=== PATIENT | female | born 1985 | race Caucasian/White ===

== ENCOUNTER → 2017-07-28 11:42 | Outpatient (CLI) | payer BC, SELFPAY ==
[2017-07-28 12:48] LABS: Absolute Lymphocyte Count 1.28 X10^3/ul (0.83-4.51); Absolute Neutrophil Count 5.3 X10^3/uL (2.0-7.7); Basophil# 0.01 X10^3/uL; Basophil% 0.1 % (0-1); Eosinophil# 0.02 X10^3/uL; Eosinophils% 0.3 % (0-5); Lymphocyte # 1.28 X10^3/ul (4.0); Lymphocyte % 18.3 % (19-41); Mean Corp Hgb Conc 33.3 g/gl (32-36); Mean Corpuscular Volume 89.9 fL (81-99); Mean Platelet Vol. 10.3 fl (6.2-12.0); Monocyte# 0.35 X10^3/uL; Neutrophil # 5.32 X10^3/uL (2.7-7.7); Platelet Count 263 K/mm3 (150-450); RBC Distribution Width CV 14.4 % (11.6-14.6); RBC Distribution Width SD 46.5 fl (35.1-43.9); Red Blood Count 4.34 M/mm3 (4.2-5.4)
[2017-07-28 12:49] LABS: POSITIVE COUNT NO; POSITIVE DIFFERENTIAL NO; POSITIVE MORPHOLOGY NO
[2017-07-28 13:09] LABS: Glucose Challenge Gest 1H 50g 128 mg/dL (70-140)
[2017-07-29 03:11] LABS: Rapid Plasmin Reagin (RPR) NONREACTIVE (NONREACTIVE)
[2017-07-29 09:09] LABS: HEPATITIS B SURFACE AG Negative (Negative)
[2017-07-29 09:43] LABS: HIV - WCH Non-Reactive (Nonreactive); Rubella IgG 323.2 IU/mL
== END ==
PROVIDERS: Visit Provider Obstetrics & Gynecology
DX: Z34.00 Encounter for supervision of normal first pregnancy, unspecified trimester (principal)
CPT/HCPCS: 82950; 85025; 86592; 86703; 86762; 86850; 86900; 87340

== ENCOUNTER → 2017-07-28 17:50 | Outpatient (CLI) | payer BC, SELFPAY ==
[2017-07-28 21:06] LABS: Chlamydia Trachomatis by PCR Negative (Negative); Neisserai gonorrhoeae by PCR Negative (Negative); Probe Check PASS; Sample Adequacy Control PASS; Specimen Processing Control PASS
== END ==
PROVIDERS: Visit Provider Obstetrics & Gynecology
DX: Z34.00 Encounter for supervision of normal first pregnancy, unspecified trimester (principal)
CPT/HCPCS: 87086; 87088; 87491; 87591

== ENCOUNTER → 2017-10-21 14:00 | Outpatient (CLI) | payer BC, SELFPAY ==
--- NOTE | 2017-10-21 14:03 | US_ITS ---
STUDY: SECOND AND THIRD TRIMESTER OBSTETRICAL ULTRASOUND REASON FOR EXAM: Female, 32 years old. Anatomy LMP: June 04, 2017 TECHNIQUE: Transabdominal and Transvaginal PRIOR ULTRASOUND: None. FINDINGS: There is a single intrauterine fetus. The fetus is in an oblique presentation with the head on the maternal right side. There is demonstrated cardiac activity with a heart rate of 156 bpm. There is a normal amniotic fluid volume. The largest amniotic fluid pocket measures 7.4 cm. The amniotic fluid index (DARRELL) is within normal limits. The placenta is anterior in location and is not low lying. There are Grade 0 placental changes. The cervix measures 5.5 cm in length. The bilateral adnexal regions are normal. BIOMETRY: BPD: 5.9 cm: 20 weeks, 5 days HC: 18 cm: 20 weeks, 3 days AC: 15.6 cm: 20 weeks, 6 days FL: 3.2 cm: 19 weeks, 6 days CI: 78 FL/BPD: 65 FL/AC: 20 HC/AC: 1.15 age by current US: 20 weeks, 4 days. DONNA by current US: March 06, 2018. Estimated weight: 347 grams, +/- 51 grams, 73 %. Age by LMP: 19 weeks, 6 days. DONNA by LMP: March 11, 2018. ANATOMY: Cranium: Normal lateral ventricles. Normal choroid plexus. Normal cerebellum. Normal cisterna magna. Normal face, nose and lips. Chest: Normal 4-chamber heart. Abdomen/Pelvis: Normal diaphragm. Normal stomach. Normal abdominal wall. Normal cord insertion. Normal 3 vessel cord. Normal kidneys. Normal bladder. Spine: Normal cervical spine. Normal thoracic spine. Normal lumbar spine. Normal sacrum. Extremities: Normal bilateral upper extremities. Normal bilateral lower extremities. US/OB Anatomy Scan IMPRESSION: 20 weeks 4 days intrauterine Electronically Signed: Tarun James MD at 23:31 EDT , Service support ,
== END ==
PROVIDERS: Visit Provider Obstetrics & Gynecology
DX: Z34.00 Encounter for supervision of normal first pregnancy, unspecified trimester (principal)
CPT/HCPCS: 76805

== ENCOUNTER → 2017-12-21 10:08 | Outpatient (CLI) | payer BC, SELFPAY ==
[2017-12-21 12:35] LABS: Absolute Lymphocyte Count 1.13 X10^3/ul (0.83-4.51); Absolute Neutrophil Count 6.9 X10^3/uL (2.0-7.7); Basophil# 0.01 X10^3/uL; Basophil% 0.1 % (0-1); Eosinophil# 0.04 X10^3/uL; Eosinophils% 0.5 % (0-5); Hematocrit 36.1 % (37-47); Hemoglobin 11.5 g/dl (12.0-15.0); Lymphocyte # 1.13 X10^3/ul (4.0); Lymphocyte % 13.1 % (19-41); Mean Corp Hgb Conc 31.9 g/gl (32-36); Mean Corpuscular Hgb 30.3 pg (27.0-32.0); Mean Corpuscular Volume 95.3 fL (81-99); Mean Platelet Vol. 10.2 fl (6.2-12.0); Monocyte# 0.51 X10^3/uL; Monocyte% 5.9 % (0-10); Neutrophil # 6.93 X10^3/uL (2.7-7.7); Neutrophil % 80.1 % (47-70); Platelet Count 210 K/mm3 (150-450); RBC Distribution Width CV 14.9 % (11.6-14.6); RBC Distribution Width SD 51.2 fl (35.1-43.9); Red Blood Count 3.79 M/mm3 (4.2-5.4); White Blood Count 8.7 K/mm3 (4.4-11.0)
[2017-12-21 12:41] LABS: POSITIVE COUNT NO; POSITIVE DIFFERENTIAL NO; POSITIVE MORPHOLOGY NO
[2017-12-21 12:46] LABS: Glucose Challenge Gest 1H 50g 144 mg/dL (70-140)
== END ==
PROVIDERS: Nurse Practitioner Women's Health; Visit Provider Obstetrics & Gynecology
DX: O09.90 Supervision of high risk pregnancy, unspecified, unspecified trimester (principal); Z3A.00 Weeks of gestation of pregnancy not specified
CPT/HCPCS: 82950; 85025

== ENCOUNTER → 2017-12-30 09:49 | Outpatient (CLI) | payer BC, SELFPAY ==
[2017-12-30 11:34] LABS: Glucose GTT-Gestation. Fasting 92 mg/dL (<105)
[2017-12-30 11:34] LABS: Glucose GTT-Gestational 1 Hr 172 mg/dL (<190)
[2017-12-30 13:30] LABS: Glucose GTT-Gestational 2 Hr 144 mg/dL (<165)
[2017-12-30 14:44] LABS: Glucose GTT-Gestational 3 Hr 99 L (<145)
== END ==
PROVIDERS: Nurse Practitioner Women's Health; Visit Provider Obstetrics & Gynecology
DX: O99.810 Abnormal glucose complicating pregnancy (principal); Z3A.00 Weeks of gestation of pregnancy not specified
CPT/HCPCS: 36415; 82951; 82952

== ENCOUNTER 2018-01-18 11:46 | Observation (INO) | payer OTHER, SELFPAY ==
[2018-01-18 12:11] VITALS: BMI 44.6
[2018-01-18 13:17] LABS: Hematocrit 36.7 % (37-47); Mean Corp Hgb Conc 32.7 g/gl (32-36); Mean Corpuscular Hgb 30.5 pg (27.0-32.0); Mean Corpuscular Volume 93.4 fL (81-99); Mean Platelet Vol. 10.5 fl (6.2-12.0); Platelet Count 194 K/mm3 (150-450); RBC Distribution Width CV 14.5 % (11.6-14.6); RBC Distribution Width SD 49.3 fl (35.1-43.9); Red Blood Count 3.93 M/mm3 (4.2-5.4); Scan Indicated on CBC? Y/N NO; White Blood Count 9.4 K/mm3 (4.4-11.0)
[2018-01-18] MEDS: Betamethasone/Betamethasone 30 MG/5 ML Vial 12 MG IM (13:28)
[2018-01-18 14:46] LABS: Color, Urine Yellow (Yellow); Glucose, Dipstick Normal (Normal); Ketone-Dipstick 50 mg/dl (Negative); Leukocyte Esterase-Dipstick 100 /ul (Negative); Nitrite-Dipstick Negative (Negative); Occult Blood-Urine Negative /ul (Negative); Protein-Dipstick Negative (Negative); Urine Bilirubin Dipstick Negative (Negative); Urine Clarity Clear (Clear); Urine Urobilinogen Normal (Normal); Urine pH 6.5 (5.0 - 8.0)
--- NOTE | 2018-01-18 20:59 | PCM.HP.OB ---
- Problem List (1) Threatened labor Status: Acute (2) Status: Acute Qualifiers: Comment: : 4 Elective abortions: Hx Para: 1 Spontaneous abortions: 2 Hx # Term Pregnancies: Ectopic pregnancies: Hx # Pregnancies: Multiple births: : # of living children: Past Pregnancies Amilcar 37 live - full term 7lbs 1oz Female 12 hours epidural [facility] Dr. 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 she denies any persistent bleeding and denies LOF. she admits good fm. she was checked in the office today and was noted to be 3 cm dilated but no cervical change was noted. Medical History: Medical History (Last Reviewed 01/18/18 @ 10:54 by Ivania Tuttle) Abnormal Pap smear of cervix R87.619 Surgical History: Surgical History (Last Reviewed 01/18/18 @ 10:54 by Ivania Tuttle) S/P dilation and curettage Onset Date: ~11/2016 Z98.890 Allergies red dye Allergy (Mild, Verified 01/18/18 10:54) vomiting diazepam [From Valium] Adverse Reaction (Verified 01/18/18 10:54) Other hyperactivity Home Medications: Home Medications vitamin,calcium,yrzzmjol-dyfx-nruqv acid tablet 1 tab PO QDAY 07/28/17 Citalopram [Celexa] 10 mg PO QDAY 01/18/18 Smoking Status: Never smoker Alcohol: None Heart Tracin moderate variability reactive no decels cat I TOCO Analysis: no regular History Past Pregnancies: Past Pregnancies Delivery Date Name GA/Weeks Outcome Route Weight Infant Gender Labor Length Anesthesia Delivery Location Provider FOB Labs: Mom's Microbiology 01/18/18 14:35 Urine, Clean Catch Urine Culture - Pending Mom's Labs & Results 01/18/18 01/18/18 01/18/18 13:00 13:00 13:00 WBC 9.4 RBC 3.93 L Hgb 12.0 Hct 36.7 L MCV 93.4 MCH 30.5 MCHC 32.7 RDW 14.5 RDW Differential 49.3 H Plt Count 194 MPV 10.5 Urine Color Urine Clarity Urine pH Ur Specific [place] Urine Protein Urine Glucose (UA) Urine Ketones Urine Occult Blood Urine Nitrite Urine Bilirubin Urine Urobilinogen Ur Leukocyte Esterase Blood Type A NEGATIVE Antibody Screen TNP NEGATIVE 01/18/18 14:35 WBC RBC Hgb Hct MCV MCH MCHC RDW RDW Differential Plt Count MPV Urine Color Yellow Urine Clarity Clear Urine pH 6.5 Ur Specific [place] 1.010 Urine Protein Negative Urine Glucose (UA) Normal Urine Ketones 50 H Urine Occult Blood Negative Urine Nitrite Negative Urine Bilirubin Negative Urine Urobilinogen Normal Ur Leukocyte Esterase 100 H Blood Type Antibody Screen Social History Hx Smoking No Smoking Status Never smoker Expected Delivery Method: Spontaneous Vaginal Review of Systems Constitutional: Denies: Fever, Malaise Eyes: Denies: Blurred vision, Vision Change HEENT: Denies: Head Aches, Visual Changes Cardiovascular: Denies: Chest Pain, Palpitations Respiratory: Denies: Cough, Shortness of Breath, Wheezing Gastrointestinal: Denies: Abdominal Pain, Diarrhea, Nausea, Vomiting Genitourinary: Denies: Dysuria, Hematuria Musculoskeletal: Denies: Joint Pain, Muscle pain Skin: Denies: Lesions, Rash Neurological: Denies: Blurred vision, Focal weakness, Headaches Psychiatric: Denies: Anxiety, Depression Endocrine: Denies: Heat/ Cold Intolerance Hematologic/ Lymphatic: Denies: Easy Bruising, Easy Bleeding Physical Exam General: Alert, Cooperative, No apparent distress HEENT: Atraumatic, Normocephalic. Negative for: Thyromegaly, Lymphadenopathy Cardiovascular: Regular rate Lungs: Normal air movement Abdomen: Soft, Non Tender, Gravid Neurological: Deep Tendon Reflexes 2+/4 and Symmetrical, Neuro grossly intact. Negative for: Clonus PRECISION AGRICULTURE SPECIALIST: Normal external genitalia. 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 contractions- no cervical change. plan exp management, start tocolysis if regular ctx or cervical change 2. prematurity- BMZ given 3. ua and culture
--- NOTE | 2018-01-18 21:03 | HP.PCM_ITS ---
- Problem List (1) Threatened labor Status: Acute (2) Status: Acute Qualifiers: Comment: : 4 Elective abortions: Hx Para: 1 Spontaneous abortions: 2 Hx # Term Pregnancies: Ectopic pregnancies: Hx # Pregnancies: Multiple births: : # of living children: Past Pregnancies Amilcar 37 live - full term 7lbs 1oz Female 12 hours epidural [facility] Dr. 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 she denies any persistent bleeding and denies LOF. she admits good fm. she was checked in the office today and was noted to be 3 cm dilated but no cervical change was noted. Medical History: Medical History (Last Reviewed 01/18/18 @ 10:54 by Ivania Tuttle) Abnormal Pap smear of cervix R87.619 Surgical History: Surgical History (Last Reviewed 01/18/18 @ 10:54 by Ivania Tuttle) S/P dilation and curettage Onset Date: ~11/2016 Z98.890 Allergies red dye Allergy (Mild, Verified 01/18/18 10:54) vomiting diazepam [From Valium] Adverse Reaction (Verified 01/18/18 10:54) Other hyperactivity Home Medications: Home Medications vitamin,calcium,dirsinij-wzah-lwnve acid tablet 1 tab PO QDAY 07/28/17 Citalopram [Celexa] 10 mg PO QDAY 01/18/18 Smoking Status: Never smoker Alcohol: None Heart Tracin moderate variability reactive no decels cat I TOCO Analysis: no regular History Past Pregnancies: Past Pregnancies Delivery Date Name GA/Weeks Outcome Route Weight Infant Gender Labor Length Anesthesia Delivery Location Provider FOB Labs: Mom's Microbiology 01/18/18 14:35 Urine, Clean Catch Urine Culture - Pending Mom's Labs & Results 01/18/18 01/18/18 01/18/18 13:00 13:00 13:00 WBC 9.4 RBC 3.93 L Hgb 12.0 Hct 36.7 L MCV 93.4 MCH 30.5 MCHC 32.7 RDW 14.5 RDW Differential 49.3 H Plt Count 194 MPV 10.5 Urine Color Urine Clarity Urine pH Ur Specific [place] Urine Protein Urine Glucose (UA) Urine Ketones Urine Occult Blood Urine Nitrite Urine Bilirubin Urine Urobilinogen Ur Leukocyte Esterase Blood Type A NEGATIVE Antibody Screen TNP NEGATIVE 01/18/18 14:35 WBC RBC Hgb Hct MCV MCH MCHC RDW RDW Differential Plt Count MPV Urine Color Yellow Urine Clarity Clear Urine pH 6.5 Ur Specific [place] 1.010 Urine Protein Negative Urine Glucose (UA) Normal Urine Ketones 50 H Urine Occult Blood Negative Urine Nitrite Negative Urine Bilirubin Negative Urine Urobilinogen Normal Ur Leukocyte Esterase 100 H Blood Type Antibody Screen Social History Hx Smoking No Smoking Status Never smoker Expected Delivery Method: Spontaneous Vaginal Review of Systems Constitutional: Denies: Fever, Malaise Eyes: Denies: Blurred vision, Vision Change HEENT: Denies: Head Aches, Visual Changes Cardiovascular: Denies: Chest Pain, Palpitations Respiratory: Denies: Cough, Shortness of Breath, Wheezing Gastrointestinal: Denies: Abdominal Pain, Diarrhea, Nausea, Vomiting Genitourinary: Denies: Dysuria, Hematuria Musculoskeletal: Denies: Joint Pain, Muscle pain Skin: Denies: Lesions, Rash Neurological: Denies: Blurred vision, Focal weakness, Headaches Psychiatric: Denies: Anxiety, Depression Endocrine: Denies: Heat/ Cold Intolerance Hematologic/ Lymphatic: Denies: Easy Bruising, Easy Bleeding Physical Exam General: Alert, Cooperative, No apparent distress HEENT: Atraumatic, Normocephalic. Negative for: Thyromegaly, Lymphadenopathy Cardiovascular: Regular rate Lungs: Normal air movement Abdomen: Soft, Non Tender, Gravid Neurological: Deep Tendon Reflexes 2+/4 and Symmetrical, Neuro grossly intact. Negative for: Clonus LOAN COORDINATOR: Normal external genitalia. 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 contractions- no cervical change. plan exp management, start tocolysis if regular ctx or cervical change 2. prematurity- BMZ given 3. ua and culture
[2018-01-18] MEDS: 0.9% NaCl Peripheral Flush Adult/Peds IV (21:37)
[2018-01-18] MEDS: Citalopram 10 MG Tablet PO (21:37)
[2018-01-19] MEDS: Betamethasone/Betamethasone 30 MG/5 ML Vial 12 MG IM (13:43)
== END 2018-01-19 13:55 | disposition home or self-care (01) ==
LOC: WPOUT 11:46 → WP 11:47 → WPOUT 01-19 15:02 → WP 01-19 15:52
PROVIDERS: Admitting Provider Obstetrics & Gynecology; Visit Provider Obstetrics & Gynecology
DX: O60.03 Preterm labor without delivery, third trimester (principal); O99.343 Other mental disorders complicating pregnancy, third trimester; F41.9 Anxiety disorder, unspecified; O36.0130 Maternal care for anti-D [Rh] antibodies, third trimester, not applicable or unspecified; O09.523 Supervision of elderly multigravida, third trimester; O26.23 Pregnancy care for patient with recurrent pregnancy loss, third trimester; Z3A.32 32 weeks gestation of pregnancy
CPT/HCPCS: 36415; 59025; 59050; 81002; 85027; 86850; 86900; 87086; 87088; 96372; 99218; A4216; G0378; J0702

== ENCOUNTER 2018-01-20 01:30 | Outpatient (CLI) | payer BC, SELFPAY ==
[2018-01-20 02:00] VITALS: BMI 44.6
[2018-01-20 02:35] VITALS: RESP 18
--- NOTE | 2018-01-26 20:22 | OB.TRI.NOTE ---
- Problem List (1) Decreased movement Status: Acute (2) Threatened labor Status: Acute Qualifiers: History of Present Illness Date of Service: 01/20/18 Reason For Visit: R/O LABOR Date of Service: 01/20/18 Allergies red dye Allergy (Mild, Verified 01/23/18 11:47) vomiting diazepam [From Valium] Adverse Reaction (Verified 01/23/18 11:47) Other hyperactivity - Pertinent Past Medical History Medical History: Past Medical History (Last Reviewed 01/23/18 @ 11:47 by Elinor Hurtado) Abnormal Pap smear of cervix Surgical History: Past Surgical History (Last Reviewed 01/23/18 @ 11:47 by Elinor Hurtado) S/P dilation and curettage Onset Date: ~11/2016 Physical Exam Vitals: Vital Signs Resp 18 01/20/18 02:35 NST - FHR Rate Baby A Baseline: 140 Variability:: Moderate Accelerations:: 15 x 15 Decelerations:: None NST Reactive:: Yes FHR Category:: Category I Uterine Activity:: no regular Impression/Plan Decreased movement reactive NST and reassuring heart tones. Kick counts reviewed patient discharged home
== END 2018-01-20 02:35 | disposition home or self-care (01) ==
LOC: WPOUT 01:51 → WP 01:51
PROVIDERS: Visit Provider Obstetrics & Gynecology
DX: O36.8190 Decreased fetal movements, unspecified trimester, not applicable or unspecified (principal); Z3A.00 Weeks of gestation of pregnancy not specified
CPT/HCPCS: 59025; 59050; 99218; G0378

== ENCOUNTER → 2018-02-17 18:29 | Outpatient (CLI) | payer BC, SELFPAY ==
[2018-02-17 20:51] LABS: Group B Strep DNA By PCR Negative (Negative); Internal Control PASS; Probe Check PASS; Specimen Processing Control PASS
== END ==
PROVIDERS: Referring Provider Obstetrics & Gynecology; Visit Provider Obstetrics & Gynecology
DX: O09.893 Supervision of other high risk pregnancies, third trimester (principal); Z3A.00 Weeks of gestation of pregnancy not specified
CPT/HCPCS: 87081; 87653

== ENCOUNTER 2018-02-24 12:15 | Inpatient (IN) | payer BC, SELFPAY ==
[2018-02-24 12:29] VITALS: BMI 45.0
[2018-02-24] MEDS: Lactated Ringers 1,000 ML 50 ML IV ×2 (13:00→14:30)
[2018-02-24 13:16] LABS: Hematocrit 37.1 % (37-47); Hemoglobin 12.4 g/dl (12.0-15.0); Mean Corp Hgb Conc 33.4 g/gl (32-36); Mean Corpuscular Hgb 30.9 pg (27.0-32.0); Mean Corpuscular Volume 92.5 fL (81-99); Mean Platelet Vol. 10.9 fl (6.2-12.0); Platelet Count 203 K/mm3 (150-450); RBC Distribution Width CV 14.9 % (11.6-14.6); RBC Distribution Width SD 49.2 fl (35.1-43.9); Red Blood Count 4.01 M/mm3 (4.2-5.4)
[2018-02-24 13:17] LABS: Scan Indicated on CBC? Y/N NO
[2018-02-24] MEDS: fentaNYL-bupivacaine (epidural) 100 ML BAG EPIDURAL (14:26)
[2018-02-24] MEDS: Oxytocin 30 units/NS 500 ml 30 UNITS/500 ML IV.SOLN 334 UNITS IV (15:55)
--- NOTE | 2018-02-24 16:07 | PCM.OB.VAG ---
- Problem List (1) Active labor at term Status: Acute (2) Abnormal glucose affecting Status: Acute Comment: nl 3 hour- 1 elevated value. encouraged diet and exercise (3) Advanced maternal age (AMA) in Status: Acute Comment: declines genetic testing, growth us at 36 weeks (4) Anxiety during Status: Acute Comment: celexa (5) BMI 40.0-44.9, adult Status: Acute Comment: weekly nst until delivery, growth us q 4 weeks- ordered MFM (6) Status: Acute Qualifiers: Comment: genetic, carrier, and NTD screening declined. anatomy scan WNL. 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 Status: Acute Comment: apl workup negative (8) Rh negative status during Status: Acute Qualifiers: Comment: rhogam at 28 weeks and PRN (9) Supervision of high-risk Status: Acute Qualifiers: Comment: PRR DONNA 03/11/18 PC Amilcar Can Vaginal Delivery Maternal Presentation: Active Labor ial Amniotic Membrane Rupture Type: Spontaneous at home Amniotic Fluid Description: Clear Final DONNA: 03/11/18 Gestational age: 37 Weeks and 6 Days Date of Procedure: 02/24/18 Pre-Operative Diagnosis: ial Post-Operative Diagnosis: same Surgery/ Procedure Performed: Spontaneous Vaginal Delivery Type of Anesthesia: Epidural Description of Procedure: Patient began pushing and delivered the head in the PEG presentation. The head was delivered atraumatically a loose nuchal cord x1 was identified and easily reduced over the infant's head. The anterior and posterior shoulders delivered without complication followed by the rest of the infant and the infant was placed on the maternal abdomen. Delayed cord clamping was employed for approximately 60 seconds. Cord was clamped and cut and gentle traction was applied to the cord and the placenta delivered spontaneously immediately following it was noted to be intact with three-vessel cord. The perineum and vagina were inspected and noted to have a small first-degree perineal laceration that was repaired in the usual fashion with 3-0 Vicryl repeat. EBL was 200 cc. Patient and infant tolerated delivery well. Presentation: PEG Placental Delivery Description: Spontaneous Placenta Disposition: [facility] Cord Vessel Description: 3 Vessels Cord Entanglement: Around neck x 1, loose Estimated Blood Loss: 200 A gender: Male Episiotomy Description: None Laceration: Perineal Extension/lac, 1st degree Medications given after delivery: IV Pitocin Complications: None
--- NOTE | 2018-02-24 16:10 | HP.PCM_ITS ---
- Problem List (1) Active labor at term Status: Acute (2) Abnormal glucose affecting Status: Acute Comment: nl 3 hour- 1 elevated value. encouraged diet and exercise (3) Advanced maternal age (AMA) in Status: Acute Comment: declines genetic testing, growth us at 36 weeks (4) Anxiety during Status: Acute Comment: celexa (5) BMI 40.0-44.9, adult Status: Acute Comment: weekly nst until delivery, growth us q 4 weeks- ordered MFM (6) Status: Acute Qualifiers: Comment: genetic, carrier, and NTD screening declined. anatomy scan WNL. 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 Patient was 4-5 cm dilated and was checked in the office today and had spontaneous rupture of membranes clear fluid. Patient had a regular contractions throughout the morning every 3- 8 minutes Medical History: Medical History (Last Reviewed 02/24/18 @ 11:00 by Ivania Tuttle) Abnormal Pap smear of cervix R87.619 Surgical History: Surgical History (Last Reviewed 02/24/18 @ 11:00 by Ivania Tuttle) S/P dilation and curettage Onset Date: ~11/2016 Z98.890 Allergies red dye Allergy (Mild, Verified 02/24/18 11:00) vomiting diazepam [From Valium] Adverse Reaction (Verified 02/24/18 11:00) Other hyperactivity Home Medications: Home Medications vitamin,calcium,ysflshbe-mwcy-efbyj acid tablet 1 tab PO QDAY 07/28/17 Citalopram [Celexa] 10 mg PO QDAY 01/18/18 Smoking Status: Never smoker Alcohol: None Number of Fetus(es): 1 Heart Tracins moderate variability reactive no decelerations category 1 tracing TOCO Analysis: Every 2 to 5 minutes History Past Pregnancies: Past PregnanciesPregancy History 4 Elective abortions Hx Para 1 Spontaneous abortions 2 Hx # Term Pregnancies 1 Ectopic pregnancies Hx # Pregnancies Multiple births # of living children 1 Past Pregnancies Del. Date Name GA/Weeks Outcome Route Bth Weight Infant Gen Labor Lgth Anesthesia Del Locatn Provider FOB 12/27/14 Amilcar 37 live - full term 7lbs 1oz Female 12 hours epidural [facility] Dr. Sedrick [place] Delivery Date: 12/27/14 On 12/01/17 @ 11:09 Elinor Hurtado No issues during or delivery. Labs: Mom's Problem List Problem Status Onset Code Active labor at term Acute Mom's Labs & Results 02/24/18 02/24/18 13:00 13:00 WBC 11.0 RBC 4.01 L Hgb 12.4 Hct 37.1 MCV 92.5 MCH 30.9 MCHC 33.4 RDW 14.9 H RDW Differential 49.2 H Plt Count 203 MPV 10.9 Blood Type A NEGATIVE Antibody Screen NEGATIVE Course Did the patient receive Yes care? Labs Blood Type: A RH: NEGATIVE RPR/VDRL/Syphilis Nonreactive Rubella status Immune HbSAg Negative Date Done: 07/28/17 Chlamydia Negative Gonorrhea Negative HIV/AIDS Non-Reactive Group B Strep: Negative Current Obstetrical History Gestational Diabetes No Incompetent Cervix No Infertility No IUGR No Macrosomia No Hypertension/Pre-eclampsia No Placenta Previa/Abruption No PTL/PROM Yes: 2 shots of betamethasone 01/24 Uterine anomaly No Oligohydramnios No Polyhydramnios No Multiple gestation No Past Medical History Asthma No Diabetes No Hypertension No Heart disease No Mitral valve prolapse No Neurologic/Seizure disorder/ No Migraines Kidney disease No Liver disease No Varicosities No Clotting disorders/Hx of DVT No Thyroid Dysfunction No Other medical diseases No Psychiatric disorders No Major trauma No Abnormal PAP smear Yes Sleep apnea No Mammogram in the last 2 years No Social History Marital Status: Alleged father Can Lebl[place] Hx Smoking No Smoking Status Never smoker Expected Delivery Method: Spontaneous Vaginal Review of Systems Constitutional: Denies: Fever, Malaise Eyes: Denies: Blurred vision, Vision Change HEENT: Denies: Head Aches, Visual Changes Cardiovascular: Denies: Chest Pain, Palpitations Respiratory: Denies: Cough, Shortness of Breath, Wheezing Gastrointestinal: Denies: Abdominal Pain, Diarrhea, Nausea, Vomiting Genitourinary: Denies: Dysuria, Hematuria Musculoskeletal: Denies: Joint Pain, Muscle pain Skin: Denies: Lesions, Rash Neurological: Denies: Blurred vision, Focal weakness, Headaches Psychiatric: Denies: Anxiety, Depression Endocrine: Denies: Heat/ Cold Intolerance Hematologic/ Lymphatic: Denies: Easy Bruising, Easy Bleeding Physical Exam General: Alert, Cooperative, No apparent distress HEENT: Atraumatic, Normocephalic. Negative for: Thyromegaly, Lymphadenopathy Cardiovascular: Regular rate Lungs: Normal air movement Abdomen: Soft, Non Tender, Gravid Neurological: Deep Tendon Reflexes 2+/4 and Symmetrical, Neuro grossly intact. Negative for: Clonus DIRECTOR OF PLAYER PERSONNEL: Normal external genitalia. 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 Management of any complications: none I have reviewed the PFSH and made any clinically relevant updates.
[2018-02-24] MEDS: Oxytocin 30 units/NS 500 ml 30 UNITS/500 ML IV.SOLN 167 UNITS IV (16:25)
[2018-02-24] MEDS: Naproxen 250 MG Tablet PO (18:24)
[2018-02-24 19:37] VITALS: BP 115/64; PULSE 81; RESP 18; TEMP 36.8
[2018-02-24 23:56] VITALS: BP 107/64; PULSE 64; RESP 18; TEMP 36.6
[2018-02-25] MEDS: Naproxen 250 MG Tablet PO ×3 (02:44→20:46)
[2018-02-25 04:31] VITALS: BP 101/67; PULSE 65; RESP 16; TEMP 36.4
--- NOTE | 2018-02-25 08:19 | PCM.PN.OB ---
Patient Problems: Active and Suspected Problems (Last Reviewed 02/24/18 @ 11:00 by Ivania Tuttle) Active labor at term (Acute) Subjective: doing well n ocomplaints - Physical Exam Vital Signs Temp Pulse Resp BP 97.6 F L 65 16 101/67 02/25/18 04:31 02/25/18 04:31 02/25/18 04:31 02/25/18 04:31 Oxygen Delivery Method Room Air Weight: 262 lb 5.601 oz Body Mass Index (BMI) 45.0 Intake and Output for Last 24 Hours 02/23/18 02/24/18 02/25/18 23:59 23:59 23:59 Intake Total 2108 / 2108 Output Total 1500 / 1500 Balance 608 / 608 Laboratory Tests Past 24 Hrs 02/24/18 02/24/18 13:00 13:00 WBC 11.0 RBC 4.01 L Hgb 12.4 Hct 37.1 MCV 92.5 MCH 30.9 MCHC 33.4 RDW 14.9 H RDW Differential 49.2 H Plt Count 203 MPV 10.9 Blood Type A NEGATIVE Antibody Screen NEGATIVE Medical Necessity - Tobacco Use Smoking Status: Never smoker Assessment/Plan All Active Problems (Last Reviewed 02/24/18 @ 11:00 by Ivania Tuttle) Active labor at term (Acute) Abnormal glucose affecting (Acute) BMI 40.0-44.9, adult (Acute) (Acute) Anxiety during (Acute) Rh negative status during (Acute) Advanced maternal age (AMA) in (Acute) 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 routine post delivery care 2. breast feeding- support given 3. rh negative- rhogam prn 4. rubella immune
--- NOTE | 2018-02-25 08:21 | PCM.DCVAG ---
Discharge Diet: No Restrictions Discharge Activity: Return to Normal Activity, May not drive while taking narcotic pain medications., May Shower May resume sexual activity in: 4-6 weeks Call your doctor if your incision/area has: Continuous Slow Oozing, Sudden Increased Bleeding, Increased Pain/ Swelling, Increased Redness, Foul Smelling Discharge Additional Instructions: If you experience any of the following, contact your healthcare provider. Bleeding that soaks a pad every hour for 2 hours Fever 100.4 or higher Unrelieved incision or abdominal pain Swelling, redness, discharge or bleeding from your incision or episiotomy site Your incision begins to separate Problems urinating (including inability to urinate or burning while urinating). Visual changes Severe headache Flu-like symptoms Pain or redness in one of both of your breasts Pain, warmth, tenderness or swelling in your legs, especially the calf area Frequent nausea and vomiting Symptoms of depression or anxiety If you experience any of the following, call 911 or go to the nearest Emergency Room. Chest pain Problems breathing Seizure activity Partial or complete paralysis of a body part, slurred speech, weakness or drooping of the face, or a sudden inability to walk or hold your balance Allergies/Adverse Reactions: Allergies red dye Allergy (Mild, Verified 02/24/18 11:00) vomiting diazepam [From Valium] Adverse Reaction (Verified 02/24/18 11:00) Other hyperactivity Medications to take at Discharge vitamin,calcium,zqabjdti-iboe-yccav acid tablet 1 tab PO QDAY 07/28/17 Citalopram [Celexa] 10 mg PO QDAY 01/18/18 Please Follow Up With: Kaylee Chiu MD - [phone] When: Call to make an appointment with your doctor in 6 weeks. If you had elevated Blood pressure or 4th degree laceration you will need to be seen in 2 weeks. Primary Care Physician: Care Physician,No Primary [Primary Care Provider] - Test Results: Test results from this visit will be discussed in further detail at your follow-up appointment, if applicable.
--- NOTE | 2018-02-25 08:28 | DCINST_ITS ---
Discharge Diet: No Restrictions Discharge Activity: Return to Normal Activity, May not drive while taking narcotic pain medications., May Shower May resume sexual activity in: 4-6 weeks Call your doctor if your incision/area has: Continuous Slow Oozing, Sudden Increased Bleeding, Increased Pain/ Swelling, Increased Redness, Foul Smelling Discharge Additional Instructions: If you experience any of the following, contact your healthcare provider. * Bleeding that soaks a pad every hour for 2 hours * Fever 100.4 or higher * Unrelieved incision or abdominal pain * Swelling, redness, discharge or bleeding from your incision or episiotomy site * Your incision begins to separate * Problems urinating (including inability to urinate or burning while urinating). * Visual changes * Severe headache * Flu-like symptoms * Pain or redness in one of both of your breasts * Pain, warmth, tenderness or swelling in your legs, especially the calf area * Frequent nausea and vomiting * Symptoms of depression or anxiety If you experience any of the following, call 911 or go to the nearest Emergency Room. * Chest pain * Problems breathing * Seizure activity * Partial or complete paralysis of a body part, slurred speech, weakness or drooping of the face, or a sudden inability to walk or hold your balance Allergies/Adverse Reactions: Allergies red dye Allergy (Mild, Verified 02/24/18 11:00) vomiting diazepam [From Valium] Adverse Reaction (Verified 02/24/18 11:00) Other hyperactivity Medications to take at Discharge vitamin,calcium,yhdjoxjb-scfl-elmak acid tablet 1 tab PO QDAY 07/28/17 Citalopram [Celexa] 10 mg PO QDAY 01/18/18 Please Follow Up With: Kaylee Chiu MD - [phone] When: Call to make an appointment with your doctor in 6 weeks. If you had elevated Blood pressure or 4th degree laceration you will need to be seen in 2 weeks. Primary Care Physician: Care Physician,No Primary [Primary Care Provider] - Test Results: Test results from this visit will be discussed in further detail at your follow- up appointment, if applicable.
[2018-02-25 09:12] VITALS: BP 108/87; PULSE 78; RESP 14; TEMP 36.4; O2SAT 96
[2018-02-25 12:49] VITALS: BP 111/76; PULSE 75; RESP 14; TEMP 36.2; O2SAT 98
[2018-02-25 17:30] VITALS: BP 110/72; PULSE 77; RESP 16; TEMP 36.6; O2SAT 96
[2018-02-25 19:50] VITALS: BP 117/60; PULSE 67; RESP 16; TEMP 36.2; O2SAT 97
[2018-02-25] MEDS: Senna/Docusate Sodium 1 Tablet PO (20:46)
[2018-02-26 02:44] VITALS: BP 110/57; PULSE 71; RESP 16; TEMP 36.7; O2SAT 95
[2018-02-26 08:17] VITALS: BP 112/51; PULSE 68; RESP 16; TEMP 36.3; O2SAT 97
--- NOTE | 2018-02-26 12:47 | PCM.PN.OB ---
Patient Problems: Active and Suspected Problems (Last Reviewed 02/24/18 @ 11:00 by Ivania Tuttle) Active labor at term (Acute) Subjective: doing well no complaints - Physical Exam General: Alert, Oriented x3 Vital Signs Temp Pulse Resp BP Pulse Ox 97.3 F L 68 16 112/51 L 97 02/26/18 08:17 02/26/18 08:17 02/26/18 08:17 02/26/18 08:17 02/26/18 08:17 Oxygen Delivery Method Room Air Weight: 262 lb 5.601 oz Body Mass Index (BMI) 45.0 Intake and Output for Last 24 Hours 02/24/18 02/25/18 02/26/18 23:59 23:59 23:59 Intake Total 2108 / 2108 Output Total 1500 / 1500 Balance 608 / 608 Medical Necessity - Tobacco Use Smoking Status: Never smoker Assessment/Plan All Active Problems (Last Reviewed 02/24/18 @ 11:00 by Ivania Tuttle) Active labor at term (Acute) Abnormal glucose affecting (Acute) BMI 40.0-44.9, adult (Acute) (Acute) Anxiety during (Acute) Rh negative status during (Acute) Advanced maternal age (AMA) in (Acute) 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 routine post delivery care 2. breast feeding- support given 3. rh negative- rhogam prn 4. rubella immune
[2018-02-26 13:39] VITALS: BP 121/76; PULSE 69; RESP 16; TEMP 36.6; O2SAT 100
== END 2018-02-26 14:15 | disposition home or self-care (01) | DRG 806 ==
PROVIDERS: Admitting Provider Obstetrics & Gynecology; Referring Provider Obstetrics & Gynecology; Visit Provider Obstetrics & Gynecology
DX: O42.02 Full-term premature rupture of membranes, onset of labor within 24 hours of rupture (principal); O36.0130 Maternal care for anti-D [Rh] antibodies, third trimester, not applicable or unspecified; Z37.0 Single live birth; O26.23 Pregnancy care for patient with recurrent pregnancy loss, third trimester; O99.62 Diseases of the digestive system complicating childbirth; O70.0 First degree perineal laceration during delivery; K21.9 Gastro-esophageal reflux disease without esophagitis; O99.344 Other mental disorders complicating childbirth; F41.9 Anxiety disorder, unspecified; O99.814 Abnormal glucose complicating childbirth; Z3A.37 37 weeks gestation of pregnancy
CPT/HCPCS: 59050; 85027; 86850; 86900; 99218; J7120; G0378

== ENCOUNTER 2018-03-02 10:00 | Outpatient (CLI) | payer BC, SELFPAY | END 2018-03-02 11:00 | disposition home or self-care (01) | LOC: WPOUT 10:16 → WP 10:17 | PROVIDERS: Referring Provider Obstetrics & Gynecology; Visit Provider Obstetrics & Gynecology | DX: Z39.1 Encounter for care and examination of lactating mother (principal) | CPT/HCPCS: 96152 ==

== ENCOUNTER 2019-05-10 10:00 | Day surgery (SDC) | payer BC, SELFPAY ==
[2019-04-04 10:34] VITALS: BMI 42.2
--- NOTE | 2019-04-11 09:10 | HP_ITS ---
Intake Vital Signs 04/04/19 Body Mass Index (BMI) 42.2 04/04/19 Height 5 ft 4 in 04/04/19 Weight: 260 lb 04/04/19 Body Mass Index (BMI) 44.6 04/04/19 Blood Pressure 123/85 H 04/04/19 Blood Pressure Location Rt brachial 04/04/19 Blood Pressure Position Sitting 04/04/19 Respiratory Rate 18 04/04/19 Pulse Rate 80 04/04/19 Pulse Source Monitor 04/04/19 Temperature 97.8 F 04/04/19 Temperature Source Oral 04/04/19 Pulse Ox 96 04/04/19 Oxygen Delivery Method room air Intake Visit Reasons: Gallbladder problems Chief Complaint: abdominal pain Environmental Health And Safety Intern Required: No Is patient in pain?: No Allergies red dye Allergy (Mild, Verified 04/04/19 10:33) vomiting diazepam [From Valium] Adverse Reaction (Verified 04/04/19 10:33) Other Medications vitamin,calcium,lgezggel-nzsu-lgqnj acid tablet 1 tab PO QDAY 07/28/17 [History Confirmed 04/04/19] escitalopram 20 mg tablet 20 mg PO DAILY #30 tab 08/16/18 [Rx Confirmed 04/04/19] PFSH Medical History Abnormal Pap smear of cervix (Acute) Surgical History S/P dilation and curettage (Resolved ~11/2016) Family History (Updated 04/04/19 @ 10:32 by Yusra Erazo) Father Atrial fibrillation Mother Breast cancer Grandmother Ovarian cancer Colon cancer Arthritis Grandfather Diabetes Social History (Updated 04/11/19 @ 09:10 by Henri Malhotra MD) Smoking Status: Never smoker alcohol intake: never substance use type: does not use caffeine: No what type of physical activity do you participate in: walking frequency: 3-4 times per week seatbelt use: always do you feel safe at home: Yes additional social history: - [employer] 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 Patient reports that she has been having right upper quadrant pain now for a few months and she is getting tired of it. She says that it happens especially after eating. There is no nausea or vomiting associated. It is in the right upper quadrant radiating to the back. Current symptoms: Denies constipation Associated symptoms: Reports diarrhea; denies constipation ROS General General: Yes fatigue; no weight change, appetite, colon cancer, breast cancer or weakness HEENT HEENT: No difficulty swallowing, eye injury, eye surgery, swollen glands or hoarseness Endo Endocrine: No thyroid disease, diabetes mellitus, thyroid cancer, Hair loss, heat intolerance or cold intolerance Skin Skin: No rash or changing moles Breast Breast: No left breast lump, right breast lump, nipple discharge, breast pain, abnormal mammogram, abnormal US or breast enlargement Musc Musculoskeletal: No back problems, arthritis, rheumatoid arthritis, gout or joint pain Cardio Cardiovascular: No murmur, pacemaker, heart disease, atrial fibrillation, high blood pressure, heart attack, heart stent, palpitations, shortness of breat with exertion or chest pain Psych Psychiatric: Yes anxiety; no depression or hearing voices Resp Respiratory: No shortness of breath, No sleep apnea, No cough, No COPD, No asthma, No emphysema, No wheezing Gastro Gastrointestinal: Yes abdominal pain, Yes nausea or vomiting, Yes diarrhea, No constipation, No blood in stool, No acid reflux, No hemorrhoids, No ulcers, Yes gallbladder problem, No black,tarry stools Andrew Hematologic: No blood thinners, No blood disorders, No bleeding, No anemia, No blood clots Neuro Neurologic: No system reviewed and no additional complaints, except as docu, No as per HPI, No abnormal walking, No abnormal hearing, No abnormal movements, No abnormal speech, No behavioral changes, No burning sensations, No confusion, No seizure-like activity, No unsteadiness, No dizziness, No localized weakness, No frequent falls, No headache(s), No lack of coordination, No loss of vision, No memory loss, No numbness, No other visual disturbances, No radiating pain, No restless legs, No sensory deficit, No fainting, No tingling, No tremor(s), No weakness, No other Exam Const General: cooperative Orientation: alert, oriented x3 HENMT Head: normal to inspection Ears: hearing grossly normal bilaterally Eyes General: appearance normal, both eyes and all related structures Visual Segovia: normal visual segovia by confrontation Neck Neck: normal visual inspection Chest Chest palpation & inspection: normal inspection of the chest Breast Palpation: No nipple discharge Resp Effort & Inspection: normal respiratory effort Auscultation: clear to auscultation bilaterally Cardio Rate: regular rate Rhythm: regular rhythm Heart Sounds: no murmurs GI Inspection: non-distended Palpation: soft, nontender Musc Cervical Spine: normal cervical lordosis, cervical ROM normal Skin General: no rashes or lesions noted Neuro General: alert, oriented x3 Cranial Nerves: CN's II-XI intact bilaterally Cognition: normal cognition Extrem General: normal to inspection, full ROM Psych Appearance: grossly normal Affect: normal affect Assessment & Plan Problems 1. Gallbladder Problem K82.9 2. Calculus of gallbladder without cholecystitis without obstruction K80.20 Plan The patient is having right upper quadrant pain consistent with biliary colic. Ultrasound showed gallstone. I recommended laparoscopic cholecystectomy to the patient. I discussed the procedure in detail with the patient. I discussed the risks, benefits, and alternatives of the procedure. I discussed the risks including but not limited to bleeding, infection, injury to surrounding organs such as the liver, bile duct, bowels. I did discuss the possibility of having to convert to an open procedure as well as the possibility that if any injuries occurred this may necessitate further surgery at a tertiary care center. Henri Malhotra MD Pager: [facility] [address] [place] [address], [address] [place] [address] Office: Coding Level of Care Code Off vis,new,level 4 Diagnoses Gallbladder Problem K82.9 Calculus of gallbladder without cholecystitis without obstruction K80.20 ??Cholelithiasis location: gallbladder ??Cholecystitis presence: without cholecystitis ??Biliary obstruction: without biliary obstruction Time Spent (min) 45 04/11/19 0910 <Electronically signed by Henri pyle MD> Date _ Henri Calabretta MD I have re-examined the patient. There are no clinical changes since date of exam.
[2019-05-10] VITALS (10 sets, daily range): BP systolic 98–129; BP diastolic 60–74; PULSE 60–76; RESP 14–18; TEMP 36.2–37; O2SAT 91–98; BMI 47.5
--- NOTE | 2019-05-10 | GALL_PTH ---
PATIENT: ROBERT [place]AVALA [place] [facility] [id number] AGE/SX: 34/F ROOM: RE05/10/[address]: Dr. Henri Malhotra MD : [id number] BED: DIS: 05/10/2019 SPEC #: [id number] RECD: 05/10/19 13:59 STATUS: RHIANNON KATERINA #: [id number] UMBERTO: 05/10/19 00:[address]: Henri Malhotra DEPT: SURGICAL PATHOLOGY RECD BY: Td Ash ENTERED: 05/10/19 13:59 SP TYPE: MILAN BAKER DR: No Primary Care Phys Tissues: Gallbladder, NOS Procedures: Surgery Specimen Level III HEADER OPERATION: Laparoscopic cholecystectomy with IOC PRE-OP DIAGNOSIS: Cholelithiasis TISSUE SUBMITTED: Gallbladder MICROSCOPIC DIAGNOSIS Gallbladder, cholecystectomy: Chronic cholecystitis and cholelithiasis. A pericystic lymph node with reactive changes. SJ:pavithra 05/11/19 MICROSCOPIC DESCRIPTION Slides are reviewed. GROSS DESCRIPTION Received is one container labeled with the patient's name and designated gallbladder. The specimen consists of a gallbladder measuring 9 cm in length and 2.5 cm in diameter. The external surface is pink-stout, smooth and glistening for the most part. Focally it is granular, hemorrhagic and contains cautery artifact. The gallbladder contains green-yellow mucoid bile and one greenish-brown ovoid stone measuring 1.5 x 1.2 x 1 cm. The mucosa is bile-stained and without any mass lesions. The gallbladder wall measures up to 0.3 cm in thickness. An ovoid nodule is noted close to the cystic duct measuring 1.2 x 0.5 x 0.2 cm. Warehouse Receiving Supervisor sections from the gallbladder and the cystic duct are submitted in one cassette including entire ovoid nodule. / SJ:pavithra 05/10/19 TC:3 CPT: 35911
--- NOTE | 2019-05-10 10:11 | EKG12_ITS ---
Test Reason : PRE OP Blood Pressure : / mmHG Vent. Rate : 074 BPM Atrial Rate : 074 BPM P-R Int : 138 ms QRS Dur : 096 ms QT Int : 380 ms P-R-T Axes : 052 033 017 degrees QTc Int : 421 ms Normal sinus rhythm Normal ECG No previous ECGs available Confirmed by HUANG ALATORRE, MARNI ([id number]), graphic editor SLICK PRADO ([id number]) on 05/15/2019 9:24:54 AM Referred By: Henri Malhotra Confirmed By:MARNI ENCINAS MD
[2019-05-10 10:32] LABS: Internal QC Validated? YES +Cl - CLEAR BKGD; Pregnancy, Urine Negative Negative
[2019-05-10] MEDS: Lactated Ringers 1,000 ML 100 ML IV ×2 (10:38→12:53)
--- NOTE | 2019-05-10 11:50 | RAD_ITS ---
PROCEDURE: CHOLANGIOGRAM - INTRAOPERATIVE CLINICAL HISTORY: Female, 34 years old. Pain. Fluoroscopy time (if supplied): 9.9 seconds RADIATION DOSAGE (If Supplied By Facility): 6.17 mGy TECHNIQUE: Fluoroscopic guidance was provided to Dr. Malhotra. A cine run of 61 images is submitted. COMPARISON: Right upper quadrant ultrasound November 12, 2016 FINDINGS: Patent cystic duct. There is normal antegrade filling of the nondistended intra and extrahepatic biliary tree. No demonstrated filling defect. There is antegrade emptying through the sphincter of Cristi to the duodenum. RAD/Cholangiogram/ O R,Initial IMPRESSION: Normal intraoperative cholangiogram. Electronically Signed: David Toney MD at 20:02 EST , Service support ,
[2019-05-10] MEDS: Bupiv/Epi 0.25% 30 ML Vial (12:18)
--- NOTE | 2019-05-10 12:54 | OP.PCM_ITS ---
Problem List (1) Cholelithiasis Status: Acute Qualifiers: Cholelithiasis location: gallbladder Cholecystitis presence: without cholecystitis Biliary obstruction: without biliary obstruction Qualified Code(s): K80.20 - Calculus of gallbladder without cholecystitis without obstruction Report of Operation Date of Procedure: 05/10/19 Pre-Operative Diagnosis: Cholelithiasis Post-Operative Diagnosis: Same Surgery/Procedure Performed:: Laparoscopic cholecystectomy with cholangiogram Specimen's removed: Gallbladder and contents Description of Procedure: After obtaining informed consent patient was brought back to the operating room. General anesthesia was induced. The abdomen was prepped and draped in usual sterile fashion. A small midline incision was made superior to the umbilicus. The abdomen was inflated to 15 mmHg. Next a camera was introduced into the abdomen and the abdomen was inspected. Next under direct visualization three 5- mm ports were placed one subxiphoid and 2 subcostal. The supraumbilical port was then upsized to 10 mm port. Next the gallbladder was elevated and retracted toward the right shoulder. The peritoneum was stripped from the gallbladder. The infundibulum was located and retracted laterally. Next the triangle of Calot was dissected and the cystic duct and cystic artery were identified. Both the cystic duct and cystic artery were very shortened. Cholangiograms were performed. The Nugent clamp was used to clamp across the infundibulum and the catheter needle was inserted into the gallbladder. Under fluoroscopy contrast was instilled into the gallbladder and the common duct, cystic duct as well as proximal hepatic ducts were identified. There was good filling of the duodenum. There were no filling defects noted in the common bile duct. The clamp was removed as well as the needle and the infundibulum was grasped once more. Three hemolock clips were placed across the cystic duct. The cystic duct was then divided leaving 2 clips on the stump. The cystic artery was clipped and divided in the same fashion. The hook cautery was then used to take the gallbladder off of the gallbladder bed. Hemostasis was obtained. Gallbladder fossa was irrigated and no active bleeding or bile leakage was noted. Next the camera switched to a 5 mm camera and introduced in the subxiphoid port. An Endopouch bag was placed through the umbilical port and the gallbladder was placed into it. The gallbladder was then removed through the umbilical incision. The camera was then reinserted through the umbilical port. The gallbladder fossa was inspected once more and noted to be hemostatic with no leaking bile. The abdomen was suctioned dry. The umbilical fascia was closed using Chandan- Isael needle and 0 Vicryl suture. The 5 mm ports were then removed. The umbilical port site was irrigated local anesthetic was administered to all the incisions. All the incisions were closed with interrupted subcuticular 4-0 Monocryl sutures followed by Steri-Strips and dressings. The patient was awoken and taken to PACU in stable condition. - Admit VTE Documentation VTE Mechan Device Prophylaxis: SCD's
--- NOTE | 2019-05-10 13:04 | DCINST_ITS ---
Discharge Diet: Light diet - advance as tolerated Discharge Activity: Return to Normal Activity, May Not Drive - for 2-3 days or while taking narcotic pain medicataions., - - Do not drive, work heavy equipment or sign legal documents for 24 hours. May shower in (days): 1 - with the bandage in place. Lifting Restrictions: 20 lbs for 2 weeks Additional Activity Instructions:: Pain medication may cause nausea. You should typically eat light foods as you take your pain medications. Pain medication may also cause constipation. If this is a problem for you, please discuss with your doctor. Call your doctor if your incision/area has: Continuous Slow Oozing, Sudden Increased Bleeding, Increased Pain/ Swelling, Increased Redness, Foul Smelling Discharge, Fever of 101 or Higher Call your doctor if you observe: Fever of 101 or Higher Suture Line Care: Avoid Pulling/Pushing, Avoid Pinching/Bending Additional Dressing/Incision Instructions:: Leave operative bandaids on for 2 days. When you remove dressing, leave Steri-Strips on until your follow-up appointment, or until the Steri-Strips fall off on their own. Allergies/Adverse Reactions: Allergies red dye Allergy (Mild, Verified 05/10/19 10:20) vomiting diazepam [From Valium] Adverse Reaction (Verified 05/10/19 10:20) Other hyperactivity Medications to take at Discharge prenat.vits,jeremy,bvm-auei-nqvww 1 tab PO QDAY 07/28/17 escitalopram oxalate 20 mg tablet 20 mg PO DAILY #30 tab 08/16/18 Docusate Sodium [Colace] 100 mg PO BID 7 Days #14 cap 05/10/19 Oxycodone HCl/Acetaminophen [Percocet 5/325] 1 - 2 tab PO Q6H PRN PRN 7 Days #40 tab 05/10/19 The following prescriptions were given: Docusate Sodium [Colace] 100 mg PO BID 7 Days #14 cap Transmission Status: Received by [facility] Oxycodone HCl/Acetaminophen [Percocet 5/325] 1 - 2 tab PO Q6H PRN PRN 7 Days #40 tab PRN Reason: Pain Transmission Status: Received by [facility] Primary Care Physician: Care Physician,No Primary [Primary Care Provider] - Test Results: Test results from this visit will be discussed in further detail at your follow- up appointment, if applicable. Please Follow Up With: Henri Malhotra MD When: Please call to schedule 2 week follow up appointment. [phone]
== END 2019-05-10 15:07 | disposition home or self-care (01) ==
LOC: SDC 10:02 → AC 10:03
PROVIDERS: Anesthesiology; Referring Provider Surgery; Visit Provider Surgery
PROC: (CPT 47610; principal; 2019-05-10 11:30)
DX: K80.10 Calculus of gallbladder with chronic cholecystitis without obstruction (principal); F32.9 Major depressive disorder, single episode, unspecified; F41.9 Anxiety disorder, unspecified
CPT/HCPCS: 47563; 74300; 76000; 81025; 88304; 93005; J7120; J2405

== ENCOUNTER → 2019-09-26 13:24 | Outpatient (CLI) | payer BC, SELFPAY ==
[2019-09-26 08:08] VITALS: BMI 47.5
[2019-09-30 01:02] LABS: HPV APTIMA, High Risk Negative (Negative)
== END ==
PROVIDERS: Visit Provider Obstetrics & Gynecology
DX: Z12.4 Encounter for screening for malignant neoplasm of cervix (principal)
CPT/HCPCS: 87624; 88175; G0145

== ENCOUNTER 2019-11-15 11:37 | Emergency (ER) | payer BC, SELFPAY ==
[2019-09-26 08:08] VITALS: BMI 47.5
[2019-11-15 11:39] VITALS: BP 128/68; PULSE 75; RESP 18; TEMP 37.1; O2SAT 97; BMI 44.6
--- NOTE | 2019-11-15 11:53 | CT_ITS ---
STUDY: CT ABDOMEN AND PELVIS WITH CONTRAST REASON FOR EXAM: Female, 34 years old. PT STATED RLQ PAIN, HX AROLDO RADIATION DOSAGE (If Supplied By Facility): CTDIvol = ( 17.02 ) mGy, DLP = ( 1255.76 ) mGycm TECHNIQUE: Transaxial images were obtained from the dome of the diaphragm to the symphysis pubis without oral contrast. IV 100mL Isovue-300 was administered. Sagittal and coronal images were reconstructed. Individualized dose optimization techniques were used for this CT. COMPARISON: None. FINDINGS: The visualized lung bases are unremarkable. The visualized portions of the heart are within normal limits. Normal liver. The patient is status post cholecystectomy. Normal spleen. Normal pancreas. Normal bilateral adrenal glands. Normal right kidney. Normal left kidney. There is a small hiatal hernia. Normal small intestine. There are scattered colonic diverticula consistent with diverticulosis. Mild degree of the thickening of the sigmoid colon. Mild diverticulitis should be ruled out. The appendix is visualized and appears normal. Normal abdominal aorta. Normal inferior vena cava. Normal retroperitoneum. Normal urinary bladder. The endometrium is thickened measuring 2.8 cm. This may be related to the patient''s menstrual phase. Follicles are seen in both ovaries. Minimal amount of fluid is seen in the cul-de-sac. Normal abdominal wall. Normal osseous structures. CT/Abdomen/Pelvis W IV Cont ONLY IMPRESSION: Sigmoid diverticulosis with thickening of the sigmoid colon. Mild degree of sigmoid diverticulitis should BE ruled out. Small amount of free fluid is seen in the cul-de-sac. Electronically Signed: Husam Miguel, at 13:12 EDT , Service support ,
[2019-11-15 12:21] LABS: Red Blood Cells-Urine 0 SEEN /hpf (0-5)
[2019-11-15] MEDS: Ketorolac 30 MG/ML Syringe IV (12:24)
[2019-11-15] MEDS: 0.9% Normal Saline 1,000 ML 1000 ML IV (12:25)
[2019-11-15 12:26] LABS: Absolute Lymphocyte Count 1.27 X10^3/uL (0.83-4.51); Absolute Neutrophil Count 3.3 X10^3/uL (2.0-7.7); Basophil# 0.02 X10^3/uL; Basophil% 0.4 % (0-1); Eosinophil# 0.05 X10^3/uL; Hemoglobin 13.9 g/dL (12.0-15.0); Lymphocyte # 1.27 X10^3/ul (4.0); Lymphocyte % 24.5 % (19-41); Mean Corp Hgb Conc 33.1 g/dL (32-36); Mean Corpuscular Hgb 29.8 pg (27.0-32.0); Mean Corpuscular Volume 89.9 fL (81-99); Mean Platelet Vol. 10.4 fl (6.2-12.0); Monocyte# 0.54 X10^3/uL; Monocyte% 10.4 % (0-10); NRBC Flagged by Analyzer 0 % (0-5); Neutrophil # 3.29 X10^3/uL (2.7-7.7); Neutrophil % 63.5 % (47-70); Platelet Count 238 K/mm3 (150-450); RBC Distribution Width SD 45.6 fl (35.1-43.9); Red Blood Count 4.67 M/mm3 (4.2-5.4); White Blood Count 5.2 K/mm3 (4.4-11.0)
--- NOTE | 2019-11-15 12:31 | ED.VIS.GEN ---
History of Present Illness Chief Complaint: Abd Pain Informant: Patient Onset: Days Context: Gradual Onset Timing: Intermittent Current Severity: Moderate Maximum Severity: Severe Narrative: The patient is a 34-year-old female who is otherwise healthy, with history of prior cholecystectomy, who presents to the emergency department with right lower quadrant pain. The patient states the pains been going on for about 4 days. She states it waxes and wanes, but never fully goes away. She describes as a sharp pain in her right lower quadrant. She denies any dysuria or vaginal bleeding. She denies any fevers or chills. She states at times, the pain will make her nauseated. She states she is never had pain like this before. Prior similar symptoms: No Recent Illness/Hospitalization: No Past Medical History - Allergies and Home Meds Allergies/Adverse Reactions: Allergies red dye Allergy (Mild, Verified 11/15/19 11:42) vomiting diazepam [From Valium] Adverse Reaction (Verified 11/15/19 11:42) Other hyperactivity Primary Care Physician: Care Physician,No Primary [Primary Care Provider] - Prior records reviewed: Yes Past Medical History: None Surgical History: cholecystectomy Smoking Status: Never smoker Review of Systems General: Denies: Chills, Fever, Sweats Eyes: Denies: Visual changes - bilaterally, Diplopia ENT: Denies: Rhinorrhea, Sore throat Cardiovascular: Denies: Chest pain, Palpitations Respiratory: Denies: Dyspnea, Cough, Dyspnea on exertion Gastrointestinal: Reports: Abdominal pain, Nausea. Denies: Vomiting, Diarrhea, Melena, Hematochezia Genitourinary: Denies: Dysuria, Hematuria, Frequency Musculoskeletal: Denies: Back pain, Extremity Pain Skin: Denies: Rash, Wounds Neurological: Denies: Headache, Weakness, Numbness Physical Exam Vital Signs/Narrative: Vital Signs Temp Pulse Resp BP Pulse Ox 11/15/19 11:39 98.8 F 75 18 128/68 H 97 Inital Vital Signs reviewed: Yes General: Well nourished, Well developed, No Acute Distress Head: Normocephalic, Atraumatic Eyes: Perrl, EOMI ENT: Moist mucous membranes, No rhinorrhea Neck: Supple, Nontender Cardiovascular: Regular rate, Regular rhythm, No murmurs Respiratory: No distress, CTA bilaterally, Chest nontender Abdomen: Soft, Nondistended, Normal bowel sounds, Tender. Negative for: Guarding, Rebound tenderness Back: Nontender, Normal Inspection Extremities: Nontender, No edema Skin: Normal color, No rash Neurological: Alert, Oriented x3, Cranial nerves II-XII grossly intact, Normal Strength, Normal Sensation Psychological: Normal affect, Normal Mood Diagnostic/Tx/Re-eval Clinical Impression(s) from Imaging Studies Abdomen/Pelvis CT 11/15/19 11:53 IMPRESSION: Sigmoid diverticulosis with thickening of the sigmoid colon. Mild degree of sigmoid diverticulitis should BE ruled out. Small amount of free fluid is seen in the cul-de-sac. Electronically Signed: Husam Miguel, at 13:12 EDT , Service support , Abnormal Lab Results 11/15/19 11/15/19 11/15/19 11:54 11:54 12:03 WBC 5.2 RBC 4.67 Hgb 13.9 Hct 42.0 MCV 89.9 MCH 29.8 MCHC 33.1 RDW Std Deviation 45.6 H RDW Coeff of Mame 14.0 Plt Count 238 MPV 10.4 Immature Gran % (Auto) 0.200 Neut % (Auto) 63.5 Lymph % (Auto) 24.5 [place] % (Auto) 10.4 H Eos % (Auto) 1.0 Baso % (Auto) 0.4 Absolute Neuts (auto) 3.3 Absolute Lymphs (auto) 1.27 Nucleated RBC % 0 Sodium 140 Potassium 3.9 Chloride 108 H Carbon Dioxide 26.0 Anion Gap 6 BUN 15 Creatinine 0.74 Estim Creat Clear Calc 90.76 Est GFR (MDRD) Af Amer 114 Est GFR (MDRD) Non-Af 95 BUN/Creatinine Ratio 20.4 H Glucose 102 Calcium 9.0 Total Bilirubin 0.60 AST 30 ALT 60 H Alkaline Phosphatase 68 Total Protein 7.8 Albumin 3.9 Globulin 3.9 Albumin/Globulin Ratio 1.0 Urine Color Urine Clarity Urine pH Ur Specific [place] Urine Protein Urine Glucose (UA) Urine Ketones Urine Occult Blood Urine Nitrite Urine Bilirubin Urine Urobilinogen Ur Leukocyte Esterase Urine RBC Urine WBC Ur Squamous Epith Cells Urine Bacteria Urine Mucus Urine Test Negative 11/15/19 12:03 WBC RBC Hgb Hct MCV MCH MCHC RDW Std Deviation RDW Coeff of Mame Plt Count MPV Immature Gran % (Auto) Neut % (Auto) Lymph % (Auto) [place] % (Auto) Eos % (Auto) Baso % (Auto) Absolute Neuts (auto) Absolute Lymphs (auto) Nucleated RBC % Sodium Potassium Chloride Carbon Dioxide Anion Gap BUN Creatinine Estim Creat Clear Calc Est GFR (MDRD) Af Amer Est GFR (MDRD) Non-Af BUN/Creatinine Ratio Glucose Calcium Total Bilirubin AST ALT Alkaline Phosphatase Total Protein Albumin Globulin Albumin/Globulin Ratio Urine Color Yellow Urine Clarity Clear Urine pH 6.0 Ur Specific [place] 1.020 Urine Protein 15 H Urine Glucose (UA) Normal Urine Ketones 5 H Urine Occult Blood 10 H Urine Nitrite Negative Urine Bilirubin Negative Urine Urobilinogen 1 H Ur Leukocyte Esterase 100 H Urine RBC 0 SEEN Urine WBC 0-5 SEEN Ur Squamous Epith Cells 0-5 SEEN Urine Bacteria RARE Urine Mucus 1+ Urine Test - Medical Decision Making Patient presents with right lower quadrant abdominal pain that comes in waves. She is afebrile. She does have some tenderness to palpation, but no rebound or guarding. Screening labs obtained were relatively unremarkable. Patient underwent CT imaging which does demonstrate mild diverticulitis. At this point, given that she is safe for outpatient therapy. She will be treated with Augmentin. She was counseled on concerning symptoms and reasons to return. She will be discharged home. Impression 1. Diverticulitis ED Disposition - Plan for ED Patient: Disposition: Home or Assisted Living Instructions: ED Diverticulitis Prescriptions: Amox/Clavulanate Tablet [Augmentin Tablet] 875 mg PO Q12H #20 tab Prescription Printed Referrals: Care Physician,No Primary [Primary Care Provider] -
[2019-11-15 12:33] LABS: Internal QC Validated? YES +Cl - CLEAR BKGD; Pregnancy, Urine Negative Negative
[2019-11-15 12:43] LABS: AST(SGOT) 30 U/L (15-37); Alanine Aminotransfer ALT/SGPT 60 U/L (13-56); Albumin, Serum 3.9 g/dL (3.2-5.0); Alkaline Phosphatase 68 U/L (45-117); Anion Gap 6 (5-15); BUN 15 mg/dL (7-18); BUN/Creat Ratio 20.4 RATIO (10-20); Chloride 108 mmol/L (98-107); Creatinine, Serum 0.74 mg/dL (0.55-1.02); EST Glomerular Filtration Rate 95 mL/min (>60); Est Glom Filt Rate - Afr Amer 114 mL/min (>60); Estimated Creatinine Clearance 90.76 ml/min; Globulin 3.9 g/dL (2.2-4.2); Glucose 102 mg/dL (74-106); Potassium 3.9 mmol/L (3.5-5.1); Protein, Total 7.8 g/dL (6.4-8.2); Sodium Level 140 mmol/L (136-145)
[2019-11-15 13:01] LABS: Color, Urine Yellow (Yellow); Glucose, Dipstick Normal (Normal); Ketone-Dipstick 5 mg/dl (Negative); Leukocyte Esterase-Dipstick 100 /ul (Negative); Nitrite-Dipstick Negative (Negative); Occult Blood-Urine 10 /ul (Negative); Protein-Dipstick 15 mg/dl (Negative); Urine Bilirubin Dipstick Negative (Negative); Urine Clarity Clear (Clear); Urine Urobilinogen 1 mg/dl (Normal)
[2019-11-15 13:02] LABS: Bacteria RARE /hpf (None Seen); Mucous, Urine 1+ /hpf (<or=2+); Squamous Epithelial Cells - UA 0-5 SEEN /hpf (5-10); White Blood Cells 0-5 SEEN /hpf (0-5)
[2019-11-15 13:27] VITALS: BP 115/72
== END 2019-11-15 13:27 | disposition home or self-care (01) ==
LOC: ED 12:18
PROVIDERS: Emergency Provider Emergency Medicine
DX: K57.32 Diverticulitis of large intestine without perforation or abscess without bleeding (principal); Z90.49 Acquired absence of other specified parts of digestive tract
CPT/HCPCS: 74177; 80053; 81001; 81025; 85025; 96361; 96374; 99283; J7030; Q9967; A4216

== ENCOUNTER → 2020-02-26 12:39 | Outpatient (CLI) | payer BC, SELFPAY ==
[2020-01-21 10:23] VITALS: BMI 39.9
[2020-02-26 13:33] LABS: hCG Titer Quant., Serum 3032 mIU/mL (1-3)
== END ==
PROVIDERS: Referring Provider Obstetrics & Gynecology; Visit Provider Obstetrics & Gynecology
DX: N91.2 Amenorrhea, unspecified (principal)
CPT/HCPCS: 36415; 84702

== ENCOUNTER → 2020-02-28 13:08 | Outpatient (CLI) | payer BC, SELFPAY ==
[2020-01-21 10:23] VITALS: BMI 39.9
[2020-02-28 14:10] LABS: hCG Titer Quant., Serum 6008 mIU/mL (1-3)
== END ==
PROVIDERS: Referring Provider Obstetrics & Gynecology; Visit Provider Obstetrics & Gynecology
DX: N91.2 Amenorrhea, unspecified (principal)
CPT/HCPCS: 36415; 84702

== ENCOUNTER → 2020-03-20 15:06 | Outpatient (CLI) | payer BC, SELFPAY ==
[2020-03-20 14:25] VITALS: BMI 40.6
[2020-03-20 15:50] LABS: Absolute Lymphocyte Count 1.69 X10^3/uL (0.83-4.51); Absolute Neutrophil Count 7.4 X10^3/uL (2.0-7.7); Basophil# 0.04 X10^3/uL; Basophil% 0.4 % (0-1); Eosinophil# 0.05 X10^3/uL; Eosinophils% 0.5 % (0-5); Hematocrit 40.1 % (37-47); Lymphocyte # 1.69 X10^3/ul (4.0); Lymphocyte % 17.5 % (19-41); Mean Corp Hgb Conc 32.4 g/dL (32-36); Mean Corpuscular Hgb 30.2 pg (27.0-32.0); Monocyte# 0.48 X10^3/uL; NRBC Flagged by Analyzer 0 % (0-5); Neutrophil # 7.37 X10^3/uL (2.7-7.7); Neutrophil % 76.2 % (47-70); Platelet Count 254 K/mm3 (150-450); RBC Distribution Width CV 14.1 % (11.6-14.6); RBC Distribution Width SD 48.3 fl (35.1-43.9); Red Blood Count 4.31 M/mm3 (4.2-5.4); White Blood Count 9.7 K/mm3 (4.4-11.0)
[2020-03-20 16:12] LABS: Glucose Challenge Gest 1H 50g 112 mg/dL (70-140)
[2020-03-20 16:53] LABS: HIV - WCH Non-Reactive (Nonreactive); Hepatitis B Surface Antigen Non-Reactive (Nonreactive); Hepatitis C Antibody Non-Reactive (Nonreactive)
[2020-03-20 18:09] LABS: Amphetamine Urine VISTA NEGATIVE (<1000 ng/mL); Barbiturate Urine VISTA NEGATIVE (< 200 ng/mL); Benzodiazepine Urine VISTA NEGATIVE (< 200 ng/mL); Cocaine Urine VISTA NEGATIVE (< 300 ng/mL); Ecstacy Urine VISTA NEGATIVE (< 500 ng/mL); Methadone Urine VISTA NEGATIVE (< 300 ng/mL); PCP Urine VISTA NEGATIVE (< 25 ng/mL); THC Urine VISTA NEGATIVE (< 50 ng/mL); Vista UDS pH Range 6
[2020-03-25 03:07] LABS: Chlamydia By Nucleic Acid AMP Negative (Negative)
[2020-03-25 10:40] LABS: Gonococcus By Nucleic Acid AMP Negative (Negative)
[2020-03-27 02:50] LABS: Rapid Plasmin Reagin (RPR) NONREACTIVE (NONREACTIVE)
== END ==
PROVIDERS: Referring Provider Obstetrics & Gynecology; Visit Provider Obstetrics & Gynecology
DX: O09.90 Supervision of high risk pregnancy, unspecified, unspecified trimester (principal); Z3A.00 Weeks of gestation of pregnancy not specified
CPT/HCPCS: 36415; 80307; 82950; 85025; 86592; 86703; 86803; 86850; 86900; 86901; 87086; 87088; 87340; 87491; 87591

== ENCOUNTER → 2020-03-28 08:28 | Outpatient (CLI) | payer BC, SELFPAY ==
[2020-03-20 14:25] VITALS: BMI 40.6
[2020-03-28 09:35] LABS: NATERA MAILED SPECIMEN
== END ==
PROVIDERS: Referring Provider Obstetrics & Gynecology; Visit Provider Obstetrics & Gynecology
DX: Z34.81 Encounter for supervision of other normal pregnancy, first trimester (principal)
CPT/HCPCS: 36415

== ENCOUNTER → 2020-04-11 12:36 | Outpatient (CLI) | payer BC, SELFPAY ==
[2020-03-20 14:25] VITALS: BMI 40.6
[2020-04-11 13:41] LABS: NATERA MAILED SPECIMEN
== END ==
PROVIDERS: Referring Provider Obstetrics & Gynecology; Visit Provider Obstetrics & Gynecology
DX: O09.522 Supervision of elderly multigravida, second trimester (principal); O28.5 Abnormal chromosomal and genetic finding on antenatal screening of mother; Z3A.00 Weeks of gestation of pregnancy not specified

== ENCOUNTER → 2020-06-11 15:57 | Outpatient (CLI) | payer BC, SELFPAY ==
[2020-06-10 15:38] VITALS: BMI 41.8
[2020-06-11 16:40] LABS: Absolute Lymphocyte Count 1.63 X10^3/uL (0.83-4.51); Absolute Neutrophil Count 7.4 X10^3/uL (2.0-7.7); Basophil# 0.02 X10^3/uL; Basophil% 0.2 % (0-1); Eosinophil# 0.06 X10^3/uL; Eosinophils% 0.6 % (0-5); Hematocrit 38.2 % (37-47); Lymphocyte # 1.63 X10^3/ul (4.0); Lymphocyte % 16.6 % (19-41); Mean Corpuscular Hgb 31.4 pg (27.0-32.0); Mean Corpuscular Volume 92.3 fL (81-99); Mean Platelet Vol. 10.3 fl (6.2-12.0); Monocyte# 0.61 X10^3/uL; Monocyte% 6.2 % (0-10); NRBC Flagged by Analyzer 0 % (0-5); Neutrophil # 7.42 X10^3/uL (2.7-7.7); Neutrophil % 75.8 % (47-70); Platelet Count 239 K/mm3 (150-450); RBC Distribution Width CV 13.9 % (11.6-14.6); RBC Distribution Width SD 46.8 fl (35.1-43.9); Red Blood Count 4.14 M/mm3 (4.2-5.4); White Blood Count 9.8 K/mm3 (4.4-11.0)
[2020-06-11 17:25] LABS: ALB/GLOB Ratio 0.7 RATIO (0.9-2.4); AST(SGOT) 8 U/L (15-37); Alanine Aminotransfer ALT/SGPT 15 U/L (13-56); Alkaline Phosphatase 65 U/L (45-117); Anion Gap 7 (5-15); BUN 7 mg/dL (7-18); BUN/Creat Ratio 13.8 RATIO (10-20); Chloride 104 mmol/L (98-107); Creatinine, Serum 0.51 mg/dL (0.55-1.02); EST Glomerular Filtration Rate 145 mL/min (>60); Est Glom Filt Rate - Afr Amer 175 mL/min (>60); Free T3 2.5 pg/mL (2.18-3.98); Globulin 4.1 g/dL (2.2-4.2); Glucose 88 mg/dL (74-106); Potassium 3.7 mmol/L (3.5-5.1); Protein, Total 7.1 g/dL (6.4-8.2); Sodium Level 136 mmol/L (136-145); T4 Free Direct 0.89 ng/dL (0.76-1.46); Thyroid Stim Hormone (TSH) 3.67 uIU/mL (0.358-3.74)
[2020-06-11 17:35] LABS: Magnesium 1.8 mg/dL (1.6-2.6)
== END ==
PROVIDERS: PCP Internal Medicine; Referring Provider Internal Medicine; Visit Provider Internal Medicine
DX: R00.2 Palpitations (principal)
CPT/HCPCS: 36415; 80053; 83735; 84439; 84443; 84481; 85025

== ENCOUNTER → 2020-06-17 08:44 | Outpatient (CLI) | payer BC, SELFPAY ==
[2020-06-10 15:38] VITALS: BMI 41.8
[2020-06-13 14:18] VITALS: BMI 42.3
--- NOTE | 2020-06-17 08:49 | EKG12_ITS ---
Test Reason : PALPITATIONS Blood Pressure : / mmHG Vent. Rate : 096 BPM Atrial Rate : 096 BPM P-R Int : 130 ms QRS Dur : 086 ms QT Int : 344 ms P-R-T Axes : 073 069 051 degrees QTc Int : 434 ms Normal sinus rhythm Normal ECG Confirmed by CHIKA ALATORRE, VALERIE ([id number]), television news video editor ARMIDA SZYMANSKI ([id number]) on 06/18/2020 8:57:04 AM Referred By: Madelyn Pham Confirmed By:VALERIE FARR MD
== END ==
LOC: PSN 08:48
PROVIDERS: PCP Internal Medicine; Referring Provider Internal Medicine; Visit Provider Internal Medicine
DX: R00.2 Palpitations (principal)
CPT/HCPCS: 93005; 93225; 93226

== ENCOUNTER 2020-07-06 07:15 | Outpatient (CLI) | payer BC, SELFPAY ==
[2020-07-02 08:53] VITALS: BMI 42.0
[2020-07-06 07:23] VITALS: BMI 43.0
[2020-07-06 07:24] VITALS: BP 116/61; TEMP 36.5
--- NOTE | 2020-07-07 07:48 | OB.TRI.PN ---
Progress Notes Date of Service: 07/06/20 Progress Note: patient seen for postcoital bleeding cervix closed FHT present no ctx rhogam given dc home Laboratory Studies: Laboratory Tests 07/06/20 07/06/20 Range/Units 07:45 07:45 Blood Type A NEGATIVE TNP Antibody Screen NEGATIVE TNP Screen NEGATIVE (NEGATIVE) Baby's Blood Type TNP Baby's DARWIN TNP - Problem List (1) Vaginal bleeding during Status: Acute Comment: rhogam given 07/06 Multi Select Codes - Urinary/Genital Urinary/Genital CPT Codes: No Charge - report visit
== END 2020-07-06 09:30 | disposition home or self-care (01) ==
LOC: WPOUT 07:20 → WP 07:21
PROVIDERS: PCP Internal Medicine; Visit Provider Obstetrics & Gynecology
DX: O46.8X9 Other antepartum hemorrhage, unspecified trimester (principal); Z3A.00 Weeks of gestation of pregnancy not specified
CPT/HCPCS: 36415; 59025; 59050; 85461; 86850; 86900; 86901; 90384; 96372; 99218; G0378; J2790

== ENCOUNTER → 2020-07-16 09:44 | Outpatient (CLI) | payer BC, SELFPAY ==
[2020-07-06 07:23] VITALS: BMI 43.0
[2020-07-11 11:17] VITALS: BMI 43.6
--- NOTE | 2020-07-16 09:47 | ECHOD_ITS ---
Reason For Study: Arrhythmia Procedure This was a 2D Doppler, Color Flow transthoracic echocardiogram. Exam performed in department. Left Ventricle Normal size and thickness. Left ventricular systolic function is normal. The estimated ejection fraction is 55 %. No regional wall motion abnormalities noted. Right Ventricle Normal RV size. Normal systolic function. Atria Normal left atrium. Normal right atrium. Mitral Valve Normal mitral valve. Tricuspid Valve Normal tricuspid valve. Aortic Valve Normal aortic valve. Trisinus/trileaflet aortic valve. Pulmonic Valve Normal pulmonic valve. Great Vessels Normal aortic root. The pulmonary artery is normal size. Normal inferior vena cava. Pericardium/Pleural No pericardial effusion. MMode/2D Measurements & Calculations LVIDd: 4.5 cm IVSd: 1.3 cm Ao root diam: 3.1 cm LVIDs: 3.0 cm LVPWd: 1.2 cm LA dimension: 3.8 cm FS: 32.7 % LAV(MOD-bp): 57.1 ml LA A4 area: 18.6 cm2 RA A4 area: 12.5 cm2 LAV(MOD-bp) Indexed: 38.7 ml/m2 LAV(MOD-sp2): 55.9 ml LAV(MOD-sp4): 45.7 ml Time Measurements MV dec time: 0.27 sec Doppler Measurements & Calculations MV E max syed: 56.5 cm/sec Lat Peak E' Syed: 17.7 cm/sec Med Peak E' Syed: 8.8 cm/sec MV A max syed: 59.2 cm/sec E/E' lat: 3.2 E/E' med: 6.4 MV E/A: 0.95 MV V2 max: 69.8 cm/sec MV P1/2t max syed: 63.0 cm/sec Ao V2 max: 157.3 cm/sec MV max P.0 mmHg MV P1/2t: 95.7 msec Ao max P.9 mmHg MV V2 mean: 43.0 cm/sec MV dec slope: 192.9 cm/sec2 MV mean P.86 mmHg MVA(P1/2t): 2.3 cm2 MV V2 VTI: 15.7 cm LV V1 max: 146.4 cm/sec PA V2 max: 100.2 cm/sec LV V1 max P.6 mmHg Interpretation Summary Normal size and thickness. Left ventricular systolic function is normal. The estimated ejection fraction is 55 %. Structurally normal valves. Ordering Physician: Blas Choe Referring Physician: Madelyn Pham M.D. Performed By: Rodrigo Ye RCS
== END ==
LOC: CVS 09:47
PROVIDERS: PCP Internal Medicine; Referring Provider Internal Medicine Cardiovascular Disease; Visit Provider Internal Medicine Cardiovascular Disease
DX: R00.2 Palpitations (principal)
CPT/HCPCS: 93306

== ENCOUNTER → 2020-07-30 09:23 | Outpatient (CLI) | payer BC, SELFPAY ==
[2020-07-11 11:17] VITALS: BMI 43.6
[2020-07-30 10:11] LABS: Glucose Challenge Gest 1H 50g 198 mg/dL (70-140)
[2020-07-30 10:21] LABS: Absolute Lymphocyte Count 1.21 X10^3/uL (0.83-4.51); Basophil# 0.02 X10^3/uL; Basophil% 0.2 % (0-1); Eosinophil# 0.04 X10^3/uL; Eosinophils% 0.5 % (0-5); Hematocrit 36.7 % (37-47); Hemoglobin 12.2 g/dL (12.0-15.0); Lymphocyte # 1.21 X10^3/ul (4.0); Mean Corp Hgb Conc 33.2 g/dL (32-36); Mean Corpuscular Hgb 31.4 pg (27.0-32.0); Mean Corpuscular Volume 94.3 fL (81-99); Mean Platelet Vol. 9.9 fl (6.2-12.0); Monocyte# 0.39 X10^3/uL; Monocyte% 4.5 % (0-10); NRBC Flagged by Analyzer 0 % (0-5); Neutrophil # 6.97 X10^3/uL (2.7-7.7); Neutrophil % 80.3 % (47-70); Platelet Count 208 K/mm3 (150-450); RBC Distribution Width CV 14.5 % (11.6-14.6); RBC Distribution Width SD 48.8 fl (35.1-43.9); Red Blood Count 3.89 M/mm3 (4.2-5.4); White Blood Count 8.7 K/mm3 (4.4-11.0)
[2020-07-30 10:26] LABS: Rubella IgG Reactive (Nonreactive)
== END ==
PROVIDERS: PCP Internal Medicine; Referring Provider Obstetrics & Gynecology; Visit Provider Obstetrics & Gynecology
DX: O09.90 Supervision of high risk pregnancy, unspecified, unspecified trimester (principal); Z3A.00 Weeks of gestation of pregnancy not specified; Z13.1 Encounter for screening for diabetes mellitus
CPT/HCPCS: 36415; 82950; 85025; 86762; 86850; 86870; 86900; 86901

== ENCOUNTER 2020-08-04 10:13 | Outpatient (RCR) | payer BC, SELFPAY ==
[2020-07-30 13:00] VITALS: BMI 43.7
[2020-07-31 16:08] VITALS: BMI 43.6
== END 2020-08-06 23:59 ==
LOC: DC 10:13
PROVIDERS: PCP Internal Medicine; Visit Provider Nurse Practitioner Women's Health
DX: O24.419 Gestational diabetes mellitus in pregnancy, unspecified control (principal); Z3A.00 Weeks of gestation of pregnancy not specified
CPT/HCPCS: 97802

== ENCOUNTER 2020-08-12 15:32 | Outpatient (RCR) | payer BC, SELFPAY ==
[2020-07-31 16:08] VITALS: BMI 43.6
== END 2020-09-05 23:59 ==
LOC: DC 15:32
PROVIDERS: PCP Internal Medicine; Visit Provider Nurse Practitioner Women's Health
DX: O24.419 Gestational diabetes mellitus in pregnancy, unspecified control (principal); Z3A.00 Weeks of gestation of pregnancy not specified

== ENCOUNTER → 2020-08-18 | Outpatient (CLI) | payer BC, SELFPAY ==
[2020-08-18 11:11] VITALS: BMI 43.2
[2020-08-18 12:06] LABS: ROM Internal Control Test YES-OK TO RESULT pt. (Internal QC); ROM Patient Test Negative (Negative)
== END | disposition home or self-care (01) ==
LOC: LABSPEC 11:42
PROVIDERS: PCP Internal Medicine; Visit Provider Nurse Practitioner Women's Health
DX: O42.90 Premature rupture of membranes, unspecified as to length of time between rupture and onset of labor, unspecified weeks of gestation (principal); Z3A.00 Weeks of gestation of pregnancy not specified
CPT/HCPCS: 84112

== ENCOUNTER 2020-08-29 11:22 | Outpatient (CLI) | payer BC, SELFPAY ==
[2020-08-29 09:46] VITALS: BMI 43.0
[2020-08-29 11:38] VITALS: BMI 43.0
--- NOTE | 2020-08-29 11:49 | US_ITS ---
STUDY: OBSTETRICAL ULTRASOUND - BIOPHYSICAL PROFILE REASON FOR EXAM: Female, 35 years old Non reactive NST in office -- 32.0 weeks LMP: 01/18/2020. PRIOR ULTRASOUND: None. TECHNIQUE: Transabdominal TECHNICAL QUALITY: Adequate. FINDINGS: There is a single intrauterine fetus. The fetus is in a cephalic presentation. There is demonstrated cardiac activity with a heart rate of 136 bpm. There is a normal amniotic fluid volume. The largest amniotic fluid pocket measures 6.6 cm. The amniotic fluid index (DARRELL) is 17 cm. The placenta is anterior in location and is not low lying. There are Grade 2 placental changes. Age by LMP: 30 weeks, 0 days. DONNA by LMP: 10/24/2020. BIOPHYSICAL PROFILE: Breathing Movements (FBM): 2 Gross Body Movements (GBM): 2 Tone (FT): 2 Amniotic Fluid Volume (AFV): 2 TOTAL SCORE: / US/Biophysical Prof W/O Non Stres IMPRESSION: Normal biophysical profile of 12/14. Electronically Signed: Husam Miguel MD at 14:42 EDT , Service support ,
[2020-08-29 11:51] VITALS: BP 100/59; PULSE 88; TEMP 37.5
--- NOTE | 2020-09-01 08:21 | OB.TRI.PN ---
Progress Notes Date of Service: 08/29/20 Progress Note: Patient presents for triage evaluation secondary to nonreactive NST in the office. NST reactive in triage. BPP /. FHT: Moderate variability reactive no decelerations category I tracing [place]: No Contractions Assessment and plan: Reactive NST, reassuring maternal and status patient discharged to home to follow-up at next scheduled visit. See problem list details for additional plan information. Multi Select Codes - Urinary/Genital Urinary/Genital CPT Codes: 46109-04 non-stress test Interp
== END 2020-08-29 14:45 | disposition home or self-care (01) ==
LOC: WPOUT 11:33 → WP 11:34
PROVIDERS: PCP Internal Medicine; Referring Provider Obstetrics & Gynecology; Visit Provider Obstetrics & Gynecology
DX: Z36.83 Encounter for fetal screening for congenital cardiac abnormalities (principal)
CPT/HCPCS: 59025; 59050; 76819; 99218; G0378

== ENCOUNTER 2020-09-05 12:10 | Outpatient (CLI) | payer BC, SELFPAY ==
[2020-09-05 10:30] VITALS: BMI 43.0
--- NOTE | 2020-09-05 12:26 | US_ITS ---
STUDY: OBSTETRICAL ULTRASOUND - BIOPHYSICAL PROFILE REASON FOR EXAM: Female, 35 years old non reactive nst LMP: 01/18/2020. PRIOR ULTRASOUND: Comparison is made with prior study dated 08/29/2020. TECHNIQUE: Transabdominal TECHNICAL QUALITY: Adequate. FINDINGS: There is a single intrauterine fetus. The fetus is in a cephalic presentation. There is demonstrated cardiac activity with a heart rate of 152 bpm. There is a normal amniotic fluid volume. The largest amniotic fluid pocket measures 7.1 cm. The amniotic fluid index (DARRELL) is 19 cm. The placenta is anterior in location and is not low lying. There are Grade 1 placental changes. Age by LMP: 33 weeks, 0 days. DONNA by LMP: 10/24/2020. BIOPHYSICAL PROFILE: Breathing Movements (FBM): 2 Gross Body Movements (GBM): 2 Tone (FT): 2 Amniotic Fluid Volume (AFV): 2 TOTAL SCORE: 8 / 8 US/Biophysical Prof W/O Non Stres IMPRESSION: Normal biophysical profile of 8/8. Electronically Signed: Husam Miguel MD at 14:13 EDT , Service support ,
[2020-09-05 13:53] VITALS: BP 124/76; PULSE 92
--- NOTE | 2020-09-08 16:46 | OB.TRI.PN ---
Progress Notes Date of Service: 09/05/20 Progress Note: non reactive nst, bpp done and 12/14 dc home fu as scheduled Assessment & Plan Assessment/Plan (1) Gestational diabetes mellitus: Status: Chronic Code(s): O24.419 - Gestational diabetes mellitus in , unspecified control Qualifiers: Gestational diabetes mellitus control: insulin-controlled Trimester: third trimester Qualified Code(s): O24.414 - Gestational diabetes mellitus in , insulin controlled
== END 2020-09-05 13:55 | disposition home or self-care (01) ==
LOC: WPOUT 12:22 → WP 12:24
PROVIDERS: PCP Internal Medicine; Referring Provider Obstetrics & Gynecology; Visit Provider Obstetrics & Gynecology
DX: O24.414 Gestational diabetes mellitus in pregnancy, insulin controlled (principal); Z3A.33 33 weeks gestation of pregnancy
CPT/HCPCS: 59025; 59050; 76819; 99218; G0378

== ENCOUNTER → 2020-09-17 14:18 | Outpatient (CLI) | payer BC, SELFPAY ==
[2020-09-05 10:30] VITALS: BMI 43.0
[2020-09-12 10:43] VITALS: BMI 41.1
--- NOTE | 2020-09-17 14:20 | US_ITS ---
STUDY: OBSTETRICAL ULTRASOUND - BIOPHYSICAL PROFILE REASON FOR EXAM: Female, 35 years old nonreactive nst LMP: 01/18/2020. PRIOR ULTRASOUND: Comparison is made with prior study dated 09/05/2020. TECHNIQUE: Transabdominal TECHNICAL QUALITY: Adequate. FINDINGS: There is a single intrauterine fetus. The fetus is in a cephalic presentation. There is demonstrated cardiac activity with a heart rate of 129 bpm. There is a normal amniotic fluid volume. The largest amniotic fluid pocket measures 7.1 cm. The amniotic fluid index (DARRELL) is 17.6 cm. The placenta is anterior in location and is not low lying. There are Grade 1 placental changes. Age by LMP: 34 weeks, 5 days. DONNA by LMP: 10/24/2020. BIOPHYSICAL PROFILE: Breathing Movements (FBM): 2 Gross Body Movements (GBM): 2 Tone (FT): 2 Amniotic Fluid Volume (AFV): 2 TOTAL SCORE: 8 / 8 US/Biophysical Prof W/O Non Stres IMPRESSION: Normal biophysical profile of 8/8. Electronically Signed: Husam Miguel MD at 15:21 EDT , Service support ,
== END ==
PROVIDERS: PCP Internal Medicine; Referring Provider Obstetrics & Gynecology; Visit Provider Obstetrics & Gynecology
DX: O28.8 Other abnormal findings on antenatal screening of mother (principal); Z3A.00 Weeks of gestation of pregnancy not specified
CPT/HCPCS: 76819

== ENCOUNTER → 2020-09-19 07:54 | Outpatient (CLI) | payer BC, SELFPAY ==
[2020-09-12 10:43] VITALS: BMI 41.1
--- NOTE | 2020-09-19 07:55 | US_ITS ---
STUDY: OBSTETRICAL ULTRASOUND - BIOPHYSICAL PROFILE REASON FOR EXAM: Female, 35 years old non reactive stress test, GDM LMP: 01/18/2020. PRIOR ULTRASOUND: Comparison is made with prior study dated 09/17/2020. TECHNIQUE: Transabdominal TECHNICAL QUALITY: Adequate. FINDINGS: There is a single intrauterine fetus. The fetus is in a cephalic presentation. There is demonstrated cardiac activity with a heart rate of 137 bpm. There is a normal amniotic fluid volume. The largest amniotic fluid pocket measures 6.9 cm. The amniotic fluid index (DARRELL) is 20 cm. The placenta is There are Grade 1 placental changes. Age by LMP: 35 weeks, 0 days. DONNA by LMP: 10/24/2020. Gender: Female BIOPHYSICAL PROFILE: Breathing Movements (FBM): 2 Gross Body Movements (GBM): 2 Tone (FT): 2 Amniotic Fluid Volume (AFV): 2 TOTAL SCORE: 8 / 8 US/Biophysical Prof W/O Non Stres IMPRESSION: Normal biophysical profile of 8/8. Electronically Signed: Husam Miguel MD at 9:11 EDT , Service support ,
== END ==
PROVIDERS: PCP Internal Medicine; Referring Provider Obstetrics & Gynecology; Visit Provider Obstetrics & Gynecology
DX: O28.8 Other abnormal findings on antenatal screening of mother (principal); Z3A.00 Weeks of gestation of pregnancy not specified
CPT/HCPCS: 76819

== ENCOUNTER → 2020-09-23 07:42 | Outpatient (CLI) | payer BC, SELFPAY ==
[2020-09-12 10:43] VITALS: BMI 41.1
--- NOTE | 2020-09-23 07:44 | US_ITS ---
STUDY: OBSTETRICAL ULTRASOUND - BIOPHYSICAL PROFILE REASON FOR EXAM: Female, 35 years old. Nonreactive stress test. LMP: Unknown. PRIOR ULTRASOUND: 09/19/20 TECHNIQUE: Transabdominal ultrasound evaluation was performed. FINDINGS: There is a single intrauterine fetus. The fetus is in a cephalic presentation. There is demonstrated cardiac activity with a heart rate of 142 bpm. There is a normal amniotic fluid volume. The amniotic fluid index (DARRELL) is 6.4 cm. The placenta is 20 BIOPHYSICAL PROFILE: Breathing Movements (FBM): 2 Gross Body Movements (GBM): 2 Tone (FT): 2 Amniotic Fluid Volume (AFV): 2 TOTAL SCORE: / US/Biophysical Prof W/O Non Stres IMPRESSION: Normal biophysical profile of 12/14. Electronically Signed: Demetri Mares MD at 15:33 EDT Tel , Service support ,
== END ==
PROVIDERS: PCP Internal Medicine; Referring Provider Obstetrics & Gynecology; Visit Provider Obstetrics & Gynecology
DX: O99.213 Obesity complicating pregnancy, third trimester (principal); E66.9 Obesity, unspecified; Z3A.00 Weeks of gestation of pregnancy not specified
CPT/HCPCS: 76819

== ENCOUNTER → 2020-09-26 09:36 | Outpatient (CLI) | payer BC, SELFPAY ==
[2020-09-12 10:43] VITALS: BMI 41.1
--- NOTE | 2020-09-26 09:39 | US_ITS ---
STUDY: OBSTETRICAL ULTRASOUND - BIOPHYSICAL PROFILE REASON FOR EXAM: Female, 35 years old GDMA2, DECREASE MOVEMENT -- STANDING ORDER LMP: 01/18/2020 PRIOR ULTRASOUND: 09/23/2020 TECHNIQUE: Transabdominal TECHNICAL QUALITY: Adequate. FINDINGS: There is a single intrauterine fetus. The fetus is in a cephalic presentation. There is demonstrated cardiac activity with a heart rate of 147 bpm. There is a normal amniotic fluid volume. The largest amniotic fluid pocket measures 7.9 cm. The amniotic fluid index (DARRELL) is 21.6 cm. The placenta is anterior in location and is not low lying. There are Grade 2 placental changes. Age by LMP: 36 weeks, 0 days. DONNA by LMP: 10/24/2020. BIOPHYSICAL PROFILE: Breathing Movements (FBM): 2 Gross Body Movements (GBM): 2 Tone (FT): 2 Amniotic Fluid Volume (AFV): 2 TOTAL SCORE: 8 / 8 US/Biophysical Prof W/O Non Stres IMPRESSION: Normal biophysical profile of 8/8. Electronically Signed: Nlie Mcgill MD at 10:53 EDT Tel , Service support ,
== END ==
PROVIDERS: PCP Internal Medicine; Referring Provider Obstetrics & Gynecology; Visit Provider Obstetrics & Gynecology
DX: O09.90 Supervision of high risk pregnancy, unspecified, unspecified trimester (principal); O24.414 Gestational diabetes mellitus in pregnancy, insulin controlled; O36.8190 Decreased fetal movements, unspecified trimester, not applicable or unspecified; Z3A.00 Weeks of gestation of pregnancy not specified
CPT/HCPCS: 76819; 87077; 87081; 87186

== ENCOUNTER → 2020-09-30 13:01 | Outpatient (CLI) | payer BC, SELFPAY ==
[2020-09-12 10:43] VITALS: BMI 41.1
[2020-09-26 10:48] VITALS: BMI 41.1
--- NOTE | 2020-09-30 13:21 | US_ITS ---
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 LMP: 01/18/2020. PRIOR ULTRASOUND: Comparison is made with prior study dated 09/26/2020. TECHNIQUE: Transabdominal TECHNICAL QUALITY: Adequate. FINDINGS: There is a single intrauterine fetus. The fetus is in a cephalic presentation. There is demonstrated cardiac activity with a heart rate of 147 bpm. There is a normal amniotic fluid volume. The largest amniotic fluid pocket measures 6.9 cm x 4.4 cm. The amniotic fluid index (DARRELL) is 23.6 cm. The placenta is anterior in location and is not low lying. There are Grade 2 placental changes. Age by LMP: 36 weeks, 4 days. DONNA by LMP: 10/24/2020. Gender: Female BIOPHYSICAL PROFILE: Breathing Movements (FBM): 2 Gross Body Movements (GBM): 2 Tone (FT): 2 Amniotic Fluid Volume (AFV): 2 TOTAL SCORE: 8 / 8 US/Biophysical Prof W/O Non Stres IMPRESSION: Normal biophysical profile of 12/14. Electronically Signed: Husam Miguel MD at 14:32 EDT , Service support ,
== END ==
PROVIDERS: PCP Internal Medicine; Referring Provider Obstetrics & Gynecology; Visit Provider Obstetrics & Gynecology
DX: O36.8130 Decreased fetal movements, third trimester, not applicable or unspecified (principal); Z3A.36 36 weeks gestation of pregnancy
CPT/HCPCS: 76819

== ENCOUNTER → 2020-10-03 09:35 | Outpatient (CLI) | payer BC, SELFPAY ==
[2020-09-12 10:43] VITALS: BMI 41.1
[2020-09-26 10:48] VITALS: BMI 41.1
--- NOTE | 2020-10-03 09:49 | US_ITS ---
STUDY: OBSTETRICAL ULTRASOUND - BIOPHYSICAL PROFILE REASON FOR EXAM: Female, 35 years old decreased movement LMP: 01/18/2020 PRIOR ULTRASOUND: 09/30/2020 TECHNIQUE: Transabdominal TECHNICAL QUALITY: Adequate. FINDINGS: There is a single intrauterine fetus. The fetus is in a cephalic presentation. There is demonstrated cardiac activity with a heart rate of 155 bpm. There is increased amniotic fluid consistent with polyhydramnios. The largest amniotic fluid pocket measures 7.8 cm. The amniotic fluid index (DARRELL) is 27.26 cm. This represents an increase from the previous study where it measured 23.6. The placenta is anterior in location and is not low lying. There are Grade 2 placental changes. Age by LMP: 37 weeks, 0 days. DONNA by LMP: 10/24/2020. BIOPHYSICAL PROFILE: Breathing Movements (FBM): 2 Gross Body Movements (GBM): 2 Tone (FT): 2 Amniotic Fluid Volume (AFV): 2 TOTAL SCORE: 8 / 8 US/Biophysical Prof W/O Non Stres IMPRESSION: Normal biophysical profile of /8. Polyhydramnios now present, DARRELL measures 27.26 cm up from 23.6 on the previous study Electronically Signed: David Agarwal MD at 14:17 EDT , Service support ,
== END ==
PROVIDERS: PCP Internal Medicine; Referring Provider Obstetrics & Gynecology; Visit Provider Obstetrics & Gynecology
DX: O36.8130 Decreased fetal movements, third trimester, not applicable or unspecified (principal); Z3A.37 37 weeks gestation of pregnancy
CPT/HCPCS: 76819

== ENCOUNTER 2020-10-04 07:05 | Inpatient (IN) | payer BC, SELFPAY ==
[2020-10-03 10:31] VITALS: BMI 41.2
[2020-10-04] VITALS (18 sets, daily range): BP systolic 98–121; BP diastolic 56–72; PULSE 68–91; RESP 16; TEMP 36.1–37; O2SAT 97–99
[2020-10-04] MEDS: Lactated Ringers 1,000 ML 50 ML IV (07:45)
[2020-10-04 08:07] LABS: Absolute Lymphocyte Count 1.25 X10^3/uL (0.83-4.51); Absolute Neutrophil Count 6.4 X10^3/uL (2.0-7.7); Basophil# 0.01 X10^3/uL; Basophil% 0.1 % (0-1); Eosinophil# 0.06 X10^3/uL; Eosinophils% 0.7 % (0-5); Hematocrit 36.5 % (37-47); Hemoglobin 11.9 g/dL (12.0-15.0); Lymphocyte # 1.25 X10^3/ul (0.83-4.51); Lymphocyte % 15.1 % (19-41); Mean Corp Hgb Conc 32.6 g/dL (32-36); Mean Corpuscular Hgb 29.9 pg (27.0-32.0); Mean Corpuscular Volume 91.7 fL (81-99); Mean Platelet Vol. 11.5 fl (6.2-12.0); Monocyte# 0.54 X10^3/uL; Monocyte% 6.5 % (0-10); NRBC Flagged by Analyzer 0 % (0-5); Neutrophil # 6.36 X10^3/uL (2.7-7.7); Neutrophil % 77.1 % (47-70); Platelet Count 172 K/mm3 (150-450); RBC Distribution Width CV 13.6 % (11.6-14.6); Red Blood Count 3.98 M/mm3 (4.2-5.4); White Blood Count 8.3 K/mm3 (4.4-11.0)
[2020-10-04] MEDS: Oxytocin 30 units/NS 500 ml 30 UNITS/500 ML IV.SOLN IV (08:25)
[2020-10-04 09:25] LABS: Bedside Glucose 111 mg/dL (70-110)
--- NOTE | 2020-10-04 10:13 | HP.PCM.OB_ITS ---
HPI - General General Date of Admission: 10/04/20 HPI Narrative ROBERT ZAVALA, is a 35 F who presents for induction of labor for gestational diabetes with polyhydramnios and chronic decreased movement Maternal Data Information DONNA Calculator Estimated Delivery Date Method Current WG Current Estimate 10/24/20 LMP (Certain) 37w 1d [facility] Medical History Abnormal chromosomal and genetic finding on screening of mother Abnormal Pap smear of cervix AMA (advanced maternal age) multigravida 35+ Depression Obesity affecting Palpitations Rh negative status during Supervision of high risk , antepartum Home Medications blood sugar diagnostic #100 each 08/01/20 [Rx Last Taken Unknown] blood-glucose meter #1 each 08/01/20 [Rx Last Taken Unknown] pen needle, diabetic 32 gauge x #100 each 08/18/20 [Rx Last Taken Unknown] insulin detemir U-100 23 unit SC QHS 08/29/20 [History Last Taken 10/03/20] vit,[id number] 1 tablet PO DAILY 08/29/20 [History Last Taken 0 10/04/20] fluoxetine 40 mg PO DAILY 10/04/20 [History Last Taken 10/04/20] Allergy/AdvReac Type Severity Reaction Status Date / Time red dye Allergy Mild vomiting Verified 10/03/20 10:25 diazepam [From Valium] AdvReac Other Verified 10/03/20 10:25 Family History Father Atrial fibrillation Mother Breast cancer Grandmother Ovarian cancer Colon cancer Arthritis Grandfather Diabetes Surgical History S/P dilation and curettage (~11/2016) S/P laparoscopic cholecystectomy Social History adopted: No household members: family housing: house number of children: 2 Smoking Status: Never smoker alcohol intake: current details: occasionally substance use type: does not use caffeine: No what type of physical activity do you participate in: walking and bicycling frequency: daily seatbelt use: always do you feel safe at home: Yes additional social history: - [employer] 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 Date Name GA/Weeks Outcome Route Bth Weight Gen Labor Lgth Anesthesia Del Locatn Provider FOB 12/27/14 Amilcar 37 live - full term 7lbs 1oz Female 12 hours epidural [facility] Dr. Sedrick [place] 02/24/18 Antione 39 live - full term 7.9oz Male 4 hours ep idural [facility] AZRA [facility] Delivery Date: 12/27/14 No issues during or delivery. Elinor Hurtado Delivery Date: 02/24/18 3-4 cm at 32 weeks given Ivania Bowman Visit Details Expected Delivery Route/Plan IOL 39 weeks Labor Preferences- CB/BF classes: no labor support person: Can labor intervention preferences: [] pain management options preferred: epidural cut cord/dad catch: yes : yes PP control planned: condoms discussed possible routes of delivery and associated risks: [] special requests: very short labor and is concerned won't get her epidural Plans flu vaccine:decline tdap vaccine: yes rhogam: rhogam LARC form signed: yes movement and labor precautions reviewed. Problem list reviewed and updated with the most current plan of care details and appropriate orders placed. Relevant counseling for the gestational age provided. Continue routine care and follow up unless otherwise noted in visit notes/problem list details OB Flowsheet Initial Weight: 237 lb Date -?-?-?-?-?-?-?-?-?-?-?-?- EGA Weight BP Urine Prot -?-?-?-?-?-?-?-?-?-?-?-?- Glucose FHR FuHt Pres Dilation -?-?-?-?-?-?-?-?-?-?-?-?- Effaced St Visit Note 03/20/20 -?-?-?-?-?-?-?-?-?-?-?-?- 8w 6d 237 lb (+0 oz) -?-?-?-?-?-?-?-?-?-?-?-?- 170 -?-?-?-?-?-?-?-?-?-?-?-?- SM- CRL seen abd ominally 1.7cm cons with LMP 04/18/20 -?-?-?-?-?-?-?-?-?-?-?-?- 13w 0d 240 lb (+3 lb) 124/82 Negative -?-?-?-?-?-?-?-?-?-?-?-?- Negative 160 -?-?-?-?-?-?--?-?-?-?-?-?- SM- discussed ab normal NIPT findings and referral to [facility] 05/16/20 -?-?-?-?-?-?-?-?-?-?-?-?- 17w 0d 244 lb (+7 lb) 124/86 Negative -?-?-?-?-?-?-?-?-?-?-?-?- Negative 150 -?-?-?-?-?-?-?-?-?-?-?-?- Sm- no vb lof cr amping 06/13/20 -?-?-?-?-?-?-?-?-?-?-?-?- 21w 0d 254 lb (+17 lb) 138/84 Negative -?-?-?-?-?-?-?-?-?-?-?-?- Negative 145 -?-?-?-?-?-?-?-?-?-?-?-?- SM- seeing cardi o for palpitations. no vb lof cramping 07/11/20 -?-?-?-?-?-?-?-?-?-?-?-?- 25w 0d 254 lb (+17 lb) 118/76 Negative -?-?-?-?-?-?-?-?-?-?-?-?- Negative 140 25 -?-?-?-?-?-?-?-?-?-?-?-?- SM- no vb lof go od fm no regular ctx got rhogam for spotting over the weekend- resolved. 07/30/20 -?--?-?-?-?-?-?-?-?-?-?-?- 27w 5d 255 lb 2 oz (+18 lb 2 oz) 118/72 Negative -?-?-?-?-?-?-?-?-?-?-?-?- Negative 153 28 -?-?-?-?-?-?-?-?-?-?--?-?- MH-NO VB, LOF. 2 8 wk labs reviewed. 1 hr GCT 198:discussed GDM, refer Dr Hill and dietitian. Tdap. MFM US for growth /3 08/15/20 -?-?-?-?-?-?-?-?-?-?-?-?- 30w 0d 251 lb (+14 lb) 104/72 -?-?-?-?-?-?-?-?-?-?-?-?- 160 30 -?-?-?-?-?-?-?-?-?-?-?-?- SM- bs not contr olled, increasing metformin no vb lof good fm no regular ctx 08/18/20 -?-?-?-?-?-?-?-?-?-?-?-?- 30w 3d 252 lb (+15 lb) 112/70 Trace -?-?-?-?-?-?-?-?-?-?-?-?- Negative 152 -?-?-?-?-?-?-?-?-?-?-?-?- MH-gush of fluid in night. Unsure if urine. Had pin sized clot of blood. No CTX. Good FM. ROM plus pending. 08/29/20 -?-?-?-?-?-?-?-?-?-?-?-?- 32w 0d 251 lb (+14 lb) 132/84 Negative -?-?-?-?-?-?-?-?-?-?-?-?- Negative 140 -?-?-?-?-?-?-?-?-?-?-?-?- GP - no LOF, VB, DFM, ctx. NST nonreactive. BPP added on for today. GP - no LOF, VB, DFM, ctx. N ST nonreactive. Sent to triage for prolonged monitoring and BPP. 09/05/20 -?-?-?-?-?-?-?-?-?-?-?-?- 33w 0d 251 lb (+14 lb) 108/72 Trace -?-?-?-?-?-?-?-?-?-?-?-?- Negative 140 -?-?-?-?-?-?-?-?-?-?-?-?- GP - NST only vi sit. NST nonreactive. Sent to triage for monitoring and BPP 09/10/20 -?-?-?-?-?-?-?-?-?-?-?-?- 33w 5d Negative -?-?-?-?-?-?-?-?-?-?-?-?- Negative 140 -?-?-?-?-?-?-?-?-?-?-?-?- GP- NST only vis it for DFM. NST reactive. 09/12/20 -?-?-?-?-?-?-?-?-?-?-?-?- 34w 0d 247 lb (+10 lb) -?-?-?-?-?-?-?-?-?-?-?-?- -?-?-?-?-?-?-?-?-?-?-?-?- 09/26/20 -?-?-?-?-?-?-?-?-?-?-?-?- 36w 0d 247 lb 8 oz (+10 lb 8 oz) 118/80 Negative -?-?-?-?-?-?-?-?-?-?-?-?- Negative 140 36 Cephalic 1 -?-?-?-?-?-?-?-?-?-?-?-?- 50 -2 GP -no LOF , VB, DFM, reg ctx. BPP 12/14 today. GBS today. 10/03/20 -?-?-?-?-?-?-?-?-?-?-?-?- 37w 0d 248 lb (+11 lb) 110/78 Negative -?-?-?-?-?-?-?-?-?-?-?-?- Negative 155 37 Cephalic 2 -?-?-?-?-?-?-?-?-?-?-?-?- 60 -2 GP - no LO F, VB, DFM, ctx. Pt with gestational diabetes on insulin and rapidly worsening polyhydramnios. Recommend IOL at 37w 10/04/20 -?-?-?-?-?-?-?-?-?-?-?-?- 37w 1d 250 lb 0.067 oz (+13 lb 0.067 oz) 107/58 106/62 -?-?-?-?-?-?-?-?-?-?-?-?- -?-?-?-?-?-?-?-?-?-?-?-?- NST FHR Rate Baby A Baseline: 140 Variability:: Moderate Accelerations:: 15 x 15 Decelerations:: None NST Reactive:: Yes FHR Category:: Category I Uterine Activity:: irritability ROS Eyes Eyes: Reports systems reviewed and no addt'l complaints, except as documented ENT HEENT: Reports systems reviewed and no addt'l complaints, except as documented Cardiovascular Cardiovascular: Reports systems reviewed and no addt'l complaints, except as documented Respiratory/Chest Respiratory/Chest: Reports systems reviewed and no addt'l complaints, except as documented Gastrointestinal Gastrointestinal: Reports systems reviewed and no addt'l complaints, except as documented Genitourinary Genitourinary: Reports systems reviewed and no addt'l complaints, except as documented Musculoskeletal Musculoskeletal: Reports systems reviewed and no addt'l complaints, except as documented Integumentary Integumentary: Reports systems reviewed and no addt'l complaints, except as documented Neurologic Neurologic: Reports systems reviewed and no addt'l complaints, except as documented Psychiatric Psychiatric: Reports systems reviewed and no addt'l complaints, except as documented Endocrine Endocrinology: Reports systems reviewed and no addt'l complaints, except as documented Hematologic/Lymphatic Hematologic/Lymphatic: Reports systems reviewed and no addt'l complaints, except as documented Allergic/Immunologic Allergic/Immunologic: Reports systems reviewed and no addt'l complaints, except as documented Vital Signs Vital Signs Vital Signs: 10/04/20 07:30 10/04/20 09:00 Temperature 97.0 F L Temperature Source Temporal Temporal Pulse Rate 91 80 Blood Pressure 107/58 L 106/62 BP Systolic 107 106 BP Diastolic 58 62 Pulse Ox 97 Weight Weight: 250 lb 0.067 oz Body Mass Index (BMI) 41.2 Physical Exam Const alert, oriented x3, no apparent distress, average body habitus, healthy appearing and well nourished HEENT normocephalic and moist oral mucous membranes Head and Scalp: atraumatic Eyes PERRL and EOMs intact bilaterally Neck full ROM Resp normal respiratory effort, no retractions and no use of accessory muscles Cardio regular rate and regular rhythm GI soft to palpation, non-tender and non-distended Extremity normal to inspection and full ROM Skin no rashes or lesions noted Neuro no focal motor deficits and no sensory deficits noted Psych mental status grossly normal, affect normal, speech normal and activity/motor behavior normal Labs Labs Labs: Blood Type A NEGATIVE Antibody Screen NEGATIVE Hct 36.5 % (37-47) L Hgb 11.9 g/dL (12.0-15.0) L Obstetrics US Rubella IgG Antibody Reactive (Nonreactive) Hep Bs Antigen Non-Reactive (Nonreactive) Neisseria gonorrhoeae DNA (DERIC) Negative (Negative) HIV 1&2 Antibody Non-Reactive (Nonreactive) C.trachomatis DNA (PCR) Negative (Negative) Glucose 1 Hr 50 gm 198 mg/dL (70-140) H Group B Strep DNA Negative (Negative) Rhogam given: No Miscellaneous Test Assessment & Plan (1) Encounter for induction of labor: PLAN: Patient presents IOL, plan management for with pitocin/AROM. Pain management: plans epidural. GBS .positive Management of any complications: none I have reviewed the [facility] and made any clinically relevant updates. (2) Polyhydramnios: QUALIFIERS: Fetus number: single or unspecified fetus Trimester: third trimester Qualified Code(s): O40.3XX0 - Polyhydramnios, third trimester, not applicable or unspecified COMMENT: DARRELL 27 on 10/03 (3) Positive GBS test: COMMENT: PCN at labor (4) Decreased movements in third trimester: QUALIFIERS: Fetus number: single or unspecified fetus Qualified Code(s): O36.8130 - Decreased movements, third trimester, not applicable or unspecified COMMENT: twice weekly BPP and delver at 37. (5) 32 weeks gestation of : COMMENT: electronic covid test ordered 08/27/20 (6) History of tetanus, diphtheria, and acellular pertussis booster vaccination (Tdap): COMMENT: 07/30/20 (7) Gestational diabetes: QUALIFIERS: Gestational diabetes mellitus control: insulin- controlled Trimester: third trimester Qualified Code(s): O24.414 - Gestational diabetes mellitus in , insulin controlled COMMENT: follows with jigna bhatti. plan twice weekly BPP and deliver at 37 given polyhydramnios (8) Vaginal bleeding during : COMMENT: rhogam given 07/06- will need another dose end of september (9) Palpitations: COMMENT: ECHO- NL done 06/17/20, nl 07/01/20 (10) Abnormal chromosomal and genetic finding on screening of mother: COMMENT: NIPT- high risk d/t DNA fraction 2.7% triploidy, trisomy 18 and 13 high risk 05/25; refer to [facility] (11) Rh negative status during : QUALIFIERS: Trimester: third trimester Qualified Code(s): O26.893 - Other specified related conditions, third trimester; Z67.91 - Unspecified blood type, Rh negative COMMENT: Rhogham @ 28 wks and PRN + Antibody:Labs show weak anti-D antibody that is too low to titer. This is consistent with receiving RhoGam at the end of June. (12) Obesity affecting : QUALIFIERS: Trimester: third trimester Qualified Code(s): O99.213 - Obesity complicating , third trimester COMMENT: 1 tm glucola ordered. encouraged healthy weight gain. plan weekly testing after 32 weeks. NL US 08/11/20,nl growth and anatomy 09/08 US (13) Supervision of high risk , antepartum: COMMENT: PRR DONNA: 10/24/20 girl Judy PC: Antione Fitzgerald Spouse: Can History of short labor and really wants epidural (14) : QUALIFIERS: Weeks of gestation: 37 weeks Qualified Code(s): Z3A.37 - 37 weeks gestation of COMMENT: abnl NIPT, discussed carrier and NTD; NL anatomy (15) AMA (advanced maternal age) multigravida 35+: QUALIFIERS: Trimester: third trimester Qualified Code(s): O09.523 - Supervision of elderly multigravida, third trimester COMMENT: NIPT abnormal. (16) Depression: QUALIFIERS: Depression Type: major depressive disorder Major depression recurrence: recurrent Active/Remission status: in partial remission Qualified Code(s): F33.41 - Major depressive disorder, recurrent, in partial remission COMMENT: prozac. encouraged counseling. Patient is doing well. 07/30 stable
[2020-10-04] MEDS: Lactated Ringers 500 ML 999 ML IV (11:19)
[2020-10-04 12:55] LABS: Bedside Glucose 87 mg/dL (70-110)
[2020-10-04] MEDS: Oxytocin 30 units/NS 500 ml 30 UNITS/500 ML IV.SOLN 334 UNITS IV (15:59)
--- NOTE | 2020-10-04 16:30 | OP.PCM_ITS ---
Maternal Data Information DONNA Calculator Estimated Delivery Date Method Current WG Current Estimate 10/24/20 LMP (Certain) 37w 1d Vaginal Delivery Maternal Presentation Maternal Presentation: Medically Indicated Induction Maternal Presentation: 35-year-old G3, P2 at 37 weeks gestation admitted for induction of labor for gestational diabetes and polyhydramnios. Patient was induced with Pitocin. Type of Induction: Pitocin Medical Reason for Induction: Maternal Medical Condition: list: (Gestational diabetes) and Compromise: list: (Polyhydramnios) Operative Information Date of Procedure: 10/04/20 Pre-Operative Diagnosis: Term , gestational diabetes, polyhydramnios Post-Operative Diagnosis: Same Surgery / Procedure Performed: Spontaneous Vaginal Delivery Type of Anesthesia: Local with 1% Lidocaine Estimated Blood Loss: 150 Findings Description of Procedure: Patient began pushing and delivered the head in the PEG presentation. The head was delivered atraumatically and a loose nuchal cord was noted and delivered through. The anterior and posterior shoulders delivered without complication followed by the rest of the and the was placed on the maternal abdomen. Delayed cord clamping was employed for approximately 60 seconds. Cord was clamped and cut and gentle traction was applied to the cord and the placenta delivered spontaneously immediately following it was noted to be intact with three-vessel cord. The perineum and vagina were inspected and a midline first-degree perineal laceration was noted and repaired in the standard fashion using 3-0 Vicryl Rapide suture. EBL was 150 cc. Patient and tolerated delivery well. Presentation: Vertex and PEG Amniotic Membrane Rupture Type: Artificial Amniotic Fluid Description: Clear Placental Delivery Description: Spontaneous Placenta Disposition: [facility] Cord Vessel Description: 3 Vessels Cord Entanglement: Around neck x 1, loose Infant A Gender: Female Delayed Cord Clamping: Yes Post Vaginal Delivery Medications Given After Delivery: IV Pitocin Episiotomy Description: None Laceration: Midline, Perineal Extension/lac and 1st degree Complication Complications: None Procedures Urinary/Genital [id number]: [id number] Vaginal Delivery [facility]
--- NOTE | 2020-10-04 16:39 | PCM.DC ---
Discharge Instructions Diet Discharge Diet: No restrictions Activity Discharge Activity: Return to Normal Activity, May not drive while taking narcotic pain medications. and May Shower May resume sexual activity in: 4-6 weeks Dressing / Incision Call your doctor if your incision/area has: Continuous Slow Oozing, Sudden Increased Bleeding, Increased Pain/ Swelling, Increased Redness and Foul Smelling Discharge Follow Up Care When: Call to make an appointment with your doctor in 6 weeks. If you had elevated Blood Pressure or 4th degree laceration you will need to be seen in 2 weeks. Test Results: Test results from this visit will be discussed in further detail at your follow-up appointment, if applicable. Discharge Plan Admission Admit Date/Time: 10/04/20 07:05 Primary Reason for Your Visit: Induction Attending Provider: Sima Shelby Primary Care Provider: Madelyn Pham Instructions Patient Instructions: After a Vaginal Discharge Orders/Prescriptions Prescriptions: New naproxen 250 MG tablet 250 - 500 mg PO Q8H PRN PRN (Reason: MILD PAIN) Qty: 30 RF: 1 Continued vit,[id number] 1 TABLET tablet 1 tablet PO DAILY RF: 0 fluoxetine 40 mg capsule 40 mg PO DAILY RF: 0 Discontinued insulin detemir U-100 100 UNIT/ML insulin pen 23 unit SC QHS RF: 0 No Action (DME) pen needle, diabetic [BD Ultra-Fine Rosalina Pen Needle] 32 gauge x 5/32 needle See Rx Instructions .ROUTE .MEDSUPPLY Qty: 100 RF: 1 (DME) Truetrack Test Strip See Rx Instructions .ROUTE .MEDSUPPLY Qty: 100 RF: 4 (DME) blood-glucose meter [Truetrack Blood Glucose System] Kit See Rx Instructions .ROUTE .MEDSUPPLY Qty: 1 RF: 0 Referrals / Follow Up: Madelyn Pham MD [Primary Care Provider] -
[2020-10-04] MEDS: Naproxen 500 MG Tablet PO (20:17)
[2020-10-05 03:40] VITALS: BP 107/68; PULSE 71; RESP 18; TEMP 36.7
[2020-10-05 06:11] LABS: Bedside Glucose 97 mg/dL (70-110)
[2020-10-05 08:54] VITALS: BP 126/66; PULSE 71; RESP 16; TEMP 36.6
--- NOTE | 2020-10-05 10:19 | PCM.PN.OB ---
Subjective Subjective Patient doing well without complaints. Tolerating PO. Ambulating and voiding without difficulty. Feeding well. Denies chest pain, shortness of breath, calf pain/swelling, fevers, chills, lightheadedness. Objective Data Objective Data Vital Signs: Vital Signs Temp Pulse Resp BP Pulse Ox 97.8 F 71 16 126/66 H 99 10/05/20 08:54 10/05/20 08:54 10/05/20 08:54 10/05/20 08:54 10/04/20 14:55 Oxygen Delivery Method Room Air Weight: 250 lb 0.067 oz Body Mass Index (BMI) 41.2 Intake & Output: Intake and Output for Last 24 Hours 10/03/20 10/04/20 10/05/20 23:59 23:59 23:59 Intake Total 1510.08 / 1510.08 Balance 1510.08 / 1510.08 Lab / Micro Data Result Diagrams: 10/04/20 07:45 Labs: Laboratory Results - last 24 hr 10/04/20 10/05/20 12:45 05:49 POC Glucose 87 97 Micro: Microbiology 10/04/20 08:15 Interface Orders SARS-CoV-2 Antigen (Rapid) - Final ROS Constitutional Constitutional: Denies fever(s) Cardiovascular Cardiovascular: Denies chest pain, dyspnea or lightheadedness Gastrointestinal Gastrointestinal: Reports abdominal pain; Denies constipation or diarrhea Neurologic Neurologic: Denies dizziness or headache(s) Physical Exam Const alert, oriented x3, no apparent distress, average body habitus, healthy appearing and well nourished HEENT normocephalic Head and Scalp: atraumatic Eyes PERRL and EOMs intact bilaterally Neck full ROM Lymph Lymphatic: no lymphadenopathy noted Resp normal respiratory effort, no retractions and no use of accessory muscles Cardio regular rate GI soft to palpation, non-tender and non-distended Palpation: other Other Details: fundus firm Extremity normal to inspection and no clubbing, cyanosis or edema Skin no rashes or lesions noted Neuro no focal motor deficits and no sensory deficits noted Psych mental status grossly normal, affect normal and speech normal Assessment & Plan (1) (spontaneous vaginal delivery): PLAN: s/p PPD # 1 1. routine post delivery care 2. breast feeding- support given 3. rh positive 4. rubella immune 5. GDMA2 - fasting BGT 97
--- NOTE | 2020-10-05 10:51 | NURSING ---
IV was already removed upon arrival to this RN's shift.
[2020-10-05 11:52] VITALS: BP 105/63; PULSE 94; RESP 18; TEMP 36.9
--- NOTE | 2020-10-05 14:42 | NURSING ---
Report given to Raudel Anne RN.
[2020-10-05 16:36] VITALS: BP 117/72; PULSE 85; RESP 16; TEMP 36
[2020-10-05 20:02] VITALS: BP 107/71; PULSE 77; RESP 18; TEMP 36.3
[2020-10-05 23:51] VITALS: BP 118/73; PULSE 75; RESP 18; TEMP 36.4; O2SAT 97
[2020-10-05] MEDS: Acetaminophen 500 MG Tablet 1000 MG PO (23:58)
[2020-10-06] MEDS: Hydrocortisone 2.5% Crm 1 APPLIC TOPICAL (00:50)
[2020-10-06 02:16] VITALS: BP 98/55; PULSE 64; RESP 16; TEMP 35.9; O2SAT 96
[2020-10-06 08:18] VITALS: BP 119/65; PULSE 62; RESP 20; TEMP 36.1; O2SAT 98
--- NOTE | 2020-10-06 09:47 | PCM.PN.OB ---
Subjective Subjective Patient doing well without complaints. Tolerating PO. Ambulating and voiding without difficulty. Feeding well. Denies chest pain, shortness of breath, calf pain/swelling, fevers, chills, lightheadedness. Objective Data Objective Data Vital Signs: Vital Signs Temp Pulse Resp BP Pulse Ox 97.0 F L 62 20 H 119/65 98 10/06/20 08:18 10/06/20 08:18 10/06/20 08:18 10/06/20 08:18 10/06/20 08:18 Oxygen Delivery Method Room Air Weight: 250 lb 0.067 oz Body Mass Index (BMI) 41.2 Intake & Output: Intake and Output for Last 24 Hours 10/04/20 10/05/20 10/06/20 23:59 23:59 23:59 Intake Total 1510.08 / 1510.08 Balance 1510.08 / 1510.08 Lab / Micro Data Result Diagrams: 10/04/20 07:45 Micro: Microbiology 10/04/20 08:15 Interface Orders SARS-CoV-2 Antigen (Rapid) - Final ROS Constitutional Constitutional: Denies fever(s) Cardiovascular Cardiovascular: Denies chest pain, dyspnea or lightheadedness Gastrointestinal Gastrointestinal: Reports abdominal pain; Denies constipation or diarrhea Neurologic Neurologic: Denies dizziness or headache(s) Physical Exam Const alert, oriented x3, no apparent distress, average body habitus, healthy appearing and well nourished HEENT normocephalic Head and Scalp: atraumatic Eyes PERRL and EOMs intact bilaterally Neck full ROM Lymph Lymphatic: no lymphadenopathy noted Resp normal respiratory effort, no retractions and no use of accessory muscles Cardio regular rate GI soft to palpation, non-tender and non-distended Palpation: other Other Details: fundus firm Extremity normal to inspection and no clubbing, cyanosis or edema Skin no rashes or lesions noted Neuro no focal motor deficits and no sensory deficits noted Psych mental status grossly normal, affect normal and speech normal Assessment & Plan (1) (spontaneous vaginal delivery): PLAN: s/p PPD # 2 1. routine post delivery care 2. breast feeding- support given 3. rh negative 4. rubella immune
== END 2020-10-06 12:05 | disposition home or self-care (01) | DRG 806 ==
PROVIDERS: Admitting Provider Obstetrics & Gynecology; PCP Internal Medicine; Visit Provider Obstetrics & Gynecology
DX: O24.424 Gestational diabetes mellitus in childbirth, insulin controlled (principal); O36.0130 Maternal care for anti-D [Rh] antibodies, third trimester, not applicable or unspecified; Z37.0 Single live birth; O40.3XX0 Polyhydramnios, third trimester, not applicable or unspecified; O36.8130 Decreased fetal movements, third trimester, not applicable or unspecified; O69.81X0 Labor and delivery complicated by cord around neck, without compression, not applicable or unspecified; O28.5 Abnormal chromosomal and genetic finding on antenatal screening of mother; O99.214 Obesity complicating childbirth; E66.9 Obesity, unspecified; O99.344 Other mental disorders complicating childbirth; F33.41 Major depressive disorder, recurrent, in partial remission; O99.824 Streptococcus B carrier state complicating childbirth; O70.0 First degree perineal laceration during delivery; Z3A.37 37 weeks gestation of pregnancy; Z87.59 Personal history of other complications of pregnancy, childbirth and the puerperium
CPT/HCPCS: 59050; 82962; 85025; 86850; 86900; 86901; 87426; 99218; J7120; G0378

== ENCOUNTER → 2021-11-30 | Outpatient (CLI) | payer BC, SELFPAY ==
[2021-11-30 12:57] LABS: NATERA MAILED SPECIMEN
== END | disposition home or self-care (01) ==
LOC: PAVLAB 11:50
PROVIDERS: PCP Internal Medicine; Referring Provider Obstetrics & Gynecology; Visit Provider Obstetrics & Gynecology
DX: Z80.3 Family history of malignant neoplasm of breast (principal); Z80.41 Family history of malignant neoplasm of ovary
CPT/HCPCS: 36415

== ENCOUNTER → 2022-03-13 | Outpatient (CLI) | payer BC, SELFPAY ==
[2022-03-13 08:28] LABS: Absolute Neutrophil Count 4.2 X10^3/uL (2.0-7.7); Basophil# 0.05 X10^3/uL; Basophil% 0.7 % (0-1); Eosinophil# 0.17 X10^3/uL; Eosinophils% 2.4 % (0-5); Hematocrit 41.3 % (37-47); Hemoglobin 13.4 g/dL (12.0-15.0); Lymphocyte % 29.4 % (19-41); Mean Corp Hgb Conc 32.4 g/dL (32-36); Mean Corpuscular Hgb 29.6 pg (27.0-32.0); Mean Corpuscular Volume 91.4 fL (81-99); Mean Platelet Vol. 9.9 fl (6.2-12.0); Monocyte# 0.57 X10^3/uL; NRBC Flagged by Analyzer 0 % (0-5); Neutrophil # 4.23 X10^3/uL (2.7-7.7); Neutrophil % 59.2 % (47-70); Platelet Count 277 K/mm3 (150-450); RBC Distribution Width CV 13.9 % (11.6-14.6); RBC Distribution Width SD 46.3 fl (35.1-43.9); Red Blood Count 4.52 M/mm3 (4.2-5.4); White Blood Count 7.1 K/mm3 (4.4-11.0)
[2022-03-13 09:08] LABS: Ferritin 41 ng/mL (8-252); Iron 60 ug/dL (50-170); Iron Binding Capacity,Total 363 ug/dL (250-450)
== END | disposition home or self-care (01) ==
PROVIDERS: PCP Internal Medicine; Referring Provider Obstetrics & Gynecology; Visit Provider Obstetrics & Gynecology
DX: E66.01 Morbid (severe) obesity due to excess calories (principal); Z68.42 Body mass index [BMI] 45.0-49.9, adult
CPT/HCPCS: 36415; 82306; 82728; 83540; 83550; 85025

== ENCOUNTER → 2022-06-14 | Outpatient (CLI) | payer BC, SELFPAY ==
[2022-06-14 14:30] LABS: Anion Gap 6 (5-15); BUN 10 mg/dL (7-18); BUN/Creat Ratio 12.2 RATIO (10-20); Calcium,Total 8.8 mg/dL (8.5-10.1); Chloride 110 mmol/L (98-107); Cholesterol 217 mg/dL (200); Creatinine, Serum 0.82 mg/dL (0.55-1.02); EST Glomerular Filtration Rate 82 mL/min (>60); Est Glom Filt Rate - Afr Amer 99 mL/min (>60); Glucose 97 mg/dL (74-106); High Density Lipoprotein 48 mg/dL; Potassium 3.6 mmol/L (3.5-5.1); Sodium Level 142 mmol/L (136-145); Triglycerides 230 mg/dL; Very Low Density Lipoprotein 46 mg/dL (5-40); hCG Titer Quant., Serum < 1 mIU/mL (1-3)
[2022-06-14 14:35] LABS: Hemoglobin A1c 5.6 % (3.8-5.6)
== END | disposition home or self-care (01) ==
LOC: PAVLAB 13:39
PROVIDERS: PCP Internal Medicine; Referring Provider Obstetrics & Gynecology; Visit Provider Obstetrics & Gynecology
DX: E66.01 Morbid (severe) obesity due to excess calories (principal); Z68.42 Body mass index [BMI] 45.0-49.9, adult; Z13.220 Encounter for screening for lipoid disorders
CPT/HCPCS: 36415; 80048; 80061; 83036; 84702

== ENCOUNTER → 2022-08-16 | Outpatient (CLI) | payer BC, SELFPAY ==
[2022-08-16 13:33] LABS: Anion Gap 5 (5-15); BUN 15 mg/dL (7-18); BUN/Creat Ratio 16.5 RATIO (10-20); Calcium,Total 9.3 mg/dL (8.5-10.1); Chloride 110 mmol/L (98-107); Creatinine, Serum 0.91 mg/dL (0.55-1.02); EST Glomerular Filtration Rate 73 mL/min (>60); Est Glom Filt Rate - Afr Amer 88 mL/min (>60); Glucose 101 mg/dL (74-106); Sodium Level 139 mmol/L (136-145)
== END | disposition home or self-care (01) ==
LOC: PAVLAB 12:20
PROVIDERS: PCP Internal Medicine; Referring Provider Obstetrics & Gynecology; Visit Provider Obstetrics & Gynecology
DX: E88.81 Metabolic syndrome and other insulin resistance (principal)
CPT/HCPCS: 36415; 80048; 84443

== ENCOUNTER → 2022-08-18 | Outpatient (CLI) | payer BC, SELFPAY ==
[2022-08-18 13:35] LABS: T4 Free Direct 0.59 ng/dL (0.76-1.46)
[2022-08-20 10:48] LABS: Thyroid Peroxidase AB 505 IU/mL (0-34)
== END | disposition home or self-care (01) ==
LOC: PAVLAB 12:54
PROVIDERS: PCP Internal Medicine; Referring Provider Obstetrics & Gynecology; Visit Provider Obstetrics & Gynecology
DX: E88.81 Metabolic syndrome and other insulin resistance (principal); E66.01 Morbid (severe) obesity due to excess calories; Z68.42 Body mass index [BMI] 45.0-49.9, adult
CPT/HCPCS: 36415; 84439; 86376

== ENCOUNTER → 2022-08-20 | Outpatient (CLI) | payer BC, SELFPAY ==
--- NOTE | 2022-08-20 16:54 | US_ITS ---
INDICATION: Abnormal thyroid level EXAMINATION: Ultrasound US Thyroid (eg thyroid, parathyroid, parotid) TECHNIQUE: Jacobson scale and color doppler imaging was performed of the thyroid gland. COMPARISON: None. FINDINGS: RIGHT THYROID LOBE: 4.2 x 1.5 x 2.1 cm. Heterogeneous echotexture with normal vascularity. 1.1 x 0.8 x 0.9 cm mixed cystic and solid nodule with irregular margins. LEFT THYROID LOBE: 4.5 x 1.2 x 1.5 cm. Heterogeneous echotexture with normal vascularity. No thyroid nodules are present. ISTHMUS: 2 mm. No thyroid nodules are present. US/Thyroid IMPRESSION: 1.1 cm TR 4 right thyroid nodule meets criteria for imaging follow-up, but not FNA. Repeat thyroid ultrasound in one year. Electronically Signed: Prasanth Singh MD at 23:57 EDT ,
== END | disposition home or self-care (01) ==
LOC: US 16:53
PROVIDERS: PCP Internal Medicine; Referring Provider Obstetrics & Gynecology; Visit Provider Obstetrics & Gynecology
DX: E04.1 Nontoxic single thyroid nodule (principal); E66.01 Morbid (severe) obesity due to excess calories; Z68.42 Body mass index [BMI] 45.0-49.9, adult; E88.81 Metabolic syndrome and other insulin resistance
CPT/HCPCS: 76536

== ENCOUNTER → 2022-09-29 | Outpatient (CLI) | payer BC, SELFPAY ==
[2022-09-29 11:24] LABS: T4 Free Direct 1.09 ng/dL (0.76-1.46); Thyroid Stim Hormone (TSH) 1.91 uIU/mL (0.358-3.74)
== END | disposition home or self-care (01) ==
LOC: PAVLAB 10:34
PROVIDERS: PCP Internal Medicine; Referring Provider Obstetrics & Gynecology; Visit Provider Obstetrics & Gynecology
DX: E88.81 Metabolic syndrome and other insulin resistance (principal); E66.01 Morbid (severe) obesity due to excess calories; Z68.42 Body mass index [BMI] 45.0-49.9, adult
CPT/HCPCS: 36415; 84439; 84443

== ENCOUNTER → 2022-11-15 | Outpatient (CLI) | payer BC, SELFPAY ==
[2022-11-15 13:45] LABS: Hemoglobin A1c 5.3 % (3.8-5.6)
[2022-11-15 13:46] LABS: AST(SGOT) 13 U/L (15-37); Alanine Aminotransfer ALT/SGPT 27 U/L (13-56); Albumin, Serum 3.9 g/dL (3.2-5.0); Alkaline Phosphatase 67 U/L (45-117); Anion Gap 6 (5-15); BUN 12 mg/dL (7-18); Calcium,Total 8.9 mg/dL (8.5-10.1); Chloride 111 mmol/L (98-107); Creatinine, Serum 0.93 mg/dL (0.55-1.02); EST Glomerular Filtration Rate 71 mL/min (>60); Est Glom Filt Rate - Afr Amer 86 mL/min (>60); Globulin 3.9 g/dL (2.2-4.2); Glucose 85 mg/dL (74-106); Potassium 3.7 mmol/L (3.5-5.1); Protein, Total 7.8 g/dL (6.4-8.2); Sodium Level 138 mmol/L (136-145); T4 Free Direct 1.35 ng/dL (0.76-1.46)
[2022-11-15 13:58] LABS: Vitamin D,25 Hydroxy 34.1 ng/mL
== END | disposition home or self-care (01) ==
PROVIDERS: PCP Internal Medicine; Referring Provider Internal Medicine Endocrinology, Diabetes & Metabolism; Visit Provider Internal Medicine Endocrinology, Diabetes & Metabolism
DX: E03.9 Hypothyroidism, unspecified (principal); R73.09 Other abnormal glucose; E55.9 Vitamin D deficiency, unspecified
CPT/HCPCS: 36415; 80053; 82306; 83036; 84439; 84443

== ENCOUNTER → 2022-12-03 | Outpatient (CLI) | payer BC, SELFPAY ==
[2022-12-09 08:12] LABS: HPV APTIMA, High Risk Negative (Negative)
== END | disposition home or self-care (01) ==
LOC: LABSPEC 16:19
PROVIDERS: Referring Provider Obstetrics & Gynecology; Visit Provider Obstetrics & Gynecology
DX: Z12.4 Encounter for screening for malignant neoplasm of cervix (principal)
CPT/HCPCS: 87624; 88175; G0145

== ENCOUNTER → 2023-02-11 | Outpatient (CLI) | payer BC, SELFPAY ==
--- NOTE | 2023-02-11 09:40 | BI_ITS ---
MAMMOGRAPHY - BILATERAL SCREENING REASON FOR EXAM: Female, 38 years old. Routine annual screening examination. PERTINENT HISTORY: Mother with breast cancer. Aunt with breast cancer. TECHNIQUE: Digital bilateral breast jose l (3D mammographic acquisition) in the CC and MLO projections. 2-D mediolateral oblique (MLO) and craniocaudad (CC) views of both breasts were obtained. CAD: Full Field Digital Mammography with Computer Added Detection was performed. COMPARISON: None. Baseline examination. FINDINGS: Breast Composition: There are scattered areas of fibroglandular density. There are no dominant masses or suspicious calcifications. Small benign-appearing lateral axillary lymph nodes. No other significant abnormalities are identified. BI/SCRN MAMM (CAD)W/JOSE L BILAT IMPRESSION: Negative screening mammogram. Yearly followup mammogram recommended. (A) ASSESSMENT CATEGORY: BIRADS Category 2: Benign. A letter regarding these results will be sent to the patient by the facility within 30 days. Approximately 10% of breast cancers are not detected by mammography. A normal mammogram should not delay biopsy of a clinically suspicious abnormality. [id number] Electronically Signed: Husam Miguel MD at 10:44 EDT ,
== END | disposition home or self-care (01) ==
LOC: OPBI 09:38
PROVIDERS: Referring Provider Obstetrics & Gynecology; Visit Provider Obstetrics & Gynecology
DX: Z12.31 Encounter for screening mammogram for malignant neoplasm of breast (principal); Z80.3 Family history of malignant neoplasm of breast
CPT/HCPCS: 77063; 77067

== ENCOUNTER → 2023-04-04 | Outpatient (CLI) | payer BC, SELFPAY ==
[2023-04-04 14:16] LABS: T4 Free Direct 1.02 ng/dL (0.76-1.46); Thyroid Stim Hormone (TSH) 1.51 uIU/mL (0.358-3.74)
== END | disposition home or self-care (01) ==
LOC: PAVLAB 12:56
PROVIDERS: Referring Provider Internal Medicine Endocrinology, Diabetes & Metabolism; Visit Provider Internal Medicine Endocrinology, Diabetes & Metabolism
DX: E03.9 Hypothyroidism, unspecified (principal)
CPT/HCPCS: 36415; 84439; 84443

== ENCOUNTER → 2023-07-05 | Outpatient (CLI) | payer BC, SELFPAY ==
[2023-07-05 09:04] LABS: Absolute Lymphocyte Count 1.79 X10^3/uL (0.83-4.51); Absolute Neutrophil Count 5.6 X10^3/uL (2.0-7.7); Basophil# 0.04 X10^3/uL; Basophil% 0.5 % (0-1); Eosinophil# 0.15 X10^3/uL; Eosinophils% 1.8 % (0-5); Hematocrit 41.9 % (37-47); Hemoglobin 13.7 g/dL (12.0-15.0); Lymphocyte # 1.79 X10^3/ul (0.83-4.51); Lymphocyte % 21.4 % (19-41); Mean Corp Hgb Conc 32.7 g/dL (32-36); Mean Corpuscular Hgb 29.5 pg (27.0-32.0); Mean Corpuscular Volume 90.1 fL (81-99); Mean Platelet Vol. 9.6 fl (6.2-12.0); Monocyte# 0.74 X10^3/uL; Monocyte% 8.9 % (0-10); NRBC Flagged by Analyzer 0 % (0-5); Neutrophil # 5.58 X10^3/uL (2.7-7.7); Neutrophil % 66.8 % (47-70); Platelet Count 282 K/mm3 (150-450); RBC Distribution Width SD 45.8 fl (35.1-43.9); Red Blood Count 4.65 M/mm3 (4.2-5.4); White Blood Count 8.4 K/mm3 (4.4-11.0)
[2023-07-05 09:38] LABS: T4 Free Direct 1.07 ng/dL (0.76-1.46); Thyroid Stim Hormone (TSH) 4.73 uIU/mL (0.358-3.74)
== END | disposition home or self-care (01) ==
LOC: PAVLAB 08:50
PROVIDERS: Referring Provider Internal Medicine Endocrinology, Diabetes & Metabolism; Visit Provider Internal Medicine Endocrinology, Diabetes & Metabolism
DX: E06.3 Autoimmune thyroiditis (principal); J06.9 Acute upper respiratory infection, unspecified
CPT/HCPCS: 36415; 84439; 84443; 85025

== ENCOUNTER → 2023-09-08 | Outpatient (CLI) | payer BC, SELFPAY ==
[2023-09-08 13:36] LABS: T4 Free Direct 1.16 ng/dL (0.76-1.46); Thyroid Stim Hormone (TSH) 1.59 uIU/mL (0.358-3.74)
== END | disposition home or self-care (01) ==
LOC: PAVLAB 13:02
PROVIDERS: Referring Provider Nurse Practitioner Family; Visit Provider Nurse Practitioner Family
DX: E03.8 Other specified hypothyroidism (principal); E06.3 Autoimmune thyroiditis
CPT/HCPCS: 36415; 84439; 84443

== ENCOUNTER → 2024-02-20 | Outpatient (CLI) | payer BC, SELFPAY ==
[2024-02-20 15:16] LABS: Absolute Lymphocyte Count 1.76 X10^3/uL (0.83-4.51); Absolute Neutrophil Count 5.3 X10^3/uL (2.0-7.7); Basophil# 0.03 X10^3/uL; Basophil% 0.4 % (0-1); Eosinophil# 0.08 X10^3/uL; Hematocrit 40.8 % (37-47); Hemoglobin 13.1 g/dL (12.0-15.0); Lymphocyte # 1.76 X10^3/ul (0.83-4.51); Lymphocyte % 22.7 % (19-41); Mean Corp Hgb Conc 32.1 g/dL (32-36); Mean Corpuscular Hgb 29.4 pg (27.0-32.0); Mean Corpuscular Volume 91.5 fL (81-99); Mean Platelet Vol. 10.1 fl (6.2-12.0); Monocyte# 0.55 X10^3/uL; Monocyte% 7.1 % (0-10); NRBC Flagged by Analyzer 0 % (0-5); Neutrophil # 5.28 X10^3/uL (2.7-7.7); Neutrophil % 68.2 % (47-70); Platelet Count 315 K/mm3 (150-450); RBC Distribution Width CV 13.6 % (11.6-14.6); RBC Distribution Width SD 45.6 fl (35.1-43.9); Red Blood Count 4.46 M/mm3 (4.2-5.4); White Blood Count 7.8 K/mm3 (4.4-11.0)
== END | disposition home or self-care (01) ==
LOC: WOBLAB 14:38
PROVIDERS: Referring Provider Obstetrics & Gynecology; Visit Provider Obstetrics & Gynecology
DX: F50.819 Binge eating disorder, unspecified (principal)
CPT/HCPCS: 36415; 85025

== ENCOUNTER → 2024-02-27 | Outpatient (CLI) | payer BC, SELFPAY ==
--- NOTE | 2024-02-27 13:44 | BI_ITS ---
MAMMOGRAPHY - BILATERAL SCREENING REASON FOR EXAM: Female, 39 years old. Routine annual screening examination. PERTINENT HISTORY: Mother with breast cancer. Aunt with breast cancer. TECHNIQUE: Digital bilateral breast jose l (3D mammographic acquisition) in the CC and MLO projections. 2-D mediolateral oblique (MLO) and craniocaudad (CC) views of both breasts were obtained. CAD: Full Field Digital Mammography with Computer Added Detection was performed. COMPARISON: Comparison is made with prior study February 11, 2023. FINDINGS: Breast Composition: There are scattered areas of fibroglandular density. There are no dominant masses or suspicious calcifications. Stable bilateral axillary lymph nodes. No other significant abnormalities are identified. There has been no significant change since the prior study. BI/SCRN MAMM (CAD)W/JOSE L BILAT IMPRESSION: Stable bilateral screening mammogram. Yearly follow-up mammogram recommended. (A) ASSESSMENT CATEGORY: BIRADS Category 2: Benign. A letter regarding these results will be sent to the patient by the facility within 30 days. Approximately 10% of breast cancers are not detected by mammography. A normal mammogram should not delay biopsy of a clinically suspicious abnormality. [id number] Electronically Signed: Husam Miguel MD at 14:53 EDT ,
== END | disposition home or self-care (01) ==
LOC: OPBI 13:44
PROVIDERS: Referring Provider Obstetrics & Gynecology; Visit Provider Obstetrics & Gynecology
DX: Z12.31 Encounter for screening mammogram for malignant neoplasm of breast (principal)
CPT/HCPCS: 77063; 77067

== ENCOUNTER → 2024-04-12 | Outpatient (CLI) | payer BC, SELFPAY ==
--- NOTE | 2024-04-12 08:47 | EKG12_ITS ---
Test Reason : PRE OP Blood Pressure : */* mmHG Vent. Rate : 77 BPM Atrial Rate : 77 BPM P-R Int : 106 ms QRS Dur : 82 ms QT Int : 374 ms P-R-T Axes : 51 50 16 degrees QTcB Int : 423 ms Sinus rhythm with short LA Otherwise normal ECG Confirmed by Rocky Jose ([id number]), features editor JAIMIE ROCHE ([id number]) on 04/13/2024 6:44:49 AM Referred By: Kaylee Chiu Confirmed By: Rocky Jose
== END | disposition home or self-care (01) ==
LOC: PSN 08:46
PROVIDERS: Referring Provider Obstetrics & Gynecology; Visit Provider Obstetrics & Gynecology
DX: R00.2 Palpitations (principal)
CPT/HCPCS: 93005

== ENCOUNTER → 2024-08-23 | Outpatient (CLI) | payer BC, SELFPAY ==
[2024-08-23 13:25] LABS: ALB/GLOB Ratio 1.4 RATIO (0.9-2.4); AST(SGOT) 19 U/L (<=31); Alanine Aminotransfer ALT/SGPT 24 U/L (<=34); Albumin, Serum 4.4 g/dL (3.5-5.0); Alkaline Phosphatase 75 U/L (35-104); Anion Gap 11 (5-15); BUN 19 mg/dL (4-19); BUN/Creat Ratio 28.9 RATIO (10-20); Calcium,Total 9.7 mg/dL (7.6-11.0); Carbon Dioxide 25.1 mmol/L (21.0-32.0); Chloride 102 mmol/L (98-108); Creatinine, Serum 0.67 mg/dL (0.70-1.20); EST Glomerular Filtration Rate 112 (>60); Globulin 3.2 g/dL (2.2-4.2); Glucose 91 mg/dL (70-99); Potassium 4.4 mmol/L (3.3-5.1); Protein, Total 7.6 g/dL (5.9-8.4); Sodium Level 138 mmol/L (133-145); Total Bilirubin 0.29 mg/dL (0.00-1.30)
== END | disposition home or self-care (01) ==
LOC: BIMLAB 11:19
PROVIDERS: Visit Provider Internal Medicine Endocrinology, Diabetes & Metabolism
DX: E03.8 Other specified hypothyroidism (principal); E06.3 Autoimmune thyroiditis; R79.89 Other specified abnormal findings of blood chemistry
CPT/HCPCS: 36415; 80053; 84439; 84443

== ENCOUNTER → 2024-08-28 | Outpatient (CLI) | payer BC, SELFPAY ==
--- NOTE | 2024-08-28 13:00 | US_ITS ---
PROCEDURE: THYROID 08/28/2024 REASON FOR EXAM: COMPARE 1.1 CM TR 4 NODULE TECHNIQUE: Thyroid ultrasound FINDINGS: Right thyroid lobe measures 3.5 x 1.3 x 1.6. Left thyroid lobe measures 3.4 x 1.0 x 1.3. Isthmus thickness is2 mm thick. Thyroid Size: Normal Background Echotexture: Heterogeneous Thyroid Nodules: Nodule 1: 7 x 6 x 5 mm solid hypoechoic wider than tall ill-defined margin nodule with no echogenic foci (TR 4) in the superior right lobe consistent with an adenoma. Other: US/Thyroid IMPRESSION: OVERALL FINAL ASSESSMENT: TI-RADS 4: Suspicious nodules (5-80% risk). STABLE INDETERMINATE THYROID NODULES. SONOGRAPHIC FOLLOWUP SUGGESTED TO CONFIRM STABILITY. Reading Location: [id number]
== END | disposition home or self-care (01) ==
LOC: US 12:57
PROVIDERS: Referring Provider Internal Medicine Endocrinology, Diabetes & Metabolism; Visit Provider Internal Medicine Endocrinology, Diabetes & Metabolism
DX: E04.1 Nontoxic single thyroid nodule (principal)
CPT/HCPCS: 76536

== ENCOUNTER → 2025-03-25 | Outpatient (CLI) | payer BC, SELFPAY ==
--- OUTSIDE RECORDS SUMMARY | 2025-03-25 19:02 | XMS RPT_ITS | CCD ---
Author Organization [facility] Care Team Providers Care Still Runner Name Role Phone Dr. Madelyn Pham Primary Care Provider Dr. Madelyn Pham Referring Provider [phone] Dr. Kaylee Chiu Attending Provider [phone] Unavailable Primary Care Provider Dr. Madelyn Rodriguez Primary Care Provider Dr. Madelyn Pham Referring Provider [phone] Dr. Kaylee Chiu Attending Provider [phone] Ailyn INTERNET SALES REPRESENTATIVE, INTERNET SALES REPRESENTATIVE-C Katey Attending Provider [phone] MARCELO DPM, VY Brown Attending Unavailable MARCELO DPM, VY Brown Attending Unavailable Dr. Madelyn Pham Primary Care Provider Dr. Madelyn Pham Referring Provider [phone] Ailyn INTERNET SALES REPRESENTATIVE, INTERNET SALES REPRESENTATIVE-C Katey Attending Provider [phone] Dr. Kaylee Chiu Attending Provider [phone] Dr. Madelyn Pham Primary Care Provider Dr. Madelyn Pham Referring Provider Dr. Kaylee Chiu Attending Provider [phone] Dr. Madelyn Pham Primary Care Provider Dr. Madelyn Pham Referring Provider [phone] Dr. Kaylee Chiu Attending Provider [phone] Dr. Dereje Hill Attending Provider [phone] Rissa Benton Attending Provider [phone] Unavailable Primary Care Provider HENRI Sorto Attending Unavailable Care Physician, No Primary Primary Care Provider Unavailable Care Physician, No Primary Referring Provider Un available Dr. Dereje Hill Attending Provider [phone] Care Physician, No Primary Primary Care Provider Unavailable Care Physician, No Primary Referring Provider Un available Dr. Dereje Hill Attending Provider [phone] Unavailable Primary Care Provider Unavailabl e SELF Referring Unavailable ABJENNIFER WILLIAMSONLYKevin P Referring Unavailable Care Physician, No Primary Primary Care Provider Unavailable Care Physician, No Primary Referring Provider Un available Daija ALATORRE, Dr. Odonnell Attending Provider [phone] Dr. Dereje Hill MD Attending Provider [phone] Dereje Hill MD Referring Provider Phuong Munguia Attending Unavailable Phuong Munguia Referring Unavailable Dereje Hill Consulting Unavailable Care Physician, No Primary Primary Care Unava ilable Care Physician, No Primary Primary Care Unava ilable Marcanthony, Kaylee Referring Unavailable Marcanthkirstie, Kaylee Attending Unavailable Care Physician, No Primary Primary Care Unava ilable Marcanthony, Kaylee Referring Unavailable Marcanthony, Kaylee Attending Unavailable Care Physician, No Primary Primary Care Unava ilable Rocky Jose Attending Unavailable Marcanthony, Kaylee Referring Unavailable Marcanthony, Kaylee Attending Unavailable Care Physician, No Primary Primary Care Unava ilable Care Physician, No Primary Referring Unava ilable Marcanthony, Kaylee Attending Unavailable Care Physician, No Primary Primary Care Unava ilable Care Physician, No Primary Referring Unava ilable Dereje Hill Attending Unavailable Dereje Hill Referring Unavailable Care Physician, No Primary Primary Care Unava ilable Care Physician, No Primary Primary Care Unava ilable Marcanthony, Kaylee Attending Unavailable Marcanthony, Kaylee Referring Unavailable Dereje Hill Attending Unavailable Care Physician, No Primary Primary Care Unava ilable Blas Choe Attending Unavailable Care Physician, No Primary Referring Unava ilable Care Physician, No Primary Primary Care Unava ilable Dereje Hill Attending Unavailable Care Physician, No Primary Referring Unava ilable Care Physician, No Primary Primary Care Unava ilable Allergies Allergy Classification Reported Allergen(s) Allergy Type Date of Onset Reaction(s) Facility (18 sources) Contrast media; Translations: [RED DYE] Allergy to substance 9 [facility] (20 sources) diazePAM; Translations: [diazepam] Drug Allergy 5 Intolerance [facility] Work Phone: Comment on above: hyperactivity (1 source) diazePAM Drug Allergy [facility] Repository Medications Current Medications Medication Drug Class(es) Dates Sig (Normalized) Sig (Original) [id number] 200 actuat albuterol 0.09 mg/actuat metered dose inhaler (2 sources) beta2-Adrenergic Agonist Start: 06-11-2024 albuterol HFA (PROVENTIL HFA, VENTOLIN HFA) 90 mcg/actuation inhaler 06/11/2024 Active amoxicillin 875 mg / clavulanate 125 mg oral tablet (11 sources) Penicillin-class Antibacterial Start: 07-27-2023 End: 08-06-2023 take 1 tablet by mouth twice daily amoxicillin-clav ulanate potassium (AUGMENTIN) 875-125 mg per tablet Indications: Bacterial sinusitis Take 1 tablet by mouth two times a day for 10 days. 20 tablet 0 07/27/2023 08/06/2023 Active Start: 11-15-2019 End: 11-26-2019 take 1 tablet by mouth every twelve hours Amoxicillin-Pot Clavulanate 875 MG tablet Discontinued 875 mg PO Q12H November 15, 2019 12:00am November 26, 2019 10:31am Comment on above: Take 1 tablet by shiva th two times a day for 10 days. benzonatate 100 mg oral capsule (2 sources) Non-narcotic Antitussive Start: take 1 capsule by mouth every eight hours as needed benzonatate (TESSALON PERLE) 100 mg capsule Take 1 capsule by mouth three times a day as needed. 21 capsule 06/12/2024 Active Start: 06-05-2023 End: 06-15-2023 take 2 capsules by mouth three times daily as needed for cough benzonatate (TESSALON PERLES) 100 mg capsule Indications: Upper respiratory tract infection, unspecified type Take 2 capsules by mouth three times a day as needed for cough for up to 10 days. 30 capsule 0 06/05/2023 06/15/2023 Active Comment on above: Take 2 capsules by m outh three times a day as needed for cough for up to 10 days. Calcium Carbonate (2 sources) End: 06-05-2023 CALCIUM CARBONATE (TUMS ORAL) Take by mouth. 0 06/05/2023 Discontinued CALCIUM CARBONAT E (TUMS ORAL) Take by mouth. 0 Active Comment on above: Take by mouth. Cholecalciferol (2 sources) Vitamin D Start: 07-13-19 Vitamin D (3) 45 units oral capsule 0 Refill(s) Start Date: 07/12/22 Status: Ordered desloratadine 5 mg oral tablet (2 sources) Histamine-1 Receptor Antagonist Start: 06-11-19 25 desloratadine (CLARINEX) 5 mg tablet 06/11/2024 Active doxycycline hyclate 100 mg oral tablet (2 sources) Tetracycline-class Drug Start: 01-20-20 End: 01-27-20 take 1 tablet by mouth twice daily doxycycline (VIBRA-TABS) 100 mg tablet Take 1 tablet by mouth two times a day for 7 days. 14 tablet 01/20/2024 01/27/2024 Active Start: 06-05-2023 End: 06-15-2023 take 1 tablet by mouth twice daily doxycycline (VIBRA-TABS) 100 mg tablet Indications: Upper respiratory tract infection, unspecified type Take 1 tablet by mouth two times a day for 10 days. 20 tablet 0 06/05/2023 06/15/2023 Active Comment on above: Take 1 tablet by shiva two times a day for 10 days. FLUoxetine 40 mg oral capsule (20 sources) Serotonin Reuptake Inhibitor Start: 09-05-2023 End: 04-30-2024 take 1 capsule by mouth once daily Fluoxetine 40 mg capsule Active 40 mg PO daily April 30, 2024 10:49am Start: 12-18-2021 End: 01-20-2022 take 1 capsule by mouth once daily Fluoxetine 40 mg capsule Discontinued 0 .ROUTE .COMPLEX December 18, 2021 2:24pm January 20, 2022 1:13pm TAKE 1 CAPSULE BY MOUTH EVERY DAY Start: 10-29-2021 End: 09-05-2023 take 1 capsule by mouth once daily Fluoxetine 20 mg capsule Discontinued 0 .ROUTE .COMPLEX November 11, 2022 4:06pm September 05, 2023 5:26pm TAKE 1 CAPSULE BY MOUTH EVERY DAY Start: 04-10-2020 End: 10-29-2021 take 1 capsule by mouth once daily Fluoxetine 40 mg capsule Discontinued 40 mg PO DAILY April 22, 2021 11:26am October 29, 2021 4:27pm Start: 09-26-2019 End: 04-10-2020 take 1 capsule by mouth once daily Fluoxetine (Prozac) 20 mg capsule Discontinued 20 mg PO DAILY September 26, 2019 12:00am April 10, 2020 4:39pm Comment on above: Take 20 mg by mouth once daily. 20 mg once daily. fluticasone propionate 0.05 mg/actuat metered dose nasal spray (1 source) Corticosteroid Start: 07-04-19 End: 08-03-19 take 2 spray(s) by mouth once daily fluticasone (FLONASE) 50 mcg/actuation nasal spray Indications: Sinus congestion Use 2 Sprays in each nostril once daily. Rinse mouth after use. 1 Each 0 07/04/2023 08/03/2023 Active Comment on above: Use 2 Sprays in each nostril once daily. Rinse mouth after use. Loratadine / Pseudoephedrine (4 sources) alpha-Adrenergic Agonist loratadine/pseudoep hedrine (CLARITIN-D 12 HOUR ORAL) Take by mouth. Active loratadine/pseud oephedrine (CLARITIN-D 12 HOUR ORAL) Take by mouth. 0 Active Comment on above: Take by mouth. methylPREDNISolone (1 source) Corticosteroid Start: 2023 End: 2023 methylPREDNISolone (MEDROL, TONO,) 4 mg Dose-Pack Indications: Upper respiratory tract infection, unspecified type Take as instructed per package. 21 tablet 0 06/05/2023 06/11/2023 Active Comment on above: Take as instructed p er package. nitrofurantoin, macrocrystals 25 mg / nitrofurantoin, monohydrate 75 mg oral capsule (1 source) Nitrofuran Antibacterial Start: 2021 End: 2021 take 1 capsule by mouth twice daily nitrofurantoin monohydrate and macrocrystal (MACROBID) 100 mg capsule Indications: Urinary frequency Take 1 capsule by mouth twice daily for 7 days. 14 capsule 0 01/12/2022 01/19/2022 Active Comment on above: Take 1 capsule by [facility] twice daily for 7 days. predniSONE 20 mg oral tablet (1 source) Start: 2023 End: 2023 take 2 tablets by mouth once daily predniSONE (DELTASONE) 20 mg tablet Indications: Bacterial sinusitis Take 2 tablets by mouth once daily for 4 days. 8 tablet 0 07/27/2023 07/31/2023 Active Comment on above: Take 2 tablets by [facility] once daily for 4 days. VIT/IRON FUMARATE/FA ( ORAL) (2 sources) End: 2023 VIT/IRON FUMARATE/FA ( ORAL) Take by mouth. 0 06/05/2023 Discontinued VIT/IRO N FUMARATE/FA ( ORAL) Take by mouth. 0 Active Comment on above: Take by mouth. Completed/Discontinued Medications Medication Drug Class(es) Dates Sig (Normalized) Sig (Original) acetaminophen 325 mg / oxyCODONE hydrochloride 5 mg oral tablet (10 sources) Opioid Agonist Start: 05-10-2019 End: 05-17-2019 Oxycodone-Acetamino phen 1 TABLET tablet Discontinued 1 - 2 {tbl} PO EVERY 6 HOURS NEEDED as needed for Pain 40 7 May 10, 2019 May 16, 2019 1:00am May 17, 2019 1:08am Start: 05-10-2019 End: 05-17-2019 take 1 tablet by mouth every six hours as needed Oxycodone-Acetaminophen Discontinued 1 - 2 TABLET PO EVERY 6 HOURS NEEDED 40 7 May 10, 2019 May 17, 2019 1:08am Blood-Glucose Meter (Truetra ck Blood Glucose System) kit (20 sources) Start: 08-01-2020 End: 11-21-2020 Blood-Glucose Meter (Truetra ck Blood Glucose System) kit Discontinued 0 .ROUTE .MEDSUPPLY August 01, 2020 8:55am November 21, 2020 1:15pm As directed Start: 08-01-2020 End: 11-21-2020 Blood-Glucose Meter (Truetra ck Blood Glucose System) kit Discontinued 0 .ROUTE .MEDSUPPLY August 01, 2020 9:55am November 21, 2020 2:15pm As directed Start: 07-30-2020 End: 08-01-2020 Blood-Glucose Meter (Truetra ck Blood Glucose System) kit Discontinued 0 .ROUTE .MEDSUPPLY 1 July 29, 2020 11:00pm August 01, 2020 8:55am As directed Start: 07-30-2020 End: 08-01-2020 Blood-Glucose Meter (TruepMDsoft ck Blood Glucose System) kit Discontinued 0 .ROUTE .MEDSUPPLY 1 July 30, 2020 12:00am August 01, 2020 9:55am As directed 12 hr buPROPion hydrochloride 100 mg extended release oral tablet (20 sources) Aminoketone Start: 01-20-2022 End: 03-22-2022 take 1 tablet by mouth once daily Bupropion Hcl (Wellbutrin Sr) 100 mg tablet sustained-release 12 hr Discontinued 100 mg PO DAILY January 20, 2022 12:00am March 22, 2022 12:22pm Start: 03-26-2021 End: 06-05-2023 take 1 tablet by mouth twice daily Bupropion Hcl (Wellbutrin Sr) 100 mg tablet sustained-release 12 hr Discontinued 100 mg PO TWICE A DAY 60 March 26, 2021 1:00am December 18, 2021 2:24pm Comment on above: Take 100 mg by mouth twice daily. citalopram 20 mg oral tablet (20 sources) Serotonin Reuptake Inhibitor Start: 9 End: 9 take 2 tablets by mouth once daily Citalopram 20 mg tablet Discontinued 40 mg PO daily June 07, 2018 11:27am August 16, 2018 11:36am Start: 06-07-2018 End: 08-16-2018 take 40 mg by mouth once daily Citalopram Discontinued 40 MG PO daily June 07, 2018 11:27am August 16, 2018 11:36am Start: 06-06-2018 End: 06-07-2018 take 1 tablet by mouth once daily Citalopram 20 mg tablet Discontinued 20 mg PO daily June 06, 2018 11:09am June 07, 2018 11:28am Start: 01-18-2018 End: 06-06-2018 take 10 mg by mouth once daily Citalopram 20 MG tablet Discontinued 10 mg PO daily January 18, 2018 12:11pm June 06, 2018 11:10am Start: 01-18-2018 End: 06-06-2018 take 10 mg by mouth once daily Citalopram Discontinued 10 MG PO daily January 18, 2018 12:11pm June 06, 2018 11:10am Start: 10-06-2017 End: 01-18-2018 take 1 tablet by mouth once daily Citalopram (Celexa) 20 mg tablet Discontinued 20 mg PO daily October 06, 2017 12:00am January 18, 2018 12:11pm dicloxacillin 500 mg oral capsule (10 sources) Penicillin-class Antibacterial Start: 03-02-2018 End: 04-11-2018 take 1 capsule by mouth every six hours Dicloxacillin 500 mg capsule Discontinued 500 mg PO EVERY 6 HOURS March 02, 2018 12:00am April 11, 2018 2:27pm docusate sodium 100 mg oral capsule (10 sources) Start: 05-10-2019 End: 05-17-2019 take 1 capsule by mouth twice daily Docusate Sodium 100 MG capsule Discontinued 100 mg PO TWICE A DAY 14 May 10, 2019 1:00am May 16, 2019 1:00am May 17, 2019 1:08am escitalopram 20 mg oral tablet (20 sources) Serotonin Reuptake Inhibitor Start: 08-16-2018 End: 09-26-2019 take 1 tablet by mouth once daily Escitalopram Oxalate 20 mg tablet Discontinued 0 .ROUTE .COMPLEX August 31, 2019 8:37am September 26, 2019 8:22am TAKE 1 TABLET BY MOUTH EVERY DAY 3 ml insulin detemir 100 unt/ml pen injector (20 sources) Insulin Analog Start: 08-29-2020 End: 10-04-2020 Insulin Detemir U-100 100 UNIT/ML insulin pen Discontinued 23 U SC AT BEDTIME August 29, 2020 11:48am October 04, 2020 4:40pm Start: 08-18-2020 End: 08-29-2020 Insulin Detemir U-100 (Levem ir Flextouch U-100 Insuln) 100 unit/mL (3 mL) insulin pen Discontinued 40 U SC AT BEDTIME August 18, 2020 12:00am August 29, 2020 11:48am levothyroxine sodium 0.125 mg oral tablet (20 sources) l-Thyroxine Start: 08-16-2022 End: 08-23-2024 take 1 tablet by mouth once Levothyroxine (Synthroid) 125 mcg tablet Discontinued 125 ug PO .qd 1.5 q sundaysJuly 26, 2024 7:59am August 23, 2024 2:09pm Comment on above: Take 1 tablet by shiva th every afternoon. lisdexamfetamine dimesylate 40 mg oral capsule (10 sources) Central Nervous System Stimulant Start: 02-20-2024 End: 03-21-2024 take 1 capsule by mouth once daily Lisdexamfetamine 40 mg capsule Discontinued 40 mg PO DAILY February 20, 2024 March 20, 2024 1:00am March 21, 2024 1:08am Start: 02-08-2024 End: 02-20-2024 take 1 capsule by mouth once daily Lisdexamfetamine 20 mg capsule Discontinued 20 mg PO DAILY February 10, 2024 March 10, 2024 12:00am February 20, 2024 2:29pm Start: 12-27-2023 End: 01-26-2024 take 1 capsule by mouth once daily Lisdexamfetamine 20 mg capsule Discontinued 20 mg PO DAILY December 27, 2023 January 25, 2024 12:00am January 26, 2024 12:05am Start: 12-09-2023 End: 12-27-2023 take 1 capsule by mouth once daily Lisdexamfetamine (Vyvanse) 10 mg capsule Discontinued 10 mg PO DAILY December 09, 2023 January 07, 2024 12:00am December 27, 2023 1:26pm melatonin 1 mg oral tablet (10 sources) Start: 09-26-2019 End: 03-14-2020 take 1 tablet by mouth at bedtime as needed Melatonin 1 mg tablet Discontinued 1 mg PO BEDTIME as needed for Insomnia September 26, 2019 12:00am March 14, 2020 12:26pm metFORMIN hydrochloride 500 mg oral tablet (10 sources) Biguanide Start: 08-07-2020 End: 08-18-2020 take 1 tablet by mouth twice daily Metformin 500 mg tablet Discontinued 500 mg PO TWICE A DAY 60 August 07, 2020 12:00am August 18, 2020 4:51pm naproxen 250 mg oral tablet (10 sources) Nonsteroidal Anti-inflammatory Drug Start: 10-04-2020 End: 11-21-2020 take 250-500 mg by mouth every eight hours as needed for pain Naproxen 250 MG tablet Discontinued 250 - 500 mg PO EVERY 8 HOURS NEEDED as needed for MILD PAIN October 04, 2020 12:00am November 21, 2020 2:15pm norethindrone 0.35 mg oral tablet (20 sources) Start: 12-21-2021 End: 12-14-2023 take 1 tablet by mouth once daily Norethindrone (Contraceptive) 0.35 mg tablet Discontinued 0.35 mg PO DAILY December 03, 2022 2:08pm December 14, 2023 6:46pm start day 1 of menstrual cycle Comment on above: TAKE 1 TABLET BY SHIVA TH EVERY DAY - START DAY 1 OF MENTRUAL CYCLE phentermine hydrochloride 37.5 mg oral tablet (20 sources) Sympathomimetic Amine Anorectic Start: 10-05-2022 End: 03-03-2023 Phentermine (Adipex-P) 37.5 mg tablet Discontinued 18.75 mg PO daily November 16, 2022 2:36pm December 03, 2022 2:14pm BMI 48 Start: 07-19-2022 End: 08-16-2022 Phentermine (Adipex-P) 37.5 mg tablet Discontinued 18.75 mg PO daily July 19, 2022 12:00am August 16, 2022 1:47pm BMI 37 Start: 12-21-2021 End: 06-05-2023 take 1 tablet by mouth once daily Phentermine (Adipex-P) 37.5 mg tablet Discontinued 37.5 mg PO daily February 19, 2022 10:20am March 22, 2022 12:22pm Start: 10-25-2019 End: 03-14-2020 take 1 tablet by mouth once daily Phentermine (Adipex-P) 37.5 mg tablet Discontinued 37.5 mg PO daily December 25, 2019 11:36am March 14, 2020 12:26pm Comment on above: Take 37.5 mg by mout h once daily. 24 hr phentermine 15 mg / topiramate 92 mg extended release oral capsule (15 sources) Sympathomimetic Amine Anorectic Start: 03-03-2023 End: 07-05-2023 Phentermine-Topiramate (Qsymia) 15-92 mg capsule, ER multiphase 24 hr Discontinued 1 NMA PO Q24H March 03, 2023 12:00am July 05, 2023 9:30am Start: 06-14-2022 End: 07-19-2022 Phentermine-Topiramate (Qsym ia) 7.5-46 mg capsule, ER multiphase 24 hr Discontinued 1 NMA PO DAILY June 14, 2022 1:00am July 19, 2022 11:35am BMI 47 Prenat.Vits,Marquis,Ogg-Npdl-Uee ic (8 sources) Start: 07-28-2017 End: 09-26-2019 take 1 tablet by mouth once daily Prenat.Vits,Marquis,Iyc-Leco-Ehxxc Discontinued 1 TABLET PO daily July 27, 2017 11:00pm September 26, 2019 7:07am Start: 07-28-2017 End: 09-26-2019 take 1 tablet by mouth once daily Prenat.Vits,Marquis,Orc-Rvhg-Sbpzz Discontin ued 1 TABLET PO daily July 28, 2017 12:00am September 26, 2019 8:07am Prenat.Vits,Marquis,Zdm-Kvpu-Xsu ic tablet (2 sources) Start: 07-28-2017 End: 09-26-2019 Prenat.Vits,Marquis,Qbs-Bpnf-Sko ic tablet Discontinued 1 {tbl} PO daily July 28, 2017 12:00am September 26, 2019 8:07am Vit,Xlpa77-Yaxl-Beh ic (8 sources) Start: 08-29-2020 End: 11-21-2020 take 1 tablet by mouth once daily Vit,Ghfc11-Dwee-Wvfmz Discontinued 1 TABLET PO DAILY August 28, 2020 11:00pm November 21, 2020 1:16pm Start: 08-29-2020 End: 11-21-2020 take 1 tablet by mouth once daily Vit,Ljti51-Xcso-Cmuzw Discontinued 1 TABLET PO DAILY August 29, 2020 12:00am November 21, 2020 2:16pm Vit,Gmvo20-Gwdd-Gncum 1 TABLET tablet (2 sources) Start: 08-29-2020 End: 11-21-2020 take 1 tablet by mouth once daily Vit,Klhc56-Gmba-Kptnv 1 TABLET tablet Discontinued 1 {tbl} PO DAILY August 29, 2020 12:00am November 21, 2020 2:16pm Semaglutide (Weight Loss) (3 sources) Start: 07-18-2023 End: 12-09-2023 Semaglutide (Weight Loss) (Wegovy) 0.25 mg/0.5 mL pen injector Discontinued 0.25 mg SC EVERY WEEK 2 July 18, 2023 12:00am December 09, 2023 2:29pm administer weeks 1 through 4 of therapy Start: 07-18-2023 Semaglutide (W eight Loss) (Wegovy) 0.25 mg/0.5 mL pen injector Active 0.25 MG SC EVERY WEEK 2 July 18, 2023 12:00am administer weeks 1 through 4 of therapy topiramate 50 mg oral tablet (20 sources) Start: 07-19-2022 End: 03-03-2023 take 1-2 tablets by mouth once daily Topiramate 50 mg tablet Discontinued 50 mg PO DAILY December 28, 2022 1:50pm March 03, 2023 11:24am 1-2 x daily. Start: 04-20-2022 End: 06-14-2022 take 1-2 tablets by mouth once daily Topiramate 50 mg tablet Discontinued 50 mg PO TWICE A DAY 60 April 20, 2022 4:43pm June 14, 2022 2:30pm 1-2 x daily. Start: 03-22-2022 End: 04-20-2022 take 1-2 tablets by mouth once daily Topiramate (Topamax) 25 mg tablet Discontinued 25 mg PO TWICE A DAY 60 March 22, 2022 1:00am April 20, 2022 4:44pm 1-2 x daily. Problems Active Problems Problem Classification Problem Date Documented Date Episodic/Chronic Biliary tract disease (20 sources) Biliary calculus; Translations: [Calculus of gallbladder without cholecystitis without obstruction] Onset: 11-20-19 17 Resolved : 12-10-19 17 03-14-2020 Episodic Cancer of cervix (4 sources) Atypical squamous cells of undetermined significance on cervical Papanicolaou smear; Translations: [Atypical squamous cells of undetermined significance on cytologic smear of cervix (ASC-US)] 12-16-2022 Episodic Comment on above: Rpt pap in 3 yr Diabetes or abnormal glucose tolerance complicating ; childbirth; or the puerperium (16 sources) Abnormal glucose level; Translations: [Abnormal glucose complicating ] 04-11-2018 Episodic Comment on above: nl 3 hour- 1 elevate d value. encouraged diet and exercise Early or threatened labor (10 sources) Threatened premature labor - not delivered ; Translations: [False labor before 37 completed weeks of gestation, unspecified trimester] 02-24-2018 Episodic Genitourinary symptoms and ill-defined conditions (1 source) Increased frequency of urination; Translations: [Frequency of micturition] Episodic Headache; including migraine (19 sources) Migraine; Translations: [Migraine, unspecified, not intractable, without status migrainosus] 07-19-2022 Chronic Comment on above: topamax Miscellaneous mental health disorders (3 sources) Binge eating disorder; Translations: [Binge eating disorder] Onset: 02-20-20 24 02-21-2024 Chronic Comment on above: CBT, vyvanse increas ed to 40 mg Mood disorders (12 sources) Depressive disorder; Translations: [Depression] 10-05-2022 Chronic Comment on above: prozac. encouraged c ounseling. Patient is doing well. stable 10/05 Other complications of ; puerperium affecting management of mother (10 sources) Advanced maternal age ; Translations: [Advanced maternal age during ] 04-11-2018 Episodic Comment on above: declines genetic barry ting, growth us at 36 weeks Other complications of (8 sources) Anxiety in ; Translations: [Other mental disorders complicating , unspecified trimester] 04-11-2018 Episodic Other complications of (10 sources) High risk ; Translations: [Supervision of high risk , unspecified, unspecified trimester] 04-11-2018 Episodic Comment on above: PRR DONNA 03/11/18 PC Fitzgerald Can Other complications of (6 sources) History of recurrent miscarriage - not delivered; Translations: [ care for patient with recurrent loss, first trimester] 04-11-2018 Episodic Other complications of (13 sources) RhD negative; Translations: [Other specified related conditions, unspecified trimester] Onset: 06-10-19 15 Resolved : 12-10-19 17 04-11-2018 Episodic Comment on above: rhogam at 28 weeks a nd PRN Other complications of (10 sources) Reduced movement; Translations: [Decreased movements, unspecified trimester, not applicable or unspecified] 02-24-2018 Episodic Other complications of (4 sources) Recurrent miscarriage; Translations: [ care for patient with recurrent loss, first trimester] 04-11-2018 Episodic Comment on above: apl workup negative Other complications of (2 sources) Other mental disorders complicating , unspecified trimester; Translations: [Anxiety during ] 04-11-2018 Episodic Comment on above: celexa Other lower respiratory disease (1 source) Cough; Translations: [Acute cough] 01-20-2024 Episodic Other lower respiratory disease (2 sources) Cough; Translations: [Acute cough] 06-12-2024 Episodic Other nutritional; endocrine; and metabolic disorders (3 sources) Severe obesity; Translations: [Morbid (severe) obesity due to excess calories] 06-14-2022 Chronic Other nutritional; endocrine; and metabolic disorders (10 sources) Morbid obesity; Translations: [Morbid (severe) obesity due to excess calories] 07-07-2020 Chronic Comment on above: adipex, weight loss program Other nutritional; endocrine; and metabolic disorders (20 sources) Body mass index 40+ - severely obese; Translations: [Body mass index (BMI) 45.0-49.9, adult] 06-14-2022 Chronic Comment on above: progestin and condom s control, planning vasectomy. weekly nst until del walter, growth us q 4 weeks- ordered MFM SW-284 10/05/22Initia l goal- s/p 10% weight reduction with nutritional and medication intervention recommendationsobesity labs reviewed Other nutritional; endocrine; and metabolic disorders (10 sources) Body mass index (BMI) 45.0-49.9, adult; Translations: [Body Mass Index 45.0-49.9, adult] Chronic Other nutritional; endocrine; and metabolic disorders (12 sources) Morbid (severe) obesity due to excess calories; Translations: [Morbid obesity] Chronic Other nutritional; endocrine; and metabolic disorders (8 sources) Metabolic syndrome X; Translations: [Metabolic syndrome] 08-15-2022 Chronic Comment on above: WC, TG, HDL. encoura ged weight management Other nutritional; endocrine; and metabolic disorders (9 sources) Metabolic syndrome; Translations: [Dysmetabolic syndrome X] 08-16-2022 Chronic Other nutritional; endocrine; and metabolic disorders (10 sources) Obesity; Translations: [Other obesity] Onset: 11-05-19 Resolved : 11-20-19 17 10-05-2022 Chronic Comment on above: Nutrition plan: Weig ht Watchers in past, plan IF now. handout givenMedication plan: CBT, Vyvanse control- progesterone pill, plan vasectomyBehavior intervention: recommend daily journal of food intake with electronic methodsExercise plan: increase daily steps and NEAT activity Other nutritional; endocrine; and metabolic disorders (5 sources) Other obesity; Translations: [Obesity, unspecified] 10-05-2022 Chronic Other and delivery including normal (20 sources) Vaginal delivery; Translations: [Encounter for full-term uncomplicated delivery] Onset: 07-05-19 Resolved : 02-12-20 Episodic Comment on above: genetic, carrier, an d NTD screening declined. anatomy scan WNL. Other screening for suspected conditions (not mental disorders or infectious disease) (20 sources) Patient encounter status; Translations: [Encounter for other screening for genetic and chromosomal anomalies] Onset: 03-20-20 24 12-15-2021 Episodic Comment on above: Empower STAT panel o f 10 genes negative, addtnl analysis of 30genes shows positive for MUTYH gene. start colonoscopy at age 38 q5 years OTC Vitamin D 2000IU daily Other upper respiratory infections (2 sources) Bacterial sinusitis; Translations: [Chronic sinusitis, unspecified] 07-27-2023 Chronic Other upper respiratory infections (3 sources) Upper respiratory infection; Translations: [Acute upper respiratory infection, unspecified] Onset: 06-05-19 24 06-05-2023 Episodic Residual codes; unclassified (10 sources) H/O: ; Translations: [Personal history of other complications of , childbirth and the puerperium] 07-07-2020 Episodic Comment on above: given steroids at 32 weeks d/t being 3-4cm with Antione Spondylosis; intervertebral disc disorders; other back problems (6 sources) Neck pain; Translations: [Cervicalgia] 07-05-2023 Episodic Spontaneous (10 sources) Miscarriage; Translations: [Complete or unspecified spontaneous without complication] 02-24-2018 Episodic Thyroid disorders (20 sources) Hypothyroidism; Translations: [Hypothyroidism, unspecified] Onset: 08-24-19 25 10-05-2022 Chronic Unclassified (1 source) Acute cough; Translations: [Acute cough] Onset: 06-12-19 Unclassified (1 source) Binge eating disorder, unspecified; Translations: [Binge eating disorder, unspecified] Onset: 03-14-20 Past or Other Problems Problem Classification Problem Date Documented Da te Episodic/Chronic Cardiac dysrhythmias (3 sources) Palpitations; Translations: [Palpitations] Onset: 05-30-2024 04-30-2024 Episodic Comment on above: on Fluoxetine Hemorrhage during ; abruptio placenta; placenta previa (3 sources) Antepartum hemorrhage; Translations: [Hemorrhage in early , unspecified] Onset: 11-04-2016 Resolved: 12-09-2016 12-09-2016 Episodic Residual codes; unclassified (3 sources) Family history of cleft palate with cleft lip; Translations: [Family history of other congenital malformations, deformations and chromosomal abnormalities] Onset: 11-04-2016 Resolved: 12-09-2016 12-09-2016 Episodic Unclassified (8 sources) Normal labor; Translations: [Active labor at term] 05-10-2019 Results Test Name Value Interpretation Reference Range Facility Thyroidon 08-28-2024 Thyroid [facility] [address] [place] [id number] Thyroid MR#: [id number] Acct: [id number] Name: ROBERT LEBLANC Rep #: [id number] : 1985 F 39 From: Nile Mcgill MD PCP: Care Physician,No Primary Status: REG CLI Study: Thyroid Date of Exam: 08/28/24 Exam# [id number] Ordering Dr: Dereje Hill MD PROCEDURE: THYROID 08/28/2024 REASON FOR EXAM: COMPARE 1.1 CM TR 4 NODULE TECHNIQUE: Thyroid ultrasound FINDINGS: Right thyroid lobe measures 3.5 x 1.3 x 1.6. Left thyroid lobe measures 3.4 x 1.0 x 1.3. Isthmus thickness is2 mm thick. Thyroid Size: Normal Background Echotexture: Heterogeneous Thyroid Nodules: Nodule 1: 7 x 6 x 5 mm solid hypoechoic wider than tall ill-defined margin nodule with no echogenic foci (TR 4) in the superior right lobe consistent with an adenoma. Other: US/Thyroid IMPRESSION: OVERALL FINAL ASSESSMENT: TI-RADS 4: Suspicious nodules (5-80% risk). STABLE INDETERMINATE THYROID NODULES. SONOGRAPHIC FOLLOWUP SUGGESTED TO CONFIRM STABILITY. Reading Location: [id number] CC: Dr. Dereje Hill MD; No Primary Care Physician Liner Replacer: Signed Normal [facility] Anion gap in Serum or Plasma Ordered By: Dereje Hill on 08-23-2024 Anion gap [Moles/Vol] 11 mmol/L 5-15 [facility] BUN/creatinine ratioOrdered By: Dereje Hill on 08-23-2024 Urea nitrogen/Creatinine [Mass ratio] 28.9 mg/mg High 10-20 [facility] Bilirubin, totalOrdered By: Dereje Hill on 08-23-2024 Bilirubin [Mass/Vol] 0.29 mg/dL 0.00-1.30 [facility] Carbon dioxide, total [Moles /volume] in Central venous bloodOrdered By: Dereje Hill on 08-23-2024 CO2 [Moles/Vol] 25.1 mmol/L 21.0-32.0 [facility] Chloride assayOrdered By: Bob Hill on 08-23-2024 Chloride [Moles/Vol] 102 mmol/L 98-108 [facility] Comprehensive Metabolic Prof ilon 08-23-2024 Albumin [Mass/Vol] 4.4 g/dL Normal 3.5-5.0 [facility] Comment on above: Performed By: #### L 506.0400, L500.4050, L501.9520 #### [facility] [address] [place], [address] Albumin/Globulin [Mass ratio] 1.4 {ratio} Normal 0.9-2.4 [facility] Comment on above: Performed By: #### L 506.0400, L500.4050, [id number] #### [facility] [address] [place], [address] ALK PHOS 75 U/L Normal 35-104 [facility] Comment on above: Performed By: #### L 506.0400, [id number], [id number] #### [facility] [address] [place], [address] ALT [Catalytic activity/Vol] 24 U/L Normal <=34 [facility] Comment on above: Performed By: #### L 506.0400, [id number], [id number] #### [facility] [address] [place], [address] AST [Catalytic activity/Vol] 19 U/L Normal <=31 [facility] Comment on above: Performed By: #### L 506.0400, [id number], [id number] #### [facility] [address] [place], [address] Bilirubin [Mass/Vol] 0.29 mg/dL Normal 0.00-1.30 [facility] Comment on above: Performed By: #### L 506.0400, [id number], [id number] #### [facility] [address] [place], [address] BUN/CRE 28.9 RATIO High 10-20 [facility] Comment on above: Performed By: #### L 506.0400, [id number], [id number] #### [facility] [address] [place], [address] Calcium [Mass/Vol] 9.7 mg/dL Normal 7.6-11.0 [facility] Comment on above: Performed By: #### L 506.0400, [id number], [id number] #### [facility] [address] [place], [address] Chloride [Moles/Vol] 102 mmol/L Normal 98-108 [facility] Comment on above: Performed By: #### L 506.0400, [id number], [id number] #### [facility] [address] [place], [address] CO2 [Moles/Vol] 25.1 mmol/L Normal 21.0-32.0 [facility] Comment on above: Performed By: #### L 506.0400, [id number], [id number] #### [facility] [address] [place], [address] Creatinine [Mass/Vol] 0.67 mg/dL Low 0.70-1.20 [facility] Comment on above: Performed By: #### L 506.0400, [id number], [id number] #### [facility] [address] [place], [address] GAP 11 Normal 5-15 [facility] Comment on above: Performed By: #### L 506.0400, [id number], [id number] #### [facility] [address] [place], [address] GFR/1.73 sq M.predicted among non-blacks MDRD (S/P/Bld) [Vol rate/Area] 112 mL/min/{1.73_m2} Normal >60 [facility] Comment on above: Result Comment: mL/m in/1.73m2 CKD-EPI Creatinine Equation (2020) Performed By: #### L 506.0400, L500.4050, L501.9520 #### [facility] [address] [place], [address] Globulin (S) [Mass/Vol] 3.2 g/dL Normal 2.2-4.2 [facility] Comment on above: Performed By: #### L 506.0400, [id number], [id number] #### [facility] [address] [place], [address] Glucose [Mass/Vol] 91 mg/dL Normal 70-99 [facility] Comment on above: Performed By: #### L 506.0400, [id number], [id number] #### [facility] [address] [place], [address] Potassium [Moles/Vol] 4.4 mmol/L Normal 3.3-5.1 [facility] Comment on above: Performed By: #### L 506.0400, [id number], [id number] #### [facility] [address] [place], [address] Sodium [Moles/Vol] 138 mmol/L Normal 133-145 [facility] Comment on above: Performed By: #### L 506.0400, [id number], [id number] #### [facility] [address] [place], [address] T PROT 7.6 g/dL Normal 5.9-8.4 [facility] Comment on above: Performed By: #### L 506.0400, [id number], [id number] #### [facility] [address] [place], [address] Urea nitrogen [Mass/Vol] 19 mg/dL Normal 4-19 [facility] Comment on above: Performed By: #### L 506.0400, [id number], L501.9520 #### [facility] [address] [place], [address] Endocrinology Visit Reporton 08-23-2024 Endocrinology Visit Report [facility] [address] [place] [address] OFFICE VISIT Date of Service: 08/23/24 MR#: [id number] Acct: [id number] Name: ROBERT LEBLANC Kevin Rep #: [id number] : 1985 Provider: Fatuma Ruelas Age/Sex: 39/F [place] [facility]: Signed Intake Vital Signs 05/30/24 09:47 08/23/24 10:21 Height 5 ft 4 in 5 ft 4 in Weight: 307 lb 301 lb 4 oz BMI 52.7 51.7 BP 117/53 L 107/74 Blood Pressure Location Lt brachial Lt brachial Position Sitting Sitting Respiration 16 Pulse 83 77 Pulse Source Monitor Monitor Pulse Oximetry (%) 98 Oxygen Delivery Method room air Intake Visit Reasons: 14 M FU Chief Complaint: Thyroid Is patient in pain?: No Allergies red dye Allergy (Mild, Verified 08/23/24 10:25) vomiting diazepam (From Valium) Adverse Reaction (Verified 08/23/24 10:25) Other Medications ???Medication ???Instructions ???Recorded ???Confirmed ???Type norethindrone (contraceptive) 0.35 0.35 mg PO DAILY #84 tabs 08/23/24 Rx mg tablet fluoxetine 40 mg capsule 40 mg PO QDAY 04/30/24 08/23/24 Hi story levothyroxine 125 mcg tablet 125 mcg PO .qd 1.5 q sundays #96 0 08/23/24 Rx (Synthroid) tabs PFSH Medical History (Updated 08/24/24 @ 07:[address] Dereje Hill MD) Thyroid nodule Abnormal EKG Shortened MT interval Palpitations Morbid obesity with BMI of 45.0-49.9, adult Hypothyroid Low vitamin D level Neck pain Abnormal glucose Genetic testing of female Gestational diabetes Depression Abnormal Pap smear of cervix Surgical History S/P laparoscopic cholecystectomy S/P dilation and curettage ( 11/2016) Family History Father Atrial fibrillation Mother Breast cancer Grandmother Ovarian cancer Colon cancer Arthritis Grandfather Diabetes Social History adopted: No household members: family housing: house number of children: 3 Smoking Status: Never smoker alcohol intake: current details: occasionally substance use type: does not use caffeine: No what type of physical activity do you participate in: walking and bicycling frequency: daily seatbelt use: always do you feel safe at home: Yes additional social history: - [employer] 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 She has hypothyroidism and is taking levothyroxine. She has a history of a 1.1 cm TR 4 thyroid nodule, last looked at in 2022. She is feeling well. She has started a lifestyle change and is working with a personal development educator/doctor assistant. She is planning a [employer] vacation for her family this summer. ROS Const Constitutional: No fatigue, weight change or change in appetite Eyes Eyes: No change in vision ENT ENT: No dizziness/vertigo or difficulty swallowing Cardio Cardiology: No chest pain at rest, chest pain with exertion, shortness of breath or palpitations Musc Musculoskeletal: No abnormal gait, joint pain, numbness or tingling Neuro Neurology: No abnormal gait, memory loss, numbness or tingling Psych Psychiatric: No change in appetite, No memory loss and No Thoughts of harming yourself/Others Resp Respiratory: No cough, chest congestion or shortness of breath Gastro GI: No abdominal pain, constipation, diarrhea or difficulty swallowing Genitourinary-Female: No burning urination Skin Skin: No itchy eyes or wounds Endo Endocrine: No fatigue or weight change Aller/Imm Allergy/Immunologic: No itchy eyes Exam Const General: cooperative, healthy appearing, comfortable, no acute distress, well developed and not cushingoid Nutritional Appearance: well nourished and obese Orientation: alert, awake and oriented x3 HENMT Head: normal to inspection Ears: hearing grossly normal bilaterally Nose: external nose normal Mouth: oral mucosae normal Eyes General: appearance normal, both eyes and all related structures Alignment and Position: alignment normal Periorbital: periorbital findings normal Eyelids: eyelids normal Conjunctivae: conjunctivae normal Neck Neck: normal visual inspection Neck mass: No Thyroid: diffusely enlarged Lymphatic: no lymphadenopathy noted Chest Chest palpation inspection: normal inspection of the chest Resp Effort Inspection: normal respiratory effort, able to speak in complete sentences, symmetric chest movement, no audible wheezes and no cough Auscultation: Bilateral: Clear to Auscultation Cardio Rate: r (more content not included)... Normal [facility] GFR/1.73 sq M.predicted ale g non-blacks MDRD (S/P/Bld) [Vol rate/Area]Ordered By: Dereje Hill on 08-23-2024 Estimated GFR (MDRD) Non-Af Amer 112 >60 [facility] Comment on above: mL/min/1.73m2 CKD-EP I Creatinine Equation (2020) Laboratory - Chemistry and C hemistry - challengeOrdered By: Dereje Hill on 08-23-2024 AST [Catalytic activity/Vol] 19 U/L <32 [facility] Potassium (Unsp spec) [Mass/ Vol]Ordered By: Dereje Hill on 08-23-2024 Potassium [Moles/Vol] 4.4 mmol/L 3.3-5.1 [facility] Serum creatinine measurement (mass/volume)Ordered By: Dereje Hill on 08-23-2024 Creatinine [Mass/Vol] 0.67 mg/dL Low 0.70-1.20 [facility] Serum globulin measurementOr dered By: Dereje Hill on 08-23-2024 Globulin (S) [Mass/Vol] 3.2 g/dL 2.2-4.2 [facility] Serum glucose measurement (m ass/volume)Ordered By: Dereje Hill on 08-23-2024 Glucose [Mass/Vol] 91 mg/dL 70-99 [facility] Serum or plasma alanine joseph otransferase (ALT) measurementOrdered By: Dereje Hill on 08-23-2024 ALT [Catalytic activity/Vol] 24 U/L <35 [facility] Serum or plasma albumin emmie urement (mass/volume)Ordered By: Dereje Hill on 08-23-2024 Albumin [Mass/Vol] 4.4 g/dL 3.5-5.0 [facility] Serum or plasma albumin/glob ulin mass ratioOrdered By: Dereje Hill 08-23-2024 Albumin/Globulin [Mass ratio] 1.4 {ratio} 0.9-2.4 [facility] Serum or plasma alkaline iván sphatase measurementOrdered By: Dereje Hill 08-23-2024 ALP [Catalytic activity/Vol] 75 U/L 35-104 [facility] Serum or plasma calcium emmie urement (mass/volume)Ordered By: Dereje Hill on 08-23-2024 Calcium [Mass/Vol] 9.7 mg/dL 7.6-11.0 [facility] Serum or plasma urea nitroge n measurement (mass/volume)Ordered By: Dereje Hill on 08-23-2024 Urea nitrogen [Mass/Vol] 19 mg/dL 4-19 [facility] Sodium levelOrdered By: Dereje Hill on 08-23-2024 Sodium [Moles/Vol] 138 mmol/L 133-145 [facility] T4 Free Directon 08-23-2024 T4 FREE DIRECT 1.40 ng/dL Normal 0.76-1.46 [facility] Comment on above: Performed By: #### L 506.0400, L500.4050, L501.9520 #### [facility] [address] [place], [address] T4 freeOrdered By: Dereje Hill on 08-23-2024 Free T4 [Mass/Vol] 1.40 ng/dL 0.76-1.46 [facility] TSH DL <= 0.005 mIU/L QnOrde red By: Dereje Hill on 08-23-2024 Thyroid Stimulating Hormone (TSH) 3.620 uIU/mL 0.300-4.200 [facility] Thyroid Stim Hormone (TSH)on 08-23-2024 TSH 3.620 uIU/mL Normal 0.300-4.200 [facility] Comment on above: Performed By: #### L 506.0400, L500.4050, L501.9520 #### [facility] [address] [place], [address] Total proteinOrdered By: Michael Hill on 08-23-2024 Protein [Mass/Vol] 7.6 g/dL 5.9-8.4 [facility] CNOVon 06-12-2024 CNOV Office Visit (UCWSTR ) ROBERT LEBLANC ([id number]) 1985 F Date Time Provider Department 06/12/24 1:45 PM RANDALL [facility]ANIE[facility] During your visit today, we recorded the following information about you: Temperature Pulse Respiration Blood pressure 98 degrees 100/minute 18/minute 126/70 Weight 137.5 kg Randall Samaniego, JACINDA 06/12/2024 1:59 PM Signed This note was created using [employer]. Subjective Robert Leblanc is a 39 year old female. HPI 39-year-old female presents for cough, chest congestion, nasal congestion, fevers, diarrhea. Symptoms started about a week ago with diarrhea, body aches. Patient had a fever couple of days ago, no fever for the past 2 days. She has had a cough for the past 5 days and nasal congestion. No chest pain or shortness of breath. No history of COPD or asthma. She did state that she heard herself wheezing at home. She states that she had a telehealth visit yesterday and was prescribed albuterol, prednisone and Claritin. She states that she felt like her chest was itching after using the albuterol, so stopped that. She has not started the prednisone yet. No other complaint. PAST MEDICAL HISTORY Diagnosis Date Abnormal Pap smear of cervix PCOS (polycystic ovarian syndrome) Rh negative status during 06/10/2014 PAST SURGICAL HISTORY Procedure Laterality Date VAGINOSCOPY ALLERGIES Red Dye and Valium [Diazepam] MEDICATIONS albuterol HFA (PROVENTIL HFA, VENTOLIN HFA) 90 mcg/actuation inhaler desloratadine (CLARINEX) 5 mg tablet FLUoxetine (PROZAC) 20 mg capsule 20 mg once daily. SYNTHROID 125 mcg tablet Take 1 tablet by mouth every afternoon. Norethindrone, Contraceptive, 0.35 mg tablet TAKE 1 TABLET BY MOUTH EVERY DAY - START DAY 1 OF MENTRUAL CYCLE loratadine/pseudoephedr ine (CLARITIN-D 12 HOUR ORAL) Take by mouth. (Patient not taking: Reported on 01/20/2024) FAMILY HISTORY Problem Relation Age of Onset Cancer Mother breast Heart Father irregular heartbeat Stroke Paternal Grandmother Hypertension Paternal Grandmother Cancer Paternal Grandmother Aneurysm Maternal Grandmother brain Cancer Maternal Grandmother Heart Maternal Grandfather Diabetes Maternal Grandfather Colon Cancer Maternal Grandfather Heart Paternal Grandfather Heart Brother tachycardia Social History Tobacco Use Smoking status: Never Smokeless tobacco: Never Vaping Use Vaping status: Never Used Substance Use Topics Alcohol use: No Comment: not while Drug use: No Review of Systems Constitutional: Positive for fever. Negative for chills. HENT: Positive for congestion. Negative for ear pain and sore throat. Respiratory: Positive for cough and wheezing. Negative for shortness of breath. Cardiovascular: Negative for chest pain. Gastrointestinal: Positive for diarrhea. Negative for vomiting. Objective BP 126/70 Pulse 100 Temp 36.7 ?C (98 ?F) Resp 18 Wt (!) 137.5 kg (303 lb 2.1 oz) LMP 05/15/2023 (Approximate) SpO2 99% BMI 51.23 kg/m? Physical Exam Vitals and nursing note reviewed. Constitutional: General: She is not in acute distress. Appearance: Normal appearance. She is not toxic-appearing. HENT: Right Ear: Tympanic membrane and ear canal normal. Left Ear: Tympanic membrane and ear canal normal. Nose: Congestion present. Mouth/Throat: Mouth: Mucous membranes are moist. Pharynx: Oropharynx is clear. Eyes: Conjunctiva/sclera: Conjunctivae normal. Cardiovascular: Rate and Rhythm: Normal rate and regular rhythm. Pulmonary: Effort: Pulmonary effort is normal. Breath sounds: Normal breath sounds. No wheezing, rhonchi or rales. Skin: General: Skin is warm and dry. Neurological: Mental Status: She is alert. Assessment and Plan ASSESSMENT/PLAN: 1. Acute cough - ICD9: 786.2, ICD10: R05.1 (primary diagnosis) - XR CHEST 2V FRONTAL/LAT-no acute radiographic abnormality -Rx Tessalon Perles -Start prednisone as prescribed by online visit if wheezing persist. 2. URI, acute - ICD9: 465.9, ICD10: J06.9 - Discussed viral etiology and rationale for treatment. - Symptomatic treatment with prn analgesia - Supportive care with fluids and rest Diagnosis and treatment plan were discussed and questions were answered to the patient's satisfaction. Pt acknowledged understanding of concepts and follow up plan. Specific signs and symptoms that would indicate the need for higher level of care were discussed in detail warranting prompt ER evaluation. JACINDA Locke Allergies As of Date: 06/12/2024 Noted Allergy Reaction RED DYE 04/04/2019 11 - Vomiting VALIUM (DIAZEPAM) 06/07/2014 5 - Intolerance Comments: Hyper Date Reviewed: 06/12/2024 Reviewed by: Michelle Grullon MA - Fully Assessed Reason for Visit: Chest Congestion [236] Cmt: cough x 1 week Primary Visit Diagnosis:Acute cough [R05. (more content not included)... Normal [facility] XR CHEST 2V FRONTAL/LATon XR CHEST 2V FRONTAL/LAT * * *Final Report* * * DATE OF EXAM: Jun 12 2024 1:53PM WOX [id number] - XR CHEST 2V FRONTAL/LAT / PROCEDURE REASON: Acute cough * * * * Physician Interpretation * * * * EXAMINATION: CHEST RADIOGRAPH (2 VIEW FRONTAL and LATERAL) CLINICAL HISTORY: Acute cough MQ: XC2_6 EXAM DATE/TIME: 06/12/2024 1:53 PM COMPARISON: No relevant prior studies available. RESULT: Lines, tubes, and devices: None. Lungs and pleura: No consolidation. No lung mass. No pleural effusion. No pneumothorax. Cardiomediastinal silhouette: Normal cardiomediastinal silhouette. Bones and soft tissues: Unremarkable. IMPRESSION: No acute radiographic abnormality. Liner Replacer: JOHNNY Transcribe Date/Time: Jun 12 2024 1:54P Dictated by : BERNICE ARMANDO MD This examination was interpreted and the report reviewed and electronically signed by: BERNICE ARMANDO MD on Jun 12 2024 1:54PM EST [id number] Normal [facility] XR Chest PA and Lateralon Radiology Study observation (narrative) [facility] IMPRESSION: No acute radiographic abnormality. Liner Replacer: JOHNNY Transcribe Date/Time: Jun 12 2024 1:54P Dictated by : BERNICE ARMANDO MD This examination was interpreted and the report reviewed and electronically signed by: BERNICE ARMANDO MD on Jun 12 2024 1:54PM EST DIVISION OF RADIOLOGY * * *Final Report* * * DATE OF EXAM: Jun 12 2024 1:53PM WOX 5291 - XR CHEST 2V FRONTAL/LAT / PROCEDURE REASON: Acute cough * * * * Physician Interpretation * * * * EXAMINATION: CHEST RADIOGRAPH (2 VIEW FRONTAL & LATERAL) CLINICAL HISTORY: Acute cough MQ: XC2_6 EXAM DATE/TIME: 06/12/2024 1:53 PM COMPARISON: No relevant prior studies available. RESULT: Lines, tubes, and devices: None. Lungs and pleura: No consolidation. No lung mass. No pleural effusion. No pneumothorax. Cardiomediastinal silhouette: Normal cardiomediastinal silhouette. Bones and soft tissues: Unremarkable. DIVISION OF RADIOLOGY Provider, [facility] - 06/12/2024 * * *Final Report* * * DATE OF EXAM: Jun 12 2024 1:53PM WOX 5291 - XR CHEST 2V FRONTAL/LAT / PROCEDURE REASON: Acute cough * * * * Physician Interpretation * * * * EXAMINATION: CHEST RADIOGRAPH (2 VIEW FRONTAL & LATERAL) CLINICAL HISTORY: Acute cough MQ: XC2_6 EXAM DATE/TIME: 06/12/2024 1:53 PM COMPARISON: No relevant prior studies available. RESULT: Lines, tubes, and devices: None. Lungs and pleura: No consolidation. No lung mass. No pleural effusion. No pneumothorax. Cardiomediastinal silhouette: Normal cardiomediastinal silhouette. Bones and soft tissues: Unremarkable. IMPRESSION IMPRESSION: No acute radiographic abnormality. Liner Replacer: PSCHari Transcribe Date/Time: Jun 12 2024 1:54P Dictated by : BERNICE ARMANDO MD This examination was interpreted and the report reviewed and electronically signed by: BERNICE ARMANDO MD on Jun 12 2024 1:54PM [facility] XR Chest PA and LateralOrder ed By: Cc Provider on 06-12-2024 [facility] 12 Lead EKG performed by [facility] on 05-30-2024 12 Lead EKG performed by [facility] [address] [place] [address] 12 Lead EKG performed by [facility] 05/30/24 0947 MR#: [id number] Acct: [id number] Name: ROBERT LELBANC Rep #: [id number] : 1985 39 From: Blas Choe MD Attending Dr: Dr. Blas Choe MD Status: DEP A MB Ordering Dr: Blas Choe MD Date: 05/30/24 Location: [facility] Sex: F C Admitted: BMS/12 Lead EKG performed by [facility] ECG Report Interpretation ---Sinus Rhythm WITHIN NORMAL LIMITSElectronically signed on 06/05/2024 at 09:58 by Blas Choe [employer] Version [id number] 06/05/24 1000 Date Blas Choe MD CC: No Primary Care Physician Date Dictated: 05/30/24946 Date Transcribed: 05/30/24946 Liner Replacer: CO Signed Normal [facility] Cardiology Visit Reporton Cardiology Visit Report [facility] [address] [place] [address] OFFICE VISIT Date of Service: 05/30/24 MR#: [id number] Acct: [id number] Name: ROBERT LEBLANC Rep #: [id number] : 1985 Provider: Dr. Blas Choe MD Age/Sex: 39/F Location: [facility] Status: Signed HPI HPI History of Present Illness Details: Is an 39-year-old lady who says that she was put on Vyvanse for binge eating. She started developing tachycardia and was also noted to have an abnormal EKG. She was taken off the Vyvanse and she says that her symptoms have resolved. She denies any headache chest pain shortness of breath palpitations paroxysmal nocturnal dyspnea or pedal edema. She has had no neck arm or jaw discomfort suggest angina. He remember that approximately 4 years ago she underwent an echocardiographic evaluation which demonstrated no wall motion abnormalities and preserved ejection fraction. Holter monitor also demonstrated no significant abnormalities. I had seen her at that time and she was on Prozac. Her physical exam today is unremarkable her electrocardiogram demonstrates sinus rhythm with a rate of 75 bpm and is within normal limits. Intake Vital Signs 02/20/24 13:56 05/30/24 09:47 Height 5 ft 4 in 5 ft 4 in Weight: 307 lb BMI 52.7 BP 117/53 L Blood Pressure Location Lt brachial Position Sitting Respiration 16 Pulse 83 Pulse Source Monitor Intake Visit Reasons: ABN EKG (NARCISA) Reagent Tender Helper Required: No Accompanied by: Self Is patient in pain?: No Allergies red dye Allergy (Mild, Verified 05/30/24 09:58) vomiting diazepam (From Valium) Adverse Reaction (Verified 05/30/24 09:58) Other Medications ???Medication ???Instructions ???Recorded ???Confirmed ???Type Synthroid 125 mcg tablet 125 mcg PO .qd 1.5 q sundays #32 07/18/23 05/30/24 Rx (levothyroxine) tabs norethindrone (contraceptive) 0.35 0.35 mg PO DAILY #84 tabs 12/14/23 05/30/24 Rx mg tablet fluoxetine 40 mg capsule 40 mg PO QDAY 04/30/24 05/30/24 History Have you fallen in the past year?: [facility] Medical History Abnormal EKG Shortened MT interval Palpitations Morbid obesity with BMI of 45.0-49.9, adult Hypothyroid Low vitamin D level Neck pain Abnormal glucose Genetic testing of female Gestational diabetes Depression Abnormal Pap smear of cervix Surgical History S/P laparoscopic cholecystectomy S/P dilation and curettage ( 11/2016) Family History Father Atrial fibrillation Mother Breast cancer Grandmother Ovarian cancer Colon cancer Arthritis Grandfather Diabetes Social History adopted: No household members: family housing: house number of children: 3 Smoking Status: Never smoker alcohol intake: current details: occasionally substance use type: does not use caffeine: No what type of physical activity do you participate in: walking and bicycling frequency: daily seatbelt use: always do you feel safe at home: Yes additional social history: - [employer] T[employer] 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 Const Const: Negative for fatigue, weakness, headache(s), daytime sleepiness or difficulty sleeping ENT ENT: Negative for headache(s), dizziness or Nosebleed/epistaxis Cardio Chest Pain: No Palpitations: No Edema: None Resp Respiratory: Negative for SOB with activity, SOB at rest, SOB orthopnea SOB lying down or Cough GI GI: Negative nausea, vomiting or heartburn Neuro Neuro: Negative for dizziness, lightheadedness, near syncope, headache(s) or weakness Endo Endo: Negative for fatigue Cardiology Exam Const Appearance: cooperative, healthy appearing, no acute distress, well developed and well groomed Nutritional Appearance: average body habitus and well nourished Orientation: alert, awake and oriented x3 Head Head: normal to inspection, normocephalic and atraumatic Ears: hearing grossly normal bilaterally and external ears normal Nose: external nose normal, nares normal, nasal mucous membranes and turbinates normal, septum normal and no nasal discharge Face and Sinus: face symmetric Mouth: oral mucosae normal, tongue normal, oropharynx normal and moist mucous membranes Teeth and gingiva: dentition normal Throat: posterior oropharynx normal, tonsils normal and uvula midline Eyes General: appearance normal, both eyes and all related structures Eyelids: eyelids normal Conjunctivae: conjunctivae normal Pupils: PERRL, normal by confrontation and accommodation normal EOM: EOM intact bilaterally Neck Neck: normal visual inspection, trachea midline and no JVD (more content not included)... Normal [facility] 12 Lead EKGon 04-12-2024 12 Lead EKG [facility] Services [address] [place] [address] 12 Lead EKG 04/12/24 0853 MR#: [id number] Acct: [id number] Name: ROBERT LEBLANC Rep #: [id number] : 1985 39 From: Rocky Jose MD Attending Dr: Dr. Kaylee Chiu MD Status: REG CLI Ordering Dr: Kaylee Chiu MD Date: 04/12/24 Location: [facility] Sex: F C Admitted: Test Reason : PRE OP Blood Pressure : */* mmHG Vent. Rate : 77 BPM Atrial Rate : 77 BPM P-R Int : 106 ms QRS Dur : 82 ms QT Int : 374 ms P-R-T Axes : 51 50 16 degrees QTcB Int : 423 ms Sinus rhythm with short MT Otherwise normal ECG Confirmed by Rocky Jose ([id number]), news copy editor JAIMIE ROCHE ([id number]) on 04/13/2024 6:44:49 AM Referred By: Kaylee Chiu Confirmed By: Rocky Jose 04/13/24 0644 Date Rocky Jose MD CC: Dr. Kaylee Chiu MD; No Primary Care Physician Signed Normal [facility] SCRN MAMM (CAD)W/JOSE L BILATo n 02-27-2024 SCRN MAMM (CAD)W/JOSE L BILAT [facility] Imaging Services [address] [place] [address] SCRN MAMM (CAD)W/JOSE L BILAT MR#: [id number] Acct: [id number] Name: ROBERT LEBLANC Rep #: [id number] : 1985 F 39 From: Husam upton MD PCP: Care Physician,No Primary Status: REG CL Study: SCRN MAMM (CAD)W/JOSE L BILAT Date of Exam: 02/07 06/01 Exam# [id number] Ordering Dr: Kaylee Chiu [id number] MAMMOGRAPHY - BILATERAL SCREENING REASON FOR EXAM: Female, 39 years old. Routine annual screening examination. PERTINENT HISTORY: Mother with breast cancer. Aunt with breast cancer. TECHNIQUE: Digital bilateral breast jose l (3D mammographic acquisition) in the CC and MLO projections. 2-D mediolateral oblique (MLO) and craniocaudad (CC) views of both breasts were obtained. CAD: Full Field Digital Mammography with Computer Added Detection was performed. COMPARISON: Comparison is made with prior study February 11, 2023. FINDINGS: Breast Composition: There are scattered areas of fibroglandular density. There are no dominant masses or suspicious calcifications. Stable bilateral axillary lymph nodes. No other significant abnormalities are identified. There has been no significant change since the prior study. BI/SCRN MAMM (CAD)W/JOSE L BILAT IMPRESSION: Stable bilateral screening mammogram. Yearly follow-up mammogram recommended. (A) ASSESSMENT CATEGORY: BIRADS Category 2: Benign. A letter regarding these results will be sent to the patient by the facility within 30 days. Approximately 10% of breast cancers are not detected by mammography. A normal mammogram should not delay biopsy of a clinically suspicious abnormality. [id number] Electronically Signed: Husam Miguel MD at 14:53 EDT Reading Location ID and State: [address] [place] [address] , Service support , CC: Dr. Kaylee Chiu MD; No Primary Care Physician Liner Replacer: Signed Normal [facility] CBC W/Diff, Automatedon - Absolute Lymph 1.76 X10 3/uL Normal 0.83-4.51 [facility] Comment on above: Performed By: #### L 100.0100 #### [facility] Laboratory [address] [place], [address] Absolute Neut 5.3 X10 3/uL Normal 2.0-7.7 [facility] Comment on above: Performed By: #### L 100.0100 #### [facility] [address] [place], [address] Basophils/100 WBC (Bld) 0.4 % Normal 0-1 [facility] Comment on above: Performed By: #### L 100.0100 #### [facility] [address] [place], [address] Eosinophils/100 WBC (Bld) 1.0 % Normal 0-5 [facility] Comment on above: Performed By: #### L 100.0100 #### [facility] [address] [place], [address] Erythrocyte distribution width (RBC) [Ratio] 13.6 % Normal 11.6-14.6 [facility] Comment on above: Performed By: #### L 100.0100 #### [facility] [address] [place], [address] Hematocrit (Bld) [Volume fraction] 40.8 % Normal 37-47 [facility] Comment on above: Performed By: #### L 100.0100 #### [facility] [address] [place], [address] Hemoglobin (Bld) [Mass/Vol] 13.1 g/dL Normal 12.0-15.0 [facility] Comment on above: Performed By: #### L 100.0100 #### [facility] [address] [place], [address] IG% 0.600 Normal 0.0-0.9 [facility] Comment on above: Result Comment: IG% - Immature Granulocytes (promyelocytes, myelocytes and metamyelocytes) > 1% indicates that a LEFT SHIFT is Present. Performed By: #### L 100.0100 #### [facility] [address] [place], [address] Lymphocytes/100 WBC (Bld) 22.7 % Normal 19-41 [facility] Comment on above: Performed By: #### L 100.0100 #### [facility] [address] [place], [address] MCH (RBC) [Entitic mass] 29.4 pg Normal 27.0-32.0 [facility] Comment on above: Performed By: #### L 100.0100 #### [facility] [address] [place], [address] MCHC (RBC) [Mass/Vol] 32.1 g/dL Normal 32-36 [facility] Comment on above: Performed By: #### L 100.0100 #### [facility] [address] [place], [address] MCV (RBC) [Entitic vol] 91.5 fL Normal 81-99 [facility] Comment on above: Performed By: #### L 100.0100 #### [facility] [address] [place], [address] Monocytes/100 WBC (Bld) 7.1 % Normal 0-10 [facility] Comment on above: Performed By: #### L 100.0100 #### [facility] [place], [address] Neutrophils/100 WBC (Bld) 68.2 % Normal 47-70 [facility] Comment on above: Performed By: #### L 100.0100 #### [facility] [address] [place], [address] Nucleated RBC (Bld) [#/Vol] 0 10*3/uL Normal 0-5 [facility] Comment on above: Performed By: #### L 100.0100 #### [facility] [address] [place], [address] Platelet mean volume (Bld) [Entitic vol] 10.1 fL Normal 6.2-12.0 [facility] Comment on above: Performed By: #### L 100.0100 #### [facility] [address] [place], [address] Platelets (Bld) [#/Vol] 315 10*3/uL Normal 150-450 [facility] Comment on above: Performed By: #### L 100.0100 #### [facility] [address] [place], [address] RBC (Bld) [#/Vol] 4.46 10*6/uL Normal 4.2-5.4 [facility] Comment on above: Performed By: #### L 100.0100 #### [facility] [address] [place], [address] RDW SD 45.6 fl High 35.1-43.9 [facility] Comment on above: Performed By: #### L 100.0100 #### [facility] [address] [place], [address] WBC (Bld) [#/Vol] 7.8 10*3/uL Normal 4.4-11.0 [facility] Comment on above: Performed By: #### L 100.0100 #### [facility] [address] [place], [address] [facility] Office Visit Reporton 02-20-2024 [facility] Office Visit Report [facility] [address], [address] [place] [address] OFFICE VISIT Date of Service: 02/20/24 MR#: [id number] Acct: [id number] Name: ROBERT LEBLANC N Rep #: [id number] : 1985 Provider: Dr. Kaylee kauffman MD Age/Sex: 39/F Location: [facility] Status: Signed Intake Vital Signs 12/09/23 14:31 12/09/23 15:08 02/20/24 13:56 Height 5 ft 4 in 5 ft 4 in 5 ft 4 in Weight: 298 lb BMI 51.1 BP 111/80 Intake Visit Reasons: F/U Reagent Tender Helper Required: No Is patient in pain?: Yes (discomfort in left side - new) Allergies red dye Allergy (Mild, Verified 02/20/24 13:59) vomiting diazepam (From Valium) Adverse Reaction (Verified 02/20/24 13:59) Other Medications ???Medication ???Instructions ???Recorded ???Confirmed ???Type Synthroid 125 mcg tablet 125 mcg PO .qd 1.5 q sundays #32 07/18/23 02/20/24 Rx (levothyroxine) tabs fluoxetine 40 mg capsule 40 mg .Route .COMPLEX #30 caps 09/05/23 02/20/24 Rx norethindrone (contraceptive) 0.35 0.35 mg PO DAILY #84 tabs 12/14/23 02/20/24 Rx mg tablet lisdexamfetamine 40 mg capsule 40 mg PO DAILY 30 days #30 caps 02/20/24 02/20/24 Rx Is last menstrual period known: Yes Last Menstrual Period: 02/14/24 Post menopausal: No Patient : No : No PFSH Medical History Neck pain Abnormal glucose Genetic testing of female Gestational diabetes Depression Abnormal Pap smear of cervix Surgical History S/P laparoscopic cholecystectomy S/P dilation and curettage ( 11/2016) Family History Father Atrial fibrillation Mother Breast cancer Grandmother Ovarian cancer Colon cancer Arthritis Grandfather Diabetes Social History adopted: No household members: family housing: house number of children: 3 Smoking Status: Never smoker alcohol intake: current details: occasionally substance use type: does not use caffeine: No what type of physical activity do you participate in: walking and bicycling frequency: daily seatbelt use: always do you feel safe at home: Yes additional social history: - [employer] T[employer] 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 she hadbeen doing well, had a dramatic drop in binge eating episodes, she is eating healthier, and then when she ran out of her meds, she had an incresae in episodes, further validating her need for medicaiton. she denies any side effects, mood is good. Female Reproductive History Last Menstrual Period: 02/14/24 History 5 Elective abortions Hx Para 3 Spontaneous abortions 2 Hx # Term Pregnancies 1 Ectopic pregnancies Hx # Pregnancies Multiple births # of living children 3 Past Pregnancies Del. Date Name GA/Weeks Outcome Route Bth Weight Infant Gen Labor Lgth Anesthesia Del Locatn Provider FOB 12/27/14 Amilcar 37 live - full term 7lbs 1oz Female 12 hours epidural [facility] Dr. Bernice Rubi 02/24/18 Antione 39 live - full term 7.9oz Male 4 hours epidural [facility] Bobby Rubi 10/04/20 Gladys 37 live - full term Female [facility] Dr. Jessie sorensen Delivery Date: 12/27/14 Last Updated by: Elinor Hurtado No issues during or delivery. Delivery Date: 02/24/18 Last Updated by: Ivania Tuttle 3-4 cm at 32 weeks given steriods Delivery Date: 10/04/20 Last Updated by: Elinor Hurtado Induced for poly and gestational diabetes. ROS Const Constitutional: Reports as per HPI; Denies difficulty sleeping, fatigue (new onset severe) or fever(s) Eyes Eyes: Denies change in vision or diplopia ENT ENT: Denies dizziness Cardio Card: Denies chest pain, palpitations or rapid heart rate Resp Resp: Denies dyspnea or dyspnea on exertion GI GI: Reports as per HPI; Denies abdominal pain or constipation Details: denies any episodes of pancreatitis Details: denies kidney stones Musc Musc: Denies numbness Neuro Neuro: Denies confusion, dizziness, memory loss or numbness Psych Psych: Denies confusion, depression, memory loss, mood swings or suicidal ideation Endo Endo: Reports other (denies symptoms of hypoglycemia); Denies excessive sweating Exam Const General: cooperative, healthy appearing, comfortable and no acute distress Orientation: alert [facility] Head: normal to inspection and normocephalic Eyes General: appearance normal, both eyes and all related structures Neck Neck: normal visual inspection, no lymphadenopathy and trachea midline Thyroid: thyroid normal Resp Effort Inspection: nor (more content not included)... Normal [facility] CNOVon 01-20-2024 CNOV Office Visit ([facility]WSTR ) ROBERT LEBLANC ([id number]) 1985 F Date Time Provider Department 01/20/24 12:00 PM [facility] During your visit today, we recorded the following information about you: Temperature Pulse Respiration Blood pressure 98.3 degrees 82/minute 20/minute 121/68 Weight 133.9 kg Rob Stone APRN.[employer]OMATIC TOE [employer]STER 01/20/2024 12:19 PM Signed Subjective HPI Nontoxic-appearing female presents urgent care chief complaint sinus pressure and cough. Duration of symptoms 2 weeks. Associated symptoms listed above. Most prominent symptom today is sinus pressure. OTC medication use no success. States sinus pressure did improve and then worsening and. Diagnosed COVID- end of December. Denies any fever body aches chills productive cough chest pain shortness of breath pleuritic pain hemoptysis nausea vomiting abdominal pain change in bowel or bladder habits. Past medical history prescription medication use and allergies reviewed. Is not . Is not breast-feeding. .Patient presents with: Cough: Head and chest congestion x2 weeks, Covid + 01/03 PAST MEDICAL HISTORY Diagnosis Date Abnormal Pap smear of cervix PCOS (polycystic ovarian syndrome) Rh negative status during 06/10/2014 PAST SURGICAL HISTORY Procedure Laterality Date VAGINOSCOPY ALLERGIES Red Dye and Valium [Diazepam] MEDICATIONS FLUoxetine (PROZAC) 20 mg capsule 20 mg once daily. SYNTHROID 125 mcg tablet Take 1 tablet by mouth every afternoon. Norethindrone, Contraceptive, 0.35 mg tablet TAKE 1 TABLET BY MOUTH EVERY DAY - START DAY 1 OF MENTRUAL CYCLE loratadine/pseudoephedr ine (CLARITIN-D 12 HOUR ORAL) Take by mouth. (Patient not taking: Reported on 01/20/2024) FAMILY HISTORY Problem Relation Age of Onset Cancer Mother breast Heart Father irregular heartbeat Stroke Paternal Grandmother Hypertension Paternal Grandmother Cancer Paternal Grandmother Aneurysm Maternal Grandmother brain Cancer Maternal Grandmother Heart Maternal Grandfather Diabetes Maternal Grandfather Colon Cancer Maternal Grandfather Heart Paternal Grandfather Heart Brother tachycardia Social History Tobacco Use Smoking status: Never Smokeless tobacco: Never Vaping Use Vaping status: Never Used Substance Use Topics Alcohol use: No Comment: not while Drug use: No BP 121/68 Pulse 82 Temp 36.8 ?C (98.3 ?F) Resp 20 Wt 133.9 kg (295 lb 3.1 oz) LMP 05/15/2023 (Approximate) SpO2 98% BMI 49.89 kg/m? Review of Systems Constitutional: Negative for chills, fever and malaise/fatigue. HENT: Positive for congestion and sinus pain. Negative for ear discharge, ear pain and sore throat. Eyes: Negative for blurred vision, pain, discharge and redness. Respiratory: Positive for cough. Negative for hemoptysis, sputum production, shortness of breath, wheezing and stridor. Cardiovascular: Negative for chest pain. Gastrointestinal: Negative for abdominal pain, diarrhea, nausea and vomiting. Musculoskeletal: Negative for myalgias. Skin: Negative for itching and rash. Neurological: Negative for dizziness and headaches. Objective Physical Exam Constitutional: General: She is not in acute distress. Appearance: She is not diaphoretic. HENT: Head: Normocephalic. Jaw: No trismus, tenderness, swelling or pain on movement. Right Ear: Tympanic membrane, ear canal and external ear normal. Left Ear: Tympanic membrane, ear canal and external ear normal. Nose: Congestion present. Right Sinus: Maxillary sinus tenderness present. Left Sinus: Maxillary sinus tenderness present. Mouth/Throat: Mouth: Mucous membranes are moist. Pharynx: Oropharynx is clear. Uvula midline. No pharyngeal swelling, oropharyngeal exudate, posterior oropharyngeal erythema or uvula swelling. Eyes: Conjunctiva/sclera: Conjunctivae normal. Pupils: Pupils are equal, round, and reactive to light. Cardiovascular: Rate and Rhythm: Normal rate and regular rhythm. Heart sounds: Normal heart sounds. Pulmonary: Effort: Pulmonary effort is normal. No tachypnea, accessory muscle usage or respiratory distress. Breath sounds: Normal breath sounds. No stridor. No wheezing, rhonchi or rales. Abdominal: General: There is no distension. Palpations: Abdomen is soft. Tenderness: There is no abdominal tenderness. There is no guarding or rebound. Musculoskeletal: Cervical back: Normal range of motion and neck supple. No edema, erythema, rigidity or tenderness. No pain with movement. Normal range of motion. Lymphadenopathy: Cervical: No cervical adenopathy. Skin: General: Skin is warm and dry. Neurological: Mental Status: She is alert and oriented to person, place, and time. ASSESSMENT/PLAN: 1. Acute cough - ICD9: 786.2, ICD10: R05.1 (primary diagnosis) 2. Bacterial sinusitis - ICD9: 473.9, 041.9, IC (more content not included)... Normal [facility] [place] Office Visit Reporton 12-09-2023 [place] [place] Office Visit Report [facility] [address] [place] [address] OFFICE VISIT Date of Service: 12/09/23 MR#: [id number] Acct: [id number] Name: ROBERT LEBLANC Rep #: [id number] : 1985 Provider: Dr. 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) Chief Complaint: Annual Reagent Tender Helper Required: No Is patient in pain?: No Allergies red dye Allergy (Mild, Verified 12/09/23 14:23) vomiting diazepam (From Valium) Adverse Reaction (Verified 12/09/23 14:23) Other Medications ???Medication ???Instructions ???Recorded ???Confirmed ???Type Synthroid 125 mcg tablet 125 mcg PO .qd 1.5 q sundays #32 07/18/23 12/09/23 Rx (levothyroxine) tabs fluoxetine 40 mg capsule 40 mg .Route .COMPLEX #30 caps 09/05/23 12/09/23 Rx lisdexamfetamine 10 mg capsule 10 mg PO DAILY 30 days #30 caps 12/09/23 12/09/23 Rx (Vyvanse) norethindrone (contraceptive) 0.35 0.35 mg PO DAILY #84 tabs 12/14/23 12/14/23 Rx mg tablet Is last menstrual period known: Yes Last Menstrual Period: 11/18/23 Post menopausal: No Patient : No : No [facility] Medical History Neck pain Abnormal glucose Genetic testing of female Gestational diabetes Depression Abnormal Pap smear of cervix Surgical History S/P laparoscopic cholecystectomy S/P dilation and curettage ( 11/2016) Family History Father Atrial fibrillation Mother Breast cancer Grandmother Ovarian cancer Colon cancer Arthritis Grandfather Diabetes Social History adopted: No household members: family housing: house number of children: 3 Smoking Status: Never smoker alcohol intake: current details: occasionally substance use type: does not use caffeine: No what type of physical activity do you participate in: walking and bicycling frequency: daily seatbelt use: always do you feel safe at home: Yes additional social history: - [employer] T[employer] 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 Date Name GA/Weeks Outcome Route Bth Weight Infant Gen Labor Lgth Anesthesia Del Locatn Provider FOB 12/27/14 Amilcar 37 live - full term 7lbs 1oz Female 12 hours epidural [facility] Dr. Bernice Rubi 02/24/18 Antione 39 live - full term 7.9oz Male 4 hours epidural [facility] Bobby Rubi 10/04/20 Gladys 37 live - full term Female [facility] Dr. Jessie sorensen Delivery Date: 12/27/14 Last Updated by: Elinor Hurtado No issues during or delivery. Delivery Date: 02/24/18 Last Updated by: Ivania Tuttle 3-4 cm at 32 weeks given steriods Delivery Date: 10/04/20 Last Updated by: Elinor Hurtado Induced for poly and gestational diabetes. HPI Encounter for routine gynecological examination Details: ROBERT LEBLANC is a 38 year old who presents for annual exam. Last PAP: nl History of abnormal PAP: no severe Other preventative health care screenings: pcp Female Reproductive History Last Menstrual Period: 11/18/23 Cycle Length: 21-35 Bleeding Duration: 5 Questions: metorrhagia: No, sexually active: Yes, dyspareunia: No and PCB: No Menopausal Symptoms: No hot flashes, No night sweats, No weight change, No mood changes, No difficulty concentrating, No sleep problems and No change in libido ROS Const Constitutional: Reports as per HPI; Denies fatigue, increased appetite, poor appetite, night sweats, weight gain or weight loss Cardio Card: Denies chest pain Resp Resp: Denies cough or dyspnea GI GI: Reports as per HPI; Denies abdominal pain, bloating, constipation, nausea or vomiting : Reports as per HPI and other; Denies difficulty voiding, dysuria, hematuria, hot flashes, nipple discharge, pelvic pain, prolapse symptoms, urinary frequency, urinary incontinence, urinary urgency, vaginal discharge, vaginal dryness, vaginal odor or vaginal pruritus Skin Skin/Breast: Denies changing lesions, breast mass, breast pain, breast skin changes or nipple discharge Psych Psych: Denies anxiety, change in libido, depression or difficulty concentrating Exam Const General: cooperative, healthy appearing, comfortable, no acute distress, well developed (more content not included)... Normal [facility] Serum or plasma thyroid stim ulating hormone (TSH) measurement (units/volume)Ordered By: Phuong Munguia on 09-08-2023 TSH Qn 1.59 uIU/mL 0.358-3.74 [facility] T4 Free Directon 09-08-2023 T4 FREE DIRECT 1.16 ng/dL Normal 0.76-1.46 [facility] Comment on above: Performed By: #### L [id number], [id number] ####[facility] [id number] [place], [address] Thin prep Papanicolaou smear with manual screeningOrdered By: Phuong Munguia on 09-08-2023 Thin prep Papanicolaou smear with manual screening 1.16 ng/dL 0.76-1.46 [facility] Thyroid Stim Hormone (TSH)on 09-08-2023 TSH 1.59 uIU/mL Normal 0.358-3.74 [facility] Comment on above: Performed By: #### L [id number], [id number] #### [facility] [address] [place], [address] CNOVon 07-27-2023 CNOV Office Visit (UCWSTR ) ROBERT LEBLANC ([id number]) 1985 F Date Time Provider Department 07/27/23 6:45 PM NATALI BERMAN [facility] During your visit today, we recorded the following information about you: Temperature Pulse Respiration Blood pressure 99 degrees 100/minute 19/minute 120/78 Weight 136.1 kg Natali Berman APRN.CNP 07/27/2023 6:54 PM Signed ASSESSMENT/PLAN: 1. Bacterial sinusitis - ICD9: 473.9, 041.9, ICD10: J32.9, B96.89 - Will begin treatment with as per antibiotic as written, see orders - Supportive care with plenty of fluids, rest, and analgesia prn. - AMOXICILLIN 875 MG-POTASSIUM CLAVULANATE 125 MG TABLET - PREDNISONE 20 MG TABLET - Follow-up with your PCP in 3-5 days if symptoms have not improved or sooner if symptoms worsen - Discussed red flags and need for immediate medical evaluation if any occur. - Discussed supportive care treatment with fluids, rest and analgesia. - Discussed expected course of illness Natali Berman APRN.CNP Adult Sinusitis Patient Education What is Sinusitis? Sinusitis [[id number]-[id number]-[id number]-tis] is inflammation of the sinuses or swelling of the lining of the sinus cavity or nose. During an infection the sinuses become blocked with fluid causing swelling of the lining of the sinuses. Symptoms: (viral and bacterial infections) Stuffy nose Runny nose Postnasal drip Fever Toothache Headache Tiredness Cough Sore throat Face and head pressure and or pain Common causes: 98% of sinus infections are viral caused by viruses. Risk Factors of Sinusitis Include: Allergies, air pollution, indoor humidity and outdoor temperature changes, andstructural changes in the nose may contribute to sinus pain, pressure and congestion. When to get help? Temperature greater than 100.4 ?F Symptoms lasting more than 10 days or worsening symptoms greater than 7-10 days. If you do not improve or worsen after a course of antibiotics, you should be re-examined. Diagnosis and Treatment: Your healthcare provider will ask a number of questions about your symptoms and how long they have occurred. If symptoms of sinusitis persist greater than 10 days, it is possible you have a bacterial sinus infection and an antibiotic is prescribed. If it is viral, antibiotics will not help. You may be instructed to take [id number] medications for symptoms. including fever reducers acetaminophen or ibuprofen, nasal saline spray, cough and cold preparations and decongestants as prescribed by the physician, nurse practitioner or physician assistant art director. Self-Care and Prevention: Rest Fluids for hydration Good hand washing Humidifier Avoid smoking and exposure to second hand smoke Avoid sick contacts Natali Berman APRN.AUTOMATIC TOE LASTER 07/27/2023 6:58 PM Signed Subjective Sore Throat Associated symptoms include congestion and coughing. Pertinent negatives include no ear pain, shortness of breath or vomiting. Robert Leblanc is a 38 year old female who presents with one month of sore throat, cough, ears feeling congested, nasal congestion and drainage, and bodyaches. She had an elevated temp today of 99.3 degrees F. She has been taking tylenol and ibuprofen. She has tried the following during the course of the past month. Flonase Amoxicillin Mucinex Claritin D. Review of Systems Constitutional: Negative for fever. HENT: Positive for congestion, hearing loss and sore throat. Negative for ear pain. Respiratory: Positive for cough. Negative for shortness of breath. Cardiovascular: Negative. Gastrointestinal: Negative for nausea and vomiting. Musculoskeletal: Positive for myalgias. BP 120/78 Pulse 100 Temp 37.2 ?C (99 ?F) Resp 19 Wt (!) 136.1 kg (300 lb 0.7 oz) LMP 05/15/2023 (Approximate) SpO2 98% BMI 50.71 kg/m? PAST MEDICAL HISTORY Diagnosis Date Abnormal Pap smear of cervix PCOS (polycystic ovarian syndrome) Rh negative status during 06/10/2014 PAST SURGICAL HISTORY Procedure Laterality Date VAGINOSCOPY ALLERGIES Red Dye and Valium [Diazepam] MEDICATIONS loratadine/pseudoephedr ine (CLARITIN-D 12 HOUR ORAL) Take by mouth. fluticasone (FLONASE) 50 mcg/actuation nasal spray Use 2 Sprays in each nostril once daily. Rinse mouth after use. FLUoxetine (PROZAC) 20 mg capsule 20 mg once daily. SYNTHROID 125 mcg tablet Take 1 tablet by mouth every afternoon. Norethindrone, Contraceptive, 0.35 mg tablet TAKE 1 TABLET BY MOUTH EVERY DAY - START DAY 1 OF MENTRUAL CYCLE amoxicillin-clavulanate potassium (AUGMENTIN) 875-125 mg per tablet Take 1 tablet by mouth two times a day for 10 days. predniSONE (DELTASONE) 20 mg tablet Take 2 tablets by mouth once daily for 4 days. FAMILY HISTORY Problem Relation Age of Onset Cancer Mother breast Heart Father irregular heartbeat Stroke Paternal Grandmother H (more content not included)... Normal [facility] Absolute lymphocyte countOrd ered By: Dereje Hill on 07-05-2023 Lymphocytes Auto (Unsp spec) [#/Vol] 1.79 10*3/uL 0.83-4.51 [facility] Automated lymphocyte count a s percentage of total leukocytesOrdered By: Dereje Hill on 07-05-2023 Lymphocytes/100 WBC Auto (Unsp spec) 21.4 % 19-41 [facility] Basophil percentageOrdered B y: Dereje Hill on 07-05-2023 Basophils/100 WBC (Bld) 0.5 % 0-1 [facility] Eosinophils/100 WBC (Bld) 1.8 % 0-5 [facility] Hemoglobin (Bld) [Mass/Vol] 13.7 g/dL 12.0-15.0 [facility] Monocytes/100 WBC (Bld) 8.9 % 0-10 [facility] Neutrophils (Bld) [#/Vol] 5.6 10*3/uL 2.0-7.7 [facility] Neutrophils/100 WBC (Bld) 66.8 % 47-70 [facility] WBC (Bld) [#/Vol] 8.4 10*3/uL 4.4-11.0 [facility] Determination of erythrocyte mean corpuscular volume (MCV)Ordered By: Dereje Hill on 07-05-2023 MCV (RBC) [Entitic vol] 90.1 fL 81-99 [facility] Erythrocyte distribution wid th ratioOrdered By: Dereje Hill on 07-05-2023 Erythrocyte distribution width (RBC) [Ratio] 14.0 % 11.6-14.6 [facility] Erythrocyte distribution wid th standard deviationOrdered By: Dereje Hill on 07-05-2023 Erythrocyte distribution width (RBC) [Entitic vol] 45.8 fL 35.1-43.9 [facility] Hematocrit Auto (Bld) [Volum e fraction]Ordered By: Dereje Hill on 07-05-2023 Hematocrit (Bld) [Volume fraction] 41.9 % 37-47 [facility] Immature granulocytes/100 WB C Auto (Bld)Ordered By: Dereje Hill on 07-05-2023 Immature granulocytes/100 WBC (Bld) 0.600 % 0.0-0.9 [facility] Comment on above: IG% - Immature Granu locytes (promyelocytes, myelocytes and metamyelocytes) > 1% indicates that a LEFT SHIFT is Present. Laboratory - Hematology and Cell countsOrdered By: Dereje Hill on 07-05-2023 MCH (RBC) [Entitic mass] 29.5 pg 27.0-32.0 [facility] MCHC (RBC) [Mass/Vol] 32.7 g/dL 32-36 [facility] Nucleated RBC/100 WBC (Bld) [Ratio] 0 % 0-5 [facility] Platelet mean volume (Bld) [Entitic vol] 9.6 fL 6.2-12.0 [facility] Platelets (Bld) [#/Vol] 282 10*3/uL 150-450 [facility] RBC Auto (Bld) [#/Vol]Ordere d By: Dereje Hill on 07-05-2023 RBC (Bld) [#/Vol] 4.65 10*6/uL 4.2-5.4 [facility] Serum or plasma thyroid stim ulating hormone (TSH) measurement (units/volume)Ordered By: Dereje Hill on 07-05-2023 TSH Qn 4.73 uIU/mL 0.358-3.74 [facility] Thin prep Papanicolaou smear with manual screeningOrdered By: Dereje Hill on 07-05-2023 Thin prep Papanicolaou smear with manual screening 1.07 ng/dL 0.76-1.46 [facility] CNOVon 07-04-2023 CNOV Office Visit (UCWSTR ) ROBERT LEBLANC ([id number]) 1985 F Date Time Provider Department 07/04/23 5:30 PM KRISTIN QUEEN [facility] During your visit today, we recorded the following information about you: Temperature Pulse Respiration Blood pressure 98.7 degrees 91/minute 18/minute 118/74 Weight 134.9 kg Kristin Queen APRN.AUTOMATIC TOE LASTER 07/04/2023 6:07 PM Signed CC: Patient presents with: Ear Pain: Bilateral ear pain x 3 days HPI: Robert Leblanc is a 38 year old female who presents to the office with complaint of cough, nonproductive, sinus symptoms, and ear symptoms for a few days. Symptoms are staying the same. Associated symptoms includes ear pain. Denies fever, nausea, vomiting , and diarrhea. Treatments tried include nothing so far. with no relief of symptoms. Sick contacts: unknown. History of asthma, frequent episodes of bronchitis, chronic bronchitis, bronchiectasis or COPD: No Smoker: No Seasonal/environmental allergies: No The ROS is otherwise negative. The patient's pmh, medications, allergies, and past visits are reviewed. PHYSICAL EXAM: BP 118/74 Pulse 91 Temp 37.1 ?C (98.7 ?F) (Tympanic) Resp 18 Wt 134.9 kg (297 lb 6.4 oz) LMP 05/15/2023 (Approximate) SpO2 99% BMI 50.26 kg/m? General appearance: alert, cooperative, pleasant, in no acute distress Head: Normocephalic Eyes: EOM's intact, conjunctiva pink and moist, no icterus, sclera white, non-injected Ears: Right ear: External ear/canal- Normal, TM - clear with moderate clear fluid noted. Left ear: External ear/canal- Normal, TM - clear with moderate clear fluid noted. Oropharynx:moderate erythema, with exudates present Heart: Negative. RRR without obvious murmur, gallop, or rubs. No ectopy. Lungs: clear to auscultation, without rales or wheeze, good air exchange PAST MEDICAL HISTORY Diagnosis Date Abnormal Pap smear of cervix PCOS (polycystic ovarian syndrome) Rh negative status during 06/10/2014 PAST SURGICAL HISTORY Procedure Laterality Date VAGINOSCOPY ALLERGIES Red Dye and Valium [Diazepam] MEDICATIONS FLUoxetine (PROZAC) 20 mg capsule 20 mg once daily. SYNTHROID 125 mcg tablet Take 1 tablet by mouth every afternoon. Norethindrone, Contraceptive, 0.35 mg tablet TAKE 1 TABLET BY MOUTH EVERY DAY - START DAY 1 OF MENTRUAL CYCLE FAMILY HISTORY Problem Relation Age of Onset Cancer Mother breast Heart Father irregular heartbeat Stroke Paternal Grandmother Hypertension Paternal Grandmother Cancer Paternal Grandmother Aneurysm Maternal Grandmother brain Cancer Maternal Grandmother Heart Maternal Grandfather Diabetes Maternal Grandfather Colon Cancer Maternal Grandfather Heart Paternal Grandfather Heart Brother tachycardia Social History Tobacco Use Smoking status: Never Smokeless tobacco: Never Vaping Use Vaping Use: Never used Substance Use Topics Alcohol use: No Comment: not while Drug use: No ASSESSMENT/PLAN: 1. Throat discomfort - ICD9: 784.1, ICD10: R07.0 (primary diagnosis) 2. Otalgia of both ears - ICD9: 388.70, ICD10: H92.03 - AMOXICILLIN 875 MG TABLET 3. Sinus congestion - ICD9: 478.19, ICD10: R09.81 - FLUTICASONE PROPIONATE 50 MCG/ACTUATION NASAL SPRAY,SUSPENSION - AMOXICILLIN 875 MG TABLET - safety net antibiotic Strep neg Prescription instructions reviewed with patient as applicable. Potential red flag symptoms discussed with the patient. Reviewed appropriate action plan to take if red flag symptoms occur. Patient agreeable to treatment plan. Kristin Queen APRN.AUTOMATIC TOE LASTER Referring Provider: SELF [[id number]] Allergies As of Date: 07/04/2023 Noted Allergy Reaction RED DYE 04/04/2019 11 - Vomiting VALIUM (DIAZEPAM) 06/07/2014 5 - Intolerance Comments: Hyper Date Reviewed: 07/04/2023 Reviewed by: Debra De La Fuente LPN - Fully Assessed Reason for Visit: Ear Pain [817] Cmt: Bilateral ear pain x 3 days Primary Visit Diagnosis:Throat discomfort [R07.0] Other Visit Diagnoses:Otalgia of both ears [H92.03] Sinus congestion [R09.81] Order(s):fluticasone (FLONASE) 50 mcg/actuation nasal sprayUse 2 Sprays in each nostril once daily. Rinse mouth after use.Disp: 1 EachRfl: 0 STREP A MOLECULAR (POC) [[id number]] Order #: [id number]. #:[id number] amoxicillin (AMOXIL) 875 mg tabletTake 1 tablet by mouth two times a day for 7 days.Disp: 14 tabletRfl: 0 Prescriptions as of 07/04/2023 - fluticasone (FLONASE) 50 mcg/actuation nasal spray Use 2 Sprays in each nostril once daily. Rinse mouth after use. - amoxicillin (AMOXIL) 875 mg tablet Take 1 tablet by mouth two times a day for 7 days. - FLUoxetine (PROZAC) 20 mg capsule 20 mg once daily. - SYNTHROID 125 mcg tablet Take 1 tablet by mouth every afternoon. - Norethindrone, Contraceptive, 0.35 mg tablet TAKE 1 TABLET BY MOUTH EVERY DAY - START DAY (more content not included)... Normal [facility] CNOVon 06-05-2023 CNOV Office Visit (MMAS ) ROBERT LEBLANC ([id number]) 1985 F Date Time Provider Department 06/05/23 9:10 AM HENRI COTTRELL During your visit today, we recorded the following information about you: Temperature Pulse Respiration Blood pressure 98.2 degrees 78/minute 20/minute 126/82 Last Period 05/15/23 Henri Cottrell PA-C 06/05/2023 9:42 AM Signed Robert Leblanc is a 38 year old FEMALE who presents with No chief complaint on file. HPI Patient presents to the urgent care for a chief complaint of cough and congestion over the last 2 weeks no report of any recent fevers or chills no vomiting or diarrhea no shortness of breath or chest pain. Patient does admit to a semiproductive cough runny stuffy nose. Has taken Robitussin and NyQuil and DayQuil to no resolve. She also does complain of postnasal drip. No reported history of asthma COPD or pneumonia. PAST MEDICAL HISTORY Diagnosis Date Abnormal Pap smear of cervix PCOS (polycystic ovarian syndrome) Rh negative status during 06/10/2014 ACTIVE PROBLEM LIST (none) - all problems resolved or deleted Current Outpatient Medications Medication Sig Dispense Refill Norethindrone, Contraceptive, 0.35 mg tablet TAKE 1 TABLET BY MOUTH EVERY DAY - START DAY 1 OF MENTRUAL CYCLE Phentermine HCl 37.5 mg tablet Take 37.5 mg by mouth once daily. FLUoxetine (PROZAC) 20 mg capsule Take 20 mg by mouth once daily. buPROPion SR (WELLBUTRIN SR) 100 mg 12 hr tablet Take 100 mg by mouth twice daily. CALCIUM CARBONATE (TUMS ORAL) Take by mouth. VIT/IRON FUMARATE/FA ( ORAL) Take by mouth. (Patient not taking: Reported on 01/12/2022) No current facility-administered medications for this visit. Social History Tobacco Use Smoking status: Never Smokeless tobacco: Never Substance Use Topics Alcohol use: No Comment: not while Drug use: No Alcohol Use: No (not while ) Tobacco Use: Never FAMILY HISTORY Problem Relation Age of Onset Cancer Mother breast Heart Father irregular heartbeat Stroke Paternal Grandmother Hypertension Paternal Grandmother Cancer Paternal Grandmother Aneurysm Maternal Grandmother brain Cancer Maternal Grandmother Heart Maternal Grandfather Diabetes Maternal Grandfather Colon Cancer Maternal Grandfather Heart Paternal Grandfather Heart Brother tachycardia Review of Systems Constitutional: Negative for chills and fever. HENT: Positive for congestion. Negative for ear pain. Eyes: Negative. Respiratory: Positive for cough and sputum production. Negative for shortness of breath, wheezing and stridor. Cardiovascular: Negative. Gastrointestinal: Negative. Genitourinary: Negative. Skin: Negative. Neurological: Negative. LMP 01/07/2022 Physical Exam Vitals and nursing note reviewed. Constitutional: General: She is not in acute distress. Appearance: Normal appearance. She is toxic-appearing. She is not ill-appearing. HENT: Head: Normocephalic and atraumatic. Right Ear: Tympanic membrane normal. Left Ear: Tympanic membrane normal. Nose: Nose normal. Mouth/Throat: Mouth: Mucous membranes are moist. Pharynx: No oropharyngeal exudate or posterior oropharyngeal erythema. Cardiovascular: Rate and Rhythm: Normal rate and regular rhythm. Pulses: Normal pulses. Heart sounds: Normal heart sounds. Pulmonary: Effort: Pulmonary effort is normal. Breath sounds: Normal breath sounds. Musculoskeletal: Cervical back: Normal range of motion and neck supple. No tenderness. Comments: Presence of costochondritis with palpation of left sternal border Neurological: General: No focal deficit present. Mental Status: She is alert and oriented to person, place, and time. Psychiatric: Mood and Affect: Mood normal. Behavior: Behavior normal. Believe patient may be suffering from bronchitis patient replaced on doxycycline Tessalon Perles along with prednisone burst I did advise if any worsening symptoms the patient may return to urgent care for reevaluation and at that time would recommend chest x-ray any signs of respiratory distress such as shortness of breath patient is to go to the ED or call 911. I did also advise patient if no regression of symptoms in 1 week patient also may return to urgent care for reevaluation at that time would recommend chest x-ray. Patient verbalized understanding and is agreeable to plan ASSESSMENT/PLAN: 1. Upper respiratory tract infection, unspecified type - ICD9: 465.9, ICD10: J06.9 - Discussed viral etiology and rationale for treatment. - Symptomatic treatment with prn analgesia - Supportive care with fluids and rest - DOXYCYCLINE HYCLATE 100 MG TABLET - BENZONATATE 100 MG CAPSULE - METHYLPREDNISOLONE 4 MG TABLETS IN A DOSE PACK BERNARDO Hewitt Anthony, PA-C 06/05/2023 9:41 AM [place] (more content not included)... Normal [facility] Laboratory - Chemistry and C hemistry - challengeOrdered By: Dereje Hill on 04-04-2023 Free T4 [Mass/Vol] 1.02 ng/dL 0.76-1.46 [facility] No Panel InformationOrdered By: Dereje Hill on 04-04-2023 Thyroid Stimulating Hormone (TSH) 1.51 uIU/mL 0.358-3.74 [facility] Basophil percentageOrdered B y: Dereje Hill on 11-15-2022 Bilirubin [Mass/Vol] 0.60 mg/dL 0.20-1.00 [facility] Comment on above: For patients on eltr ombopag therapy, use of Dimension Mullins TBIL is not recommended. Chloride [Moles/Vol] 111 mmol/L 98-107 [facility] Glucose [Mass/Vol] 85 mg/dL 74-106 [facility] Potassium [Moles/Vol] 3.7 mmol/L 3.5-5.1 [facility] Protein [Mass/Vol] 7.8 g/dL 6.4-8.2 [facility] Sodium [Moles/Vol] 138 mmol/L 136-145 [facility] Laboratory - Chemistry and C hemistry - challengeOrdered By: Dereje Hill on 11-15-2022 ALP [Catalytic activity/Vol] 67 U/L 45-117 [facility] ALT [Catalytic activity/Vol] 27 U/L 13-56 [facility] CO2 [Moles/Vol] 21.0 mmol/L 21.0-32.0 [facility] Free T4 [Mass/Vol] 1.35 ng/dL 0.76-1.46 [facility] Globulin (S) [Mass/Vol] 3.9 g/dL 2.2-4.2 [facility] Urea nitrogen/Creatinine [Mass ratio] 13.0 mg/mg 10-20 [facility] No Panel InformationOrdered By: Dereje Hill on 11-15-2022 Estimated GFR (MDRD) Amer 86 mL/min >60 [facility] Comment on above: GFR Calc Estimated GFR (MDRD) Non-Af Amer 71 mL/min >60 [facility] Comment on above: Non- GFR Calc Thyroid Stimulating Hormone (TSH) 0.60 uIU/mL 0.358-3.74 [facility] Vitamin D 25-Hydroxy 34.1 ng/mL [facility] Comment on above: Vitamin D 25(OH) Sta tus Range Deficiency <20 ng/mL (50nmol/L) Insufficiency 20 - 30 ng/mL (50 - 75 nmol/L) Sufficiency 30 - 100 ng/mL (75 - 250 nmol/L) Toxicity >100 ng/mL (>250 nmol/L) Serum or plasma albumin emmie urement (mass/volume)Ordered By: Dereje Hill on 11-15-2022 Albumin [Mass/Vol] 3.9 g/dL 3.2-5.0 [facility] Serum or plasma albumin/glob ulin mass ratioOrdered By: Dereje Hill on 11-15-2022 Albumin/Globulin [Mass ratio] 1.0 {ratio} 0.9-2.4 [facility] Serum or plasma calcium emmie urement (mass/volume)Ordered By: Dereje Hill on 11-15-2022 Calcium [Mass/Vol] 8.9 mg/dL 8.5-10.1 [facility] Serum or plasma creatinine m easurement (mass/volume)Ordered By: Dereje Hill on 11-15-2022 Creatinine [Mass/Vol] 0.93 mg/dL 0.55-1.02 [facility] Comment on above: The validity of the calculated GFR & GFRAA in patients over 70 years has not been determined. Clinical correlation is essential. Serum or plasma urea nitroge n measurement (mass/volume)Ordered By: Dereje Hill on 11-15-2022 Urea nitrogen [Mass/Vol] 12 mg/dL 7-18 [facility] Thin prep Papanicolaou smear with manual screeningOrdered By: Dereje Hill on 11-15-2022 Thin prep Papanicolaou smear with manual screening 13 U/L 15-37 [facility] Thin prep Papanicolaou smear with manual screening 6 5-15 [facility] Whole blood hemoglobin A1c/t otal hemoglobin ratio (mass fraction)Ordered By: Dereje Hill on 11-15-2022 HbA1c (Bld) [Mass fraction] 5.3 % 3.8-5.6 [facility] Comment on above: Normal < 5.7 % Predi abetic 5.7 - 6.4 % Diabetic >or= 6.5 % Please note range changes. Laboratory - Chemistry and C hemistry - challengeOrdered By: Dr. Chiu on 09-29-2022 Free T4 [Mass/Vol] 1.09 ng/dL 0.76-1.46 [facility] No Panel InformationOrdered By: Dr. Chiu on 09-29-2022 Thyroid Stimulating Hormone (TSH) 1.91 uIU/mL 0.358-3.74 [facility] Laboratory - Chemistry and C hemistry - challengeOrdered By: Dr. Chiu on 08-18-2022 Free T4 [Mass/Vol] 0.59 ng/dL 0.76-1.46 [facility] Serum or plasma thyroperoxid ase antibody assay (units/volume)Ordered By: Dr. Chiu on 08-18-2022 TPO Ab Qn 505 [IU]/mL 0-34 [facility] Comment on above: Performed at: [place] [id number] Director: Rodriguez Stewart PhD, Phone: [phone] Basophil percentageOrdered B y: Dr. Chiu on 08-16-2022 Chloride [Moles/Vol] 110 mmol/L 98-107 [facility] Glucose [Mass/Vol] 101 mg/dL 74-106 [facility] Comment on above: Fasting Glucose resu lt from 100 to 125 mg/dL suggests IMPAIRED HOMEOSTASIS per A.D.A. criteria. Potassium [Moles/Vol] 4.0 mmol/L 3.5-5.1 [facility] Sodium [Moles/Vol] 139 mmol/L 136-145 [facility] Laboratory - Chemistry and C hemistry - challengeOrdered By: Dr. Chiu on 08-16-2022 CO2 [Moles/Vol] 24.0 mmol/L 21.0-32.0 [facility] Urea nitrogen/Creatinine [Mass ratio] 16.5 mg/mg 10- [facility] Laboratory - Chemistry and C hemistry - challengeon 08-16-2022 HCG ( test) Ql (U) Negative [facility] No Panel InformationOrdered By: Dr. Chiu on 08-16-2022 Estimated GFR (MDRD) Amer 88 mL/min >60 [facility] Comment on above: GFR Calc Estimated GFR (MDRD) Non-Af Amer 73 mL/min >60 [facility] Comment on above: Non- GFR Calc Thyroid Stimulating Hormone (TSH) 31.80 uIU/mL 0.358-3.74 [facility] Serum or plasma calcium emmie urement (mass/volume)Ordered By: Dr. Chiu on 08-16-2022 Calcium [Mass/Vol] 9.3 mg/dL 8.5-10.1 [facility] Serum or plasma creatinine m easurement (mass/volume)Ordered By: Dr. Chiu on 08-16-2022 Creatinine [Mass/Vol] 0.91 mg/dL 0.55-1.02 [facility] Comment on above: The validity of the calculated GFR & GFRAA in patients over 70 years has not been determined. Clinical correlation is essential. Serum or plasma urea nitroge n measurement (mass/volume)Ordered By: Dr. Chiu on 08-16-2022 Urea nitrogen [Mass/Vol] 15 mg/dL 7-18 [facility] Thin prep Papanicolaou smear with manual screeningOrdered By: Dr. Chiu on 08-16-2022 Thin prep Papanicolaou smear with manual screening 5 5-15 [facility] LABORATORYOrdered By: Debra Kovacs on 07-22-2022 HCG ( test) Ql Negative (07/22/22 7:40 AM) Invalid Interpretation Code AO Manual Urine SS test (u) int Not detected Invalid Interpretation Code AO Manual Urine SS PREGUon 07-22-2022 HCG ( test) Ql (U) Negative Normal [facility] ([place]) Comment on above: Performed By: #### P REGU #### [address] [address] test (u) int Not detected Invalid Interpretation Code [facility] ([place]) Comment on above: Performed By: #### P REGU #### [address] [address] Laboratory - Chemistry and C hemistry - challengeon 07-19-2022 HCG ( test) Ql (U) Negative [facility] Basophil percentageOrdered B y: Dr. Chiu on 06-14-2022 Chloride [Moles/Vol] 110 mmol/L 98-107 [facility] Cholesterol [Mass/Vol] 217 mg/dL <200 [facility] Comment on above: <200 mg/dL Desirable 200-240 mg/dL Borderline >240 mg/dL High Risk Glucose [Mass/Vol] 97 mg/dL 74-106 [facility] Potassium [Moles/Vol] 3.6 mmol/L 3.5-5.1 [facility] Sodium [Moles/Vol] 142 mmol/L 136-145 [facility] Triglyceride [Mass/Vol] 230 mg/dL <199 [facility] Comment on above: The drugs N-Acetylcy steine and Metamizole may falsely depress this assay.Serum Triglycerides Reference Interval Normal <150 mg/dL Borderline high 150 - 199 mg/dL High 200 - 499 mg/dL Very High > or = 500 mg/dL Laboratory - Chemistry and C hemistry - challengeOrdered By: Dr. Chiu on 06-14-2022 CO2 [Moles/Vol] 26.0 mmol/L 21.0-32.0 [facility] Urea nitrogen/Creatinine [Mass ratio] 12.2 mg/mg 10-20 [facility] No Panel InformationOrdered By: Dr. Chiu on 06-14-2022 Estimated GFR (MDRD) Amer 99 mL/min >60 [facility] Comment on above: GFR Calc Estimated GFR (MDRD) Non-Af Amer 82 mL/min >60 [facility] Comment on above: Non- GFR Calc Serum or plasma calcium emmie urement (mass/volume)Ordered By: Dr. Chiu on 06-14-2022 Calcium [Mass/Vol] 8.8 mg/dL 8.5-10.1 [facility] Serum or plasma cholesterol in HDL measurement (mass/volume)Ordered By: Dr. Chiu on 06-14-2022 Cholesterol in HDL [Mass/Vol] 48 mg/dL >40 [facility] Comment on above: The drugs N-Acetylcy steine and Metamizole may falsely depress this assay. Reference Range HDL <40 mg/dL Low HDL Cholesterol HDL >or= 60 mg/dL High HDL Cholesterol Serum or plasma cholesterol in VLDL measurement (mass/volume)Ordered By: Dr. Chiu on 02-06-2023 Cholesterol in VLDL [Mass/Vol] 46 mg/dL 5-40 [facility] Serum or plasma choriogonado tropin detectionOrdered By: Dr. Chiu on 06-14-2022 HCG ( test) Ql < 1 mIU/mL <4 [facility] Comment on above: hCG levels with Gest ational AgeGestational Age hCG mIU/mL (IU/L)0.2 - 1 week 5 - 501-2 weeks 50 - 5002-3 weeks 100 - 37753-9 weeks 500 - 660288-5 weeks 1000 - 484237-4 weeks 69630 - 100,0006-8 weeks 59077 - 200,0002-3 months 21296 - 100,000 Serum or plasma creatinine m easurement (mass/volume)Ordered By: Dr. Chiu on 06-14-2022 Creatinine [Mass/Vol] 0.82 mg/dL 0.55-1.02 [facility] Comment on above: The validity of the calculated GFR & GFRAA in patients over 70 years has not been determined. Clinical correlation is essential. Serum or plasma low density lipoprotein (LDL) cholesterol measurement (mass/volume)Ordered By: Dr. Chiu on 06-14-2022 Cholesterol in LDL [Mass/Vol] 123 mg/dL 0-130 [facility] Serum or plasma urea nitroge n measurement (mass/volume)Ordered By: Dr. Chiu on 06-14-2022 Urea nitrogen [Mass/Vol] 10 mg/dL 7-18 [facility] Thin prep Papanicolaou smear with manual screeningOrdered By: Dr. Chiu on 06-14-2022 Thin prep Papanicolaou smear with manual screening 6 5-15 [facility] Whole blood hemoglobin A1c/t otal hemoglobin ratio (mass fraction)Ordered By: Dr. Chiu on 06-14-2022 HbA1c (Bld) [Mass fraction] 5.6 % 3.8-5.6 [facility] Comment on above: Normal < 5.7 % Predi abetic 5.7 - 6.4 % Diabetic >or= 6.5 % Please note range changes. Absolute lymphocyte countOrd ered By: Dr. Chiu on 03-13-2022 Lymphocytes Auto (Unsp spec) [#/Vol] 2.10 10*3/uL 0.83-4.51 [facility] Basophil percentageOrdered B y: Dr. Chiu on 03-13-2022 Basophils/100 WBC (Bld) 0.7 % 0-1 [facility] Eosinophils/100 WBC (Bld) 2.4 % 0-5 [facility] Neutrophils (Bld) [#/Vol] 4.2 10*3/uL 2.0-7.7 [facility] Neutrophils/100 WBC (Bld) 59.2 % 47-70 [facility] WBC (Bld) [#/Vol] 7.1 10*3/uL 4.4-11.0 [facility] Blood erythrocytes count (nu mber/volume)Ordered By: Dr. Chiu on 03-13-2022 RBC (Bld) [#/Vol] 4.52 10*6/uL 4.2-5.4 [facility] Blood hemoglobin measurement (mass/volume)Ordered By: Dr. Chiu on 03-13-2022 Hemoglobin (Bld) [Mass/Vol] 13.4 g/dL 12.0-15.0 [facility] Blood lymphocytes/100 leukoc ytesOrdered By: Dr. Chiu on 03-13-2022 Lymphocytes/100 WBC (Bld) 29.4 % 19-41 [facility] Blood monocytes/100 leukocyt esOrdered By: Dr. Chiu on 03-13-2022 Monocytes/100 WBC (Bld) 8.0 % 0-10 [facility] Blood platelet mean volumeOr dered By: Dr. Chiu on 03-13-2022 Platelet mean volume (Bld) [Entitic vol] 9.9 fL 6.2-12.0 [facility] Determination of erythrocyte mean corpuscular volume (MCV)Ordered By: Dr. Chiu on 03-13-2022 MCV (RBC) [Entitic vol] 91.4 fL 81-99 [facility] Hematocrit Auto (Bld) [Volum e fraction]Ordered By: Dr. Chiu on 03-13-2022 Hematocrit (Bld) [Volume fraction] 41.3 % 37-47 [facility] Iron measurement (mass/mass) Ordered By: Dr. Chiu on 03-13-2022 Iron (Unsp spec) [Mass/Mass] 60 ug/dL 50-170 [facility] Laboratory - Hematology and Cell countsOrdered By: Dr. Chiu on 03-13-2022 Erythrocyte distribution width (RBC) [Entitic vol] 46.3 fL 35.1-43.9 [facility] Erythrocyte distribution width (RBC) [Ratio] 13.9 % 11.6-14.6 [facility] Immature granulocytes/100 WBC (Bld) 0.300 % 0.0-0.9 [facility] Comment on above: IG% - Immature Granu locytes (promyelocytes, myelocytes and metamyelocytes) > 1% indicates that a LEFT SHIFT is Present. MCH (RBC) [Entitic mass] 29.6 pg 27.0-32.0 [facility] Nucleated RBC/100 WBC (Bld) [Ratio] 0 % 0-5 [facility] MCHC Auto (RBC) [Mass/Vol]Or dered By: Dr. Chiu on 03-13-2022 MCHC (RBC) [Mass/Vol] 32.4 g/dL 32-36 [facility] No Panel InformationOrdered By: Dr. Chiu on 03-13-2022 Total Iron Binding Capacity 363 ug/dL 250-450 [facility] Vitamin D 25-Hydroxy 28.0 ng/mL [facility] Comment on above: Vitamin D 25(OH) Sta tus Range Deficiency <20 ng/mL (50nmol/L) Insufficiency 20 - 30 ng/mL (50 - 75 nmol/L) Sufficiency 30 - 100 ng/mL (75 - 250 nmol/L) Toxicity >100 ng/mL (>250 nmol/L) Platelets bldOrdered By: Dr. Chiu on 03-13-2022 Platelets (Bld) [#/Vol] 277 10*3/uL 150-450 [facility] Serum or plasma ferritin ghassan surement (mass/volume)Ordered By: Dr. Chiu on 03-13-2022 Ferritin [Mass/Vol] 41 ng/mL 8-252 [facility] UA DIP, URINE (POC)on 2021 BILIRUBIN UA (POCT) Negative Negative [facility] CLARITY UA (POCT) Clear [facility] COLOR UA (POCT) Yellow [facility] GLUCOSE UA (POCT) Negative Negative mg/dL [facility] HEMOGLOBIN/BLOOD UA (POCT) Moderate Abnormal Negative [facility] KETONE UA (POCT) Trace Negative mg/dL [facility] LEUKOCYTES UA (POCT) Trace Abnormal Negative [facility] NITRITE UA (POCT) Negative Negative [facility] PH UA (POCT) 7.0 4.5 - 8.0 [facility] Protein Ql (U) 30 mg/dL Abnormal Negative mg/dL [facility] SPECIFIC GRAVITY UA (POCT) 1.020 1.005 - 1.030 [facility] UROBILINOGEN UA (POCT) 0.2 E.U./dL Normal E.U./dL [facility] No Panel Informationon 11-30 Miscellaneous Test Comment MAILED SPECIMEN [facility] Work Phone: Progress Noteon 07-01-2020 Fabrication Operator Authentication Interface Message Text We had the pleasure of seeing Robert Leblanc in the Heart Clinic at the [facility] at [facility] on 07/01/2020. Mrs. Leblanc is a 35 y.o. woman who is currently at 23 4/7 weeks of gestation seen in consultation for maternal obesity and suboptimal cardiac views at the request of [facility]. On review of obstetric history, Mrs. Leblanc is 5 para 2 with estimated due date 10/24/2020. The is associated with increased risk of trisomy 13 or 18 on screening. Past medical history was reviewed and is significant for depression, anxiety, and obesity. Current medications are vitamins and Prozac. There are allergies to diazepam and barium containing contrast. Family history was reviewed and is negative for congenital heart disease. On review of social history, Robert Leblanc lives with her family in [place], [place]. Today's echocardiogram demonstrated: SUMMARY: 1. Technically difficult study due to maternal habitus. 2. Normal echocardiogram. 3. This study is limited in evaluating minor valve abnormalities, septal defects, partial anomalous pulmonary venous connection, and aortic arch abnormalities. 4. The above findings, including the limitations, were discussed with the patient. REASON FOR EXAM: Suboptimal cardiac views. STUDY AND PROCEDURE DATA: Procedure Description: New ([id number]) . Study status: Routine. Location: Echo laboratory. Procedure: Transabdominal echocardiography for congenital heart disease evaluation. Patient status: Outpatient. Maternal age: 35yr. : 5. Parity: 2. Expected delivery date: 10/24/2020. Gestational age: 23wk. Trimester: 2nd trimester. FINDINGS: DESCRIPTION One fetus is present. Normal three vessel view. The rhythm is sinus rhythm, with a heart rate of 148bpm. The position is vertex. Normal Doppler pattern of the umbilical artery and vein. Three vessel cord. ANATOMIC RELATIONSHIPS - Normal visceral situs, with left sided stomach. Left sided cardiac apex (levocardia).Normally related great vessels. VEINS AND ATRIA Atrial septum - There is a patent foramen ovale. There is a [id number] shunt. Left atrium - The atrium is normal in size. Right atrium - The atrium is normal in size. Systemic veins - Inferior vena cava and superior vena cava seen entering normally into the right atrium. Pulmonary veins: There are at least 2 out of 4 pulmonary veins seen entering normally into the left atrium, with normal Doppler pattern. A-V CANAL Tricuspid valve - There is normal biphasic inflow spectral Doppler. There is no regurgitation. Mitral valve - There is normal biphasic inflow spectral Doppler. There is no regurgitation. VENTRICLES Right ventricle - The cavity size is normal. Wall thickness is normal. Systolic function is qualitatively normal. Left ventricle - The cavity size is normal. Wall thickness is normal. Systolic function is quantitatively normal. The endocardial fractional shortening (MM) is 49%. CONOTRUNCUS Aortic valve - There is no stenosis. There is no insufficiency. Pulmonic valve - There is no stenosis. There is no insufficiency. GREAT ARTERIES Aorta - Left aortic arch and normal branching pattern is demonstrated. Normal ductal arch seen. Normally related great arteries. Pulmonary arteries - The proximal branch pulmonary arteries are normal. - Main pulmonary artery: The artery is of normal size. Systemic-pulmonary shunts - Patent ductus arteriosus. Normal pulsed wave Doppler pattern. PERICARDIUM - There is no significant pericardial effusion. Impression: Following the echocardiogram, I met with Mr. Leblanc to discuss today's findings and recommendations for which I spent 30 minutes in face to face conversation. I reviewed the normal cardiac anatomy, and explained that there is no evidence of significant cardiac disease in the fetus. I discussed the association of congenital heart disease with trisomy if confirmed. I explained the limitations of echocardiography in general, including our inability to rule out mild valve abnormalities, smaller VSDs, and persistent patency of the ductus arteriosus or the interatrial communication after . Recommendations: Given the normal findings today, we have not made a follow up appointment for Mrs. Leblanc in the Heart Clinic. However, should any new concerns arise about the baby's heart either before or after delivery, we would be more than happy to reevaluate the baby at that time. Should trisomy be confirmed (more content not included)... 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 Consent to share information with [facility] team, OB and machine brush maker signed. Pt plans to deliver at [place] with Dr Chiu. Reinforcing Bar Setter is Dr Turpin at [facility]. female fetus- name is not yet decided Method of feeding: bottle Ultrasound findings today: See report in procedures for details. Reinforced continued OB care with Dr Chiu Normal [facility] Progress Noteon 05-08-2020 Fabrication Operator Authentication Interface Message Text Dating and hx for consult Normal [facility] Vital Signs Date Time Vital Sign Value Performing Clinician Facility 08-23-2024 10:040 Body height 162.56 cm No Primary Care Physician [facility] 08-23-2024 10:21-0400 Body mass index (BMI) [Ratio] 51.7 kg/m2 No Primary Care Physician [facility] 08-23-2024 10:0400 Body weight 136.64 kg No Primary Care Physician [facility] 08-23-2024 10:21-0400 Diastolic blood pressure 74 mm[Hg] No Primary Care Physician [facility] 08-23-2024 10:040 Heart rate 77 /min No Primary Care Physician [facility] 08-23-2024 10:21-0400 SaO2% (BldA) [Mass fraction] 98 % No Primary Care Physician [facility] 08-23-2024 10:210400 Systolic blood pressure 107 mm[Hg] No Primary Care Physician [facility] 06-12-2024 13:33-0500 Body mass index (BMI) [Ratio] 51.23 kg/m2 Krislyn Aberegg PA Work Phone: [facility] 06-12-2024 13:33-0500 Body temperature 98.01 [degF] Krislyn Aberegg PA Work Phone: [facility] 06-12-2024 13:33-0500 Body weight 137.5 kg Krislyn Aberegg PA Work Phone: [facility] 06-12-2024 13:33-0500 Diastolic blood pressure 70 mm[Hg] Krislyn Aberegg PA Work Phone: [facility] 06-12-2024 13:33-0500 Heart rate 100 /min Krislyn Aberegg PA Work Phone: [facility] 06-12-2024 13:33-0500 Respiratory rate 18 /min Krislyn Aberegg PA Work Phone: [facility] 06-12-2024 13:33-0500 SaO2% (BldA) [Mass fraction] 99 % Randall MONACO Work Phone: [facility] 06-12-2024 13:33-0500 Systolic blood pressure 126 mm[Hg] Randall Samaniego PA Work Phone: [facility] 05-30-2024 09:47-0500 Body mass index (BMI) [Ratio] 52.7 kg/m2 No Primary Care Physician [facility] 05-30-2024 09:47-0500 Body weight 139.25 kg No Primary Care Physician [facility] 05-30-2024 09:47-0500 Diastolic blood pressure 53 mm[Hg] No Primary Care Physician [facility] 05-30-2024 09:47-0500 Heart rate 83 /min No Primary Care Physician [facility] 05-30-2024 09:47-0500 Respiratory rate 16 /min No Primary Care Physician [facility] 05-30-2024 09:47-0500 Systolic blood pressure 117 mm[Hg] No Primary Care Physician [facility] 01-20-2024 11:58-0400 Body mass index (BMI) [Ratio] 49.89 kg/m2 Rob Stone DERRICK BOAT OPERATOR.AUTOMATIC TOE LASTER Work Phone: [facility] 01-20-2024 11:58-0400 Body temperature 98.29 [degF] Rob Stone DERRICK BOAT OPERATOR.AUTOMATIC TOE LASTER Work Phone: [facility] 01-20-2024 11:58-0400 Body weight 133.9 kg Rob Stone DERRICK BOAT OPERATOR.AUTOMATIC TOE LASTER Work Phone: [facility] 01-20-2024 11:58-0400 Diastolic blood pressure 68 mm[Hg] Rob Stone DERRICK BOAT OPERATOR.AUTOMATIC TOE LASTER Work Phone: [facility] 01-20-2024 11:58-0400 Heart rate 82 /min Rob Stone DERRICK BOAT OPERATOR.AUTOMATIC TOE LASTER Work Phone: [facility] 01-20-2024 11:58-0400 Respiratory rate 20 /min Rob Stone DERRICK BOAT OPERATOR.AUTOMATIC TOE LASTER Work Phone: [facility] 01-20-2024 11:58-0400 SaO2% (BldA) [Mass fraction] 98 % Rob Chase DERRICK BOAT OPERATOR.AUTOMATIC TOE LASTER Work Phone: [facility] 01-20-2024 11:58-0400 Systolic blood pressure 121 mm[Hg] Rob Teranlebury DERRICK BOAT OPERATOR.AUTOMATIC TOE LASTER Work Phone: [facility] 07-27-2023 18:46-0400 Body temperature 99 [degF] Natali Praisler-Wood DERRICK BOAT OPERATOR.AUTOMATIC TOE LASTER Work Phone: [facility] 07-27-2023 18:46-0400 Body weight 136.1 kg Natali Praisler-Wood DERRICK BOAT OPERATOR.AUTOMATIC TOE LASTER Work Phone: [facility] 07-27-2023 18:46-0400 Diastolic blood pressure 78 mm[Hg] Natali Praisler-Wood DERRICK BOAT OPERATOR.AUTOMATIC TOE LASTER Work Phone: [facility] 07-27-2023 18:46-0400 Heart rate 100 /min Natali Praisler-Wood DERRICK BOAT OPERATOR.AUTOMATIC TOE LASTER Work Phone: [facility] 07-27-2023 18:46-0400 Respiratory rate 19 /min Natali Praisler-Wood DERRICK BOAT OPERATOR.AUTOMATIC TOE LASTER Work Phone: [facility] 07-27-2023 18:46-0400 SaO2% (BldA) [Mass fraction] 98 % Natali Praisler-Wood DERRICK BOAT OPERATOR.AUTOMATIC TOE LASTER Work Phone: [facility] 07-27-2023 18:46-0400 Systolic blood pressure 120 mm[Hg] Natali Praisler-Wood DERRICK BOAT OPERATOR.AUTOMATIC TOE LASTER Work Phone: [facility] 07-05-2023 08:26-0500 Body height 162.56 cm No Primary Care Physician [facility] 07-05-2023 08:26-0500 Body mass index (BMI) [Ratio] 51.3 kg/m2 No Primary Care Physician [facility] 07-05-2023 08:26-0500 Body temperature 98.7 [degF] No Primary Care Physician [facility] 07-05-2023 08:26-0500 Body weight 135.68 kg No Primary Care Physician [facility] 07-05-2023 08:26-0500 Diastolic blood pressure 76 mm[Hg] No Primary Care Physician [facility] 07-05-2023 08:26-0500 Heart rate 82 /min No Primary Care Physician [facility] 07-05-2023 08:26-0500 Respiratory rate 18 /min No Primary Care Physician [facility] 07-05-2023 08:26-0500 SaO2% (BldA) [Mass fraction] 97 % No Primary Care Physician [facility] 07-05-2023 08:26-0500 Systolic blood pressure 126 mm[Hg] No Primary Care Physician [facility] 06-05-2023 09:18-0500 Body temperature 98.2 [degF] Henri Demetro PA-C Work Phone: [facility] 06-05-2023 09:18-0500 Diastolic blood pressure 82 mm[Hg] Henri Demetro PA-C Work Phone: [facility] 06-05-2023 09:18-0500 Heart rate 78 /min Henri Demetro PA-C Work Phone: [facility] 06-05-2023 09:18-0500 Respiratory rate 20 /min Henri Demetro PA-C Work Phone: [facility] 06-05-2023 09:18-0500 SaO2% (BldA) [Mass fraction] 99 % Henri Demetro PA-C Work Phone: [facility] 06-05-2023 09:18-0500 Systolic blood pressure 126 mm[Hg] Henri Demetro PA-C Work Phone: [facility] 12-03-2022 13:59-0400 Body height 162.[address] Madelyn Pham Work Phone: [facility] 12-03-2022 13:59-0400 Body mass index (BMI) [Ratio] 43.9 kg/m2 Dr. Madelyn Pham Work Phone: [facility] 12-03-2022 13:59-0400 Body weight 116.[address] Madelyn Pham Work Phone: [facility] 12-03-2022 13:59-0400 Diastolic blood pressure 79 mm[Hg] Dr. Madelyn Pham Work Phone: [facility] 12-03-2022 13:59-0400 Systolic blood pressure 116 mm[Hg] Dr. Madelyn Pham Work Phone: [facility] 11-22-2022 11:31-0400 Body mass index (BMI) [Ratio] 44.8 kg/m2 Dr. Madelyn Pham Work Phone: [facility] 11-22-2022 11:31-0400 Body temperature 98.6 [degF] Dr. Madelyn Pham Work Phone: [facility] 11-22-2022 11:31-0400 Body weight 118.[address] Madelyn Pham Work Phone: [facility] 11-22-2022 11:31-0400 Diastolic blood pressure 76 mm[Hg] Dr. Madelyn Pham Work Phone: [facility] 11-22-2022 11:31-0400 Heart rate 80 /min Dr. Madelyn Pham Work Phone: [facility] 11-22-2022 11:31-0400 Respiratory rate 18 /min Dr. Madelyn Pham Work Phone: [facility] 11-22-2022 11:31-0400 SaO2% (BldA) [Mass fraction] 97 % Dr. Madelyn Pham Work Phone: [facility] 11-22-2022 11:31-0400 Systolic blood pressure 108 mm[Hg] Dr. Madelyn Pham Work Phone: [facility] 11-04-2022 14:10-0400 Body height 162.[address] Madelyn Pham Work Phone: [facility] 11-04-2022 14:10-0400 Body mass index (BMI) [Ratio] 45.2 kg/m2 Dr. Madelyn Pham Work Phone: [facility] 11-04-2022 14:10-0400 Body weight 119.[address] Madelyn Pham Work Phone: [facility] 11-04-2022 14:10-0400 Diastolic blood pressure 80 mm[Hg] Dr. Madelyn Pham Work Phone: [facility] 11-04-2022 14:10-0400 Heart rate 97 /min Dr. Madelyn Pham Work Phone: [facility] 11-04-2022 14:10-0400 Systolic blood pressure 117 mm[Hg] Dr. Madelyn Pham Work Phone: [facility] 10-05-2022 08:41-0400 Body height 162.[address] Madelyn Pham Work Phone: [facility] 10-05-2022 08:37-0400 Body mass index (BMI) [Ratio] 48.7 kg/m2 Dr. Madelyn Pham Work Phone: [facility] 10-05-2022 08:37-0400 Body weight 128.[address] Madelyn Pham Work Phone: [facility] 10-05-2022 08:37-0400 Diastolic blood pressure 71 mm[Hg] Dr. Madelyn Pham Work Phone: [facility] 10-05-2022 08:37-0400 Heart rate 80 /min Dr. Madelyn Pham Work Phone: [facility] 10-05-2022 08:37-0400 Systolic blood pressure 111 mm[Hg] Dr. Madelyn Pham Work Phone: [facility] 08-16-2022 11:48-0400 Body mass index (BMI) [Ratio] 46.8 kg/m2 Dr. Madelyn Pham Work Phone: [facility] 08-16-2022 11:48-0400 Body weight 123.[address] Madelyn Pham Work Phone: [facility] 08-16-2022 11:48-0400 Diastolic blood pressure 83 mm[Hg] Dr. Madelyn Pham Work Phone: [facility] 08-16-2022 11:48-0400 Systolic blood pressure 123 mm[Hg] Dr. Madelyn Pham Work Phone: [facility] 07-22-2022 09:31-0400 Diastolic Blood Pressure Non-Invasive 60 1 VY SUPPAN DPM [facility] 07-22-2022 09:31-0400 Heart rate 71 /min VY SUPPAN DPM [facility] 07-22-2022 09:31-0400 Respiratory rate 16 /min VY SUPPAN DPM [facility] 07-22-2022 09:31-0400 Systolic Blood Pressure Non-Invasive 94 1 VY SUPPAN DPM [facility] 07-22-2022 09:24-0400 Diastolic Blood Pressure Non-Invasive 56 1 VY SUPPAN DPM [facility] 07-22-2022 09:24-0400 Heart rate 79 /min VY SUPPAN DPM [facility] 07-22-2022 09:24-0400 Respiratory rate 22 /min VY SUPPAN DPM [facility] 07-22-2022 09:24-0400 Systolic Blood Pressure Non-Invasive 89 1 VY SUPPAN DPM [facility] 07-22-2022 09:21-0400 Diastolic Blood Pressure Non-Invasive 59 1 VY SUPPAN DPM [facility] 07-22-2022 09:21-0400 Heart rate 64 /min VY SUPPAN DPM [facility] 07-22-2022 09:21-0400 Respiratory rate 19 /min VY SUPPAN DPM [facility] 07-22-2022 09:21-0400 Systolic Blood Pressure Non-Invasive 97 1 VY SUPPAN DPM [facility] 07-22-2022 09:08-0400 Body temperature 96.98 [degF] VY SUPPAN DPM [facility] 07-22-2022 09:00-0400 Respiratory Rate - Anes 13 br/min VY SUPPAN DPM [facility] 07-22-2022 08:55-0400 Respiratory Rate - Anes 15 br/min VY SUPPAN DPM [facility] 07-22-2022 08:50-0400 Respiratory Rate - Anes 4 br/min VY SUPPAN DPM [facility] 07-22-2022 07:46-0400 Body height 162.3 cm VY SUPPAN DPM [facility] 07-22-2022 07:46-0400 Body temperature 97.16 [degF] VY SUPPAN DPM [facility] 07-22-2022 07:46-0400 Body weight 122.7 kg VY SUPPAN DPM [facility] 07-22-2022 07:46-0400 Heart rate 72 /min VY SUPPAN DPM [facility] 07-19-2022 11:22-0400 Body mass index (BMI) [Ratio] 47.4 kg/m2 Dr. Madelyn Pahm Work Phone: [facility] 07-19-2022 11:22-0400 Body weight 125.[address] Madelyn Pham Work Phone: [facility] 07-19-2022 11:22-0400 Diastolic blood pressure 80 mm[Hg] Dr. Madelyn Pham Work Phone: [facility] 07-19-2022 11:22-0400 Heart rate 87 /min Dr. Madelyn Pham Work Phone: [facility] 07-19-2022 11:22-0400 Systolic blood pressure 128 mm[Hg] Dr. Madelyn Pham Work Phone: [facility] 07-12-2022 14:05-0500 Blood Pressure Location VY SUPPAN DPM [facility] 07-12-2022 14:05-0500 Body height 162.6 cm VY SUPPAN DPM [facility] 07-12-2022 14:05-0500 Body weight 122.7 kg VY SUPPAN DPM [facility] 07-12-2022 14:05-0500 Body weight 46.41 kg/m2 VY SUPPAN DPM [facility] 07-12-2022 14:05-0500 Diastolic Blood Pressure Non-Invasive 72 1 VY SUPPAN DPM [facility] 07-12-2022 14:05-0500 Heart rate 82 /min VY SUPPAN DPM [facility] 07-12-2022 14:05-0500 Respiratory rate 16 /min VY MARCELO DPM [facility] 07-12-2022 14:05-0500 Systolic Blood Pressure Non-Invasive 108 1 VY MARCELO DPM [facility] 06-14-2022 12:50-0500 Body mass index (BMI) [Ratio] 47.4 kg/m2 Dr. Madelyn Pham Work Phone: [facility] 06-14-2022 12:50-0500 Body weight 125.[address] Madelyn Pham Work Phone: [facility] 06-14-2022 12:50-0500 Diastolic blood pressure 77 mm[Hg] Dr. Madelyn Pham Work Phone: [facility] 06-14-2022 12:50-0500 Heart rate 77 /min Dr. Madelyn Pham Work Phone: [facility] 06-14-2022 12:50-0500 Systolic blood pressure 114 mm[Hg] Dr. Madelyn Pham Work Phone: [facility] 05-17-2022 11:02-0500 Body mass index (BMI) [Ratio] 46.5 kg/m2 Dr. Madelyn Pham Work Phone: [facility] 05-17-2022 11:02-0500 Body weight 123.[address] Madelyn Pham Work Phone: [facility] 05-17-2022 11:02-0500 Diastolic blood pressure 87 mm[Hg] Dr. Madelyn Pham Work Phone: [facility] 05-17-2022 11:02-0500 Systolic blood pressure 128 mm[Hg] Dr. Madelyn Pham Work Phone: [facility] 04-19-2022 10:24-0500 Body mass index (BMI) [Ratio] 47.5 kg/m2 Dr. Madelyn Pham Work Phone: [facility] 04-19-2022 10:24-0500 Body weight 125.[address] Madelyn Pham Work Phone: [facility] 04-19-2022 10:24-0500 Diastolic blood pressure 74 mm[Hg] Dr. Madelyn Pham Work Phone: [facility] 04-19-2022 10:24-0500 Heart rate 72 /min Dr. Madelyn Pham Work Phone: [facility] 04-19-2022 10:24-0500 Systolic blood pressure 111 mm[Hg] Dr. Madelyn Pham Work Phone: [facility] 03-22-2022 11:22-0500 Body mass index (BMI) [Ratio] 48 kg/m2 Dr. Madelyn Pham Work Phone: [facility] 03-22-2022 11:22-0500 Body weight [address] Madelyn Pham Work Phone: [facility] 03-22-2022 11:22-0500 Diastolic blood pressure 80 mm[Hg] Dr. Madelyn Pham Work Phone: [facility] 03-22-2022 11:22-0500 Systolic blood pressure 123 mm[Hg] Dr. Madelyn Pham Work Phone: [facility] 01-12-2022 17:59-0400 Body temperature 97.59 [degF] Natali Varma-Devendra DERRICK BOAT OPERATOR.AUTOMATIC TOE LASTER Work Phone: [facility] 01-12-2022 17:59-0400 Body weight 127.91 kg Natali Prafaithler-Devendra DERRICK BOAT OPERATOR.AUTOMATIC TOE LASTER Work Phone: [facility] 01-12-2022 17:59-0400 Diastolic blood pressure 70 mm[Hg] Natali Weberler-Devendra DERRICK BOAT OPERATOR.AUTOMATIC TOE LASTER Work Phone: [facility] 01-12-2022 17:59-0400 Heart rate 64 /min Natali Praisler-Wood DERRICK BOAT OPERATOR.AUTOMATIC TOE LASTER Work Phone: [facility] 01-12-2022 17:59-0400 Respiratory rate 18 /min Natali Praisler-Wood DERRICK BOAT OPERATOR.AUTOMATIC TOE LASTER Work Phone: [facility] 01-12-2022 17:59-0400 SaO2% (BldA) [Mass fraction] 100 % Natali Praisler-Wood DERRICK BOAT OPERATOR.AUTOMATIC TOE LASTER Work Phone: [facility] 01-12-2022 17:59-0400 Systolic blood pressure 110 mm[Hg] Natali Praisler-Wood DERRICK BOAT OPERATOR.AUTOMATIC TOE LASTER Work Phone: [facility] 11-30-2021 11:04-0400 Body height 162.[address] Madelyn Pham Work Phone: [facility] Work Phone: 11-30-2021 11:04-0400 Body mass index (BMI) [Ratio] 48.2 kg/m2 Dr. Madelyn Pham Work Phone: [facility] Work Phone: 11-30-2021 11:04-0400 Body weight 127.[address] Madelyn Pham Work Phone: [facility] Work Phone: 11-30-2021 11:03-0400 Diastolic blood pressure 78 mm[Hg] Dr. Madelyn Pham Work Phone: [facility] Work Phone: 11-30-2021 11:03-0400 Systolic blood pressure 136 mm[Hg] Dr. Madelyn Pham Work Phone: [facility] Work Phone: Encounters Encounter Date Encounter Type Care Provider Facility Start: 08-28-2024 End: 08-28-2024 ambulatory No Primary Care Physician [facility] Work Phone: Start: 08-28-2024 End: 08-28-[address] Dereje Hill MD -Ultrasound, [facility] Work Phone: Start: 08-28-2024 End: 08-28-2024 ambulatory Dereje Hill Facility:[facility] Start: 08-23-2024 End: 08-23-2024 ambulatory No Primary Care Physician [facility] Work Phone: Start: 08-23-2024 End: 08-23-[address] Dereje Hill MD -[facility] Work Phone: Start: 08-23-2024 End: 08-23-2024 ambulatory Dereje Hill Facility:[facility] Start: 08-23-2024 End: 08-23-2024 ambulatory Dereje Hill Facility:[facility] Start: 06-12-2024 End: 06-12-2024 ambulatory RANDALL SAMANIEGO Facility:[facility] Start: 06-12-2024 End: 06-12-2024 Patient encounter procedure Randall Samaniego [place] Work Phone: [facility] Comment on above: Acute cough (Primary Dx); URI, acute Start: 06-12-2024 End: 06-12-2024 Subsequent hospital visit by physician Xr [facility] Work Phone: Radiology Comment on above: Acute cough [R05.1] Start: 05-30-2024 End: 05-30-[address] Blas Choe MD -[facility] Work Phone: Start: 05-30-2024 End: 05-30-2024 ambulatory Blas Choe Facility:[facility] Start: 04-12-2024 End: 04-12-2024 ambulatory No Primary Care Physician Facility:[facility] Start: 04-12-2024 End: 04-12-2024 ambulatory No Primary Care Physician Facility:[facility] Start: 02-27-2024 End: 02-27-2024 ambulatory No Primary Care Physician Facility:[facility] Start: 02-20-2024 End: 02-20-2024 ambulatory Kaylee Chiu Facility:[facility] Start: 02-20-2024 End: 02-20-2024 ambulatory No Primary Care Physician Facility:[facility] Start: 01-20-2024 End: 01-20-2024 ambulatory Facility:[facility] Start: 01-20-2024 End: 01-20-2024 Office outpatient visit 25 minutes Rob Stone APRN.AUTOMATIC TOE LASTER Work Phone: [facility] Comment on above: Acute cough (Primary Dx); Bacterial sinusitis Start: 12-09-2023 End: 12-09-2023 ambulatory Kaylee Chiu Facility:[facility] Start: 09-08-2023 End: 09-08-2023 ambulatory No Primary Care Physician [facility] Work Phone: Start: 09-08-2023 End: 09-08-2023 Patient encounter procedure No Primary Care Physician [facility] Start: 09-08-2023 End: 09-08-2023 ambulatory Phuong Munguia Facility:[facility] Start: 07-27-2023 End: 07-27-2023 ambulatory Facility:[facility] Start: 07-27-2023 End: 07-27-2023 Patient encounter procedure Natali Berman APRN.AUTOMATIC TOE LASTER Work Phone: [facility] Comment on above: Bacterial sinusitis (Primary Dx) Start: 07-05-2023 End: 07-05-2023 ambulatory No Primary Care Physician [facility] Work Phone: Start: 07-05-2023 End: 07-05-2023 Patient encounter procedure No Primary Care Physician [facility] Work Phone: Start: 07-04-2023 End: 07-04-2023 ambulatory SELF Facility:[facility] Start: 06-05-2023 End: 06-05-2023 ambulatory HENRI COTTRELL Facility:[id number] Start: 06-05-2023 End: 06-05-2023 Patient encounter procedure Henri MONACO-C Work Phone: [facility] Comment on above: Upper respiratory tr act infection, unspecified type (Primary Dx) Start: 04-04-2023 End: 04-04-2023 Patient encounter procedure No Primary Care Physician [facility] Start: 12-03-2022 End: 12-03-[address] Madelyn Pham Work Phone: [facility] Work Phone: Start: 12-03-2022 End: 12-03-[address] Mad[facility] Pham [facility] Work Phone: Start: 12-03-2022 End: 12-03-[address] Madelyn Pham Work Phone: [facility] Work Phone: Start: 11-22-2022 End: 11-22-[address] Madelyn Pham Work Phone: [facility] Work Phone: Start: 11-15-2022 End: 11-15-[address] Madelyn Pham Work Phone: [facility] Work Phone: Start: 11-15-2022 End: 11-15-[address] Mad[facility] Pham [facility] Start: 11-04-2022 End: 11-04-[address] Madelyn Pham Work Phone: [facility] Work Phone: Start: 10-05-2022 End: 10-05-[address] Madelyn Pham Work Phone: [facility] Start: 09-29-2022 End: 09-29-[address] Madelyn Pham Work Phone: [facility] Work Phone: Start: 09-29-2022 End: 09-29-[address] Madelyn Pham Work Phone: [facility] Start: 08-20-2022 End: 08-20-[address] Madelyn Pham Work Phone: [facility]-Ultrasound, [facility] Start: 08-18-2022 End: 08-18-[address] Madelyn Pham Work Phone: [facility] Start: 08-16-2022 End: 08-16-[address] Madelyn Pham Work Phone: [facility] Work Phone: Start: 08-16-2022 End: 08-16-[address] Madelyn Pham Work Phone: [facility] Start: 07-22-2022 End: 07-22-2022 ambulatory VY N CANDELARIAAN DPM Facility:B Start: 07-22-2022 End: 07-22-2022 SAME DAY STAY VY N CANDELARIAAN DPM [facility] Start: 07-19-2022 End: 07-19-[address] Madelyn Pham Work Phone: [facility] Start: 07-12-2022 End: 07-13-2022 ambulatory VY N SUPPAN DPM Facility:[facility] Start: 07-12-2022 End: 07-12-2022 Admission to establishment VY N CANDELARIAAN DPM [facility] Start: 06-14-2022 End: 06-14-[address] Madelyn Pham Work Phone: [facility] Work Phone: Start: 06-14-2022 End: 06-14-[address] Madelyn Pham Work Phone: [facility] Start: 05-17-2022 End: 05-17-[address] Madelyn Pham Work Phone: [facility] Start: 04-19-2022 End: 04-19-[address] Madelyn Pham Work Phone: [facility] Start: 03-22-2022 End: 03-22-[address] Madelyn Pham Work Phone: [facility] Start: 03-13-2022 End: 03-13-[address] Madelyn Pham Work Phone: [facility] Start: 01-12-2022 End: 01-12-2022 Patient encounter procedure Natali Berman APRN.CNP Work Phone: [facility] Comment on above: Urinary frequency (P rimary Dx) Start: 11-30-2021 End: 11-30-[address] Madelyn Pham Work Phone: [facility] Procedures Date Procedure Procedure Detail Performing Clinician Start: 08-28-2024 US scan of thyroid No P rimary Care Physician Start: 06-12-2024 Radiologic exam ches t 2 views Randall MONACO Work Phone: Start: 05-30-2024 Evaluation of diagno stic study results No Primary Care Physician Start: 08-20-2022 US scan of thyroid Dr. Madelyn Pham Work Phone: Start: 07-22-2022 Endoscopic plantar fasciotomy VY MAYESM Comment on above: right foot Start: 01-12-2022 Urnls dip stick/tabl et rgnt auto w/o microscopy Natali Berman APRN.BRUCE Work Phone: [facility] VY MARCELO DPM Laparoscopic cholecystectomy VY MARCELO DPM Plan of Treatment Date Care Activity Detail Author Start: 07-30-2030 Urine microalbumin profile DTaP,Tdap,Td Vaccine (7 - Td or Tdap) [facility] Start: 10-22-2024 Urine microalbumin profile DTAP,TDAP,TD (2 - Td or Tdap) [facility] Start: 01-08-2024 Covid-19 Vaccine ( season) Covid-19 Vaccine ( season) [facility] Start: 01-08-2024 Covid-19 Vaccine ( season) Covid-19 Vaccine () [facility] Start: 01-08-2024 Influenza vaccination Influenza Vacc ine (#1) [facility] Start: 05-09-2023 Depression Assessment Depression Ass essment [facility] Start: 2023 Screening for malign ant neoplasm of breast Mammogram Screening [facility] Start: 01-07-2023 Covid-19 Vaccine ( season) Covid-19 Vaccine ( season) [place] [facility] Start: 01-07-2023 Influenza vaccination Influenza Vacc ine (#1) [facility] Start: 12-03-2022 Liquid based cervica l cytology screening [facility] Start: 01-07-2022 Influenza vaccination INFLUENZA (#1) [facility] Start: 11-19-2021 HPV TESTING HPV TESTING [facility] Start: 11-19-2021 PAP TESTING PAP TESTING [facility] Start: 11-19-2021 Screening for malign ant neoplasm of cervix [facility] Start: 06-25-2021 COVID-19 VACCINE (3 - Booster for Moderna series) COVID-19 VACCINE (3 - Booster for Moderna series) [facility] Start: 2002 Hepatitis B Vaccine (1 of 3 - 19+ 3-dose series) Hepatitis B Vaccine (1 of 3 - 19+ 3-dose series) [facility] Start: 2001 Anxiety Screening Anxiety Screening [facility] Start: 2001 Depression Screening Depression Scre ening [facility] Start: 2001 HEPATITIS C SCREENING HEPATITIS C [facility] Start: 2001 Hepatitis C screening Hepatitis C [facility] Start: 2001 HIV SCREENING HIV SCREENING [facility] Start: 2001 HIV screening HIV Screening [facility] Start: 1995 Adult depression screening assessment DEPRESSION SCREENING [facility] Start: 1985 HEPATITIS B (1 of 3 - 3-dose series) HEPATITIS B (1 of 3 - 3-dose series) [facility] Start: 1983 Hepatitis B Vaccine (1 of 3 - 3-dose series) Hepatitis B Vaccine (1 of 3 - 3-dose series) [facility] Bacteria identified in Urine by Culture URINE CULTURE Microbiology Routine Urinary frequency Ordered: 01/12/2022 [facility] Work Phone: Comment on above: Ordered: 01/12/2022 Blood chemistry [facility] MG Breast - bilatera l Screening [facility] Path report.final Dx Spec [facility] T4 free measurement [facility] T4 free measurement [facility] Thyroid stimulating hormone measurement [facility] Thyroid stimulating hormone measurement [facility] [place] Thyroid gland [facility] Immunizations Immunization Date Immunization Notes Care Provider Fa cility 07-30-2020 tetanus toxoid, redu issa diphtheria toxoid, and acellular pertussis vaccine, adsorbed Dr. Madelyn Pham Work Phone: [facility] 04-18-2020 influenza, injectable,quadrivalent , preservative free, pediatric Dr. Madelyn Pham Work Phone: [facility] 04-18-2020 influenza virus vaccine, unspecified formulation Henri Cottrell PA-C Work Phone: [facility] 03-03-2019 influenza, injectabl e, quadrivalent, contains preservative Natali Berman APRN.CNP Work Phone: [facility] Work Phone: 02-10-[address] Madelyn Pham Work Phone: [facility] 01-03-2018 tetanus toxoid, redu issa diphtheria toxoid, and acellular pertussis vaccine, adsorbed Dr. Madelyn Pham Work Phone: [facility] 02-25-2015 influenza, injectabl e, quadrivalent, contains preservative Natali Berman APRN.AUTOMATIC TOE LASTER Work Phone: [facility] 10-22-2014 RHO(D) immune globul in- IV or IM Natali Berman DERRICK BOAT OPERATOR.[employer]OMATIC TOE [employer]STER Work Phone: [facility] Work Phone: 10-22-2014 tetanus toxoid, redu issa diphtheria toxoid, and acellular pertussis vaccine, adsorbed Natali Berman DERRICK BOAT OPERATOR.[facility] Work Phone: [facility] Work Phone: Payers Date Payer Category Payer Self-pay [id number] Self-pay [id number] 2014 Unknown [employer] [place] PPO [id number] 2014-Present [phone] [facility] [id number] [place] [address] PPO [id number] 2014 Unknown [id number] 1985 Unknown [id number] 1985 Unknown [id number] Unknown [id number] Unknown [id number] Unknown [id number] Unknown [id number] Unknown [id number] Unknown [id number] Unknown [id number] Unknown [id number] Unknown [id number] Unknown [id number] Unknown [id number] Social History Date Type Detail Facility Start: 11-30-2021 End: 07-05-2023 Tobacco smoking status VTIS Unknown if ever smoked [facility] Start: 02-24-[address] [facility] Start: 05-03-2019 Non-smoker [facility] Start: 1985 Sex Assigned At Female W [facility] Start: 06-07-2014 End: 12-09-2023 Tobacco smoking status VTIS Never smoked tobacco [facility] Start: 06-07-2014 Tobacco use and exposure Smokeless tobacco non-user [facility] Start: 01-12-2022 End: 06-12-2024 Alcohol intake Current non-drinker of alcohol (finding) [facility] Start: 06-07-2014 History SDOH Alcohol Comment not while [facility] Start: 1985 Sex Assigned At Not on file [facility] Start: 06-05-2023 End: 06-12-2024 History of Social function [facility] Start: 06-05-2023 End: 06-12-2024 Tobacco use panel [facility] Adult Depression Screening Assessment 0 [facility] Start: 08-27-2024 End: 09-03-2024 Sex Female (finding) [facility] Medical Equipment Procedure Code Equipment Code Equipment Origin al Text Equipment Identifier Dates Total cholecystectomy with exploration of common bile duct SURGICEL, POWDER 3GR FDA Start: 05-10-2019 Total cholecystectomy with exploration of common bile duct SURGICEL, POWDER 3GR FDA Start: 05-10-2019 Total cholecystectomy with exploration of common bile duct SURGICEL, POWDER 3GR FDA Start: 05-10-2019 Total cholecystectomy with exploration of common bile duct SURGICEL, POWDER 3GR FDA Start: 05-10-2019 Total cholecystectomy with exploration of common bile duct SURGICEL, POWDER 3GR FDA Start: 05-10-2019 Total cholecystectomy with exploration of common bile duct SURGICEL, POWDER 3GR FDA Start: 05-10-2019 Total cholecystectomy with exploration of common bile duct SURGICEL, POWDER 3GR FDA Start: 05-10-2019 Total cholecystectomy with exploration of common bile duct SURGICEL, POWDER 3GR FDA Start: 05-10-2019 Total cholecystectomy with exploration of common bile duct SURGICEL, POWDER 3GR FDA Start: 05-10-2019 Total cholecystectomy with exploration of common bile duct SURGICEL, POWDER 3GR FDA Start: 05-10-2019 Blood Sugar Diagnostic (Truetrack Test) strip Start: 07-30-2020 End: 08-01-2020 Blood Sugar Diagnostic (Truetrack Test) strip Start: 08-01-2020 End: 11-21-2020 Pen Needle, Diabetic (Bd Ultra-Fine Rosalina Pen Needle) 32 gauge x 5/32 needle Start: 08-18-2020 End: 11-21-2020 Blood Sugar Diagnostic (Truetrack Test) strip Start: 07-30-2020 End: 08-01-2020 Blood Sugar Diagnostic (Truetrack Test) strip Start: 08-01-2020 End: 11-21-2020 Pen Needle, Diabetic (Bd Ultra-Fine Rosalina Pen Needle) 32 gauge x 5/32 needle Start: 08-18-2020 End: 11-21-2020 Blood Sugar Diagnostic (Truetrack Test) strip Start: 07-30-2020 End: 08-01-2020 Blood Sugar Diagnostic (Truetrack Test) strip Start: 08-01-2020 End: 11-21-2020 Pen Needle, Diabetic (Bd Ultra-Fine Rosalina Pen Needle) 32 gauge x 5/32 needle Start: 08-18-2020 End: 11-21-2020 Blood Sugar Diagnostic (Truetrack Test) strip Start: 07-30-2020 End: 08-01-2020 Blood Sugar Diagnostic (Truetrack Test) strip Start: 08-01-2020 End: 11-21-2020 Pen Needle, Diabetic (Bd Ultra-Fine Rosalina Pen Needle) 32 gauge x 5/32 needle Start: 08-18-2020 End: 11-21-2020 Blood Sugar Diagnostic (Truetrack Test) strip Start: 07-30-2020 End: 08-01-2020 Blood Sugar Diagnostic (Truetrack Test) strip Start: 08-01-2020 End: 11-21-2020 Pen Needle, Diabetic (Bd Ultra-Fine Rosalina Pen Needle) 32 gauge x 5/32 needle Start: 08-18-2020 End: 11-21-2020 Blood Sugar Diagnostic (Truetrack Test) strip Start: 07-30-2020 End: 08-01-2020 Blood Sugar Diagnostic (Truetrack Test) strip Start: 08-01-2020 End: 11-21-2020 Pen Needle, Diabetic (Bd Ultra-Fine Rosalina Pen Needle) 32 gauge x 5/32 needle Start: 08-18-2020 End: 11-21-2020 Blood Sugar Diagnostic (Truetrack Test) strip Start: 07-30-2020 End: 08-01-2020 Blood Sugar Diagnostic (Truetrack Test) strip Start: 08-01-2020 End: 11-21-2020 Pen Needle, Diabetic (Bd Ultra-Fine Rosalina Pen Needle) 32 gauge x 5/32 needle Start: 08-18-2020 End: 11-21-2020 Blood Sugar Diagnostic (Truetrack Test) strip Start: 07-30-2020 End: 08-01-2020 Blood Sugar Diagnostic (Truetrack Test) strip Start: 08-01-2020 End: 11-21-2020 Pen Needle, Diabetic (Bd Ultra-Fine Rosalina Pen Needle) 32 gauge x 5/32 needle Start: 08-18-2020 End: 11-21-2020 Blood Sugar Diagnostic (Truetrack Test) strip Start: 07-30-2020 End: 08-01-2020 Blood Sugar Diagnostic (Truetrack Test) strip Start: 08-01-2020 End: 11-21-2020 Pen Needle, Diabetic (Bd Ultra-Fine Rosalina Pen Needle) 32 gauge x 5/32 needle Start: 08-18-2020 End: 11-21-2020 Blood Sugar Diagnostic (Truetrack Test) strip Start: 07-30-2020 End: 08-01-2020 Blood Sugar Diagnostic (Truetrack Test) strip Start: 08-01-2020 End: 11-21-2020 Pen Needle, Diabetic (Bd Ultra-Fine Rosalina Pen Needle) 32 gauge x 5/32 needle Start: 08-18-2020 End: 11-21-2020 Functional Status Date Assessment Result Facility 07-22-2022 Functional Status Awake [facility] 07-22-2022 Functional Status Maintained [facility] Mental Status Date Assessment Result Facility 07-22-2022 Mental Status Orientation Oriented x 4 [facility] 07-22-[address] [facility] Clinical Notes 11-19-2016 to 08-28-2024 Fidelina Estes Tech - 06/12/2024 2:00 PM Randall Rogel PA - 06/12/2024 1:40 PM EST Note Date & Type Note Facility 08-28-2024 Radiology Diagnostic study note [facility] Imaging Services [address] [place] [address] [id number] Thyroid MR#: [id number] Acct: [id number] Name: ROBERT LEBLANC Rep #: [id number] : 1985 F 39 From: Everton Mcgill MD PCP: Care Physician,No Primary Status: REG CLI Study:Thyroid Date of Exam: 08/28/24 Exam# [id number] Ordering Dr: Michael Hill i, MD PROCEDURE: THYROID 08/28/2024 REASON FOR EXAM: COMPARE 1.1 CM TR 4 NODULE TECHNIQUE: Thyroid ultrasound FINDINGS: Right thyroid lobe measures 3.5 x 1.3 x 1.6. Left thyroid lobe measures 3.4 x 1.0 x 1.3. Isthmus thickness is2 mm thick. Thyroid Size: Normal Background Echotexture: Heterogeneous Thyroid Nodules: Nodule 1: 7 x 6 x 5 mm solid hypoechoic wider than tall ill-defined margin nodule with no echogenic foci (TR 4) in the superior right lobe consistent with an adenoma. Other: US/Thyroid IMPRESSION: OVERALL FINAL ASSESSMENT: TI-RADS 4: Suspicious nodules (5-80% risk). STABLE INDETERMINATE THYROID NODULES. SONOGRAPHIC FOLLOWUP SUGGESTED TO CONFIRM STABILITY. Reading Location: [id number] CC: Dr. Dereje Hill MD; No Primary Care Physician ~ Liner Replacer: Signed [facility] 06-12-2024 History of Present illness Narrative Radiology Service Progress Note PATIENT NAME: Robert Leblanc DATE OF SERVICE: June 12, 2024 TIME: 1:46 PM PATIENT IDENTITY VERIFICATION COMPLETED USING TWO (2) IDENTIFIERS: Name and Date of confirmed by patient verbally. FALL SCREENING: Has the patient had 2 falls in the last year or 1 fall with injury or currently using an Ambulatory Assistive Device (Walker, Cane, Wheelchair, Crutches, etc.)? No PATIENT GENDER DATA: Assigned female at . status: : No status: NO. PATIENT RELEVANT IMPLANT DATA REVIEWED: Not Applicable PATIENT PRESENTS WITH AN IMPLANTABLE OR ATTACHED AUTO REPAIR SHOP MANAGER: No RADIOLOGY DEPARTMENT: General X-ray: Exam(s) Completed: Chest X-Ray PERIPHERAL IV DATA: Not applicable SIGNED BY: Virgie Buckner June 12, 2024 1:46 PM documented in this encounter [facility] 06-12-2024 Note HNO ID: [id number] Author: FIDELINA ESTES Tech Service: ? Author Type: Technologist Type: Progress Notes Filed: 06/12/2024 13:53 Note Text: Radiology Service Progress Note PATIENT NAME: Robert Leblanc DATE OF SERVICE: June 12, 2024 TIME: 1:46 PM PATIENT IDENTITY VERIFICATION COMPLETED USING TWO (2) IDENTIFIERS: Name and Date of confirmed by patient verbally. FALL SCREENING: Has the patient had 2 falls in the last year or 1 fall with injury or currently using an Ambulatory Assistive Device (Walker, Cane, Wheelchair, Crutches, etc.)? No PATIENT GENDER DATA: Assigned female at . status: : No status: NO. PATIENT RELEVANT IMPLANT DATA REVIEWED: Not Applicable PATIENT PRESENTS WITH AN IMPLANTABLE OR ATTACHED AUTO REPAIR SHOP MANAGER: No RADIOLOGY DEPARTMENT: General X-ray: Exam(s) Completed: Chest X-Ray PERIPHERAL IV DATA: Not applicable SIGNED BY: Virgie Buckner June 12, 2024 1:46 PM [facility] 06-12-2024 Note HNO ID: [id number] Author: RANDALL SAMANIEGO PA Service: ? Author Type: Physician B2B Managed Service Sales Exec Type: Progress Notes Filed: 06/12/2024 13:59 Note Text: This note was created using ChipS[employer]. Subjective Robert Leblanc is a 39 year old female. HPI 39-year-old female presents for cough, chest congestion, nasal congestion, fevers, diarrhea. Symptoms started about a week ago with diarrhea, body aches. Patient had a fever couple of days ago, no fever for the past 2 days. She has had a cough for the past 5 days and nasal congestion. No chest pain or shortness of breath. No history of COPD or asthma. She did state that she heard herself wheezing at home. She states that she had a telehealth visit yesterday and was prescribed albuterol, prednisone and Claritin. She states that she felt like her chest was itching after using the albuterol, so stopped that. She has not started the prednisone yet. No other complaint. PAST MEDICAL HISTORY Diagnosis Date Abnormal Pap smear of cervix PCOS (polycystic ovarian syndrome) Rh negative status during 06/10/2014 PAST SURGICAL HISTORY Procedure Laterality Date VAGINOSCOPY ALLERGIES Red Dye and Valium [Diazepam] MEDICATIONS albuterol HFA (PROVENTIL HFA, VENTOLIN HFA) 90 mcg/actuation inhaler desloratadine (CLARINEX) 5 mg tablet FLUoxetine (PROZAC) 20 mg capsule 20 mg once daily. SYNTHROID 125 mcg tablet Take 1 tablet by mouth every afternoon. Norethindrone, Contraceptive, 0.35 mg tablet TAKE 1 TABLET BY MOUTH EVERY DAY - START DAY 1 OF MENTRUAL CYCLE loratadine/pseudoephedrine (CLARITIN-D 12 HOUR ORAL) Take by mouth. (Patient not taking: Reported on 01/20/2024) FAMILY HISTORY Problem Relation Age of Onset Cancer Mother breast Heart Father irregular heartbeat Stroke Paternal Grandmother Hypertension Paternal Grandmother Cancer Paternal Grandmother Aneurysm Maternal Grandmother brain Cancer Maternal Grandmother Heart Maternal Grandfather Diabetes Maternal Grandfather Colon Cancer Maternal Grandfather Heart Paternal Grandfather Heart Brother tachycardia Social History Tobacco Use Smoking status: Never Smokeless tobacco: Never Vaping Use Vaping status: Never Used Substance Use Topics Alcohol use: No Comment: not while Drug use: No Review of Systems Constitutional: Positive for fever. Negative for chills. HENT: Positive for congestion. Negative for ear pain and sore throat. Respiratory: Positive for cough and wheezing. Negative for shortness of breath. Cardiovascular: Negative for chest pain. Gastrointestinal: Positive for diarrhea. Negative for vomiting. Objective BP 126/70 Pulse 100 Temp 36.7 ?C (98 ?F) Resp 18 Wt (!) 137.5 kg (303 lb 2.1 oz) LMP 05/15/2023 (Approximate) SpO2 99% BMI 51.23 kg/m? Physical Exam Vitals and nursing note reviewed. Constitutional: General: She is not in acute distress. Appearance: Normal appearance. She is not toxic-appearing. HENT: Right Ear: Tympanic membrane and ear canal normal. Left Ear: Tympanic membrane and ear canal normal. Nose: Congestion present. Mouth/Throat: Mouth: Mucous membranes are moist. Pharynx: Oropharynx is clear. Eyes: Conjunctiva/sclera: Conjunctivae normal. Cardiovascular: Rate and Rhythm: Normal rate and regular rhythm. Pulmonary: Effort: Pulmonary effort is normal. Breath sounds: Normal breath sounds. No wheezing, rhonchi or rales. Skin: General: Skin is warm and dry. Neurological: Mental Status: She is alert. Assessment and Plan ASSESSMENT/PLAN: 1. Acute cough - ICD9: 786.2, ICD10: R05.1 (primary diagnosis) - XR CHEST 2V FRONTAL/LAT-no acute radiographic abnormality -Rx Tessalon Perles -Start prednisone as prescribed by online visit if wheezing persist. 2. URI, acute - ICD9: 465.9, ICD10: J06.9 - Discussed viral etiology and rationale for treatment. - Symptomatic treatment with prn analgesia - Supportive care with fluids and rest Diagnosis and treatment plan were discussed and questions were answered to the patient's satisfaction. Pt acknowledged understanding of concepts and follow up plan. Specific signs and symptoms that would indicate the need for higher level of care were discussed in detail warranting prompt ER evaluation. JACINDA Locke [facility] 06-12-2024 History of Present illness Narrative This note was created using Runic [employer]ter. Subjective Robert Leblanc is a 39 year old female. HPI 39-year-old female presents for cough, chest congestion, nasal congestion, fevers, diarrhea. Symptoms started about a week ago with diarrhea, body aches. Patient had a fever couple of days ago, no fever for the past 2 days. She has had a cough for the past 5 days and nasal congestion. No chest pain or shortness of breath. No history of COPD or asthma. She did state that she heard herself wheezing at home. She states that she had a telehealth visit yesterday and was prescribed albuterol, prednisone and Claritin. She states that she felt like her chest was itching after using the albuterol, so stopped that. She has not started the prednisone yet. No other complaint. PAST MEDICAL HISTORY Diagnosis Date Abnormal Pap smear of cervix PCOS (polycystic ovarian syndrome) Rh negative status during 06/10/2014 PAST SURGICAL HISTORY Procedure Laterality Date VAGINOSCOPY ALLERGIES Red Dye and Valium [Diazepam] MEDICATIONS albuterol HFA (PROVENTIL HFA, VENTOLIN HFA) 90 mcg/actuation inhaler desloratadine (CLARINEX) 5 mg tablet FLUoxetine (PROZAC) 20 mg capsule 20 mg once daily. SYNTHROID 125 mcg tablet Take 1 tablet by mouth every afternoon. Norethindrone, Contraceptive, 0.35 mg tablet TAKE 1 TABLET BY MOUTH EVERY DAY - START DAY 1 OF MENTRUAL CYCLE loratadine/pseudoephedrine (CLARITIN-D 12 HOUR ORAL) Take by mouth. (Patient not taking: Reported on 01/20/2024) FAMILY HISTORY Problem Relation Age of Onset Cancer Mother breast Heart Father irregular heartbeat Stroke Paternal Grandmother Hypertension Paternal Grandmother Cancer Paternal Grandmother Aneurysm Maternal Grandmother brain Cancer Maternal Grandmother Heart Maternal Grandfather Diabetes Maternal Grandfather Colon Cancer Maternal Grandfather Heart Paternal Grandfather Heart Brother tachycardia Social History Tobacco Use Smoking status: Never Smokeless tobacco: Never Vaping Use Vaping status: Never Used Substance Use Topics Alcohol use: No Comment: not while Drug use: No Review of Systems Constitutional: Positive for fever. Negative for chills. HENT: Positive for congestion. Negative for ear pain and sore throat. Respiratory: Positive for cough and wheezing. Negative for shortness of breath. Cardiovascular: Negative for chest pain. Gastrointestinal: Positive for diarrhea. Negative for vomiting. Objective BP 126/70 Pulse 100 Temp 36.7 C (98 F) Resp 18 Wt (!) 137.5 kg (303 lb 2.1 oz) LMP 05/15/2023 (Approximate) SpO2 99% BMI 51.23 kg/m Physical Exam Vitals and nursing note reviewed. Constitutional: General: She is not in acute distress. Appearance: Normal appearance. She is not toxic-appearing. HENT: Right Ear: Tympanic membrane and ear canal normal. Left Ear: Tympanic membrane and ear canal normal. Nose: Congestion present. Mouth/Throat: Mouth: Mucous membranes are moist. Pharynx: Oropharynx is clear. Eyes: Conjunctiva/sclera: Conjunctivae normal. Cardiovascular: Rate and Rhythm: Normal rate and regular rhythm. Pulmonary: Effort: Pulmonary effort is normal. Breath sounds: Normal breath sounds. No wheezing, rhonchi or rales. Skin: General: Skin is warm and dry. Neurological: Mental Status: She is alert. Assessment and Plan ASSESSMENT/PLAN: 1. Acute cough - ICD9: 786.2, ICD10: R05.1 (primary diagnosis) - XR CHEST 2V FRONTAL/LAT-no acute radiographic abnormality -Rx Tessalon Perles -Start prednisone as prescribed by online visit if wheezing persist. 2. URI, acute - ICD9: 465.9, ICD10: J06.9 - Discussed viral etiology and rationale for treatment. - Symptomatic treatment with prn analgesia - Supportive care with fluids and rest Diagnosis and treatment plan were discussed and questions were answered to the patient's satisfaction. Pt acknowledged understanding of concepts and follow up plan. Specific signs and symptoms that would indicate the need for higher level of care were discussed in detail warranting prompt ER evaluation. JACINDA Locke documented in this encounter [facility] 05-30-2024 Evaluation note Diagnosis Onset Date Resolution Abnormal EKG acute May 9:44am Hypothyroid chronic August 23, 2 025 10:19am Low vitamin D level chronic August 23, 2024 10:19am Thyroid nodule chronic August 10:19am [facility] Work Phone: 1(470) 840-116809-13-2024 NoteHNO ID: [id number] Author: ROB STONE APRN.AUTOMATIC TOE LASTER Service: ? Author Type: Nurse Practitioner Type: Progress Notes Filed: 01/20/2024 12:19 Note Text: Subjective HPI Nontoxic-appearing female presents urgent care chief complaint sinus pressure and cough. Duration of symptoms 2 weeks. Associated symptoms listed above. Most prominent symptom today is sinus pressure. OTC medication use no success. States sinus pressure did improve and then worsening and. Diagnosed COVID-19 end of December. Denies any fever body aches chills productive cough chest pain shortness of breath pleuritic pain hemoptysis nausea vomiting abdominal pain change in bowel or bladder habits. Past medical history prescription medication use and allergies reviewed. Is not . Is not breast-feeding. .Patient presents with: Cough: Head and chest congestion x2 weeks, Covid + 01/03 PAST MEDICAL HISTORY Diagnosis Date Abnormal Pap smear of cervix PCOS (polycystic ovarian syndrome) Rh negative status during 06/10/2014 PAST SURGICAL HISTORY Procedure Laterality Date VAGINOSCOPY ALLERGIES Red Dye and Valium [Diazepam] MEDICATIONS FLUoxetine (PROZAC) 20 mg capsule 20 mg once daily. SYNTHROID 125 mcg tablet Take 1 tablet by mouth every afternoon. Norethindrone, Contraceptive, 0.35 mg tablet TAKE 1 TABLET BY MOUTH EVERY DAY - START DAY 1 OF MENTRUAL CYCLE loratadine/pseudoephedrine (CLARITIN-D 12 HOUR ORAL) Take by mouth. (Patient not taking: Reported on 01/20/2024) FAMILY HISTORY Problem Relation Age of Onset Cancer Mother breast Heart Father irregular heartbeat Stroke Paternal Grandmother Hypertension Paternal Grandmother Cancer Paternal Grandmother Aneurysm Maternal Grandmother brain Cancer Maternal Grandmother Heart Maternal Grandfather Diabetes Maternal Grandfather Colon Cancer Maternal Grandfather Heart Paternal Grandfather Heart Brother tachycardia Social History Tobacco Use Smoking status: Never Smokeless tobacco: Never Vaping Use Vaping status: Never Used Substance Use Topics Alcohol use: No Comment: not while Drug use: No BP 121/68 Pulse 82 Temp 36.8 ?C (98.3 ?F) Resp 20 Wt 133.9 kg (295 lb 3.1 oz) LMP 05/15/2023 (Approximate) SpO2 98% BMI 49.89 kg/m? Review of Systems Constitutional: Negative for chills, fever and malaise/fatigue. HENT: Positive for congestion and sinus pain. Negative for ear discharge, ear pain and sore throat. Eyes: Negative for blurred vision, pain, discharge and redness. Respiratory: Positive for cough. Negative for hemoptysis, sputum production, shortness of breath, wheezing and stridor. Cardiovascular: Negative for chest pain. Gastrointestinal: Negative for abdominal pain, diarrhea, nausea and vomiting. Musculoskeletal: Negative for myalgias. Skin: Negative for itching and rash. Neurological: Negative for dizziness and headaches. Objective Physical Exam Constitutional: General: She is not in acute distress. Appearance: She is not diaphoretic. HENT: Head: Normocephalic. Jaw: No trismus, tenderness, swelling or pain on movement. Right Ear: Tympanic membrane, ear canal and external ear normal. Left Ear: Tympanic membrane, ear canal and external ear normal. Nose: Congestion present. Right Sinus: Maxillary sinus tenderness present. Left Sinus: Maxillary sinus tenderness present. Mouth/Throat: Mouth: Mucous membranes are moist. Pharynx: Oropharynx is clear. Uvula midline. No pharyngeal swelling, oropharyngeal exudate, posterior oropharyngeal erythema or uvula swelling. Eyes: Conjunctiva/sclera: Conjunctivae normal. Pupils: Pupils are equal, round, and reactive to light. Cardiovascular: Rate and Rhythm: Normal rate and regular rhythm. Heart sounds: Normal heart sounds. Pulmonary: Effort: Pulmonary effort is normal. No tachypnea, accessory muscle usage or respiratory distress. Breath sounds: Normal breath sounds. No stridor. No wheezing, rhonchi or rales. Abdominal: General: There is no distension. Palpations: Abdomen is soft. Tenderness: There is no abdominal tenderness. There is no guarding or rebound. Musculoskeletal: Cervical back: Normal range of motion and neck supple. No edema, erythema, rigidity or tenderness. No pain with movement. Normal range of motion. Lymphadenopathy: Cervical: No cervical adenopathy. Skin: General: Skin is warm and dry. Neurological: Mental Status: She is alert and oriented to person, place, and time. ASSESSMENT/PLAN: 1. Acute cough - ICD9: 786.2, ICD10: R05.1 (primary diagnosis) 2. Bacterial sinusitis - ICD9: 473.9, 041.9, ICD10: J32.9, B96.89 Diagnosis of bacterial sinusitis. Suspicious secondary bacterial infection post viral illness. Treat with doxycycline. Patient was educated on supportive therapies. Patient will follow up with primary care provider as needed. Patient was instructed to immediately proceed to (more content not included)...[facility]09-13-2024 History of Present illness Narrative* Rob Stone, ADI.[facility] - 01/20/2024 12:00 PM EDT Subjective HPI Nontoxic-appearing female presents urgent care chief complaint sinus pressure and cough. Duration of symptoms 2 weeks. Associated symptoms listed above. Most prominent symptom today is sinus pressure. OTC medication use no success. States sinus pressure did improve and then worsening and. DiagnosedCOVID-19 end of December. Denies any fever body aches chills productive cough chest pain shortness ofbreath pleuritic pain hemoptysis nausea vomiting abdominal pain change in bowel or bladder habits. Past medical history prescription medication use and allergies reviewed. Is not . Is not breast-feeding. .Patient presents with: Cough: Head and chest congestion x2 weeks, Covid + 01/03 PAST MEDICAL HISTORY Diagnosis Date Abnormal Pap smear of cervix PCOS (polycystic ovarian syndrome) Rh negative status during 06/10/2014 PAST SURGICAL HISTORY Procedure Laterality Date VAGINOSCOPY ALLERGIES Red Dye and Valium [Diazepam] MEDICATIONS FLUoxetine (PROZAC) 20 mg capsule 20 mg once daily. SYNTHROID 125 mcg tablet Take 1 tablet by mouth every afternoon. Norethindrone, Contraceptive, 0.35 mg tablet TAKE 1 TABLET BY MOUTH EVERY DAY - START DAY 1 OF MENTRUAL CYCLE loratadine/pseudoephedrine (CLARITIN-D 12 HOUR ORAL) Take by mouth. (Patient not taking: Reported on 01/20/2024) FAMILY HISTORY Problem Relation Age of Onset Cancer Mother breast Heart Father irregular heartbeat Stroke Paternal Grandmother Hypertension Paternal Grandmother Cancer Paternal Grandmother Aneurysm Maternal Grandmother brain Cancer Maternal Grandmother Heart Maternal Grandfather Diabetes Maternal Grandfather Colon Cancer Maternal Grandfather Heart Paternal Grandfather Heart Brother tachycardia Social History Tobacco Use Smoking status: Never Smokeless tobacco: Never Vaping Use Vaping status: Never Used Substance Use Topics Alcohol use: No Comment: not while Drug use: No BP 121/68 Pulse 82 Temp 36.8 C (98.3 F) Resp 20 Wt 133.9 kg (295 lb 3.1 oz) LMP 05/15/2023 (Approximate) SpO2 98% BMI 49.89 kg/m Review of Systems Constitutional: Negative for chills, fever and malaise/fatigue. HENT: Positive for congestion and sinus pain. Negative for ear discharge, ear pain and sore throat. Eyes: Negative for blurred vision, pain, discharge and redness. Respiratory: Positive for cough. Negative for hemoptysis, sputum production, shortness of breath, wheezing and stridor. Cardiovascular: Negative for chest pain. Gastrointestinal: Negative for abdominal pain, diarrhea, nausea and vomiting. Musculoskeletal: Negative for myalgias. Skin: Negative for itching and rash. Neurological: Negative for dizziness and headaches. Objective Physical Exam Constitutional: General: She is not in acute distress. Appearance: She is not diaphoretic. HENT: Head: Normocephalic. Jaw: No trismus, tenderness, swelling or pain on movement. Right Ear: Tympanic membrane, ear canal and external ear normal. Left Ear: Tympanic membrane, ear canal and external ear normal. Nose: Congestion present. Right Sinus: Maxillary sinus tenderness present. Left Sinus: Maxillary sinus tenderness present. Mouth/Throat: Mouth: Mucous membranes are moist. Pharynx: Oropharynx is clear. Uvula midline. No pharyngeal swelling, oropharyngeal exudate, posterior oropharyngeal erythema or uvula swelling. Eyes: Conjunctiva/sclera: Conjunctivae normal. Pupils: Pupils are equal, round, and reactive to light. Cardiovascular: Rate and Rhythm: Normal rate and regular rhythm. Heart sounds: Normal heart sounds. Pulmonary: Effort: Pulmonary effort is normal. No tachypnea, accessory muscle usage or respiratory distress. Breath sounds: Normal breath sounds. No stridor. No wheezing, rhonchi or rales. Abdominal: General: There is no distension. Palpations: Abdomen is soft. Tenderness: There is no abdominal tenderness. There is no guarding or rebound. Musculoskeletal: Cervical back: Normal range of motion and neck supple. No edema, erythema, rigidity or tenderness. No pain with movement. Normal range of motion. Lymphadenopathy: Cervical: No cervical adenopathy. Skin: General: Skin is warm and dry. Neurological: Mental Status: She is alert and oriented to person, place, and time. ASSESSMENT/PLAN: 1. Acute cough - ICD9: 786.2, ICD10: R05.1 (primary diagnosis) 2. Bacterial sinusitis - ICD9: 473.9, 041.9, ICD10: J32.9, B96.89 Diagnosis of bacterial sinusitis. Suspicious secondary bacterial infection post viral illness. Treat with doxycycline. Patient was educated on supportive therapies. Patient will follow up with primary care provider as needed. Patient was instructed to immediately proceed to emergency room for any new, worsening, or symptoms lasting longer than anticipated. The patient's clinical presentation is otherwise unremarkable at this time. Based on exam and clinical finding, the patient is stable for discharge. Plan of care was discussed with patient. Patient verbalizes understanding and agrees to plan of care. This note was generated using [employer] software. It may contain errors in wording, punctuation, or spelling. Rob Stone APRN.BRUCE documented in this encounterC[facility]03-20-2024 NoteHNO ID: [id number] Author: NATALI BERMAN APRN.BRUCE Service: ? Author Type: Nurse Practitioner Type: Progress Notes Filed: 07/27/2023 18:58 Note Text: Subjective Sore Throat Associated symptoms include congestion and coughing. Pertinent negatives include no ear pain, shortness of breath or vomiting. Robert Leblanc is a 38 year old female who presents with one month of sore throat, cough, ears feeling congested, nasal congestion and drainage, and bodyaches. She had an elevated temp today of 99.3 degrees F. She has been taking tylenol and ibuprofen. She has tried the following during the course of the past month. Flonase Amoxicillin Mucinex Claritin D. Review of Systems Constitutional: Negative for fever. HENT: Positive for congestion, hearing loss and sore throat. Negative for ear pain. Respiratory: Positive for cough. Negative for shortness of breath. Cardiovascular: Negative. Gastrointestinal: Negative for nausea and vomiting. Musculoskeletal: Positive for myalgias. BP 120/78 Pulse 100 Temp 37.2 ?C (99 ?F) Resp 19 Wt (!) 136.1 kg (300 lb 0.7 oz) LMP 05/15/2023 (Approximate) SpO2 98% BMI 50.71 kg/m? PAST MEDICAL HISTORY Diagnosis Date Abnormal Pap smear of cervix PCOS (polycystic ovarian syndrome) Rh negative status during 06/10/2014 PAST SURGICAL HISTORY Procedure Laterality Date VAGINOSCOPY ALLERGIES Red Dye and Valium [Diazepam] MEDICATIONS loratadine/pseudoephedrine (CLARITIN-D 12 HOUR ORAL) Take by mouth. fluticasone (FLONASE) 50 mcg/actuation nasal spray Use 2 Sprays in each nostril once daily. Rinse mouth after use. FLUoxetine (PROZAC) 20 mg capsule 20 mg once daily. SYNTHROID 125 mcg tablet Take 1 tablet by mouth every afternoon. Norethindrone, Contraceptive, 0.35 mg tablet TAKE 1 TABLET BY MOUTH EVERY DAY - START DAY 1 OF MENTRUAL CYCLE amoxicillin-clavulanate potassium (AUGMENTIN) 875-125 mg per tablet Take 1 tablet by mouth two times a day for 10 days. predniSONE (DELTASONE) 20 mg tablet Take 2 tablets by mouth once daily for 4 days. FAMILY HISTORY Problem Relation Age of Onset Cancer Mother breast Heart Father irregular heartbeat Stroke Paternal Grandmother Hypertension Paternal Grandmother Cancer Paternal Grandmother Aneurysm Maternal Grandmother brain Cancer Maternal Grandmother Heart Maternal Grandfather Diabetes Maternal Grandfather Colon Cancer Maternal Grandfather Heart Paternal Grandfather Heart Brother tachycardia Social History Tobacco Use Smoking status: Never Smokeless tobacco: Never Vaping Use Vaping Use: Never used Substance Use Topics Alcohol use: No Comment: not while Drug use: No Objective Physical Exam Vitals and nursing note reviewed. Constitutional: General: She is not in acute distress. Appearance: Normal appearance. She is ill-appearing. HENT: Right Ear: Tympanic membrane, ear canal and external ear normal. Left Ear: Tympanic membrane, ear canal and external ear normal. Nose: Nasal tenderness, mucosal edema, congestion and rhinorrhea present. Mouth/Throat: Mouth: Mucous membranes are moist. Pharynx: Uvula midline. No oropharyngeal exudate or posterior oropharyngeal erythema. Cardiovascular: Rate and Rhythm: Normal rate and regular rhythm. Heart sounds: Normal heart sounds. Pulmonary: Effort: Pulmonary effort is normal. No respiratory distress. Breath sounds: Normal breath sounds. No wheezing or rales. Musculoskeletal: Cervical back: Neck supple. Lymphadenopathy: Cervical: No cervical adenopathy. Skin: General: Skin is warm and dry. Findings: No erythema or rash. Neurological: Mental Status: She is alert. ASSESSMENT/PLAN: 1. Bacterial sinusitis - ICD9: 473.9, 041.9, ICD10: J32.9, B96.89 - Will begin treatment with as per antibiotic as written, see orders - Supportive care with plenty of fluids, rest, and analgesia prn. - AMOXICILLIN 875 MG-POTASSIUM CLAVULANATE 125 MG TABLET - PREDNISONE 20 MG TABLET - Follow-up with your PCP in 3-5 days if symptoms have not improved or sooner if symptoms worsen - Discussed red flags and need for immediate medical evaluation if any occur. - Discussed supportive care treatment with fluids, rest and analgesia. - Discussed expected course of illness Natali Berman APRN.[facility] History of Present illness Narrative* Natali Berman APRN.[facility] - 07/27/2023 6:54 PM EDT Subjective Sore Throat Associated symptoms include congestion and coughing. Pertinent negatives include no ear pain, shortness of breath or vomiting. Robert Leblanc is a 38 year old female who presents with one month of sore throat, cough, ears feeling congested, nasal congestion and drainage, and bodyaches. She had an elevated temp today of 99.3 degrees F. She has been taking tylenol and ibuprofen. She has tried the following during the course of the past month. Flonase Amoxicillin Mucinex Claritin D. Review of Systems Constitutional: Negative for fever. HENT: Positive for congestion, hearing loss and sore throat. Negative for ear pain. Respiratory: Positive for cough. Negative for shortness of breath. Cardiovascular: Negative. Gastrointestinal: Negative for nausea and vomiting. Musculoskeletal: Positive for myalgias. BP 120/78 Pulse 100 Temp 37.2 C (99 F) Resp 19 Wt (!) 136.1 kg (300 lb 0.7 oz) LMP 05/15/2023 (Approximate) SpO2 98% BMI 50.71 kg/m PAST MEDICAL HISTORY Diagnosis Date Abnormal Pap smear of cervix PCOS (polycystic ovarian syndrome) Rh negative status during 06/10/2014 PAST SURGICAL HISTORY Procedure Laterality Date VAGINOSCOPY ALLERGIES Red Dye and Valium [Diazepam] MEDICATIONS loratadine/pseudoephedrine (CLARITIN-D 12 HOUR ORAL) Take by mouth. fluticasone (FLONASE) 50 mcg/actuation nasal spray Use 2 Sprays in each nostril once daily. Rinse mouth after use. FLUoxetine (PROZAC) 20 mg capsule 20 mg once daily. SYNTHROID 125 mcg tablet Take 1 tablet by mouth every afternoon. Norethindrone, Contraceptive, 0.35 mg tablet TAKE 1 TABLET BY MOUTH EVERY DAY - START DAY 1 OF MENTRUAL CYCLE amoxicillin-clavulanate potassium (AUGMENTIN) 875-125 mg per tablet Take 1 tablet by mouth two times a day for 10 days. predniSONE (DELTASONE) 20 mg tablet Take 2 tablets by mouth once daily for 4 days. FAMILY HISTORY Problem Relation Age of Onset Cancer Mother breast Heart Father irregular heartbeat Stroke Paternal Grandmother Hypertension Paternal Grandmother Cancer Paternal Grandmother Aneurysm Maternal Grandmother brain Cancer Maternal Grandmother Heart Maternal Grandfather Diabetes Maternal Grandfather Colon Cancer Maternal Grandfather Heart Paternal Grandfather Heart Brother tachycardia Social History Tobacco Use Smoking status: Never Smokeless tobacco: Never Vaping Use Vaping Use: Never used Substance Use Topics Alcohol use: No Comment: not while Drug use: No Objective Physical Exam Vitals and nursing note reviewed. Constitutional: General: She is not in acute distress. Appearance: Normal appearance. She is ill-appearing. HENT: Right Ear: Tympanic membrane, ear canal and external ear normal. Left Ear: Tympanic membrane, ear canal and external ear normal. Nose: Nasal tenderness, mucosal edema, congestion and rhinorrhea present. Mouth/Throat: Mouth: Mucous membranes are moist. Pharynx: Uvula midline. No oropharyngeal exudate or posterior oropharyngeal erythema. Cardiovascular: Rate and Rhythm: Normal rate and regular rhythm. Heart sounds: Normal heart sounds. Pulmonary: Effort: Pulmonary effort is normal. No respiratory distress. Breath sounds: Normal breath sounds. No wheezing or rales. Musculoskeletal: Cervical back: Neck supple. Lymphadenopathy: Cervical: No cervical adenopathy. Skin: General: Skin is warm and dry. Findings: No erythema or rash. Neurological: Mental Status: She is alert. ASSESSMENT/PLAN: 1. Bacterial sinusitis - ICD9: 473.9, 041.9, ICD10: J32.9, B96.89 - Will begin treatment with as per antibiotic as written, see orders - Supportive care with plenty of fluids, rest, and analgesia prn. - AMOXICILLIN 875 MG-POTASSIUM CLAVULANATE 125 MG TABLET - PREDNISONE 20 MG TABLET - Follow-up with your PCP in 3-5 days if symptoms have not improved or sooner if symptoms worsen - Discussed red flags and need for immediate medical evaluation if any occur. - Discussed supportive care treatment with fluids, rest and analgesia. - Discussed expected course of illness Natali Berman APRN.CNP documented in this encounterC[facility]03-20-2024 Instructions* Patient Instructions* Natali Berman APRN.CNP - 07/27/2023 6:54 PM EDT Images from the original note were not included. ASSESSMENT/PLAN: 1. Bacterial sinusitis - ICD9: 473.9, 041.9, ICD10: J32.9, B96.89 - Will begin treatment with as per antibiotic as written, see orders - Supportive care with plenty of fluids, rest, and analgesia prn. - AMOXICILLIN 875 MG-POTASSIUM CLAVULANATE 125 MG TABLET - PREDNISONE 20 MG TABLET - Follow-up with your PCP in 3-5 days if symptoms have not improved or sooner if symptoms worsen - Discussed red flags and need for immediate medical evaluation if any occur. - Discussed supportive care treatment with fluids, rest and analgesia. - Discussed expected course of illness Natali Berman APRN.CNP Adult Sinusitis Patient Education What is Sinusitis? Sinusitis [[id number]] is inflammation of the sinuses or swelling of the lining of the sinus cavity or nose. During an infection the sinuses become blocked with fluid causing swelling of the lining of the sinuses. Symptoms: (viral and bacterial infections) Stuffy nose Runny nose Postnasal drip Fever Toothache Headache Tiredness Cough Sore throat Face and head pressure and or pain Common causes: 98% of sinus infections are viral caused by viruses. Risk Factors of Sinusitis Include: Allergies, air pollution, indoor humidity and outdoor temperature changes, andstructural changes inthe nose may contribute to sinus pain, pressure and congestion. When to get help? Temperature greater than 100.4 F Symptoms lasting more than 10 days or worsening symptoms greater than 7-10 days. If you do not improve or worsen after a course of antibiotics, you should be re-examined. Diagnosis and Treatment: Your healthcare provider will ask a number of questions about your symptoms and how long they have occurred. If symptoms of sinusitis persist greater than 10 days, it is possible you have a bacterial sinus infection and an antibiotic is prescribed. If it is viral, antibiotics will not help. You may be instructed to take [id number] medications for symptoms. including fever reducers acetaminophen or ibuprofen, nasal saline spray, cough and cold preparations and decongestants as prescribed by the physician, nurse practitioner or physician assistant art director. Self-Care and Prevention: Rest Fluids for hydration Good hand washing Humidifier Avoid smoking and exposure to second hand smoke Avoid sick contacts documented in this encounterC[facility] Clinic Foundation02-26-2024 NoteHNO ID: [id number] Author: KRISTIN QUEEN APRN.BRUCE Service: ? Author Type: Nurse Practitioner Type: Progress Notes Filed: 07/04/2023 18:07 Note Text: CC: Patient presents with: Ear Pain: Bilateral ear pain x 3 days HPI: Robert Leblanc is a 38 year old female who presents to the office with complaint of cough, nonproductive, sinus symptoms, and ear symptoms for a few days. Symptoms are staying the same. Associated symptoms includes ear pain. Denies fever, nausea, vomiting , and diarrhea. Treatments tried include nothing so far. with no relief of symptoms. Sick contacts: unknown. History of asthma, frequent episodes of bronchitis, chronic bronchitis, bronchiectasis or COPD: No Smoker: No Seasonal/environmental allergies: No The ROS is otherwise negative. The patient's pmh, medications, allergies, and past visits are reviewed. PHYSICAL EXAM: BP 118/74 Pulse 91 Temp 37.1 ?C (98.7 ?F) (Tympanic) Resp 18 Wt 134.9 kg (297 lb 6.4 oz) LMP 05/15/2023 (Approximate) SpO2 99% BMI 50.26 kg/m? General appearance: alert, cooperative, pleasant, in no acute distress Head: Normocephalic Eyes: EOM's intact, conjunctiva pink and moist, no icterus, sclera white, non-injected Ears: Right ear: External ear/canal- Normal, TM - clear with moderate clear fluid noted. Left ear: External ear/canal- Normal, TM - clear with moderate clear fluid noted. Oropharynx:moderate erythema, with exudates present Heart: Negative. RRR without obvious murmur, gallop, or rubs. No ectopy. Lungs: clear to auscultation, without rales or wheeze, good air exchange PAST MEDICAL HISTORY Diagnosis Date Abnormal Pap smear of cervix PCOS (polycystic ovarian syndrome) Rh negative status during 06/10/2014 PAST SURGICAL HISTORY Procedure Laterality Date VAGINOSCOPY ALLERGIES Red Dye and Valium [Diazepam] MEDICATIONS FLUoxetine (PROZAC) 20 mg capsule 20 mg once daily. SYNTHROID 125 mcg tablet Take 1 tablet by mouth every afternoon. Norethindrone, Contraceptive, 0.35 mg tablet TAKE 1 TABLET BY MOUTH EVERY DAY - START DAY 1 OF MENTRUAL CYCLE FAMILY HISTORY Problem Relation Age of Onset Cancer Mother breast Heart Father irregular heartbeat Stroke Paternal Grandmother Hypertension Paternal Grandmother Cancer Paternal Grandmother Aneurysm Maternal Grandmother brain Cancer Maternal Grandmother Heart Maternal Grandfather Diabetes Maternal Grandfather Colon Cancer Maternal Grandfather Heart Paternal Grandfather Heart Brother tachycardia Social History Tobacco Use Smoking status: Never Smokeless tobacco: Never Vaping Use Vaping Use: Never used Substance Use Topics Alcohol use: No Comment: not while Drug use: No ASSESSMENT/PLAN: 1. Throat discomfort - ICD9: 784.1, ICD10: R07.0 (primary diagnosis) 2. Otalgia of both ears - ICD9: 388.70, ICD10: H92.03 - AMOXICILLIN 875 MG TABLET 3. Sinus congestion - ICD9: 478.19, ICD10: R09.81 - FLUTICASONE PROPIONATE 50 MCG/ACTUATION NASAL SPRAY,SUSPENSION - AMOXICILLIN 875 MG TABLET - safety net antibiotic Strep neg Prescription instructions reviewed with patient as applicable. Potential red flag symptoms discussed with the patient. Reviewed appropriate action plan to take if red flag symptoms occur. Patient agreeable to treatment plan. Kristin Queen APRN.[facility]01-28-2024 NoteHNO ID: [id number] Author: HENRI COTTRELL PA-C Service: ? Author Type: Physician B2B Managed Service Sales Exec Type: Progress Notes Filed: 06/05/2023 09:42 Note Text: Robert Leblanc is a 38 year old FEMALE who presents with No chief complaint on file. HPI Patient presents to the urgent care for a chief complaint of cough and congestion over the last 2 weeks no report of any recent fevers or chills no vomiting or diarrhea no shortness of breath or chest pain. Patient does admit to a semiproductive cough runny stuffy nose. Has taken Robitussin and NyQuil and DayQuil to no resolve. She also does complain of postnasal drip. No reported history of asthma COPD or pneumonia. PAST MEDICAL HISTORY Diagnosis Date Abnormal Pap smear of cervix PCOS (polycystic ovarian syndrome) Rh negative status during 06/10/2014 ACTIVE PROBLEM LIST (none) - all problems resolved or deleted Current Outpatient Medications Medication Sig Dispense Refill Norethindrone, Contraceptive, 0.35 mg tablet TAKE 1 TABLET BY MOUTH EVERY DAY - START DAY 1 OF MENTRUAL CYCLE Phentermine HCl 37.5 mg tablet Take 37.5 mg by mouth once daily. FLUoxetine (PROZAC) 20 mg capsule Take 20 mg by mouth once daily. buPROPion SR (WELLBUTRIN SR) 100 mg 12 hr tablet Take 100 mg by mouth twice daily. CALCIUM CARBONATE (TUMS ORAL) Take by mouth. VIT/IRON FUMARATE/FA ( ORAL) Take by mouth. (Patient not taking: Reported on 01/12/2022) No current facility-administered medications for this visit. Social History Tobacco Use Smoking status: Never Smokeless tobacco: Never Substance Use Topics Alcohol use: No Comment: not while Drug use: No Alcohol Use: No (not while ) Tobacco Use: Never FAMILY HISTORY Problem Relation Age of Onset Cancer Mother breast Heart Father irregular heartbeat Stroke Paternal Grandmother Hypertension Paternal Grandmother Cancer Paternal Grandmother Aneurysm Maternal Grandmother brain Cancer Maternal Grandmother Heart Maternal Grandfather Diabetes Maternal Grandfather Colon Cancer Maternal Grandfather Heart Paternal Grandfather Heart Brother tachycardia Review of Systems Constitutional: Negative for chills and fever. HENT: Positive for congestion. Negative for ear pain. Eyes: Negative. Respiratory: Positive for cough and sputum production. Negative for shortness of breath, wheezing and stridor. Cardiovascular: Negative. Gastrointestinal: Negative. Genitourinary: Negative. Skin: Negative. Neurological: Negative. LMP 01/07/2022 Physical Exam Vitals and nursing note reviewed. Constitutional: General: She is not in acute distress. Appearance: Normal appearance. She is toxic-appearing. She is not ill-appearing. HENT: Head: Normocephalic and atraumatic. Right Ear: Tympanic membrane normal. Left Ear: Tympanic membrane normal. Nose: Nose normal. Mouth/Throat: Mouth: Mucous membranes are moist. Pharynx: No oropharyngeal exudate or posterior oropharyngeal erythema. Cardiovascular: Rate and Rhythm: Normal rate and regular rhythm. Pulses: Normal pulses. Heart sounds: Normal heart sounds. Pulmonary: Effort: Pulmonary effort is normal. Breath sounds: Normal breath sounds. Musculoskeletal: Cervical back: Normal range of motion and neck supple. No tenderness. Comments: Presence of costochondritis with palpation of left sternal border Neurological: General: No focal deficit present. Mental Status: She is alert and oriented to person, place, and time. Psychiatric: Mood and Affect: Mood normal. Behavior: Behavior normal. Believe patient may be suffering from bronchitis patient replaced on doxycycline Tessalon Perles along with prednisone burst I did advise if any worsening symptoms the patient may return to urgent care for reevaluation and at that time would recommend chest x-ray any signs of respiratory distress such as shortness of breath patient is to go to the ED or call 911. I did also advise patient if no regression of symptoms in 1 week patient also may return to urgent care for reevaluation at that time would recommend chest x-ray. Patient verbalized understanding and is agreeable to plan ASSESSMENT/PLAN: 1. Upper respiratory tract infection, unspecified type - ICD9: 465.9, ICD10: J06.9 - Discussed viral etiology and rationale for treatment. - Symptomatic treatment with prn analgesia - Supportive care with fluids and rest - DOXYCYCLINE HYCLATE 100 MG TABLET - BENZONATATE 100 MG CAPSULE - METHYLPREDNISOLONE 4 MG TABLETS IN A DOSE PACK [facility]AC[facility]01-28-2024 Instructions* Patient Instructions* Henri Cottrell PA-C - 06/05/2023 9:41 AM EST Please take medication as prescribed. If any signs of respiratory distress please go to ED or call 911. If worsening symptoms may follow-up with primary care or urgent care. If no resolution of symptoms in approximately 1 week may return to urgent care for reevaluation at that time would recommend chest x-ray. [facility] History of Present illness Narrative* Henri Cottrell PA-C - 06/05/2023 9:09 AM EST Robert Leblanc is a 38 year old FEMALE who presents with No chief complaint on file. HPI Patient presents to the urgent care for a chief complaint of cough and congestion over the last 2 weeks no report of any recent fevers or chills no vomiting or diarrhea no shortness of breath or chest pain. Patient does admit to a semiproductive cough runny stuffy nose. Has taken Robitussin and NyQuil and DayQuil to no resolve. She also does complain of postnasal drip. No reported history of asthma COPD or pneumonia. PAST MEDICAL HISTORY Diagnosis Date Abnormal Pap smear of cervix PCOS (polycystic ovarian syndrome) Rh negative status during 06/10/2014 ACTIVE PROBLEM LIST (none) - all problems resolved or deleted Current Outpatient Medications Medication Sig Dispense Refill Norethindrone, Contraceptive, 0.35 mg tablet TAKE 1 TABLET BY MOUTH EVERY DAY - START DAY 1 OF MENTRUAL CYCLE Phentermine HCl 37.5 mg tablet Take 37.5 mg by mouth once daily. FLUoxetine (PROZAC) 20 mg capsule Take 20 mg by mouth once daily. buPROPion SR (WELLBUTRIN SR) 100 mg 12 hr tablet Take 100 mg by mouth twice daily. CALCIUM CARBONATE (TUMS ORAL) Take by mouth. VIT/IRON FUMARATE/FA ( ORAL) Take by mouth. (Patient not taking: Reported on 01/12/2022) No current facility-administered medications for this visit. Social History Tobacco Use Smoking status: Never Smokeless tobacco: Never Substance Use Topics Alcohol use: No Comment: not while Drug use: No Alcohol Use: No (not while ) Tobacco Use: Never FAMILY HISTORY Problem Relation Age of Onset Cancer Mother breast Heart Father irregular heartbeat Stroke Paternal Grandmother Hypertension Paternal Grandmother Cancer Paternal Grandmother Aneurysm Maternal Grandmother brain Cancer Maternal Grandmother Heart Maternal Grandfather Diabetes Maternal Grandfather Colon Cancer Maternal Grandfather Heart Paternal Grandfather Heart Brother tachycardia Review of Systems Constitutional: Negative for chills and fever. HENT: Positive for congestion. Negative for ear pain. Eyes: Negative. Respiratory: Positive for cough and sputum production. Negative for shortness of breath, wheezing and stridor. Cardiovascular: Negative. Gastrointestinal: Negative. Genitourinary: Negative. Skin: Negative. Neurological: Negative. LMP 01/07/2022 Physical Exam Vitals and nursing note reviewed. Constitutional: General: She is not in acute distress. Appearance: Normal appearance. She is toxic-appearing. She is not ill-appearing. HENT: Head: Normocephalic and atraumatic. Right Ear: Tympanic membrane normal. Left Ear: Tympanic membrane normal. Nose: Nose normal. Mouth/Throat: Mouth: Mucous membranes are moist. Pharynx: No oropharyngeal exudate or posterior oropharyngeal erythema. Cardiovascular: Rate and Rhythm: Normal rate and regular rhythm. Pulses: Normal pulses. Heart sounds: Normal heart sounds. Pulmonary: Effort: Pulmonary effort is normal. Breath sounds: Normal breath sounds. Musculoskeletal: Cervical back: Normal range of motion and neck supple. No tenderness. Comments: Presence of costochondritis with palpation of left sternal border Neurological: General: No focal deficit present. Mental Status: She is alert and oriented to person, place, and time. Psychiatric: Mood and Affect: Mood normal. Behavior: Behavior normal. Believe patient may be suffering from bronchitis patient replaced on doxycycline Tessalon Perles along with prednisone burst I did advise if any worsening symptoms the patient may return to urgent care for reevaluation and at that time would recommend chest x-ray any signs of respiratory distress such as shortness of breath patient is to go to the ED or call 911. I did also advise patient if no regression of symptoms in 1 week patient also may return to urgent care for reevaluation at that timewould recommend chest x-ray. Patient verbalized understanding and is agreeable to plan ASSESSMENT/PLAN: 1. Upper respiratory tract infection, unspecified type - ICD9: 465.9, ICD10: J06.9 - Discussed viral etiology and rationale for treatment. - Symptomatic treatment with prn analgesia - Supportive care with fluids and rest - DOXYCYCLINE HYCLATE 100 MG TABLET - BENZONATATE 100 MG CAPSULE - METHYLPREDNISOLONE 4 MG TABLETS IN A DOSE PACK Henri Cottrell PA-C [facility] Evaluation + Plan note Extracted from: Title:Clinical Document Author:VY ROBERTSON PM Date:07/22/22 CAGUAS ADMISSION HISTORY AN D PHYSICIAL CHIEF COMPLAINT: HISTORY OF PRESENT ILLNESS: REVIEW OF SYSTEMS: ACTIVE PROBLEMS: (2) Anxiety ([id number]) Migraine ([id number]) MEDICATIONS: Active Inpt Meds: cefOXitin Start: 07/22/22 7:39:00 EDT, Dose = 1 gram(s), IV Piggyback, PREOP pharm, Rate: 200 mL/hr, Infuse over: 30 minute(s), 07/22/22 7:39:00 EDT Active PRN Meds: HYDROmorphone (Dilaudid ( PACU )) Start: 07/22/22 7:59:00 EDT, Dose = 0.25 mg, IV Push, q5min, PRN, Pain, scale 4-6, 8 dose(s), Stop: Limited # of times, 07/22/22 7:59:00 EDT fentaNYL (fentaNYL ( PACU )) Start: 07/22/22 7:59:00 EDT, Dose = 50 mcg, = 1 mL, IV Push, q5min, PRN, Pain, breakthrough, 4 dose(s), Stop: Limited # of times, 07/22/22 7:59:00 EDT ondansetron (Zofran ( PACU )) Start: 07/22/22 7:59:00 EDT, Dose = 4 mg, = 2 mL, IV Push, AsDirected, PRN, Nausea/Vomiting, 1 dose(s), Stop: Limited # of times, 07/22/22 7:59:00 EDT One Time Meds: None Active IV Meds: Lactated Ringers Infusion 1000 mL (LR 1000 mL) Start: 07/22/22 7:39:00 EDT, Rate: 125 mL/hr, 07/22/22 7:39:00 EDT Lactated Ringers Infusion 1000 mL (LR 1000 mL) Start: 07/22/22 7:59:00 EDT, Rate: 20 mL/hr, 07/22/22 7:59:00 EDT ALLERGIES: (1) Valium FAMILY HISTORY: SOCIAL HISTORY: PHYSICAL EXAM: VITALS: [id number](kg) 07/22 07:4636.2--[id number]/14141.7 24 Hr Tmax: 36.2 at 07/22 07:46 36 Hr Tmax: 36.2 at 07/22 07:46 Vital Signs are the last 5 in the past 48 hours. Weights display the last 5 within 7 days. Initial Wt: 07/22 122.7 kg 270 lb Current Wt: 07/22 122.7 kg 270 lb GENERAL: HEENT: CARDIOVASCULAR: RESPIRATORY: ABDOMEN: EXREMETIES: NEUROLOGICAL: PSYCHIATRIC: LABS: 36hr Labs 07/22 0740 TestSee Flowsheet testSee Flowsheet DIAGNOSTICS: IMPRESSION: PLAN: History and Physical Update I have examined the patient; reviewed the H&P and there are no changes to the H&P unless noted below. [facility] 03-16-2023 Hospital Discharge instructions Patient Education 07/22/2022 09:14:45 Monitored Anesthesia Care, Care After Monitored Anesthesia Care, Care After These instructions provide you with information about caring for yourself after your procedure. Your health care provider may also give you more specific instructions. Your treatment has been plannedaccording to current medical practices, but problems sometimes occur. Call your health care provider if you have any problems or questions after your procedure. What can I expect after the procedure? After your procedure, you may: Feel sleepy for several hours. Feel clumsy and have poor balance for several hours. Feel forgetful about what happened after the procedure. Have poor judgment for several hours. Feel nauseous or vomit. Have a sore throat if you had a breathing tube during the procedure. Follow these instructions at home: For at least 24 hours after the procedure: Have a responsible adult stay with you. It is important to have someone help care for you until youare awake and alert. Rest as needed. Do not: ?Participate in activities in which you could fall or become injured. ?Drive. ?Use heavy machinery. ?Drink alcohol. ?Take sleeping pills or medicines that cause drowsiness. ?Make important decisions or sign legal documents. ?Take care of children on your own. Eating and drinking Follow the diet that is recommended by your health care provider. If you vomit, drink water, juice, or soup when you can drink without vomiting. Make sure you have little or no nausea before eating solid foods. General instructions Take lbzr-jrn-emvedmt and prescription medicines only as told by your health care provider. If you have sleep apnea, surgery and certain medicines can increase your risk for breathing problems. Follow instructions from your health care provider about wearing your sleep device: ?Anytime you are sleeping, including during daytime naps. ?While taking prescription pain medicines, sleeping medicines, or medicines that make you drowsy. If you smoke, do not smoke without supervision. Keep all follow-up visits as told by your health care provider. This is important. Contact a health care provider if: You keep feeling nauseous or you keep vomiting. You feel light-headed. You develop a rash. You have a fever. Get help right away if: You have trouble breathing. Summary For several hours after your procedure, you may feel sleepy and have poor judgment. Have a responsible adult stay with you for at least 24 hours or until you are awake and alert. This information is not intended to replace advice given to you by your health care provider. Make sure you discuss any questions you have with your health care provider. Document Released: 08/15/2016 Document Revised: 07/24/2018 Document Reviewed: 08/15/2016 [employer] Patient Education 2020 [employer] 07/22/2022 09:14:40 Endoscopic Plantar Fasciotomy, Care After Endoscopic Plantar Fasciotomy, Care After This sheet gives you information about how to care for yourself after your procedure. Your health care provider may also give you more specific instructions. If you have problems or questions, contact your health care provider. What can I expect after the procedure? After the procedure, it is common to have: Foot pain and stiffness. Swelling in the incision area. Follow these instructions at home: If you have a boot or protective shoe: Wear it as told by your health care provider. Remove it only as told by your health care provider. Loosen it if your toes tingle, become numb, or turn cold and blue. Keep it clean. If it is not waterproof: ?Do not let it get wet. ?Cover it with a watertight covering when you take a bath or shower. Bathing Do not take baths, swim, or use a hot tub until your health care provider approves. Ask your healthcare provider if you may take showers. You may only be allowed to take sponge baths. Keep the dressing dry until your health care provider says it can be removed. Incision care Follow instructions from your health care provider about how to take care of your incision. Make sure you: ?Wash your hands with soap and water before and after you change your bandage (dressing). If soap and water are not available, use hand trapper bird. ?Change your dressing as told by your health care provider. ?Leave stitches (sutures), skin glue, or adhesive strips in place. These skin closures may need to stay in place for 2 weeks or longer. If adhesive strip edges start to loosen and curl up, you may trim the loose edges. Do not remove adhesive strips completely unless your health care provider tells you to do that. Check your incision area every day for signs of infection. Check for: ?More swelling or pain. ?Redness. ?Warmth. ?Fluid or blood. ?Pus or a bad smell. Managing pain, stiffness, and swelling If directed, put ice on the affected area. ?Put ice in a plastic bag. ?Place a towel between your skin and the bag. ?Leave the ice on for 20 minutes, 2 3 times a day. Move your toes often to reduce stiffness and swelling. Raise (elevate) the affected area above the level of your heart while you are sitting or lying down. Driving Do not drive for 24 hours if you were given a sedative during your procedure. Ask your health care provider: ?If the medicine prescribed to you requires you to avoid driving or using heavy machinery. ?When it is safe to drive if you have been given a boot or protective shoe to wear on your foot. Activity Do not use the affected foot to support (bear) your body weight until your health care provider says that you can. Use crutches as told by your health care provider. Return to your normal activities as told by your health care provider. Ask your health care provider what activities are safe for you. General instructions Take lfsj-isj-uoqxjhx and prescription medicines only as told by your health care provider. Keep all follow-up visits as told by your health care provider. This is important. Contact a health care provider if: You have a loss of feeling (numbness) in your foot. You have more swelling or pain at the site of your incision. You have redness at the site of your incision. Your incision feels warm to the touch. You have fluid or blood coming from your incision. You have pus or a bad smell coming from your incision. You have a fever or chills. The dressing is too tight. Get help right away if: You have difficulty moving your foot. You have swelling in your leg or calf. Summary After the procedure, it is common to have foot pain and stiffness. If directed, put ice on the affected area 2 3 times a day. If you have crutches, use them to keep weight off your foot as told by your health care provider. Keep all follow-up visits as told by your health care provider. This is important. This information is not intended to replace advice given to you by your health care provider. Make sure you discuss any questions you have with your health care provider. Document Released: 04/05/2016 Document Revised: 08/16/2019 Document Reviewed: 04/23/2019 [employer] Patient Education 2020 [employer] Follow Up Care 07/01/2022 11:43:38 With:VY ROBERTSON DPM, Surgery Address: [address] [place] [address], [address] [facility] [place] [address]- When:07/28/2022 16:00:00 Comments:Follow-up as scheduled [facility] 03-16-2023 Summary of episode note Discharge Instructions Thank you for allowing [facility] to assist you with your healthcare needs. The following is importantdischarge information regarding your hospital visit. Your Diagnosis ENDOSCOPIC PLANTAR FASCIOTOMY What to do next Instructions From Your Doctor SEE INSTRUCTION SHEET Follow Up Appointments Follow Up with VY ROBERTSON DPM, Surgery When 07/28/2022 04:00 PM EDT Why: Follow-up as scheduled Where: [address], [address] [facility] [place] [address]- The Following Activity and Diet Have Been Ordered for You Discharge Activity - Ordered -- Other, Follow the post-operative/post-procedure activity instructions provided by your physician's office., 07/22/22 9:12:00 EDT No qualifying data available. The Following Equipment Has Been Ordered for You Discharge Home Equipment Discharge Wound Care - Ordered -- Follow the post-operative/post-procedure wound care instructions provided by your physician's office., 07/22/22 9:12:00 EDT Allergies Valium (Hyperactive) Medications Please ask your primary doctor or pharmacist before taking any other medication not listed, including over the counter drugs, herbal medications, vitamins and or supplements as they may interact withyour home medications. What How Much When Instructions Last Dose Unchanged cholecalciferol (Vitamin D (3) 45 units oral capsule) Unchanged FLUoxetine (FLUoxetine 20 mg oral capsule) 1 cap by mouth Once a day Unchanged norethindrone (norethindrone 0.35 mg oral tablet) 1 tab(s) by mouth Once a day Unchanged phentermine-topiramate (Qsymia 7.5 mg-46 mg oral capsule, extended release) TAKE 1 CAPSULE BY MOUTH EVERY DAY - BMI 47 Please take this list to your next doctor s visit. Bring all medications you take, including over the counter medications, herbals and other supplements with you to your doctor s visit. Patients and families are reminded to discard old lists and to update any records with all medication providers or retail pharmacies. Education Materials Monitored Anesthesia Care, Care After These instructions provide you with information about caring for yourself after your procedure. Your health care provider may also give you more specific instructions. Your treatment has been plannedaccording to current medical practices, but problems sometimes occur. Call your health care provider if you have any problems or questions after your procedure. What can I expect after the procedure? After your procedure, you may: Feel sleepy for several hours. Feel clumsy and have poor balance for several hours. Feel forgetful about what happened after the procedure. Have poor judgment for several hours. Feel nauseous or vomit. Have a sore throat if you had a breathing tube during the procedure. Follow these instructions at home: For at least 24 hours after the procedure: Have a responsible adult stay with you. It is important to have someone help care for you until youare awake and alert. Rest as needed. Do not: ? Participate in activities in which you could fall or become injured. ? Drive. ? Use heavy machinery. ? Drink alcohol. ? Take sleeping pills or medicines that cause drowsiness. ? Make important decisions or sign legal documents. ? Take care of children on your own. Eating and drinking Follow the diet that is recommended by your health care provider. If you vomit, drink water, juice, or soup when you can drink without vomiting. Make sure you have little or no nausea before eating solid foods. General instructions Take sjsy-vaj-rxwehie and prescription medicines only as told by your health care provider. If you have sleep apnea, surgery and certain medicines can increase your risk for breathing problems. Follow instructions from your health care provider about wearing your sleep device: ? Anytime you are sleeping, including during daytime naps. ? While taking prescription pain medicines, sleeping medicines, or medicines that make you drowsy. If you smoke, do not smoke without supervision. Keep all follow-up visits as told by your health care provider. This is important. Contact a health care provider if: You keep feeling nauseous or you keep vomiting. You feel light-headed. You develop a rash. You have a fever. Get help right away if: You have trouble breathing. Summary For several hours after your procedure, you may feel sleepy and have poor judgment. Have a responsible adult stay with you for at least 24 hours or until you are awake and alert. This information is not intended to replace advice given to you by your health care provider. Make sure you discuss any questions you have with your health care provider. Document Released: 08/15/2016 Document Revised: 07/24/2018 Document Reviewed: 08/15/2016 [employer] Patient Education 2020 [employer] Endoscopic Plantar Fasciotomy, Care After This sheet gives you information about how to care for yourself after your procedure. Your health care provider may also give you more specific instructions. If you have problems or questions, contact your health care provider. What can I expect after the procedure? After the procedure, it is common to have: Foot pain and stiffness. Swelling in the incision area. Follow these instructions at home: If you have a boot or protective shoe: Wear it as told by your health care provider. Remove it only as told by your health care provider. Loosen it if your toes tingle, become numb, or turn cold and blue. Keep it clean. If it is not waterproof: ? Do not let it get wet. ? Cover it with a watertight covering when you take a bath or shower. Bathing Do not take baths, swim, or use a hot tub until your health care provider approves. Ask your healthcare provider if you may take showers. You may only be allowed to take sponge baths. Keep the dressing dry until your health care provider says it can be removed. Incision care Follow instructions from your health care provider about how to take care of your incision. Make sure you: ? Wash your hands with soap and water before and after you change your bandage (dressing). If soap and water are not available, use hand trapper bird. ? Change your dressing as told by your health care provider. ? Leave stitches (sutures), skin glue, or adhesive strips in place. These skin closures may need to stay in place for 2 weeks or longer. If adhesive strip edges start to loosen and curl up, you may trim the loose edges. Do not remove adhesive strips completely unless your health care provider tells you to do that. Check your incision area every day for signs of infection. Check for: ? More swelling or pain. ? Redness. ? Warmth. ? Fluid or blood. ? Pus or a bad smell. Managing pain, stiffness, and swelling If directed, put ice on the affected area. ? Put ice in a plastic bag. ? Place a towel between your skin and the bag. ? Leave the ice on for 20 minutes, 2 3 times a day. Move your toes often to reduce stiffness and swelling. Raise (elevate) the affected area above the level of your heart while you are sitting or lying down. Driving Do not drive for 24 hours if you were given a sedative during your procedure. Ask your health care provider: ? If the medicine prescribed to you requires you to avoid driving or using heavy machinery. ? When it is safe to drive if you have been given a boot or protective shoe to wear on your foot. Activity Do not use the affected foot to support (bear) your body weight until your health care provider says that you can. Use crutches as told by your health care provider. Return to your normal activities as told by your health care provider. Ask your health care provider what activities are safe for you. General instructions Take pxsr-jbm-rucofwp and prescription medicines only as told by your health care provider. Keep all follow-up visits as told by your health care provider. This is important. Contact a health care provider if: You have a loss of feeling (numbness) in your foot. You have more swelling or pain at the site of your incision. You have redness at the site of your incision. Your incision feels warm to the touch. You have fluid or blood coming from your incision. You have pus or a bad smell coming from your incision. You have a fever or chills. The dressing is too tight. Get help right away if: You have difficulty moving your foot. You have swelling in your leg or calf. Summary After the procedure, it is common to have foot pain and stiffness. If directed, put ice on the affected area 2 3 times a day. If you have crutches, use them to keep weight off your foot as told by your health care provider. Keep all follow-up visits as told by your health care provider. This is important. This information is not intended to replace advice given to you by your health care provider. Make sure you discuss any questions you have with your health care provider. Document Released: 04/05/2016 Document Revised: 08/16/2019 Document Reviewed: 04/23/2019 [employer] Patient Education 2020 [employer] Additional Information VACCINATE! IT SAVES LIVES! Members of the community who have not yet received the COVID-19 vaccine and would like to receive it can visit one of [facility] vaccine clinics. There are many vaccine clinic locations within the [facility]. For locations and available times, please visit [email or web address] It is important to note that some COVID mobile vaccine clinics are held outdoors and may be canceled in rainy or stormy conditions. To learn more about pediatric vaccinations (ages 5-11), we invite you to visit the [facility] webpage. [email or web address] learn more about the COVID-19 vaccine, we invite you to visit the CDC website for a list of frequently asked questions. https://www.cdc.gov/coronavirus/2019-ncov/vaccines/faq.html [facility] Patient Portal Access Instructions: Stay connected with your healthcare team and access your personal medical information anytime with the [facility] Patient Portal.If you would like a full copy of your medical records, please contact the [facility] Medical Records Department, Tuesday through Tuesday between 8a.m. and 4:30p.m. Please follow the directions below to access the portal: 1.Access the email account you provided upon registration to the hospital.2.Look for an invitation email from [facility].3.Open the email and access the invitation link: Accept Invitation to [facility]4.Fill in the required braga to create your account. Sign into www.[employer] with your username and password that you created in the above steps to stay up to date. You can then view a summary of results, a summary of your visits, and the ability to download your summaries to your computer or send the information securely to a physician. Remember that your healthcare information is confidential, so carefully consider who you will allow to register on the [facility] Patient Portal for access to your information. You can also access the [facility] Patient Portal on the [employer] carla. Simply click on Health Records under Ingeniatrics and then click on the [employer] logo. HOW TO SAFELY DISPOSE OF PRESCRIPTION MEDICATIONS Please use one of the following methods to safely dispose of your unused medications. 1.Use a drug disposal kit: the drug disposal pouch allows you to safely discard your old and unuseddrugs. Ask your nurse to give you one when you are discharged.2.Visit a local take-back location: Many local pharmacies and police departments have programs that collect old and unwanted prescriptiondrugs. Call your local pharmacy or go to http://Everstring.Scorista.ru/1P9Yv0o to find one close to you.3.Make use of household items: Use cat litter or old coffee grounds to dispose medications if other options arenot available. Mix your drugs with these household products, seal them in an airtight container andthrow it into the garbage. Call [facility]: [phone] to be sure your drugs can be disposed of in this way. Some medicines may require a different approach.4.Never flush your medications down the toilet. IF YOU HAVE BEEN PRESCRIBED AN OPIOID FOR PAIN If you have been prescribed an opioid (such as hydrocodone, oxycodone or morphine), it is critical to understand the possible side effects and risks of opioid pain medications. Even when taken as directed, opioids can have several side effects including: Tolerance, meaning you might need to take more of a medication for the same pain relief. Nausea, vomiting and/or constipation. Sleepiness, dizziness, dry mouth, confusion, depression or itching. Physical dependence, meaning you have withdrawal symptoms when a medication is stopped, can develop within a few days. KNOW YOUR RESPONSIBILITIES It is important to know exactly how much and how often to take the opioid pain medications you are prescribed. Never take opioids in higher amounts or more often than prescribed. Do not combine opioids with alcohol or other drugs that cause drowsiness, such as benzodiazepines, also known as benzos, including diazepam and alprazolam, muscle relaxants or sleep aids. Never sell or share prescription opioids. This is illegal. Store opioids in a secure place and out of reach of others (including children, family, friends and visitors). The last page of this document has been signed and retained as a CHART COPY. Signatures Patient Education Materials Monitored Anesthesia Care, Care After Endoscopic Plantar Fasciotomy, Care After Medication Leaflets My discharge plan and instructions have been reviewed and explained to me and ISALLY ERIN N understand my current condition and have read and understand these discharge instructions. I have received a written copy of the plan/instructions. If I have questions, I am aware that I should contact my doctor. 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 Mental status: at preoperative baseline, alert & oriented x 4. Respiratory function: lungs are clear to auscultation. Respiratory support: none. CV function: Normal rate. Cardiovascular support: none. Pain. Nausea status: denies nausea. Postoperative hydration status: within normal limits. Digitally Signed by DUSTY RAMIREZ on 07/22/2022 09:10 AM [facility]03-16-2023 Note CAGUAS ADMISSION HISTORY AND PHYSICIAL CHIEF COMPLAINT: HISTORY OF PRESENT ILLNESS: REVIEW OF SYSTEMS: ACTIVE PROBLEMS: (2) Anxiety ([id number]) Migraine ([id number]) MEDICATIONS: Active Inpt Meds: cefOXitin Start: 07/22/22 7:39:00 EDT, Dose = 1 gram(s), IV Piggyback, PREOP pharm, Rate: 200 mL/hr, Infuse over: 30 minute(s), 07/22/22 7:39:00 EDT Active PRN Meds: HYDROmorphone (Dilaudid ( PACU )) Start: 07/22/22 7:59:00 EDT, Dose = 0.25 mg, IV Push, q5min, PRN,Pain, scale 4-6, 8 dose(s), Stop: Limited # of times, 07/22/22 7:59:00 EDT fentaNYL (fentaNYL ( PACU )) Start: 07/22/22 7:59:00 EDT, Dose = 50 mcg, = 1 mL, IV Push, q5min, PRN, Pain, breakthrough, 4 dose(s), Stop: Limited # of times, 07/22/22 7:59:00 EDT ondansetron (Zofran ( PACU )) Start: 07/22/22 7:59:00 EDT, Dose = 4 mg, = 2 mL, IV Push, AsDirected, PRN, Nausea/Vomiting, 1 dose(s), Stop: Limited # of times, 07/22/22 7:59:00 EDT One Time Meds: None Active IV Meds: Lactated Ringers Infusion 1000 mL (LR 1000 mL) Start: 07/22/22 7:39:00 EDT, Rate: 125 mL/hr, 07/22/22 7:39:00 EDT Lactated Ringers Infusion 1000 mL (LR 1000 mL) Start: 07/22/22 7:59:00 EDT, Rate: 20 mL/hr, 07/22/22 7:59:00 EDT ALLERGIES: (1) Valium FAMILY HISTORY: SOCIAL HISTORY: PHYSICAL EXAM: VITALS: LmtnbtKyrtLBJoemfTQBcO2TDR0NuwmGy(kg) 07/22 07:4636.2--[id number]/43985.7 24 Hr Tmax: 36.2 at 07/22 07:46 36 Hr Tmax: 36.2 at 07/22 07:46 Vital Signs are the last 5 in the past 48 hours. Weights display the last 5 within 7 days. Initial Wt: 07/22 122.7 kg 270 lb Current Wt: 07/22 122.7 kg 270 lb GENERAL: HEENT: CARDIOVASCULAR: RESPIRATORY: ABDOMEN: EXREMETIES: NEUROLOGICAL: PSYCHIATRIC: LABS: 36hr Labs 07/22 0740 TestSee Flowsheet testSee Flowsheet DIAGNOSTICS: IMPRESSION: PLAN: History and Physical Update I have examined the patient; reviewed the H&P and there are no changes to the H&P unless noted below. Digitally Signed by VY ROBERTSON DPM on 07/22/2022 08:32 AM [facility]03-16-2023 Anesthesiology Consult note Patient: ROBERT LEBLANC Age: 37 years Sex: Female : 1985 Associated Diagnoses: None Author: DUSTY RAMIREZ Preoperative Information Time of last food or liquid consumption: 07/22/2022 00:00:00 Anesthesia history Patient's history: negative. Family's history: negative. Health Status Allergies: Allergic Reactions (Selected) Severity Not Documented Valium- Hyperactive., Allergies (1) ActiveReaction ValiumHyperactive Current medications: (Selected) Inpatient Medications Ordered LR 1000 mL: 125 mL/hr, Intravenous cefOXitin: 1 gram(s), 200 mL/hr, IV Piggyback, PREOP pharm Documented Medications Documented FLUoxetine 20 mg oral capsule: 20 mg, 1 cap(s), Oral, qDay, 30 cap(s), 0 Refill(s) Qsymia 7.5 mg-46 mg oral capsule, extended release: TAKE 1 CAPSULE BY MOUTH EVERY DAY - BMI 47 Vitamin D (3) 45 units oral capsule: 0 Refill(s) norethindrone 0.35 mg oral tablet: 0.35 mg, 1 tab(s), Oral, qDay, 28 tab(s), 0 Refill(s), Medications (2) Active Scheduled: (1) ceFOXitin 1 gram(s), IV Piggyback, PREOP pharm Continuous: (1) Lactated Ringers Infusion 1000 mL 1,000 mL, Intravenous, 125 mL/hr PRN: (0) Problem list: Active Problems (2) Anxiety Migraine Histories Past Medical History: No active or resolved past medical history items have been selected or recorded., BMI 46 Family History: Cancer Mother Hypertension Grandparent Atrial fibrillation Father Stroke Grandparent Diabetes Grandparent Procedure history: Laparoscopic cholecystectomy ([id number]). Dilation and curettage ([id number]). Social History Social & Psychosocial Habits Alcohol 07/12/2022 Use: Never Substance Abuse 07/12/2022 Use: Never Tobacco 07/12/2022 Tobacco Use: Never (less than 100 in l Home/Environment 07/12/2022 Domestic Concerns Denies Lives In 1st floor bathroom, Multilevel home Spouse Name CAN Marital Status of Patient if Patient Independent Adult: Nutrition/Health 07/12/2022 Type of diet: Regular Eating Difficulties None . Physical Examination Vital Signs 07/22/2022 7:46 EDT Temperature Temporal Artery 36.2 DegC Peripheral Pulse Rate 72 bpm Respiratory Rate 18 br/min Systolic Blood Pressure Non-Invasive 109 mmHg Diastolic Blood Pressure Non-Invasive 71 mmHg Vital Signs(last 24 hrs) Last Charted Resp Rate 18 br/min (JUL 22 07:46) RNP461 mmHg (JUL 22 07:46) DBP71 mmHg (JUL 22 07:46) Measurements from flowsheet : Measurements 07/22/2022 7:46 EDT Height 162.3 cm Height in inches 63.9 inch(es) Admission Weight 122.7 kg Weight Lbs 269.9 lb Tate Body Weight 54.46 kg Admission Body Mass Index 46.58 m2 Pain assessment: Pain Assessment 07/22/2022 7:46 EDT Primary Pain Intensity 0 Pain Scale Type 0-10 Pain scale . General: Alert and oriented. Airway: Normal temporomandibular joint mobility. Mallampati classification: II (soft palate, fauces, uvula visible). Head: Normocephalic. Dentition Evaluation: Intact. Neck: Supple. Respiratory: Lungs are clear to auscultation. Cardiovascular: Normal rate. Heart Sounds: Normal. Gastrointestinal: Soft. Musculoskeletal Normal range of motion. Integumentary: Intact. Neurologic: Alert. Review / Management Results review: No qualifying data available , Lab results 07/22/2022 7:46 EDT Height 162.3 cm Height in inches 63.9 inch(es) Admission Weight 122.7 kg Weight Lbs 269.9 lb Tate Body Weight 54.46 kg Admission Body Mass Index 46.58 m2 Temperature Temporal Artery 36.2 DegC Peripheral Pulse Rate 72 bpm Respiratory Rate 18 br/min Systolic Blood Pressure Non-Invasive 109 mmHg Diastolic Blood Pressure Non-Invasive 71 mmHg Primary Pain Intensity 0 Pain Scale Type 0-10 Pain scale Monitor Alarms On and Limits Checked Heart Sounds ICU S1S2 Heart Rhythm Regular Respirations Unlabored Respiratory Pattern Regular All Lobes Breath Sounds Clear Cough None Oxygen Therapy Room air Abdomen Description Non-distended, Soft Abdomen Palpation Non-Tender Bowel Continence Continent Bowel Sounds All Quadrants Present Urinary Elimination Voiding, no difficulties Skin Temperature Warm Skin Description [place], Normal for ethnicity, Dry Skin Integrity Intact Skin Moisture General Dry IV Present Present Neurological Symptoms Patient denies Extremity Movement Equal Characteristics of Speech Clear Level of Consciousness Alert EARLENE Yes Strength All Extremities Strong Tone All Extremities Normal Sensation All Extremities Intact Left Upper Extremity Sensation Intact Right Upper Extremity Sensation Intact Left Lower Extremity Sensation Intact Right Lower Extremity Sensation Intact Affect/Behavior Appropriate, Calm, Cooperative Orientation Oriented x [address] On Yes Consent Form Signed Yes Patient Dressed In Hospital gown, No undergarments Pre-op Preparation Glasses removed, Undergarments removed CHG Preoperative Wash/Wipe Night before procedure, Day of procedure CHG Skin Prep Completed for Eligible Surgery History & Physical Update On Chart Yes History & Physical On Chart Yes Obstructive Sleep Apnea Assess Completed Yes Orientation Assessment Oriented x 4 Belongings At Bedside Pants, Shirt, Shoes, Socks Activity Status ADL Ambulating in moseley, Ambulating in room, Awake Assistive Device None SCD On/Re-applied left knee high NPO Status Maintained Standard Safety ID band on, Allergy Band on Demonstrates Correct Call Light Use Yes Allergy Band on and Verified Yes Blood Band on and Verified Yes Patient ID Band on and Verified Yes Implants Verified Yes Pacemaker/AICD Verified Yes Anesthesia Consent Signed Yes Blood Consent Signed Yes Last Fluid Intake 07/21/2022 21:00 Last Food Intake 07/21/2022 23:00 Last Void 07/22/2022 7:51 07/22/2022 7:45 EDT Designated Person #1 We May Share MARIA EUGENIA RUBI [phone] (Modified) Privacy Restrictions Requested None Sensory Deficits None Safety Brochure Information Reviewed Yes [facility] Video Viewed No Teaching Evaluation Verbalizes/Nonverbally indicates understanding Admission Note-Nursing Same Day Patient History (Modified) 07/22/2022 7:40 EDT Test Urine Negative test (u) int test (u) int QC PRGUN Negative QC PRGUP Positive . Assessment and Plan [place] [employer] Anesthesiologists (ASA) physical status classification: Class II. Anesthetic Preoperative Plan Premedication: None. Anesthetic technique: MAC. Induction: intravenously. Postoperative pain management: Per surgeon. Risks discussed: nausea, vomiting, headache, sore throat, dental injury, hypotension, allergic reaction, serious complications. Informed consent: signed by patient. Digitally Signed by JAMESDUSTY GALDAMEZ on 07/22/2022 07:59 AM [facility]09-06-2022 History of Present illness Narrative * Natali Berman APRN.[employer] - 01/12/2022 6:11 PM EDT Subjective HPI Robert Leblanc is a 36 year old female who presents with 5 days of urinary frequency, urgency, and low back pain. She took some OTC medication for bladder health. She denies fever. LMP was 01/07/2022. She is on oral contraceptive. Review of Systems Constitutional: Negative for fever. Respiratory: Negative. Cardiovascular: Negative. Gastrointestinal: Positive for abdominal pain (suprapubic). Negative for nausea and vomiting. Genitourinary: Positive for frequency and urgency. Negative for flank pain and hematuria. Musculoskeletal: Positive for back pain. BP 110/70 Pulse 64 Temp 36.4 C (97.6 F) (Tympanic) Resp 18 Wt 127.9 kg (282 lb) LMP 01/07/2022 (Approximate) SpO2 100% BMI 47.66 kg/m PAST MEDICAL HISTORY Diagnosis Date Abnormal Pap smear of cervix PCOS (polycystic ovarian syndrome) Rh negative status during 06/10/2014 PAST SURGICAL HISTORY Procedure Laterality Date VAGINOSCOPY ALLERGIES Valium [Diazepam] MEDICATIONS Norethindrone, Contraceptive, 0.35 mg tablet TAKE 1 TABLET BY MOUTH EVERY DAY - START DAY 1 OF MENTRUAL CYCLE Phentermine HCl 37.5 mg tablet Take 37.5 mg by mouth once daily. FLUoxetine (PROZAC) 20 mg capsule Take 20 mg by mouth once daily. buPROPion SR (WELLBUTRIN SR) 100 mg 12 hr tablet Take 100 mg by mouth twice daily. CALCIUM CARBONATE (TUMS ORAL) Take by mouth. nitrofurantoin monohydrate and macrocrystal (MACROBID) 100 mg capsule Take 1 capsule by mouth twicedaily for 7 days. VIT/IRON FUMARATE/FA ( ORAL) Take by mouth. (Patient not taking: Reported on 01/12/2022) FAMILY HISTORY Problem Relation Age of Onset Cancer Mother breast Heart Father irregular heartbeat Stroke Paternal Grandmother Hypertension Paternal Grandmother Cancer Paternal Grandmother Aneurysm Maternal Grandmother brain Cancer Maternal Grandmother Heart Maternal Grandfather Diabetes Maternal Grandfather Colon Cancer Maternal Grandfather Heart Paternal Grandfather Heart Brother tachycardia Social History Tobacco Use Smoking status: Never Smokeless tobacco: Never Substance Use Topics Alcohol use: No Comment: not while Drug use: No Objective Physical Exam Vitals and nursing note reviewed. Constitutional: Appearance: She is obese. Cardiovascular: Rate and Rhythm: Normal rate and regular rhythm. Heart sounds: Normal heart sounds. Pulmonary: Effort: Pulmonary effort is normal. No respiratory distress. Breath sounds: Normal breath sounds. No wheezing or rales. Abdominal: Palpations: Abdomen is soft. Tenderness: There is no right CVA tenderness or left CVA tenderness. Skin: General: Skin is warm and dry. Neurological: Mental Status: She is alert. ASSESSMENT/PLAN: 1. Urinary frequency - ICD9: 788.41, ICD10: R35.0 acute - UA positive for christo esterase, hematuria, proteinuria, and trace ketones - Send urine for culture - Begin treatment with Macrobid 100 mg BID for 7 days - Patient education for prevention given - UA DIP, URINE (POC) - URINE CULTURE - NITROFURANTOIN MONOHYDRATE & MACROCRYSTAL 100 MG ORAL CAP - Follow-up with your PCP in 3-5 days if symptoms have not improved or sooner if symptoms worsen - Discussed red flags and need for immediate medical evaluation if any occur. - Discussed supportive care treatment with fluids, rest and analgesia. - Discussed expected course of illness Natali Berman APRN.CNP [facility] Instructions* Patient Instructions* Natali Berman APRN.CNP - 01/12/2022 6:11 PM EDT ASSESSMENT/PLAN: 1. Urinary frequency - ICD9: 788.41, ICD10: R35.0 acute - UA positive for christo esterase, hematuria, proteinuria, and trace ketones - Send urine for culture - Begin treatment with Macrobid 100 mg BID for 7 days - Patient education for prevention given - UA DIP, URINE (POC) - URINE CULTURE - NITROFURANTOIN MONOHYDRATE & MACROCRYSTAL 100 MG ORAL CAP - Follow-up with your PCP in 3-5 days if symptoms have not improved or sooner if symptoms worsen - Discussed red flags and need for immediate medical evaluation if any occur. - Discussed supportive care treatment with fluids, rest and analgesia. - Discussed expected course of illness Natali Berman APRN.[facility] PATIENT INFO BLADDER INFECTION OVERVIEW Bladder infections are one of the most common infections, causing symptoms of burning with urination and needing to urinate frequently. A bladder infection is a type of urinary tract infection (UTI).Bladder infections are more common is women than men. Most women have an uncomplicated bladder infection that is easily treated with a short course of antibiotics. In men, bladder infections may alsoaffect the prostate gland, and a longer course of treatment may be needed. BLADDER INFECTION CAUSES The urinary tract includes the kidneys (which filter urine), ureters (the tube that carries urine from the kidneys to the bladder), the bladder (which stores urine), and urethra (the tube that carries urine out of the bladder). Bacteria do not normally live in these areas. However, bacteria normally live close to the urethra in women and men who are not circumcised. Bladder infections occur when bacteria travel up the urethra into the bladder. Factors that increase the risk of developing a bladder infection include: Vaginal sex Use of spermicides History of past bladder infections Diabetes In men, not being circumcised or having anal sex increase the risk of bladder infections. BLADDER INFECTION SYMPTOMS The typical symptoms of a bladder infection include: Pain or burning when urinating Frequent need to urinate Urgent need to urinate Blood in the urine Fever, back pain, nausea, or vomiting are not common symptoms of a bladder infection, but can occurin people with a kidney infection (pyelonephritis). If you have these symptoms, you should call your doctor or nurse immediately. Is it a bladder infection or something else? -- Burning with urination can also occur in people with vaginitis (eg, yeast infection) or urethritis (inflammation of the urethra). For this reason, it is important to call your healthcare provider before assuming you have a bladder infection. BLADDER INFECTION DIAGNOSIS Simple bladder infections are usually diagnosed based upon your symptoms alone. However, most patients, especially those who have bladder infection symptoms for the first time, should see a healthcare provider for urine testing. Urine culture -- A urine culture is a test that uses a sample of urine to try and grow bacteria in a laboratory. It usually requires about 48 hours to get results. However, a urine culture is not always required to diagnose a bladder infection. Urine culture is often recommended if: You have never had a bladder infection before You have symptoms that are not typical for bladder infection You have had resistant bladder infections before You have frequent bladder infections You do not begin to feel better within 24 to 48 hours after starting antibiotics You are BLADDER INFECTION TREATMENT Bladder infection -- In young, healthy adolescents and adults with a bladder infection, the usual treatment includes a three to seven day course of antibiotics. The typical drugs chosen are: trimethoprim-sulfamethoxazole (Bactrim ), nitrofurantoin (Macrobid ), ciprofloxacin (Cipro ) or levofloxacin (Levaquin ). In men, the infection may involve your prostate gland and treatment is usually given for at least 7days. Your symptoms should begin to resolve within one day after starting treatment. It is important to take the full course of antibiotics to completely eliminate the infection. If your symptoms persist for more than two or three days after starting treatment, call your healthcare provider. If needed, you can take a prescription medication that numbs the bladder and urethra (phenazopyridine [Pyridium ]) to reduce the burning pain of some UTIs. A similar medication is available without aprescription (eg, Uristat). Both medications change the color of the urine (usually blue or orange)and can interfere with laboratory testing. You should not take these medications for more than 48 hours due to the risk of side effects. These medications do not treat the infection and must be takenalong with an antibiotic. Some providers recommend drinking more fluids while treating bladder infections to help flush bacteria from the bladder. Others believe that drinking more fluids may dilute the antibiotic in the bladder and make the medication less effective. No studies have been performed to address this issue. There are also no good studies on the effectiveness of cranberry juice for treating a bladder infection; we do not recommend using cranberry juice to treat bladder infections. Follow-up care -- Follow-up testing is not needed in healthy, young men or women with a bladder infection if symptoms resolve. women are usually asked to have a repeat urine culture one to two weeks after treatment has ended to make sure the bacteria are no longer in the urine. RECURRENT BLADDER INFECTIONS Bladder infections versus other causes -- Some adults, especially women, develop bladder infectionsfrequently. In this case, it is important to confirm that your symptoms (eg, pain or burning, frequency, and urgency) are caused by a bladder infection. Symptoms are usually similar from one infection to another. The best way to confirm an infection is to have a urine culture. If your urine culture is negative for infection, other causes of pain, burning, and frequency should be investigated. There is no reason to take antibiotics if your urine culture is negative. Need for further testing -- If you continue to develop bladder infections, you may require further testing. If you continue to notice blood in your urine after your bladder infection has cleared, you should have further testing. Preventing recurrent UTIs -- Women with recurrent urinary tract infections may be advised to take steps to prevent bladder infections, including one or more of the following: Changes in control -- Women who develop frequent bladder infections and use spermicides, particularly those who also use a diaphragm, may be encouraged to use an alternate method of control. Cranberry products -- Taking cranberry juice or cranberry tablets has been promoted as one way to help prevent frequent bladder infections. However, this has not been proven. Drinking more fluid and urinating after intercourse -- Although studies have not proven that drinking more fluids or urinating soon after intercourse can prevent infection, some healthcare providers recommend these measures since they are not harmful. Drinking more fluid may help to wash out bacteria that enter the bladder. Postmenopausal women -- Postmenopausal women who develop recurrent bladder infections may benefit from using vaginal estrogen. Vaginal estrogen is available in a flexible ring that is worn in the vagina for three months (eg, Estring ), a small tablet (Vagifem ), or a cream (eg, Premarin or Estrace ). Vaginal estrogen is discussed in more detail in a separate topic review. Antibiotics -- A preventive antibiotic treatment may be recommended if you repeatedly develop bladder infections and have not responded to other preventive measures. Antibiotics are highly effective in preventing recurrent bladder infections and can be taken in several different ways. Preventive antibiotic -- You can take a low dose of an antibiotic once per day or three times per week for six months to several years. Antibiotics following intercourse -- In women who develop urinary tract infections after sex, taking a single low dose antibiotic after intercourse can help to prevent bladder infections. Self-treatment -- A plan to begin antibiotics at the first sign of a bladder infection may be recommended in some situations. Before starting this regimen, it is important that you have had testing (urine cultures) to confirm that your symptoms are caused by a bladder infection; some people have symptoms of a bladder infection but do not actually have an infection. [facility]21 NoteConsultation has been requested by: Valentina Waddell* / Dr. Kaylee Chiu EDC: Estimated Date of Delivery: 10/24/20 Gestational Age: 16w5d Reason for Consult: abnormal screening NIPT for sex chromosomes. History: (Detailed history is noted in the genetic counselor's note) - complicated by BMI 41. AMA. FHx cleft lip / palate. Imaging: Normal (limited) early anatomy assessment 16w5d. Please refer to the ultrasound report for full details. Genetic Counseling Summary I discussed with the patient the following issues: 1. Noninvasive versus invasive methods for detection of aneuploidy 2. Follow up ultrasound examinations as scheduled 3. Recommend detailed anatomy at [facility] in 4 weeks. Recommend monthly growth assessments at/after 24 weeks. She expressed understanding of the above information. Obesity: The patient has a pre- BMI of 41, which is Morbidly Obese Obesity increases the risk of many complications including spontaneous miscarriage, congenital anomalies (even without comorbid diabetes mellitus), macrosomia, gestational and type 2 diabetes, hypertension and preeclampsia, stillbirth, and delivery. Tate weight gain for this patient in this is between 11-20 pounds. Similarly, an early GCT should be performed with early labs and again at the time of standard GCT testing if initially negative screen. With a BMI > 35, growth assessment is recommended at 36 weeks and NST/BPP weekly at 36 weeks. Should she require a for delivery and her BMI is > 40, post-operative thromboprophylaxis with Lovenox 40 mg SC daily during the hospitalization is recommended. Follow Up Recommendations: Treatment Center Plan of Care Diagnosis: Cell free DNA aneuploidy screening results were reported as high risk for triploidy, trisomy 18, or trisomy 13 due to a low fraction; Normal limited anatomy. Declined invasive testing. Plan: 1. Continued obstetrical care with her primary vice president mission integration is recommended. 2. Completion of the evaluation of anatomy is recommended at 20 weeks gestation. This is planned with the Treatment Center. 3. Beginning at viability, follow up q4 weeks to evaluate biometric parameters and anatomy. These are planned with the Treatment Center. 4. echocardiogram is recommended and will be arranged. 5. Consider surveillance given cell free DNA screening results and the potential for placental mosaicism or other abnormality. 6. Delivery is appropriate at your local institution with follow up as indicated. 7. Mode and timing of delivery are based on the usual obstetrical indications. 8. Reinforcing Bar Setter at delivery to evaluate for nursery placement and to determine if additional evaluations are recommended. 9. testing (eg. karyotype with mosaicism studies) as clinically indicated. If needed, please send 3-5cc in green top [sodium heparin] tube for Chromosome Analysis, Blood (Little1LZ KARYO) to [facility]. 10. consultation with Medical Genetics as indicated. 11. Additional follow up as clinically indicated. The total patient time of the visit was 15 minutes, of which greater than 50% of the time was spent counseling and coordinating care. Discussion topics are listed above. Rissa Gipson MD Maternal- Medicine [facility]07-14-2017 History of Past illness Narrative* Problem Noted Date Resolved Date Gallstone 11/19/2016 12/09/2016 Overview: 11/19/16 - Patient seen ED for gallstones, doing better with diet - KJ Bleeding in early 11/04/2016 0807/2016 Overview: 11/04/2016Patient was seen at [facility] E.R. with bleeding in on 10/16/2016. She denies any bleeding since 10/19 and no pain since E.R. visit. Rising quantitative HCGs at hospital (see phone note 10/18). Ultrasound ordered by Dr Kat and scheduled 11/05. TKRN Obesity in 11/04/2016 11/19/2016 Overview: 11/04/2016Patient is obese . Will plan GCT @ [facility]. TKRN Family history of cleft lip and palate 7 12/09/2016 Overview: 11/04/2016 FOB's 1st cousin and aunt with cleft lip and palate. Patient declines aneuploidy screening . TKRN Supervision of normal first 07/05/2014 02/11/2015 Rh negative state in antepartum period 12/09/2016 Overview: 11/04/2016Patient is RH negative. She is a Rhogam candidate.TKRN documented as of this encounter (statuses as of 01/12/2022) [facility] History of Past illness Narrative* Problem Noted Date Diagnosed Date Resolved Date Gallstone 11/19/2016 12/09/2016 Overview: 11/19/16 - Patient seen ED for gallstones, doing better with diet - KJ Bleeding in early 11/04/2016 12/09/2016 Overview: 11/04/2016Patient was seen at [facility] E.R. with bleeding in on 10/16/2016. She denies any bleeding since 10/19 and no pain since E.R. visit. Rising quantitative HCGs at hospital (see phone note 10/18). Ultrasound ordered by Dr Kat and scheduled 11/05. TKRN Obesity in 11/04/2016 017 Overview: 11/04/2016Patient is obese . Will plan GCT @ [facility]. TKRN Family history of cleft lip and palate 11/04/2016 12/09/2016 Overview: 11/04/2016 FOB's 1st cousin and aunt with cleft lip and palate. Patient declines aneuploidy screening . TKRN Supervision of normal first 07/05/2014 02/11/2015 Rh negative state in antepartum period 06/10/2014 12/09/2016 Overview: 11/04/2016Patient is RH negative. She is a Rhogam candidate.TKRN documented as of this encounter (statuses as of 06/05/2023) [facility] History of Past illness Narrative* Problem Noted Date Diagnosed Date Resolved Date Gallstone 11/19/2016 12/09/2016 Overview: 11/19/16 - Patient seen ED for gallstones, doing better with diet - KJ Bleeding in early 11/04/2016 12/09/2016 Overview: 11/04/2016Patient was seen at [facility] E.R. with bleeding in on 10/16/2016. She denies any bleeding since 10/19 and no pain since E.R. visit. Rising quantitative HCGs at hospital (see phone note 10/18). Ultrasound ordered by Dr Kat and scheduled 11/05. TKRN Obesity in 11/04/2016 017 Overview: 11/04/2016Patient is obese . Will plan GCT @ [facility]. TKRN Family history of cleft lip and palate 11/04/2016 12/09/2016 Overview: 11/04/2016 FOB's 1st cousin and aunt with cleft lip and palate. Patient declines aneuploidy screening . TKRN Supervision of normal first 07/05/2014 02/11/2015 Rh negative state in antepartum period 06/10/2014 12/09/2016 Overview: 11/04/2016Patient is RH negative. She is a Rhogam candidate.TKRN documented as of this encounter (statuses as of 07/28/2023) [facility] + [facility] note Future Appointments [facility] Evaluation note* Diagnosis Onset Date Resolution Status BMI 45.0-49.9, adult acute [id number] acute (spontaneous vaginal delivery) acute Encounter for routine gynecological examination noneactive [facility] Work Phone: Evaluation note* Diagnosis Urinary frequency- Primary [facility] this encounter [facility]* Diagnosis Onset Date Resolution Status BMI 45.0-49.9, adult acute [id number] acute BMI 45.0-49.9, adult acute [id number] acute Genetic testing of female ac romi Low vitamin D level acute [facility] Work Phone: Evaluation note* Diagnosis Onset Date Resolution Status BMI 45.0-49.9, adult acute [id number] acute Genetic testing of female ac romi Low vitamin D level acute BMI 45.0-49.9, adult acute [id number] acute Low vitamin D level acute Migraine headache acute BMI 45.0-49.9, adult acute [id number] acute Low vitamin D level acute Metabolic syndrome acute Migraine headache acute [facility] Work Phone: Evaluation note* Diagnosis Onset Date Resolution Status Low vitamin D level acute Migraine headache acute BMI 45.0-49.9, adult resolve d Low vitamin D level acute Metabolic syndrome acute Migraine headache acute BMI 45.0-49.9, adult resolve d Depression acute Hypothyroid acute Low vitamin D level acute Metabolic syndrome acute Migraine headache acute Morbid obesity with BMI of 45.0-49.9, adult acute Other obesity acute [facility] Work Phone: Evaluation note* Diagnosis Onset Date Resolution Status Low vitamin D level acute Metabolic syndrome acute Migraine headache acute BMI 45.0-49.9, adult resolve d Depression acute Hypothyroid acute Low vitamin D level acute Metabolic syndrome acute Migraine headache acute Morbid obesity with BMI of 45.0-49.9, adult acute Other obesity acute Depression acute Hypothyroid acute Low vitamin D level acute Metabolic syndrome acute Migraine headache acute Morbid obesity with BMI of 45.0-49.9, adult acute Other obesity acute [facility] Work Phone: Evaluation note* Diagnosis Onset Date Resolution Status Low vitamin D level acute Metabolic syndrome acute Migraine headache acute BMI 45.0-49.9, adult resolve d Depression acute Low vitamin D level acute Metabolic syndrome acute Migraine headache acute Morbid obesity with BMI of 45.0-49.9, adult acute Other obesity acute Hypothyroid chronic Depression acute Low vitamin D level acute Metabolic syndrome acute Migraine headache acute Morbid obesity with BMI of 45.0-49.9, adult acute Other obesity acute Hypothyroid chronic Morbid obesity with BMI of 45.0-49.9, adult acute Hypothyroid chronic Well woman exam with routine gynecological exam acute [facility] Work Phone: Evaluation note* Diagnosis Upper respiratory tract infection, unspecified type- Primary documented in this encounter [facility] note* Diagnosis Onset Date Resolution Status Neck pain acute Hypothyroid chronic [facility] Work Phone: Evaluation note* Diagnosis Bacterial sinusitis- Primary Unspecified sinusitis (chronic) documented in this encounter [facility] note* Diagnosis Acute cough- Primary Bacterial sinusitis Unspecified sinusitis (chronic) documented in this encounter [facility] note* Diagnosis Acute cough- Primary URI, acute Acute upper respiratory infections of unspecified site Acute cough documented in this encounter [facility] note* Diagnosis Acute cough [facility] N[facility] No data available for this section [facility] Discharge instructions No data available for this section [facility] Progress note No data available for this section [facility] Reason for referral (narrative)No reason for referral information availableWOhio[facility] Work Phone: Summary Purpose Family History No Family History Records Found Relationship Condition Age at Onset Recorded Date/T josselyn father Atrial fibrillation Unknown mother Malignant neoplasm of breast Unknown grandmother Malignant neoplasm of ovary Unknown Malignant neoplasm of colon Unknown Arthritis Unknown grandfather Diabetes mellitus Unknown Advance Directives No Advanced Directives Records Found Advance Directive Response Recorded Date/ Time Living Will No October 04, 2020 8 :13am Power of Senior Production Supervisor No October 04, 2020 8:13am Advance Directive Response Recorded Date/ Time Living Will No June 14 1:34pm Power of Senior Production Supervisor No June 14, 2022 1:34pm Advance Directive Response Recorded Date/ Time Living Will No August 17, 2022 11:08am Power of Senior Production Supervisor No August 17 11:08am Advance Directive Response Recorded Date/ Time Living Will No August 17, 2022 10:08am Power of Senior Production Supervisor No August 17 10:08am Chief Complaint and Reason for Visit 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9, adult [id number] Low vitamin D level Migraine headache BMI 45.0-49.9, adult [id number] Low vitamin D level Metabolic syndrome Migraine headache Chief Complaint 1 MO FU 1 mo fu ABN THYROID LEVEL weight mgmt/Hypthyroid follow up Reason for Visit Low vitamin D level Migraine headache BMI 45.0-49.9, adult Low vitamin D level Metabolic syndrome Migraine headache BMI 45.0-49.9, adult Depression Hypothyroid Low vitamin D level Metabolic syndrome Migraine headache Morbid obesity with BMI of 45.0-49.9, adult Other obesity Chief Complaint 1 mo fu ABN THYROID LEVEL weight mgmt/Hypthyroid follow up 1 MO F/U Reason for Visit Low vitamin D level Metabolic syndrome Migraine headache BMI 45.0-49.9, adult Depression Hypothyroid Low vitamin D level Metabolic syndrome Migraine headache Morbid obesity with BMI of 45.0-49.9, adult Other obesity Depression Hypothyroid Low vitamin D level Metabolic syndrome Migraine headache Morbid obesity with BMI of 45.0-49.9, adult Other obesity Chief Complaint 1 mo fu ABN THYROID LEVEL weight mgmt/Hypthyroid follow up 1 MO F/U Thyroid Issues 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) due for weight/BP check for med ENCOUNTER FOR SCREENING FOR MALIGNANT NEOPLASM OF Reason for Visit Low vitamin D level Metabolic syndrome Migraine headache BMI 45.0-49.9, adult Depression Low vitamin D level Metabolic syndrome Migraine headache Morbid obesity with BMI of 45.0-49.9, adult Other obesity Hypothyroid Depression Low vitamin D level Metabolic syndrome Migraine headache Morbid obesity with BMI of 45.0-49.9, adult Other obesity Hypothyroid Morbid obesity with BMI of 45.0-49.9, adult Hypothyroid Well woman exam with routine gynecological exam Chief Complaint 2 M FU Reason for Visit Neck pain Hypothyroid Chief Complaint Admit Date ABN EKG (NARCISA) May 30, 2024 9:44am 14 M FU August 23, 2024 10: 19am Reason for Visit Admit Date Abnormal EKG May 30, 2024 9 :44am Hypothyroid August 23, 2024 10: 19am Low vitamin D level August 23, 2024 10: 19am Thyroid nodule August 23, 2024 10: 19am Chief Complaint Admit Date ABN EKG (MENDOZAANTHONY) May 30, 2024 9:44am 14 M FU August 23, 2024 10: 19am COMPARE 1.1 CM TR 4 NODULE August 28, 12:54pm Additional Source Comments INFORMATION SOURCE (unrecogn ized section and content) DATE CREATED AUTHOR 10/05/2020 [facility] DATE CREATED AUTHOR AUTHOR'S ORGANIZ ATION 07/27/2022 [facility] ([place]) DATE CREATED AUTHOR AUTHOR'S ORGANIZ ATION 06/05/2023 [facility] DATE CREATED AUTHOR AUTHOR'S ORGANIZ ATION 06/14/2024 [facility] DATE CREATED AUTHOR AUTHOR'S ORGANIZ ATION 09/04/2024 [facility] Goals (unrecognized section and content) Goals may be documented in a n alternate sectionGoals may be documented in an alternate section No data available for this section No data available for this sectionGoals may be documented in an alternate sectionGoals may be documented in an alternate sectionGoals may be documented in an alternate sectionGoals may be documented in an alternate sectionGoals may be documented in an alternate sectionGoals may be documented in an alternate sectionGoals may be documented in an alternate sectionGoals may be documented in an alternate section Source Comments (unrecognize d section and content) In the event this informatio n is protected by the Federal Confidentiality of Alcohol and Drug Abuse Patient Records regulations: The Federal rules restrict any use of the information to criminally investigate or prosecute any alcohol or drug abuse patient.[facility] FoundationIn the event this information is protected by the Federal Confidentiality of Alcohol and Drug Abuse Patient Records regulations: The Federal rules restrict any use of the information to criminally investigate or prosecute any alcohol or drug abuse patient.[facility] FoundationIn the event this information is protected by the Federal Confidentiality of Alcohol and Drug Abuse Patient Records regulations: The Federal rules restrict any use of the information to criminally investigate or prosecute any alcohol or drug abuse patient.[facility] FoundationIn the event this information is protected by the Federal Confidentiality of Alcohol and Drug Abuse Patient Records regulations: The Federal rules restrict any use of the information to criminally investigate or prosecute any alcohol or drug abuse patient.[facility] FoundationIn the event this information is protected by the Federal Confidentiality of Alcohol and Drug Abuse Patient Records regulations: The Federal rules restrict any use of the information to criminally investigate or prosecute any alcohol or drug abuse patient.[facility] FoundationIn the event this information is protected by the Federal Confidentiality of Alcohol and Drug Abuse Patient Records regulations: The Federal rules restrict any use of the information to criminally investigate or prosecute any alcohol or drug abuse patient.[facility] Reason for Visit (unrecogniz ed section and content) Reason Comments Urinary Frequency Frequency, pressure and lower back pain x 5 days Reason Comments Cough Congestion x 2 weeks Reason Comments Sore Throat Cough, bilateral ear s congested, fever, body aches x 1 month Reason Comments Cough Head and chest conge stion x2 weeks, Covid + 01/03 Reason Comments Chest Congestion cough x 1 week Care Teams (unrecognized sec tion and content) Team Status: Active Member Role Status Dates No Primary Care Physician Family Provider Active Dr. Madelyn Pham MD Primary Care Provider Active Team Status: Inactive Member Role Status Dates Dr. Madelyn Pham MD Primary Care Provider, Referri ng Provider Active Dr. Kaylee Chiu MD Attending Provider Active Team Status: Inactive Member Role Status Dates Dr. Madelyn Pham MD Primary Care Provider, Referri ng Provider Active Katey Robertson INTERNET SALES REPRESENTATIVE, INTERNET SALES REPRESENTATIVE-C Attending Provider Active Team Status: Inactive Member Role Status Dates Dr. Madelyn Pham MD Primary Care Provider Active Dr. Kaylee Chiu MD Attending Provider, Referr ing Provider Active Team Status: Active Member Role Status Dates Dr. Madelyn Pham MD Primary Care Provider Active Dr. Kaylee Chiu MD Attending Provider, Referr ing Provider Active Team Status: Inactive Member Role Status Dates Dr. Madelyn Pham MD Primary Care Provider Active Dr. Dereje Hill MD Attending Provider, Referring Provi dakota Active Team Status: Active Member Role Status Dates No Primary Care Physician Family Provider Active Team Status: Inactive Member Role Status Dates Dr. Madelyn Pham MD Referring Provider Active Dr. Rissa Benton DO Attending Provider Activ e Team Status: Inactive Member Role Status Dates Dr. Madelyn Pham MD Referring Provider Active Dr. Dereje Hill MD Attending Provider Active Team Status: Inactive Member Role Status Dates Dr. Rissa Benton DO Attending Provider, Refe rring Provider Active Team Status: Active Member Role Status Dates No Primary Care Physician Family Provider Active No Primary Care Physician Primary Care Provider Active Team Status: Inactive Member Role Status Dates No Primary Care Physician Primary Care Provider, Refer ring Provider Active Dr. Dereje Hill MD Attending Provider Active Team Status: Inactive Member Role Status Dates No Primary Care Physician Primary Care Provider Active Dr. Dereje Hill MD Attending Provider, Referring Provi dakota Active Team Status: Inactive Member Role Status Dates No Primary Care Physician Primary Care Provider Active DEANA Lu Attending Provider, Referring Pr ovider Active Dr. Dereje Hill MD Other Provider Active Team Status: Active Member Role Status Dates No Primary Care Physician Primary Care Provider Active Team Status: Inactive Member Role Status Dates No Primary Care Physician Primary Care Provider Active Start: May 30, 2024 End: May 30, 2024 No Primary Care Physician Referring Provider Active Start: May 30, 2024 End: May 30, 2024 Dr. Blas Choe MD Attending Provider Active S tart: May 30, 2024 End: May 30, 2024 Team Status: Inactive Member Role Status Dates No Primary Care Physician Primary Care Provider Active Start: August 23, 2024 End: August 23, 2024 No Primary Care Physician Referring Provider Active Start: August 23, 2024 End: August 23, 2024 Dr. Dereje Hill MD Attending Provider Active Sta rt: August 23, 2024 End: August 23, 2024 Team Status: Inactive Member Role Status Dates No Primary Care Physician Primary Care Provider Active Start: August 23, 2024 End: August 23, 2024 Dr. Dereje Hill MD Attending Provider Active Sta rt: August 23, 2024 End: August 23, 2024 Team Status: Inactive Member Role Status Dates No Primary Care Physician Primary Care Provider Active Start: August 28, 2024 End: August 28, 2024 Dr. Dereje Hill MD Attending Provider Active Sta rt: August 28, 2024 End: August 28, 2024 Dr. Dereje Hill MD Referring Provider Active Sta rt: August 28, 2024 End: August 28, 2024 Care Team (unrecognized sect ion and content) Care Team Related Persons Name: CAN LEBLANC FOR RECORDS PERTAINING TO PATIENTS WHO ARE OR HAVE BEEN ENROLLED IN A CHEMICAL DEPENDENCY/SUBSTANCEABUSE PROGRAM, SOME INFORMATION MAY BE OMITTED. This clinical summary was aggregated from multiple sources. Caution should be exercised in using it in the provision of clinical care. This summary normalizes information from multiple sources, and as a consequence, information in this document may materially change the coding, format and clinical context of patient data. In addition, data may be omitted in some cases. CLINICAL DECISIONS SHOULD BE BASED ON THE PRIMARY CLINICAL RECORDS. [facility] [employer] provides no warranty or guarantee of the accuracy or completeness of information in this document.
[2025-03-28 16:09] LABS: HPV APTIMA, High Risk Negative (Negative)
== END | disposition home or self-care (01) ==
LOC: LABSPEC 16:07
PROVIDERS: Visit Provider Obstetrics & Gynecology
DX: Z12.4 Encounter for screening for malignant neoplasm of cervix (principal)
CPT/HCPCS: 87624; 88175; G0145

== ENCOUNTER → 2025-03-27 | Outpatient (CLI) | payer BC, SELFPAY ==
[2025-03-27 09:30] LABS: Cholesterol 253 mg/dL (<=200); Low Density Lipoprotein Calc. 179 mg/dL; Triglycerides 150 mg/dL; Very Low Density Lipoprotein 30 mg/dL (5-40); Vitamin D,25 Hydroxy 27.0 ng/mL (30-100); cholesterol:hdl ratio screen 5.42
== END | disposition home or self-care (01) ==
LOC: PAVLAB 08:46
PROVIDERS: Referring Provider Obstetrics & Gynecology; Visit Provider Obstetrics & Gynecology
DX: R79.89 Other specified abnormal findings of blood chemistry (principal); Z13.220 Encounter for screening for lipoid disorders; Z13.1 Encounter for screening for diabetes mellitus
CPT/HCPCS: 36415; 80061; 82306; 83036